=== PATIENT | female | born 1930 | race Caucasian/White ===

== ENCOUNTER 2017-06-19 13:44 | Emergency (ER) | payer OTHER ==
[2017-06-19 13:59] VITALS: BP 107/59; PULSE 69; TEMP 98.1; BMI 27.4
--- NOTE | 2017-06-19 14:16 | PDOC ---
History of Present Illness - General Chief Complaint: Wound Infection Stated Complaint: SENT BY PCP/wound infection Time Seen by Provider: 06/19/17 14:15 - History of Present Illness Initial Comments: 86 year old female wth PMH of Parkinsons, arhtritis, and some sort of badder surgery (for incontinence) presenting from PCP (Dr. Sneed) for "shingles treatment". She was given valacyclovir from another family friend physician yesterday but had nausea and vomiting and wasn't able to keep the medicine. The rash started Thursday afternoon ([facility] confirmed this). They attempted to get in touch with Nedra then went to a family friend physician when that was unsuccessful. Pain better with Aloevera worse with touch of wound. She is at her baseline mental status, denies fevers, chills, abdominal pain, constipation. Granddaughter also at bedside and corroborating story. She admits that the patient has some sort of baseline swallow dysfunction. 06/19/17 15:08 Past History - Past Medical History Allergies/Adverse Reactions: Allergies Allergy/AdvReac Type Severity Reaction Status Date / Time valsartan [From Diovan] Allergy Verified 06/19/17 13:59 Home Medications: Ambulatory Orders Aspirin [ASA -] 81 mg PO DAILY 02/19/15 Carbidopa/Levodopa [Carbidopa-Levo 50-200 Tab SA] 1 each PO TID 02/19/15 Nebivolol HCl [Bystolic] 2.5 mg PO DAILY 02/19/15 Omeprazole [Prilosec] 20 mg PO DAILY 02/19/15 Prednisone [Deltasone -] 2.5 mg PO DAILY 02/19/15 Rivastigmine [Exelon Patch 4.6MG/24 Hours -] 1 each TD DAILY 02/19/15 Levofloxacin [Levaquin -] 250 mg PO DAILY #7 tablet 07/16/16 Maltodextrin/Xanthan Gum [Thicken Up] 1 each PO AC #120 powd.pack 06/19/17 Anemia: No Asthma: No Cancer: No Cardiac Disorders: Yes (CAD) CVA: No COPD: No CHF: No Dementia: Yes Diabetes: No GI Disorders: No Disorders: No HTN: No Hypercholesterolemia: No Liver Disease: No Psychiatric Problems: No Seizures: No Thyroid Disease: No - Surgical History Abdominal Surgery: Yes Appendectomy: Yes Cardiac Surgery: No Cholecystectomy: Yes Lung Surgery: No Neurologic Surgery: No Orthopedic Surgery: No - Immunization History Td Vaccination: No Immunization Up to Date: Yes - Psycho/Social/Smoking Cessation Hx Anxiety: No Suicidal Ideation: No Smoking Status: No Smoking History: Never smoked Have you smoked in the past 12 months: No Number of Cigarettes Smoked Daily: 0 If you are a former smoker, when did you quit?: 40 4ears ago Information on smoking cessation initiated: No Hx Alcohol Use: No Drug/Substance Use Hx: No Substance Use Type: None Hx Substance Use Treatment: No Review of Systems - Review of Systems Able to Perform ROS?: No (demented) *Physical Exam - Vital Signs Last Vital Signs Temp Pulse Resp BP Pulse Ox 98.1 F 69 19 107/59 98 06/19/17 13:57 06/19/17 13:57 06/19/17 13:57 06/19/17 13:57 06/19/17 13:57 - Physical Exam Comments: 06/19/17 15:53 Not cooperative with physical exam. General Appearance: Yes: Other (Sitting contracted and ). No: Appropriately Dressed, Apparent Distress HEENT: positive: EOMI, EVERETT, Other (Dysphagia and couging with water. Was able to tolerate pudding without diffculty.) Respiratory/Chest: positive: Chest Tender (T4-T5 dermatomal distrubtion rash with some pustles with serous fluid drainage without crossing of the midline. No sign of superficial infection.), Lungs Clear, Normal Breath Sounds. negative : Respiratory Distress, Accessory Muscle Use Cardiovascular: positive: Regular Rhythm, Regular Rate, S1, S2. negative: Edema , JVD, Murmur Gastrointestinal/Abdominal: positive: Normal Bowel Sounds, Flat, Soft. negative : Tender Musculoskeletal: positive: Normal Inspection, Other (Appears contracted with ocassional resting tremor) Extremity: positive: Normal Capillary Refill Neurologic: positive: Alert, Other (Clearly dimented.) Medical Decision Making - Medical Decision Making 86 year old with PMH of dementia presenting with physical findings concerning for herpes Zoster. She wasn't tolerating her Valacyclovir given by a family physician but she has some history of dysphagia. She did not appear dry and was ablel to tolerate pudding. Will send home with her own valacylovir prescription and will attempt to prescribe some thickening agent. 06/19/17 16:03 *DC/Admit/Observation/Transfer Diagnosis at time of Disposition: Herpes zoster - Discharge Dispostion Disposition: HOME Condition at time of disposition: Improved Admit: No - Prescriptions Prescriptions: Maltodextrin/Xanthan Gum [Thicken Up] 1 each PO AC #120 powd.pack - Referrals Referrals: Umair Sneed MD [Primary Care Provider] - - Patient Instructions Printed Discharge Instructions: Shingles Additional Instructions: You were seen for shingles. Please take your medications crushed up into apple sauce or pudding. lease see Dr. Sneed in a week. Please return if you have any fevers, chills, nausea, vomiting, or other symptoms. Print Language: SLOVENIAN - Attestations Physician Attestion: 06/19/17 16:11 I, Dr. Grzegorz Erazo, attest that this document has been prepared under my direction and personally reviewed by me in its entirety. I further attest, that it accurately reflects all work, treatment, procedures and medical decision -making performed by me. 06/19/17 16:15
--- NOTE | 2017-06-19 14:49 | PDOC ---
Attending Attestation - Resident Resident Name: Valarie Erazomitchellhari - ED Attending Attestation I have performed the following: I have examined & evaluated the patient, The case was reviewed & discussed with the resident, I agree w/resident's findings & plan, Exceptions are as noted - HPI HPI: 06/19/17 15:53 86y Fsent tot ED by PMD for evaluation of zoster. pt was dx with ion, was given valtrex, but pt had an episode of vomiting after taking the pill. Apparently the pt has problems swalling due to her parkinsons, and sometimes she forgets to swallow while eating. No associated cp, f/c, abd pain. on exam pt in no distress well hydrated +zoster rash approximately T5 pt tolerating oral intake here will have the pt cut her pill in half prior to ingesting return precautions were discussed - Physicial Exam PE: 06/20/17 17:50 see above - Medical Decision Making 06/20/17 17:50 see above
== END 2017-06-19 16:34 | disposition home or self-care (01) ==
LOC: JER 13:44
DX: B02.9 Zoster without complications (principal); F03.90 Unspecified dementia, unspecified severity, without behavioral disturbance, psychotic disturbance, mood disturbance, and anxiety; I25.10 Atherosclerotic heart disease of native coronary artery without angina pectoris; Z87.891 Personal history of nicotine dependence
CPT/HCPCS: 99282-25

== ENCOUNTER 2017-10-16 17:09 | Inpatient (IN) | payer OTHER ==
[2017-10-16 17:15] VITALS: BMI 25.6
[2017-10-16] MEDS ORDERED: SODIUM CHLORIDE 0.9% 1000 ML INFUS.BAG IV STA (17:49)
[2017-10-16] MEDS ORDERED: ACETAMINOPHEN 500 MG TABLET (FP) PO ONE (18:04)
--- NOTE | 2017-10-16 18:11 | PDOC ---
History of Present Illness - General Chief Complaint: Shortness of Breath Stated Complaint: COUGHING/ PCP SENT Time Seen by Provider: 10/16/17 17:41 History Source: Care Provider, Family Exam Limitations: Dementia - History of Present Illness Initial Comments: This is an 86 YOF with h/o Parkinson's, dementia, and frequent trouble swallowing who presents with family and caregiver c/o productive cough for the past 1.5 weeks despite cough syrup use. The family took her to see her PMD Dr. Sneed in his clinic today, and Dr. Sneed reportedly heard breath sounds possibly concerning for PNA, but he did not have an x-ray tech in his office over the weekend and instructed them to bring her here to the ED. The family explains that the patient felt warm to the touch today, but otherwise is acting per her normal baseline (which is nonverbal, minimally interactive). She has not had obvious pain, blood or strange smells on urination. She reportedly had had her pneumococcal vaccination. On [facility] records, her last admission was in 2016 and her last ED visit was in 06/2017. She has not been on any recent antibiotics. Past History - Past Medical History Allergies/Adverse Reactions: Allergies Allergy/AdvReac Type Severity Reaction Status Date / Time valsartan [From Diovan] Allergy Verified 10/16/17 17:15 Home Medications: Ambulatory Orders Aspirin [ASA -] 81 mg PO DAILY 02/19/15 Carbidopa/Levodopa [Carbidopa-Levo 50-200 Tab SA] 1 each PO TID 02/19/15 Nebivolol HCl [Bystolic] 2.5 mg PO DAILY 02/19/15 Omeprazole [Prilosec] 20 mg PO DAILY 02/19/15 Prednisone [Deltasone -] 2.5 mg PO DAILY 02/19/15 Rivastigmine [Exelon Patch 4.6MG/24 Hours -] 1 each TD DAILY 02/19/15 Anemia: No Asthma: No Cancer: No Cardiac Disorders: Yes (CAD) CVA: No COPD: No CHF: No Dementia: Yes Diabetes: No GI Disorders: No Disorders: No HTN: No Hypercholesterolemia: No Liver Disease: No Psychiatric Problems: No Seizures: No Thyroid Disease: No Other medical history: alzheimers, parkinson's - Surgical History Abdominal Surgery: Yes Appendectomy: Yes Cardiac Surgery: No Cholecystectomy: Yes Lung Surgery: No Neurologic Surgery: No Orthopedic Surgery: No - Immunization History Td Vaccination: No Immunization Up to Date: Yes - Suicide/Smoking/Psychosocial Hx Smoking Status: No Smoking History: Never smoked Have you smoked in the past 12 months: No Number of Cigarettes Smoked Daily: 0 If you are a former smoker, when did you quit?: 40 4ears ago Information on smoking cessation initiated: No Hx Alcohol Use: No Drug/Substance Use Hx: No Substance Use Type: None Hx Substance Use Treatment: No Respiratory Specific PMHX - Complaint Specific PMHX Pneumonia: No Review of Systems - Review of Systems Able to Perform ROS?: No (dementia) *Physical Exam - Vital Signs Last Vital Signs Temp Pulse Resp BP Pulse Ox 102.9 F H 96 H 19 142/64 93 L 10/16/17 17:13 10/16/17 17:13 10/16/17 17:13 10/16/17 17:13 10/16/17 17:13 - Physical Exam General Appearance: Yes: Appropriately Dressed, Other (minimally interactive, rarely makes eye contact and nonverbal) HEENT: positive: EOMI, EVERETT, Other (edentulous) Neck: negative: Tender Respiratory/Chest: positive: Crackles (diffuse but worse in right bases). negative: Chest Tender, Respiratory Distress, Wheezing Cardiovascular: positive: Regular Rhythm, Regular Rate. negative: Edema Gastrointestinal/Abdominal: positive: Normal Bowel Sounds, Flat, Soft Musculoskeletal: positive: Normal Inspection (chronic scarring/skin changes to back, no ulcers). negative: CVA Tenderness Extremity: positive: Normal Capillary Refill, Other (arthritic changes bilateral hands/fingers) Integumentary: positive: Dry, Warm Neurologic: positive: Other (moving upper extremities but not lower extremities , constant chewing motion of jaw) ED Treatment Course - LABORATORY CBC & Chemistry Diagram: 10/16/17 18:00 10/16/17 18:00 Medical Decision Making - Medical Decision Making 86 YOF with severe dementia, Parkinson's, wheelchair bound, swallowing difficulties p/w productive cough x1.[address] Sneed from the clinic when he hear RLL crackles concerning for PNA , no CXR in their clinic over weekend. Here in the ED she is febrile, mild tachycardia, mild hypoxia, crackles at bases and very productive cough. DDX IBNLT PNA, bronchitis, sepsis, possible UTI or other source as well. Ordered are CBCD, CMP, lactate, blood cultures, UA cx, CXR. 10/16/17 19:17 Mild WBC elevation but lactate 2.9. *DC/Admit/Observation/Transfer Diagnosis at time of Disposition: Pneumonia Qualifiers: Pneumonia type: due to unspecified organism Laterality: bilateral Lung location : lower lobe of lung Qualified Code(s): J18.9 - Pneumonia, unspecified organism - Discharge Dispostion Condition at time of disposition: Guarded Admit: Yes - Referrals - Patient Instructions - Post Discharge Activity
[2017-10-16 18:21] LABS: BASOPHIL 0.2 % (0-2.0); MCHC 32.2 g/dl (32.0-36.0); MEAN CELL VOLUME 93.2 fl (80-96); MEAN PLT VOLUME 8.2 fl (7.5-11.1); NEUTROPHILS 85.9 % (42.8-82.8); PLATELET COUNT 227 K/MM3 (134-434); RDW 14.5 % (11.6-15.6); WHITE BLOOD COUNT 11.2 K/mm3 (4.0-10.0)
[2017-10-16 18:26] LABS: VENOUS PH 7.38 (7.32-7.42)
[2017-10-16 18:27] LABS: VENOUS BLOOD GAS HCO3 36.4 meq/L (19-25)
[2017-10-16] MEDS ORDERED: ACETAMINOPHEN INJECTION 100 ML IVPB ONE (18:30)
[2017-10-16] MEDS ORDERED: ACETAMINOPHEN 1000 MG/100 ML VIAL (NON FORMULARY) IVPB ONE (18:41)
[2017-10-16 18:44] LABS: INR 1.04 (0.82-1.09); PROTHROMBIN TIME (PATIENT) 11.8 SEC (9.98-11.88)
[2017-10-16 18:46] LABS: ACTIVATED PTT 24.5 SECONDS (26.9-34.4)
[2017-10-16 18:50] LABS: ALBUMIN 3.2 g/dl (3.4-5.0); ANION GAP 7 (8-16); BILIRUBIN,TOTAL 0.3 mg/dL (0.2-1.0); CALCIUM 8.6 mg/dL (8.5-10.1); CO2 35 mmol/L (21-32); CREATININE 1.3 mg/dL (0.55-1.02); GLUCOSE,RANDOM 243 mg/dL (74-106); SGOT/AST 14 U/L (15-37); SGPT/ALT 11 U/L (12-78); TOT PROT 6.9 g/dl (6.4-8.2)
[2017-10-16 18:52] LABS: ALK PHOS 85 U/L (45-117); CPK 22 IU/L (26-192); TROPONIN I 0.02 ng/ml (0.00-0.05)
[2017-10-16] MEDS ORDERED: PIPERACILLIN/TAZOB 4.5 GM/100 ML PRE-DOCKED IVPB ONE (19:19)
[2017-10-16] MEDS ORDERED: AMPICILLIN NA/SULBACTAM NA 3 GM in SODIUM CHLORIDE 100 ML IVPB ONE (20:07)
[2017-10-16 20:15] LABS: URINE APPEARANCE CLOUDY; URINE BILIRUBIN NEGATIVE (NEGATIVE); URINE BLOOD 1+ (NEGATIVE); URINE COLOR YELLOW; URINE GLUCOSE (UA) NEGATIVE (NEGATIVE); URINE KETONE TRACE (NEGATIVE); URINE NITRITE NEGATIVE (NEGATIVE); URINE PROTEIN NEGATIVE (NEGATIVE); URINE UROBILINOGEN NEGATIVE mg/dL (0.2-1.0)
[2017-10-16] MEDS ORDERED: PIPERACILLIN/TAZOB 4.5 GM 4.5 GM/100 ML BAG IVPB ONE (20:24)
--- NOTE | 2017-10-16 20:41 | PDOC ---
Attending Attestation - HPI HPI: 10/16/17 20:58 The patient is a 86 year old female, accompanied by family, with a significant past medical history of Parkinsons, dementia, dysphagia, who presents to the emergency department with productive cough for approx. 1.5 weeks. The patients family reports they visited the PCP Dr. Sneed this morning who advised the patient visit the ER for evaluation of lung sounds. The patient's family reports the patient has been taking cough syrup for the cough without relief and has been noticeably warm to touch. PCP: Dr. Sneed Documentation prepared by Francisco Kraus, acting as lpn or medical assistant for Seth Cm MD. - Physicial Exam PE: 10/16/17 20:59 Vitals: Triage Vital signs reviewed General Appearance: no acute distress, baseline non verbal dementia Chest Wall: Nontender Cardiac: Regular rate and rhythym, no murmurs, no rubs, no gallops Lungs: +Diffuse crackles. Abdomen: Soft, non distended, normal bowel sounds, non tender to palpation <Francisco Kraus - Last Filed: 10/16/17 22:27> - Resident Resident Name: Jaqui Ward - ED Attending Attestation I have performed the following: I have examined & evaluated the patient, The case was reviewed & discussed with the resident, I agree w/resident's findings & plan, Exceptions are as noted - Medical Decision Making 86 years old history and physical examination concerning for pneumonia possible sepsis. Labs chest x-ray consistent with pneumonia. Given her elevated lactic broad- spectrum Antibiotics ordered. 30 mL/kg IV fluids ordered Hemodynamically patient stable 10/16/17 21:02 <Seth Cm - Last Filed: 10/17/17 02:08>
[2017-10-16 21:04] LABS: URINE BACTERIA RARE /hpf (NONE SEEN); URINE MUCUS RARE; URINE RBC 20; URINE WBC 68
[2017-10-16] MEDS ORDERED: ACETAMINOPHEN 650 MG SUPP.RECT PR PRN (21:17)
[2017-10-16] MEDS ORDERED: SODIUM CHLORIDE 1,000 ML IV STA ×2 (21:23)
[2017-10-16] MEDS ORDERED: ONDANSETRON 4 MG/2 ML VIAL IVPUSH ONE (21:26)
[2017-10-17] MEDS: methylPREDNISolone NA SUCC 40 MG/1 ML VIAL IVPUSH SCH ×3 (01:21→10:11)
[2017-10-17] MEDS: AMPICILLIN NA/SULBACTAM NA 3 GM in SODIUM CHLORIDE 100 ML IVPB SCH ×4 (03:53→21:09)
[2017-10-17 06:33] LABS: BASOPHIL 0.1 % (0-2.0); MCH 30.1 pg (25.7-33.7); MCHC 32.5 g/dl (32.0-36.0); MEAN CELL VOLUME 92.4 fl (80-96); MEAN PLT VOLUME 7.9 fl (7.5-11.1); PLATELET COUNT 178 K/MM3 (134-434); RDW 14.2 % (11.6-15.6)
[2017-10-17 07:10] LABS: ANION GAP 9 (8-16); CALCIUM 7.9 mg/dL (8.5-10.1); CO2 29 mmol/L (21-32); CREATININE 1.3 mg/dL (0.55-1.02); GLUCOSE,RANDOM 152 mg/dL (74-106)
[2017-10-17] MEDS ORDERED: PT OWN MED DRAWER 7, Y5N ONE (08:53)
[2017-10-17] MEDS: DOXYCYCLINE INJECTION 100 MG in DEXTROSE 5%-WATER - 100 ML IVPB SCH ×4 (10:09→21:54)
[2017-10-17] MEDS: HEPARIN NA (PORCINE) 5,000 UNITS/ML 1ML VIAL SQ SCH ×3 (10:11→21:13)
[2017-10-17] MEDS: ASPIRIN 81 MG CHEWABLE TABLETS PO SCH (10:12)
[2017-10-17] MEDS: PANTOPRAZOLE SODIUM 40 MG VIAL IVPUSH SCH (10:12)
[2017-10-17] MEDS: NEBIVOLOL 2.5 MG TABLET (FP) PO SCH (10:12)
[2017-10-17] MEDS: RIVASTIGMINE 4.6 MG/24 HOURS TRANSDERMAL PATCH TD SCH (11:55)
--- NOTE | 2017-10-17 12:32 | HP ---
Admitting History and Physical - Primary Care Physician PCP: Umair Sneed - Admission Chief Complaint: Cough and chest congestion History of Present Illness: 86 yrs olds F lives at home with family bed bound, oriented to self, non communicative H/O Parkinsonism, Dementia, HTN 1 wk ago recived Flu and Pneumonia shot has been feeling mucoid sputum, yesterday PMD noticed chest siugns referred to Ed for evaluation, on arrival to Ed CXR shows B/L Basa l infiltrates with chest signs admitted for further evaluation, as per daughter, patient is on Puree diet, no chocking but holds food in the mouth. no doarrhea, SOB, low grdae fever documented at home. 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: Yes: Alzheimer's, Parkinson's Cardiovascular: Yes: Aortic Insufficiency (moderate to severe), CHF, HTN Pulmonary: Yes: COPD (interstitial lung disease) ...: No Heme/Onc: Yes: Anemia, B12 Deficiency, Other (DVT) Endocrine: Yes: Diabetes Mellitus - Past Surgical History Past Surgical History: Yes: Appendectomy, Cholecystectomy - Smoking History Smoking history: Never smoked Have you smoked in the past 12 months: No Aproximately how many cigarettes per day: 0 If you are a former smoker, when did you quit?: 40 4ears ago - Alcohol/Substance Use Hx Alcohol Use: No Home Medications - Allergies Allergies/Adverse Reactions: Allergies Allergy/AdvReac Type Severity Reaction Status Date / Time valsartan [From Diovan] Allergy Verified 10/16/17 17:15 - Home Medications Home Medications: Ambulatory Orders Aspirin [ASA -] 81 mg PO DAILY 02/19/15 Carbidopa/Levodopa [Carbidopa-Levo 50-200 Tab SA] 1 each PO TID 02/19/15 Nebivolol HCl [Bystolic] 2.5 mg PO DAILY 02/19/15 Omeprazole [Prilosec] 20 mg PO DAILY 02/19/15 Prednisone [Deltasone -] 2.5 mg PO DAILY 02/19/15 Rivastigmine [Exelon Patch 4.6MG/24 Hours -] 1 each TD DAILY 02/19/15 Family Disease History - Family Disease History Family History: Unremarkable Physical Examination Vital Signs: Vital Signs Temperature 98.6 F 10/17/17 10:00 Pulse Rate 62 10/17/17 10:00 Respiratory Rate 18 10/17/17 10:00 Blood Pressure 123/80 10/17/17 10:00 O2 Sat by Pulse Oximetry (%) 100 10/17/17 10:00 Elderly F Oriented to Self not in distress HEENT: Mm moist, no anemia, PERRLA, EOMI NECK; No JVD No Bruit, Thyroid Central CHEST: B/L Basal crepts Left > Rt CVS: S1S2 R no m/g/r ABD: No distention, non tender BS + EXT: Trace sussy afeet, no calf tenderness, Pulses + [employer] MANAGER: oriented to Self , moving all extremities Labs: CBC, BMP 10/17/17 05:00 10/17/17 05:00 Laboratory Results - last 24 hr 10/16/17 10/16/17 10/16/17 18:00 18:00 18:00 WBC 11.2 H RBC 4.48 D Hgb 13.5 D Hct 41.8 D MCV 93.2 MCH 30.0 MCHC 32.2 RDW 14.5 Plt Count 227 MPV 8.2 Neutrophils % 85.9 H D Lymphocytes % 6.7 L D Monocytes % 7.2 Eosinophils % 0.0 D Basophils % 0.2 PT with INR 11.80 INR 1.04 PTT (Actin FS) 24.5 L VBG pH 7.38 POC VBG pCO2 62.7 H* POC VBG pO2 25.5 L Mixed VBG HCO3 36.4 H Sodium Potassium Chloride Carbon Dioxide Anion Gap BUN Creatinine Creat Clearance w eGFR Random Glucose Hemoglobin A1c % Lactic Acid Calcium Total Bilirubin AST ALT Alkaline Phosphatase Creatine Kinase Troponin I Total Protein Albumin Urine Color Urine Appearance Urine pH Ur Specific [place] Urine Protein Urine Glucose (UA) Urine Ketones Urine Blood Urine Nitrite Urine Bilirubin Urine Urobilinogen Urine WBC (Auto) Urine RBC (Auto) Ur Epithelial Cells Urine Bacteria Urine Mucus Blood Type Antibody Screen 10/16/17 10/16/17 10/16/17 18:00 18:00 18:00 WBC RBC Hgb Hct MCV MCH MCHC RDW Plt Count MPV Neutrophils % Lymphocytes % Monocytes % Eosinophils % Basophils % PT with INR INR PTT (Actin FS) VBG pH POC VBG pCO2 POC VBG pO2 Mixed VBG HCO3 Sodium 139 Potassium 4.1 Chloride 97 L D Carbon Dioxide 35 H D Anion Gap 7 L BUN 28 H D Creatinine 1.3 H D Creat Clearance w eGFR 38.75 Random Glucose 243 H D Hemoglobin A1c % Lactic Acid 2.9 H* Calcium 8.6 Total Bilirubin 0.3 D AST 14 L ALT 11 L Alkaline Phosphatase 85 D Creatine Kinase 22 L Troponin I 0.02 Total Protein 6.9 D Albumin 3.2 L D Urine Color Urine Appearance Urine pH Ur Specific [place] Urine Protein Urine Glucose (UA) Urine Ketones Urine Blood Urine Nitrite Urine Bilirubin Urine Urobilinogen Urine WBC (Auto) Urine RBC (Auto) Ur Epithelial Cells Urine Bacteria Urine Mucus Blood Type B POSITIVE Antibody Screen Negative 10/16/17 10/16/17 10/17/17 19:52 21:38 05:00 WBC 12.0 H RBC 3.73 Hgb 11.2 D Hct 34.4 D MCV 92.4 MCH 30.1 MCHC 32.5 RDW 14.2 Plt Count 178 D MPV 7.9 Neutrophils % 91.0 H Lymphocytes % 5.4 L Monocytes % 3.5 L Eosinophils % 0.0 Basophils % 0.1 PT with INR INR PTT (Actin FS) VBG pH POC VBG pCO2 POC VBG pO2 Mixed VBG HCO3 Sodium Potassium Chloride Carbon Dioxide Anion Gap BUN Creatinine Creat Clearance w eGFR Random Glucose Hemoglobin A1c % Lactic Acid 1.3 Calcium Total Bilirubin AST ALT Alkaline Phosphatase Creatine Kinase Troponin I Total Protein Albumin Urine Color Yellow Urine Appearance Cloudy Urine pH 6.0 Ur Specific [place] 1.011 Urine Protein Negative Urine Glucose (UA) Negative Urine Ketones Trace H Urine Blood 1+ H Urine Nitrite Negative Urine Bilirubin Negative Urine Urobilinogen Negative Urine WBC (Auto) 68 Urine RBC (Auto) 20 Ur Epithelial Cells Rare Urine Bacteria Rare Urine Mucus Rare Blood Type Antibody Screen Imaging - Results X-ray: Report Reviewed (Poor inspiratory efforts) EKG: Report Reviewed (No acute St T chnages) Problem List - Problems (1) Pneumonia Assessment/Plan: Present with cough, expectoration, Pulmonary sign low grade fever elevated TWBC and Lactic acid possibality of aspiration / atypical pneumonai on IV Unasyn and Doixycycline improving O2 saturation is well not in distress will F/ U U Legionella and sputum aand blood culture Code(s): J18.9 - PNEUMONIA, UNSPECIFIED ORGANISM Qualifiers: Pneumonia type: due to unspecified organism Laterality: bilateral Lung location: lower lobe of lung Qualified Code(s): J18.9 - Pneumonia, unspecified organism (2) UTI (urinary tract infection) Assessment/Plan: U WBC + low grade fever F/U urine culture on IV anbx Code(s): N39.0 - URINARY TRACT INFECTION, SITE NOT SPECIFIED (3) Parkinson's disease dementia Assessment/Plan: Cont home medication Code(s): G20 - PARKINSON'S DISEASE; F02.80 - DEMENTIA IN OTH DISEASES CLASSD ELSWHR W/O BEHAVRL DISTURB (4) Swallowing difficulty Assessment/Plan: Puree diet speech and swallow evaluation. Code(s): R13.10 - DYSPHAGIA, UNSPECIFIED (5) Hypertension Assessment/Plan: Cont all Home meds Code(s): I10 - ESSENTIAL (PRIMARY) HYPERTENSION (6) Sepsis Assessment/Plan: Elevated TWBC, + UA with , + U Culture Altered mental status and elevated TWBC with fever on IV Abx F/U final culture report Code(s): A41.9 - SEPSIS, UNSPECIFIED ORGANISM
[2017-10-17] MEDS ORDERED: ALBUTEROL SO4 2.5/IPRATROPIUM 0.5 INH SOL 3 ML VIAL.NEB. NEB PRN (12:39)
[2017-10-17 16:14] LABS: URINE LEUK ESTERASE 3+ (NEGATIVE)
[2017-10-18] MEDS: AMPICILLIN NA/SULBACTAM NA 3 GM in SODIUM CHLORIDE 100 ML IVPB SCH ×4 (02:22→21:08)
[2017-10-18] MEDS: ASPIRIN 81 MG CHEWABLE TABLETS PO SCH (09:05)
[2017-10-18] MEDS: HEPARIN NA (PORCINE) 5,000 UNITS/ML 1ML VIAL SQ SCH ×2 (09:05→21:39)
[2017-10-18] MEDS: PANTOPRAZOLE SODIUM 40 MG VIAL IVPUSH SCH (09:06)
[2017-10-18] MEDS: NEBIVOLOL 2.5 MG TABLET (FP) PO SCH (09:06)
[2017-10-18] MEDS: DOXYCYCLINE INJECTION 100 MG in DEXTROSE 5%-WATER - 100 ML IVPB SCH ×2 (09:06→21:40)
[2017-10-18] MEDS: RIVASTIGMINE 4.6 MG/24 HOURS TRANSDERMAL PATCH TD SCH (09:07)
--- NOTE | 2017-10-18 13:34 | PN ---
Progress Note, Physician Chief Complaint: Alert oriented communicative History of Present Illness: 86 yrs old with Dementia, HTN, Parkinsonism admitted with UTI with sepsis with AMS ? aspiration Pneumonia - Current Medication List Current Medications: Active Medications Acetaminophen (Tylenol Suppository -) 650 mg AR Q6H PRN PRN Reason: FEVER OR PAIN Albuterol/Ipratropium (Duoneb -) 1 amp NEB Q6H PRN PRN Reason: SHORTNESS OF BREATH Aspirin (Asa -) 81 mg PO DAILY [facility] Last Admin: 10/18/17 09:05 Dose: 81 mg Carbidopa/Levodopa (Sinemet *Cr* 50/200 -) 1 combo PO TID [facility] Last Admin: 10/18/17 05:38 Dose: 1 combo Heparin Sodium (Porcine) (Heparin -) 5,000 unit SQ BID [facility] Last Admin: 10/18/17 09:05 Dose: 5,000 unit Ampicillin Sodium/Sulbactam (Sodium 3 gm/ Sodium Chloride) 100 mls @ 200 mls/ hr IVPB Q6H-IV [facility] Last Admin: 10/18/17 08:48 Dose: 200 mls/hr Doxycycline Hyclate 100 mg/ (Dextrose) 100 mls @ 100 mls/hr IVPB BID [facility] Last Admin: 10/18/17 09:06 Dose: 100 mls/hr Nebivolol (Bystolic -) 2.5 mg PO DAILY [facility] Last Admin: 10/18/17 09:06 Dose: 2.5 mg Pantoprazole Sodium (Protonix Iv) 40 mg IVPUSH DAILY [facility] Last Admin: 10/18/17 09:06 Dose: 40 mg Rivastigmine (Exelon Patch 4.6mg/24 Hours -) 1 each TD Q24H [facility] Last Admin: 10/18/17 09:07 Dose: 1 each - Objective Vital Signs: Vital Signs Temperature 98.3 F 10/18/17 07:56 Pulse Rate 58 L 10/18/17 07:56 Respiratory Rate 18 10/18/17 08:02 Blood Pressure 118/50 10/18/17 07:56 O2 Sat by Pulse Oximetry (%) 98 10/18/17 08:02 Labs: CBC, BMP 10/17/17 05:00 10/17/17 05:00 INR, PTT INR 1.04 (0.82-1.09) 10/16/17 18:00 Problem List - Problems (1) Pneumonia Assessment/Plan: Present with cough, expectoration, Pulmonary sign low grade fever elevated TWBC and Lactic acid possibality of aspiration / atypical pneumonai on IV Unasyn and Doixycycline improving O2 saturation is well not in distress will F/ U U Legionella and sputum aand blood culture Code(s): J18.9 - PNEUMONIA, UNSPECIFIED ORGANISM Qualifiers: Pneumonia type: due to unspecified organism Laterality: bilateral Lung location: lower lobe of lung Qualified Code(s): J18.9 - Pneumonia, unspecified organism (2) UTI (urinary tract infection) Assessment/Plan: U WBC + low grade fever F/U urine culture on IV abx, Urine Grew 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 Code(s): N39.0 - URINARY TRACT INFECTION, SITE NOT SPECIFIED (3) Parkinson's disease dementia Assessment/Plan: Cont home medication Code(s): G20 - PARKINSON'S DISEASE; F02.80 - DEMENTIA IN OTH DISEASES CLASSD ELSWHR W/O BEHAVRL DISTURB (4) Swallowing difficulty Assessment/Plan: Puree diet speech and swallow evaluation. Code(s): R13.10 - DYSPHAGIA, UNSPECIFIED (5) Hypertension Assessment/Plan: Cont all Home meds Code(s): I10 - ESSENTIAL (PRIMARY) HYPERTENSION (6) Sepsis Assessment/Plan: Elevated TWBC, + UA with , + U Culture Altered mental status and elevated TWBC with fever on IV Abx F/U final culture report Code(s): A41.9 - SEPSIS, UNSPECIFIED ORGANISM (7) Leukocytosis Assessment/Plan: Most likely due to high dose steroids Code(s): D72.829 - ELEVATED WHITE BLOOD CELL COUNT, UNSPECIFIED
[2017-10-18 14:40] LABS: BASOPHIL 0.3 % (0-2.0); MCH 29.6 pg (25.7-33.7); MCHC 31.9 g/dl (32.0-36.0); MEAN CELL VOLUME 92.8 fl (80-96); MEAN PLT VOLUME 8.4 fl (7.5-11.1); NEUTROPHILS 84.2 % (42.8-82.8); PLATELET COUNT 195 K/MM3 (134-434); RDW 14.1 % (11.6-15.6); WHITE BLOOD COUNT 19.8 K/mm3 (4.0-10.0)
[2017-10-18] MEDS ORDERED: SODIUM CHLORIDE 1,000 ML IV STA (19:04)
[2017-10-19] MEDS: AMPICILLIN NA/SULBACTAM NA 3 GM in SODIUM CHLORIDE 100 ML IVPB SCH ×4 (03:26→20:51)
[2017-10-19 07:36] LABS: ANION GAP 10 (8-16); CALCIUM 8.3 mg/dL (8.5-10.1); CO2 28 mmol/L (21-32); GLUCOSE,RANDOM 93 mg/dL (74-106)
[2017-10-19] MEDS ORDERED: PT OWN MED DRAWER 7, Y5N ONE ×2 (07:42→09:04)
[2017-10-19 07:51] LABS: BASOPHIL 0.5 % (0-2.0); EOSINOPHIL 0.1 % (0-4.5); MCH 28.9 pg (25.7-33.7); MCHC 31.4 g/dl (32.0-36.0); MEAN CELL VOLUME 92.1 fl (80-96); MEAN PLT VOLUME 8.7 fl (7.5-11.1); NEUTROPHILS 72.4 % (42.8-82.8); PLATELET COUNT 193 K/MM3 (134-434); WHITE BLOOD COUNT 12.8 K/mm3 (4.0-10.0)
[2017-10-19] MEDS: HEPARIN NA (PORCINE) 5,000 UNITS/ML 1ML VIAL SQ SCH ×2 (09:02→21:50)
[2017-10-19] MEDS: DOXYCYCLINE INJECTION 100 MG in DEXTROSE 5%-WATER - 100 ML IVPB SCH ×2 (09:03→21:50)
[2017-10-19] MEDS: ASPIRIN 81 MG CHEWABLE TABLETS PO SCH (09:05)
[2017-10-19] MEDS: PANTOPRAZOLE SODIUM 40 MG VIAL IVPUSH SCH (09:07)
[2017-10-19] MEDS: NEBIVOLOL 2.5 MG TABLET (FP) PO SCH (09:07)
[2017-10-19] MEDS: RIVASTIGMINE 4.6 MG/24 HOURS TRANSDERMAL PATCH TD SCH (09:07)
[2017-10-19] MEDS ORDERED: predniSONE 2.5 MG TABLET PO SCH (10:00)
[2017-10-19] MEDS: predniSONE 10 MG TABLET (UD) PO SCH (10:51)
--- NOTE | 2017-10-19 10:57 | CONSULT ---
Admitting History and Physical - Primary Care Physician PCP: Gerber Byrne - Admission History of Present Illness: 86 yrs old with Dementia, HTN, Parkinsonism admitted with UTI with sepsis with AMS ? aspiration Pneumonia Selected Entries 10/18/17 10/18/17 10/18/17 02:00 05:27 07:56 Breakfast Lunch Supper Temperature 97.8 F 98.5 F 98.3 F 10/18/17 10/18/17 10/18/17 12:41 14:30 19:24 Breakfast 50% Lunch 50% Supper Temperature 98 F 98.1 F 10/18/17 10/18/17 10/19/17 19:31 22:00 02:00 Breakfast Lunch Supper 50% Temperature 98.8 F 98.9 F 10/19/17 10/19/17 06:00 07:53 Breakfast Lunch Supper Temperature 99.0 F 98.3 F Laboratory Tests 10/17/17 10/19/17 05:00 05:10 WBC 12.0 H 12.8 H D Last seen by me 01/10/14 Diet upgraded to dysphagia ground with extra gravy and 1-2 soft finger foods eg soft sandwich,chicken fingers, muffins etc with good tolerance at that time. 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: Alzheimer's, Parkinson's Cardiovascular: Yes: Aortic Insufficiency (moderate to severe), CHF, HTN Pulmonary: Yes: COPD (interstitial lung disease) ...: No Heme/Onc: Yes: Anemia, B12 Deficiency, Other (DVT) Endocrine: Yes: Diabetes Mellitus - Past Surgical History Past Surgical History: Yes: Appendectomy, Cholecystectomy - Smoking History Smoking history: Never smoked Have you smoked in the past 12 months: No Aproximately how many cigarettes per day: 0 If you are a former smoker, when did you quit?: 40 4ears ago - Alcohol/Substance Use Hx Alcohol Use: No History - Admission Reason For Visit: PNEUMONIA - Diagnostics X-ray: Report Reviewed - General Mental Status: Awake and Alert, Able to Follow Commands Attention: Intact Ability to Follow Directions: Excellent Head/Neck Control: WFL - Hearing Hearing: Functional Hearing: Normal Hearing Aide: No With Patient: No Speech Evaluation - Communication Primary Language: PRYDEINIG Communication: Yes: Within Normal Limits - Swallow Evaluation/Bedside Assessment Current Nutritional Intake: Dysphagia Pureed, Thin Liquids Oral Secretions: Yes: Tongue Coated (white. mouth care? vs thrush) Dentition: Yes: Edentulous Facial Symmetry at Rest: Symmetrical Facial Symmetry on Retraction: Symmetrical Sensation: Normal Against Resistance Opening: Normal Against Resistance Closing: Normal Pucker Lips: Normal Smile: Normal Lingual Movement: Normal, Symmetric Lingual Speed of Movement: Normal Lingual Movement Strgth Against Opposition: Normal Lingual Movement Characteristics: Normal Velopharyngeal Movement: Normal Laryngeal Movement: Able to Palpate Rate of Intake: WFL Bolus Size: WFL Labial Seal: WFL Chewing: Impaired (edentulous) Oral Prep Time: WFL A-P Transit: WFL Pocketing: None Timing of Swallow: WFL Coughing/Throat Clear: Yes (thin liquid) Change in Voice: Yes (vocal wetness) Recommendations - Speech Evaluation, Impression/Plan Impression: Verbal,Estonian Speaking. Swallow is brisk, but with delayed, responsive cough and vocal wetness with thin liquid.r/o aspiration. Tongue white. Needs mouth care? vs thrush - Dysphagia Impressions/Plan Dysphagia Impressions: Risk of Aspiration, Ongoing Evaluation *Silent aspiration: cannot be R/O at bedside Recommendations: Modified Barium Swallow - Recommendations Diet Consistency: Dysphagia Pureed Liquids: Thin Liquids (single sips, no straws)
--- NOTE | 2017-10-19 11:53 | PN ---
Progress Note, Physician Chief Complaint: Patient says she is coughing and a little short of breath but feeling improved. No cp or n/v. Daughter at bedside who translated. - Current Medication List Current Medications: Active Medications Acetaminophen (Tylenol Suppository -) 650 mg UT Q6H PRN PRN Reason: FEVER OR PAIN Albuterol/Ipratropium (Duoneb -) 1 amp NEB Q6H PRN PRN Reason: SHORTNESS OF BREATH Aspirin (Asa -) 81 mg PO DAILY [facility] Last Admin: 10/19/17 09:05 Dose: 81 mg Carbidopa/Levodopa (Sinemet *Cr* 50/200 -) 1 combo PO TID [facility] Last Admin: 10/19/17 06:19 Dose: 1 combo Heparin Sodium (Porcine) (Heparin -) 5,000 unit SQ BID [facility] Last Admin: 10/19/17 09:02 Dose: 5,000 unit Ampicillin Sodium/Sulbactam (Sodium 3 gm/ Sodium Chloride) 100 mls @ 200 mls/ hr IVPB Q6H-IV [facility] Last Admin: 10/19/17 09:03 Dose: 200 mls/hr Doxycycline Hyclate 100 mg/ (Dextrose) 100 mls @ 100 mls/hr IVPB BID [facility] Last Admin: 10/19/17 09:03 Dose: 100 mls/hr Nebivolol (Bystolic -) 2.5 mg PO DAILY [facility] Last Admin: 10/19/17 09:07 Dose: 2.5 mg Pantoprazole Sodium (Protonix Iv) 40 mg IVPUSH DAILY [facility] Last Admin: 10/19/17 09:07 Dose: 40 mg Prednisone (Deltasone -) 30 mg PO DAILY [facility] Last Admin: 10/19/17 10:51 Dose: 30 mg Rivastigmine (Exelon Patch 4.6mg/24 Hours -) 1 each TD Q24H [facility] Last Admin: 10/19/17 09:07 Dose: 1 each - Objective Vital Signs: Vital Signs Temperature 36.8 C 10/19/17 07:53 Pulse Rate 77 10/19/17 07:53 Respiratory Rate 18 10/19/17 08:06 Blood Pressure 160/76 10/19/17 07:53 O2 Sat by Pulse Oximetry (%) 96 10/19/17 08:06 Constitutional: Yes: Well Nourished, No Distress, Calm Cardiovascular: Yes: Regular Rate and Rhythm. No: Gallop, Murmur, Rub Respiratory: Yes: Regular, CTA Bilaterally, On Nasal O2. No: Rales, Rhonchi, Wheezes Gastrointestinal: Yes: Normal Bowel Sounds, Soft. No: Distention, Tenderness Extremities: Yes: WNL Edema: No Labs: CBC, BMP 10/19/17 05:10 10/19/17 05:10 INR, PTT INR 1.04 (0.82-1.09) 10/16/17 18:00 Problem List - Problems (1) Pneumonia Assessment/Plan: -patient looking improved -continue unasyn and doxycyline -still with leukocytosis, but improving as well -monitor as on prednisone Code(s): J18.9 - PNEUMONIA, UNSPECIFIED ORGANISM Qualifiers: Pneumonia type: due to unspecified organism Laterality: bilateral Lung location: lower lobe of lung Qualified Code(s): J18.9 - Pneumonia, unspecified organism (2) UTI (urinary tract infection) Assessment/Plan: -growing klebsiella -continue unasyn Code(s): N39.0 - URINARY TRACT INFECTION, SITE NOT SPECIFIED Qualifiers: Urinary tract infection type: acute cystitis Hematuria presence: without hematuria Qualified Code(s): N30.00 - Acute cystitis without hematuria (3) Sepsis Assessment/Plan: -secondary to pneumonia and UTI -improving Code(s): A41.9 - SEPSIS, UNSPECIFIED ORGANISM (4) Acute renal failure (ARF) Assessment/Plan: -s/p hydration -improving -IVF stopped, recheck in am Code(s): N17.9 - ACUTE KIDNEY FAILURE, UNSPECIFIED (5) COPD (chronic obstructive pulmonary disease) Assessment/Plan: -continue prednisone and prn duonebs -treat pneumonia -improving Code(s): J44.9 - CHRONIC OBSTRUCTIVE PULMONARY DISEASE, UNSPECIFIED (6) Hypertension Assessment/Plan: -continue bystolic -elevated but do not need tight blood pressure control in 86 year old female Code(s): I10 - ESSENTIAL (PRIMARY) HYPERTENSION (7) Parkinson's disease dementia Assessment/Plan: -continue exelon Code(s): G20 - PARKINSON'S DISEASE; F02.80 - DEMENTIA IN OTH DISEASES CLASSD ELSWHR W/O BEHAVRL DISTURB
--- NOTE | 2017-10-19 14:04 | EKG ---
Test Reason : Blood Pressure : / mmHG Vent. Rate : 084 BPM Atrial Rate : 084 BPM P-R Int : 146 ms QRS Dur : 080 ms QT Int : 340 ms P-R-T Axes : 036 -23 092 degrees QTc Int : 401 ms NORMAL SINUS RHYTHM MINIMAL VOLTAGE CRITERIA FOR LVH, MAY BE NORMAL VARIANT T WAVE ABNORMALITY, CONSIDER LATERAL ISCHEMIA ABNORMAL ECG WHEN COMPARED WITH ECG OF 12-JUL-2016 21:48, Confirmed by MARY CAAL, MELISSA ([id number]) on 10/19/2017 2:03:50 PM Referred By: Confirmed By:MELISSA HERNANDEZ MD
[2017-10-20] MEDS: AMPICILLIN NA/SULBACTAM NA 3 GM in SODIUM CHLORIDE 100 ML IVPB SCH ×2 (03:20→08:59)
[2017-10-20 07:37] LABS: EOSINOPHIL 0.1 % (0-4.5); MCH 29.4 pg (25.7-33.7); MCHC 32.3 g/dl (32.0-36.0); MEAN PLT VOLUME 8.4 fl (7.5-11.1); NEUTROPHILS 74.5 % (42.8-82.8); PLATELET COUNT 162 K/MM3 (134-434); RDW 13.8 % (11.6-15.6); WHITE BLOOD COUNT 8.3 K/mm3 (4.0-10.0)
[2017-10-20 08:03] LABS: ANION GAP 9 (8-16); CALCIUM 7.9 mg/dL (8.5-10.1); CO2 29 mmol/L (21-32); CREATININE 0.8 mg/dL (0.55-1.02); GLUCOSE,RANDOM 89 mg/dL (74-106); MAGNESIUM 2.3 mg/dL (1.8-2.4); PHOSPHOROUS 2.6 mg/dL (2.5-4.9)
[2017-10-20] MEDS ORDERED: PT OWN MED DRAWER 7, Y5N ONE (08:11)
[2017-10-20] MEDS: DOXYCYCLINE INJECTION 100 MG in DEXTROSE 5%-WATER - 100 ML IVPB SCH (09:00)
[2017-10-20] MEDS: PANTOPRAZOLE SODIUM 40 MG VIAL IVPUSH SCH (09:00)
[2017-10-20] MEDS: HEPARIN NA (PORCINE) 5,000 UNITS/ML 1ML VIAL SQ SCH ×2 (09:02→22:06)
[2017-10-20] MEDS: RIVASTIGMINE 4.6 MG/24 HOURS TRANSDERMAL PATCH TD SCH (09:03)
[2017-10-20] MEDS: predniSONE 10 MG TABLET (UD) PO SCH (09:03)
[2017-10-20] MEDS: ASPIRIN 81 MG CHEWABLE TABLETS PO SCH (09:03)
[2017-10-20] MEDS: NEBIVOLOL 2.5 MG TABLET (FP) PO SCH (09:03)
[2017-10-20] MEDS ORDERED: DOXYCYCLINE HYCLATE 100 MG CAPSULE PO SCH (10:30)
[2017-10-20] MEDS ORDERED: LACTOBACILLUS ACIDOPHILUS 1 EACH TAB (FP) PO SCH (10:30)
[2017-10-20] MEDS ORDERED: AMOX TR/POT CLAV 875MG/125MG TABLETS (FP) PO SCH (10:30)
--- NOTE | 2017-10-20 10:35 | PN ---
Progress Note, Physician Chief Complaint: Ms Gregorio is without complaint today per daughter at bedside. Saying she is talking and seems her normal self. No cp, sob, n/v. - Current Medication List Current Medications: Active Medications Acetaminophen (Tylenol Suppository -) 650 mg HI Q6H PRN PRN Reason: FEVER OR PAIN Albuterol/Ipratropium (Duoneb -) 1 amp NEB Q6H PRN PRN Reason: SHORTNESS OF BREATH Amoxicillin/Clavulanate Potassium (Augmentin - 875mg Tablet) 1 tab PO BID@0800, 1730 [facility] Aspirin (Asa -) 81 mg PO DAILY [facility] Last Admin: 10/20/17 09:03 Dose: 81 mg Carbidopa/Levodopa (Sinemet *Cr* 50/200 -) 1 combo PO TID [facility] Last Admin: 10/20/17 06:03 Dose: 1 combo Doxycycline Hyclate (Vibramycin -) 100 mg PO BID@1000,1800 [facility] Heparin Sodium (Porcine) (Heparin -) 5,000 unit SQ BID [facility] Last Admin: 10/20/17 09:02 Dose: 5,000 unit Lactobacillus Acidophilus (Bacid -) 1 tab PO DAILY [facility] Nebivolol (Bystolic -) 2.5 mg PO DAILY [facility] Last Admin: 10/20/17 09:03 Dose: 2.5 mg Pantoprazole Sodium (Protonix -) 40 mg PO DAILY [facility] Prednisone (Deltasone -) 30 mg PO DAILY [facility] Last Admin: 10/20/17 09:03 Dose: 30 mg Rivastigmine (Exelon Patch 4.6mg/24 Hours -) 1 each TD Q24H [facility] Last Admin: 10/20/17 09:03 Dose: 1 each - Objective Vital Signs: Vital Signs Temperature 36.9 C 10/20/17 07:37 Pulse Rate 69 10/20/17 07:37 Respiratory Rate 18 10/20/17 07:40 Blood Pressure 148/59 10/20/17 07:37 O2 Sat by Pulse Oximetry (%) 98 10/20/17 07:40 Constitutional: Yes: Well Nourished, No Distress, Calm Cardiovascular: Yes: Regular Rate and Rhythm. No: Gallop, Murmur, Rub Respiratory: Yes: Regular, Wheezes. No: CTA Bilaterally, Rales, Rhonchi Gastrointestinal: Yes: Normal Bowel Sounds, Soft. No: Distention, Tenderness Extremities: Yes: WNL Edema: No Labs: CBC, BMP 10/20/17 05:25 10/20/17 05:25 INR, PTT INR 1.04 (0.82-1.09) 10/16/17 18:00 Problem List - Problems (1) Pneumonia Code(s): J18.9 - PNEUMONIA, UNSPECIFIED ORGANISM Qualifiers: Pneumonia type: due to unspecified organism Laterality: bilateral Lung location: lower lobe of lung Qualified Code(s): J18.9 - Pneumonia, unspecified organism (2) UTI (urinary tract infection) Code(s): N39.0 - URINARY TRACT INFECTION, SITE NOT SPECIFIED Qualifiers: Urinary tract infection type: acute cystitis Hematuria presence: without hematuria Qualified Code(s): N30.00 - Acute cystitis without hematuria (3) Sepsis Code(s): A41.9 - SEPSIS, UNSPECIFIED ORGANISM (4) Acute renal failure (ARF) Code(s): N17.9 - ACUTE KIDNEY FAILURE, UNSPECIFIED (5) COPD (chronic obstructive pulmonary disease) Code(s): J44.9 - CHRONIC OBSTRUCTIVE PULMONARY DISEASE, UNSPECIFIED (6) Hypertension Code(s): I10 - ESSENTIAL (PRIMARY) HYPERTENSION (7) Parkinson's disease dementia Code(s): G20 - PARKINSON'S DISEASE; F02.80 - DEMENTIA IN OTH DISEASES CLASSD ELSWHR W/O BEHAVRL DISTURB Assessment/Plan (1) Pneumonia Assessment/Plan: -patient looks much improved today -will change to oral augmentin and doxycycline -monitor, if continues to improve can discharge tomorrow Code(s): J18.9 - PNEUMONIA, UNSPECIFIED ORGANISM Qualifiers: Pneumonia type: due to unspecified organism Laterality: bilateral Lung location: lower lobe of lung Qualified Code(s): J18.9 - Pneumonia, unspecified organism (2) UTI (urinary tract infection) Assessment/Plan: -growing klebsiella -can change to augmentin Code(s): N39.0 - URINARY TRACT INFECTION, SITE NOT SPECIFIED Qualifiers: Urinary tract infection type: acute cystitis Hematuria presence: without hematuria Qualified Code(s): N30.00 - Acute cystitis without hematuria (3) Sepsis Assessment/Plan: -secondary to pneumonia and UTI -resolved Code(s): A41.9 - SEPSIS, UNSPECIFIED ORGANISM (4) Acute renal failure (ARF) Assessment/Plan: -s/p hydration -resolved Code(s): N17.9 - ACUTE KIDNEY FAILURE, UNSPECIFIED (5) COPD (chronic obstructive pulmonary disease) Assessment/Plan: -continue prednisone and prn duonebs -treat pneumonia -improving Code(s): J44.9 - CHRONIC OBSTRUCTIVE PULMONARY DISEASE, UNSPECIFIED (6) Hypertension Assessment/Plan: -continue bystolic -elevated but do not need tight blood pressure control in 86 year old female Code(s): I10 - ESSENTIAL (PRIMARY) HYPERTENSION (7) Parkinson's disease dementia Assessment/Plan: -continue exelon Code(s): G20 - PARKINSON'S DISEASE; F02.80 - DEMENTIA IN OTH DISEASES CLASSD ELSWHR W/O BEHAVRL DISTURB
--- NOTE | 2017-10-20 14:20 | PN ---
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 Pt tolerating pureed diet and thin liquids. Supplements, as indicated.
[2017-10-20] MEDS ORDERED: ACETAMINOPHEN 650 MG SUPP.RECT PR PRN (15:43)
[2017-10-20] MEDS ORDERED: ALBUTEROL SO4 2.5/IPRATROPIUM 0.5 INH SOL 3 ML VIAL.NEB. NEB PRN (15:43)
[2017-10-20] MEDS: AMOX TR/POT CLAV 875MG/125MG TABLETS (FP) PO SCH (17:46)
[2017-10-20] MEDS: DOXYCYCLINE HYCLATE 100 MG CAPSULE PO SCH (18:51)
[2017-10-21 09:10] LABS: BASOPHIL 0.2 % (0-2.0); EOSINOPHIL 2.3 % (0-4.5); MCH 29.5 pg (25.7-33.7); MCHC 32.2 g/dl (32.0-36.0); MEAN CELL VOLUME 91.5 fl (80-96); NEUTROPHILS 61.3 % (42.8-82.8); PLATELET COUNT 183 K/MM3 (134-434); RDW 13.9 % (11.6-15.6); WHITE BLOOD COUNT 8.6 K/mm3 (4.0-10.0)
[2017-10-21] MEDS ORDERED: PT OWN MED DRAWER 7, Y5N ONE ×2 (09:29→13:51)
[2017-10-21 09:34] LABS: ANION GAP 5 (8-16); CALCIUM 8.4 mg/dL (8.5-10.1); CO2 31 mmol/L (21-32); CREATININE 0.9 mg/dL (0.55-1.02); GLUCOSE,RANDOM 89 mg/dL (74-106); MAGNESIUM 2.4 mg/dL (1.8-2.4); PHOSPHOROUS 2.6 mg/dL (2.5-4.9)
[2017-10-21] MEDS ORDERED: ASPIRIN 81 MG CHEWABLE TABLETS PO SCH (10:00)
[2017-10-21] MEDS ORDERED: RIVASTIGMINE 4.6 MG/24 HOURS TRANSDERMAL PATCH TD SCH (10:00)
[2017-10-21] MEDS ORDERED: PANTOPRAZOLE 40 MG TABLET (FP) PO SCH (10:00)
[2017-10-21] MEDS ORDERED: NEBIVOLOL 2.5 MG TABLET (FP) PO SCH (10:00)
[2017-10-21] MEDS ORDERED: predniSONE 10 MG TABLET (UD) PO SCH (10:00)
[2017-10-21] MEDS ORDERED: LACTOBACILLUS ACIDOPHILUS 1 EACH TAB (FP) PO SCH (10:00)
[2017-10-21] MEDS: AMOX TR/POT CLAV 875MG/125MG TABLETS (FP) PO SCH (10:13)
[2017-10-21] MEDS: HEPARIN NA (PORCINE) 5,000 UNITS/ML 1ML VIAL SQ SCH (10:14)
[2017-10-21] MEDS: DOXYCYCLINE HYCLATE 100 MG CAPSULE PO SCH (10:16)
[2017-10-21 10:24] VITALS: BP 145/75; PULSE 70; TEMP 98.6
--- NOTE | 2017-10-21 11:56 | PN ---
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 No further f/u indicated.
--- NOTE | 2017-10-21 13:51 | DS ---
Physical Examination Vital Signs: Vital Signs Temperature 37.0 C 10/21/17 10:00 Pulse Rate 70 10/21/17 10:00 Respiratory Rate 18 10/21/17 10:00 Blood Pressure 145/75 10/21/17 10:00 O2 Sat by Pulse Oximetry (%) 97 10/21/17 09:00 Constitutional: Yes: Well Nourished, No Distress, Calm Cardiovascular: Yes: Regular Rate and Rhythm. No: Gallop, Murmur, Rub Respiratory: Yes: Regular, CTA Bilaterally. No: Rales, Rhonchi, Wheezes Gastrointestinal: Yes: Normal Bowel Sounds, Soft. No: Distention, Tenderness Extremities: Yes: WNL Edema: No Labs: CBC, BMP 10/21/17 08:50 10/21/17 08:50 Discharge Summary Reason For Visit: PNEUMONIA Current Active Problems Pneumonia (Acute) Sepsis (Acute) Swallowing difficulty (Acute) UTI (urinary tract infection) (Acute) Hospital Course: (1) Pneumonia Code(s): J18.9 - PNEUMONIA, UNSPECIFIED ORGANISM Qualifiers: Pneumonia type: due to unspecified organism Laterality: bilateral Lung location: lower lobe of lung Qualified Code(s): J18.9 - Pneumonia, unspecified organism (2) UTI (urinary tract infection) Code(s): N39.0 - URINARY TRACT INFECTION, SITE NOT SPECIFIED Qualifiers: Urinary tract infection type: acute cystitis Hematuria presence: without hematuria Qualified Code(s): N30.00 - Acute cystitis without hematuria (3) Sepsis Code(s): A41.9 - SEPSIS, UNSPECIFIED ORGANISM (4) Acute renal failure (ARF) Code(s): N17.9 - ACUTE KIDNEY FAILURE, UNSPECIFIED (5) COPD (chronic obstructive pulmonary disease) Code(s): J44.9 - CHRONIC OBSTRUCTIVE PULMONARY DISEASE, UNSPECIFIED (6) Hypertension Code(s): I10 - ESSENTIAL (PRIMARY) HYPERTENSION (7) Parkinson's disease dementia Code(s): G20 - PARKINSON'S DISEASE; F02.80 - DEMENTIA IN OTH DISEASES CLASSD ELSWHR W/O BEHAVRL DISTURB Ms Darline Peralta is a pleasant 86 year old female who came in with a UTI and pneumonia. She was admitted to the hospital and started on unasyn and doxycycline. She also had ARF and was hydrated with IVF. She had COPD exacerbation secondary to pneumonia. She tolerated the antibiotics well and improved significantly. She was transitioned over to oral antibiotics and monitored. She did well and is safe for discharge home with [facility]. 32 minutes spent in preparation of this discharge Condition: Stable - Instructions Diet, Activity, Other Instructions: resume previous diet and activity. Steroid taper: take 20mg x3d, then 10mg x3d, then 5mg x2d, then continue chronic 2.5mg daily Referrals: Umair Sneed MD [Primary Care Provider] - Disposition: [facility]/HOME HEALTH CARE - Home Medications Comprehensive Discharge Medication List: Ambulatory Orders Aspirin [ASA -] 81 mg PO DAILY 02/19/15 Carbidopa/Levodopa [Carbidopa-Levo 50-200 Tab SA] 1 each PO TID 02/19/15 Nebivolol HCl [Bystolic] 2.5 mg PO DAILY 02/19/15 Omeprazole [Prilosec] 20 mg PO DAILY 02/19/15 Prednisone [Deltasone -] 2.5 mg PO DAILY 02/19/15 Rivastigmine [Exelon Patch 4.6MG/24 Hours -] 1 each TD DAILY 02/19/15 Amox-Tr/K Cl [Augmentin 875-125mg Tablet -] 1 tab PO BID@0800,1730 #10 tablet Doxycycline Hyclate [Vibramycin -] 100 mg PO BID@1000,1800 #10 capsule 10/21/17 Ipratropium/Albuterol Sulfate [Combivent Respimat Inhal [place]] 4 gm IH TID PRN # 1 aer.w.adap 10/21/17 Lactobacillus Acidophilus [Bacid -] 1 tab PO DAILY #10 tab 10/21/17 Prednisone [Deltasone -] 10 mg PO ASDIR #10 tab 10/21/17
== END 2017-10-21 15:00 | disposition home health service (06) | DRG 871 ==
LOC: JER 17:09 → JERBED 20:03 → J4W 23:14 → J5S 10-20 15:35
PROVIDERS: ADMIT Internal Medicine; ATTEND Internal Medicine
DX: A41.9 Sepsis, unspecified organism (principal); J18.9 Pneumonia, unspecified organism; N39.0 Urinary tract infection, site not specified; N17.9 Acute kidney failure, unspecified; G20 Parkinson's disease; F02.80 Dementia in other diseases classified elsewhere, unspecified severity, without behavioral disturbance, psychotic disturbance, mood disturbance, and anxiety; Z99.3 Dependence on wheelchair; R13.10 Dysphagia, unspecified; Z74.01 Bed confinement status; J44.9 Chronic obstructive pulmonary disease, unspecified; B96.1 Klebsiella pneumoniae [K. pneumoniae] as the cause of diseases classified elsewhere
CPT/HCPCS: 36415; 71010-TC; 74230-TC; 80048; 80053; 81003; 81015; 82550; 82803; 83036; 83605; 83735; 84100; 84484; 85025; 85610; 85730; 86850; 86900; 86901; 87040; 87070; 87086; 87186; 87205; 92611-GN; 93005; 93010; 99285-25; J1644

== ENCOUNTER 2019-08-09 16:03 | Inpatient (IN) | payer OTHER ==
[2019-08-09] MEDS ORDERED: ACETAMINOPHEN 1000 MG/100 ML VIAL (NON FORMULARY) IVPB ONE (16:58)
[2019-08-09] MEDS ORDERED: VANCOMYCIN 1,000 MG in DEXTROSE 5%-WATER - 250 ML IVPB ONE (17:22)
[2019-08-09] MEDS ORDERED: PIPERACILLIN/TAZOB 4.5 GM 4.5 GM in DEXTROSE 5%-WATER 100 ML IVPB ONE (17:22)
--- NOTE | 2019-08-09 17:22 | PDOC ---
Attending Attestation - Resident Resident Name: MishelYoanaDanyelle - ED Attending Attestation I have performed the following: I have examined & evaluated the patient, The case was reviewed & discussed with the resident, I agree w/resident's findings & plan, Exceptions are as noted - HPI HPI: 08/09/19 17:22 88 yo female coming BIBA from home for 2 days of fever,productive cough - Physicial Exam PE: 08/09/19 17:27 88-year-old female presents with fever, tachycardia and cough. Lungs bilateral rhonchi in all lung [facility] tachycardia Abdomen soft. skin warm and dry Neuro patient is alert, nonverbal at baseline - Medical Decision Making 08/09/19 17:28 this 88 yo female is febrile crackles and rhonchi on lung exam plan :sepsis workup, antibiotics,admission 08/09/19 20:50 pt does have UTI and possible lung infiltrate
[2019-08-09] MEDS ORDERED: SODIUM CHLORIDE 1,000 ML IV STA ×2 (17:30→18:58)
[2019-08-09] MEDS ORDERED: PIPERACILLIN/TAZOB 4.5 GM 4.5 GM/100 ML BAG IVPB ONE (18:21)
[2019-08-09] MEDS ORDERED: VANCOMYCIN 1 GRAM (PRE-DOCKED) 1,000 MG/250 ML BAG IVPB ONE (18:21)
[2019-08-09 18:31] LABS: BASO % 0.1 % (0-2.0); HEMATOCRIT 43.8 % (32.4-45.2); HEMOGLOBIN 13.7 GM/dL (10.7-15.3); LYMPH % 4.4 % (8-40); MCHC 31.3 g/dl (32.0-36.0); MEAN CELL VOLUME 92.7 fl (80-96); MEAN PLT VOLUME 9.2 fl (7.5-11.1); MONO % 6.4 % (3.8-10.2); NEUT % 89.1 % (42.8-82.8); PLATELET COUNT 228 K/MM3 (134-434); RBC 4.73 M/mm3 (3.60-5.2)
[2019-08-09 18:37] LABS: EPI CELLS 10.8 /HPF (0-5/HPF); HYALINE CASTS 104 /lpf (0-8); URINE APPEARANCE TURBID; URINE BACTERIA 4169.2 /hpf (NEGATIVE); URINE BILIRUBIN NEGATIVE (NEGATIVE); URINE COLOR YELLOW; URINE GLUCOSE (UA) NEGATIVE (NEGATIVE); URINE KETONE NEGATIVE (NEGATIVE); URINE LEUK ESTERASE 3+ (NEGATIVE); URINE NITRITE NEGATIVE (NEGATIVE); URINE PROTEIN TRACE (NEGATIVE); URINE WBC 98 /hpf (0-5)
--- NOTE | 2019-08-09 18:48 | PDOC ---
History of Present Illness - General Chief Complaint: SIRS, Suspected/Possible Stated Complaint: FEVER Time Seen by Provider: 08/09/19 16:53 Past History - Past Medical History Allergies/Adverse Reactions: Allergies Allergy/AdvReac Type Severity Reaction Status Date / Time valsartan [From Rennyvan] Allergy Verified 10/16/17 17:15 Home Medications: Ambulatory Orders Nebivolol HCl [Bystolic] 2.5 mg PO DAILY 02/19/15 predniSONE [Deltasone -] 2.5 mg PO DAILY 02/19/15 Ipratropium/Albuterol Sulfate [Combivent Respimat Inhal [place]] 4 gm IH TID PRN # 1 aer.w.adap 10/21/17 Carbidopa-Levo ER 50-200 Tab 200 mg PO QID 08/09/19 Furosemide [Lasix -] 20 mg PO DAILY 08/09/19 Anemia: No Asthma: No Cancer: No Cardiac Disorders: Yes (CAD) CVA: No COPD: No CHF: No Dementia: Yes Diabetes: No GI Disorders: No Disorders: No HTN: No Hypercholesterolemia: No Liver Disease: No Psychiatric Problems: No Seizures: No Thyroid Disease: No - Surgical History Abdominal Surgery: Yes Appendectomy: Yes Cardiac Surgery: No Cholecystectomy: Yes Lung Surgery: No Neurologic Surgery: No Orthopedic Surgery: No - Immunization History Td Vaccination: No Immunization Up to Date: Yes - Suicide/Smoking/Psychosocial Hx Smoking Status: No Smoking History: Unknown if ever smoked Have you smoked in the past 12 months: No Number of Cigarettes Smoked Daily: 0 If you are a former smoker, when did you quit?: 40 4ears ago Information on smoking cessation initiated: No Hx Alcohol Use: No Drug/Substance Use Hx: No Substance Use Type: None Hx Substance Use Treatment: No *Physical Exam - Vital Signs Last Vital Signs Temp Pulse Resp BP Pulse Ox 101.8 F H 102 H 16 109/49 L 92 L 08/09/19 16:21 08/09/19 16:32 08/09/19 16:21 08/09/19 16:21 08/09/19 16:32 ED Treatment Course - LABORATORY CBC & Chemistry Diagram: 08/09/19 18:06 08/09/19 18:06 - ADDITIONAL ORDERS Additional order review: Laboratory Results 08/09/19 08/09/19 18:15 18:06 PTT (Actin FS) 25.4 Urine Color Yellow Urine Appearance Turbid Urine pH 7.0 Ur Specific [place] 1.012 Urine Protein Trace Urine Glucose (UA) Negative Urine Ketones Negative Urine Blood 1+ H Urine Nitrite Negative Urine Bilirubin Negative Urine Urobilinogen 1.0 Ur Leukocyte Esterase 3+ H Urine WBC (Auto) 98 Urine Casts (Auto) 104 U Epithel Cells (Auto) 10.8 Urine Bacteria (Auto) 4169.2 08/09/19 18:06 RBC 4.73 MCV 92.7 MCHC 31.3 L RDW 15.0 MPV 9.2 D Neutrophils % 89.1 H Lymphocytes % 4.4 L D Monocytes % 6.4 Eosinophils % 0.0 D Basophils % 0.1 - RADIOLOGY Radiology Studies Ordered: Category Date Time Status CHEST X-RAY PORTABLE* [RAD] Stat Radiology 08/09/19 16:54 Ordered - Medications Given in the ED: ED Medications Discontinued Medications Generic Name Dose Route Start Last Admin Trade Name Freq PRN Reason Stop Dose Admin Acetaminophen 1,000 mg 08/09/19 16:58 08/09/19 18:32 Ofirmev Injection - IVPB 08/09/19 16:59 1,000 mg ONCE ONE Administration Piperacillin Sod/Tazobactam 100 mls @ 200 mls/hr 08/09/19 17:22 08/09/19 18: 32 Sod 4.5 gm/ Dextrose IVPB 08/09/19 17:51 200 mls/hr ONCE ONE Administration Protocol Sodium Chloride 1,000 mls @ 1,000 mls/hr 08/09/19 17:30 08/09/19 18:32 Normal Saline - IV 08/09/19 18:29 1,000 mls/hr ASDIR STA Administration Medical Decision Making - Medical Decision Making HPI: 88yo F with PMH of Parkinson's disease, arthritis, bladder surgery for stress incontinence coming from home for evaluation of cough. Patient's granddaughter is at the bedside providing collateral history. She notes patient has had a cough productive of yellow sputum today and had a subjective fever today. History is limited as patient is nonverbal at baseline due to dementia. PCP: Dr. Sneed ROS: Unable to assess (patient nonverbal) PE: General: Awake, alert, and fully oriented, in no acute distress Head: No signs of trauma Eyes: EOMI, sclera anicteric ENT: Dry mucus membranes Neck: Normal ROM, supple Lungs: Diffuse rales present bilaterally Cardio: Regular rhythm, S1 and S2 present Abdomen: Soft, nontender to palpation Extremities: Distal pulses present SKIN: Warm, Dry, normal turgor Neurologic: Cranial nerves II through XII grossly intact. Nonverbal. ED Course/MDM: DDX including but not limited to sepsis due to PNA, UTI, bacteremia, influenza Lung exam with concern for pneumonia Patient febrile, tachycardic, hypoxic Sepsis workup initiated Fluids Ofirmev Vanc/Zosyn Patient with difficult access. Ultrasound-guided IV placed by id Labs sent 08/09/19 18:47 Lactate 3.5 Another 1L NS ordered EKG: rate 65, QTc 480, sinus with PAC, twi in anterior distribution present in previous EKG in Sep 2017 08/09/19 18:59 CBC WBC 15.0 K/mm3 (4.0-10.0) H 08/09/19 18:06 RBC 4.73 M/mm3 (3.60-5.2) 08/09/19 18:06 Hgb 13.7 GM/dL (10.7-15.3) 08/09/19 18:06 Hct 43.8 % (32.4-45.2) 08/09/19 18:06 MCV 92.7 fl (80-96) 08/09/19 18:06 MCH 29.0 pg (25.7-33.7) 08/09/19 18:06 MCHC 31.3 g/dl (32.0-36.0) L 08/09/19 18:06 RDW 15.0 % (11.6-15.6) 08/09/19 18:06 Plt Count 228 K/MM3 (134-434) 08/09/19 18:06 MPV 9.2 fl (7.5-11.1) D 08/09/19 18:06 Absolute Neuts (auto) 13.4 K/mm3 (1.5-8.0) H 08/09/19 18:06 Neutrophils % 89.1 % (42.8-82.8) H 08/09/19 18:06 Lymphocytes % 4.4 % (8-40) L D 08/09/19 18:06 Monocytes % 6.4 % (3.8-10.2) 08/09/19 18:06 Eosinophils % 0.0 % (0-4.5) D 08/09/19 18:06 Basophils % 0.1 % (0-2.0) 08/09/19 18:06 Nucleated RBC % 0 % (0-0) 08/09/19 18:06 Leukocytosis CMP Sodium 149 mmol/L (136-145) H 08/09/19 18:06 Potassium 4.8 mmol/L (3.5-5.1) 08/09/19 18:06 Chloride 100 mmol/L (98-107) 08/09/19 18:06 Carbon Dioxide 36 mmol/L (21-32) H 08/09/19 18:06 Anion Gap 14 MMOL/L (8-16) 08/09/19 18:06 BUN 56.4 mg/dL (7-18) H 08/09/19 18:06 Creatinine 1.8 mg/dL (0.55-1.3) H 08/09/19 18:06 Est GFR (CKD-EPI)AfAm 28.42 08/09/19 18:06 Est GFR (CKD-EPI)NonAf 24.52 08/09/19 18:06 Random Glucose 299 mg/dL (74-106) H 08/09/19 18:06 Lactic Acid 3.5 mmol/L (0.4-2.0) H* 08/09/19 18:06 Calcium 9.4 mg/dL (8.5-10.1) 08/09/19 18:06 Total Bilirubin 0.5 mg/dL (0.2-1) 08/09/19 18:06 AST 32 U/L (15-37) 08/09/19 18:06 ALT 9 U/L (13-61) L 08/09/19 18:06 Alkaline Phosphatase 156 U/L (45-117) H 08/09/19 18:06 Troponin I 0.02 ng/ml (0.00-0.05) 08/09/19 18:06 Total Protein 7.4 g/dl (6.4-8.2) 08/09/19 18:06 Albumin 3.0 g/dl (3.4-5.0) L 08/09/19 18:06 Electrolytes unremarkable Cr elevated, 1.8, above patient's baseline of 1.0 Tpn undetectable UA indicative of UTI with 1+ blood, 3+ LE, 98 WBC, 4169 bacteria, 10.8 epithelials Vital Signs Temperature 98.4 F 08/09/19 19:08 Pulse Rate 60 08/09/19 19:15 Respiratory Rate 19 08/09/19 19:15 Blood Pressure 97/83 08/09/19 19:15 O2 Sat by Pulse Oximetry (%) 95 08/09/19 19:15 Repeat vitals improved- no longer febrile or tachycardic Plan for admission Microblog sent 08/09/19 19:[address] Wolf who accepted patient for admission under Dr. Crooks 08/09/19 19:36 CXR as ready by radiology: "Single view of the chest has been submitted. There is a prominent mediastinum with unfolded aorta and some coarse lung changes. It is there maybe an early infiltrate developing at the left base. The angles are sharp. Soft tissues are intact. There are degenerative changes. Correlation recommended. " *DC/Admit/Observation/Transfer Diagnosis at time of Disposition: RISA (acute kidney injury) Sepsis Qualifiers: Sepsis type: sepsis due to unspecified organism Sepsis acute organ dysfunction status: without acute organ dysfunction Qualified Code(s): A41.9 - Sepsis, unspecified organism UTI (urinary tract infection) Qualifiers: Urinary tract infection type: site unspecified Hematuria presence: with hematuria Qualified Code(s): N39.0 - Urinary tract infection, site not specified PNA (pneumonia) Qualifiers: Pneumonia type: due to unspecified organism Laterality: unspecified laterality Lung location: unspecified part of lung Qualified Code(s): J18.9 - Pneumonia, unspecified organism - Discharge Dispostion Condition at time of disposition: Guarded Decision to Admit order: Yes - Referrals Referrals: Umair Sneed MD [Primary Care Provider] - - Patient Instructions - Post Discharge Activity
[2019-08-09 18:55] LABS: INR 1.04 (0.83-1.09); PROTHROMBIN TIME (PATIENT) 12.3 SEC (9.7-13.0)
[2019-08-09 19:06] LABS: BILIRUBIN,TOTAL 0.5 mg/dL (0.2-1); BLOOD UREA NITROGEN 56.4 mg/dL (7-18); CALCIUM 9.4 mg/dL (8.5-10.1); CREATININE 1.8 mg/dL (0.55-1.3); POTASSIUM 4.8 mmol/L (3.5-5.1); TOT PROT 7.4 g/dl (6.4-8.2)
[2019-08-09] MEDS: SODIUM CHLORIDE 0.45% 1,000 ML IV SCH (22:45)
--- NOTE | 2019-08-10 00:45 | HP ---
CHIEF COMPLAINT: Productive cough 3 days Subjective fever 1 day PCP: Dr. Sneed HISTORY OF PRESENT ILLNESS: This is an 88 year old female with PMH significant for Parkison's disease and arthritis. She is not oriented to time, place, or person for the past 2 years, as a result of her Parkinson's. Her daughter is present at bedside and was available to answer questions. She states that the patient developed a cough 3 days ago, associated with whitish sputum production but no blood. She also states that the patient has been feeling warm since yesterday. Temperature taken at home yesterday was around 98-99. She also states that the patient is urinating more frequently (she uses a diaper), although there has been no blood , pus, or in odor. The daughter has not noticed her mother to be short of breath or displaying any difficulty breathing, no vomiting, and no diarrhea She also has an associated loss of appetite for the past few days. She averages one bowel movement every 2-3 days, hard in consistency. Her last BM was 4 days ago, described as large and hard, with no noticeable blood. The patient lives at home with her daughter and grand daughter. She states that her grand daughter recently displayed flu like symptoms, and the patient has not traveled outside of the city recently.She is immobile, and uses a wheelchair for transport. She does not use oxygen at home. She was last admitted to [facility] in September 2017 for UTI and pneumonia, found to have MSSA on blood culture and Klebsiella on urine culture and was treated with Unasyn and Doxycycline. Daughter claims that the patient was started on prednisone taper after D/C, but once it was stopped her condition deteriorated, so she resumed prednisone and has been taking 2.5 mg TID for several months now. ER course was notable for: (1) WBC 15.0, Lactic Acid 3.5 (2) CXR: Early infiltrate at L Base (3) Zosyn and Vanco Recent Travel: None PAST MEDICAL HISTORY: Parkison's disease and arthritis PAST SURGICAL HISTORY: C Section Cholecystectomy at some point between [id number] Social History: Smokin/2 pack per day, quit many years ago, unsure how long she smoked for Alcohol: denies Drugs: denies Family History: Allergies valsartan [From Diovan] Allergy (Verified 10/16/17 17:15) UNKNOWN HOME MEDICATIONS: Home Medications Medication Instructions Recorded Nebivolol HCl [Bystolic] 2.5 mg PO DAILY 02/19/15 predniSONE [Deltasone -] 2.5 mg PO DAILY 02/19/15 Ipratropium/Albuterol Sulfate 4 gm IH TID PRN #1 aer.w.adap 10/21/17 [Combivent Respimat Inhal [place]] Carbidopa-Levo ER 50-200 Tab 200 mg PO QID 08/09/19 Furosemide [Lasix -] 20 mg PO DAILY 08/09/19 REVIEW OF SYSTEMS CONSTITUTIONAL: Fevers, loss of appetite Absent: fever, chills, diaphoresis, generalized weakness, malaise, loss of appetite, weight change HEENT: Absent: rhinorrhea, nasal congestion, throat pain, throat swelling, difficulty swallowing, mouth swelling, ear pain, eye pain, visual changes CARDIOVASCULAR: Absent: chest pain, syncope, palpitations, irregular heart rate, lightheadedness , peripheral edema RESPIRATORY: Cough Absent: cough, shortness of breath, dyspnea with exertion, orthopnea, wheezing, stridor, hemoptysis GASTROINTESTINAL: Absent: abdominal pain, abdominal distension, nausea, vomiting, diarrhea, constipation, melena, hematochezia GENITOURINARY: Absent: dysuria, frequency, urgency, hesitancy, hematuria, flank pain, genital pain MUSCULOSKELETAL: Absent: myalgia, arthralgia, joint swelling, back pain, neck pain SKIN: Absent: rash, itching, pallor HEMATOLOGIC/IMMUNOLOGIC: Absent: easy bleeding, easy bruising, lymphadenopathy, frequent infections ENDOCRINE: Absent: unexplained weight gain, unexplained weight loss, heat intolerance, cold intolerance NEUROLOGIC: Absent: headache, focal weakness or paresthesias, dizziness, unsteady gait, seizure, mental status changes, bladder or bowel incontinence PSYCHIATRIC: Absent: anxiety, depression, suicidal or homicidal ideation, hallucinations. PHYSICAL EXAMINATION Vital Signs - 24 hr 08/09/19 08/09/19 08/09/19 16:21 16:32 19:03 Temperature 101.8 F H 98.4 F Pulse Rate 75 102 H 63 Pulse Rate [ Left Apical] Respiratory 16 16 Rate Blood Pressure 109/49 L 103/57 L Blood Pressure [Right Arm] O2 Sat by Pulse 89 L 92 L 98 Oximetry (%) 08/09/19 08/09/19 08/09/19 19:08 19:15 23:40 Temperature 98.4 F 97.9 F Pulse Rate Pulse Rate [ 60 60 60 Left Apical] Respiratory 16 19 16 Rate Blood Pressure Blood Pressure 103/57 L 97/83 101/45 L [Right Arm] O2 Sat by Pulse 98 95 100 Oximetry (%) GENERAL: AOx0 HEAD: Normal with no signs of trauma. EYES: Pupils equal, round and reactive to light, extraocular movements intact, sclera anicteric, conjunctiva clear. No lid lag. EARS, NOSE, THROAT: Ears normal, nares patent, oropharynx clear without exudates. Moist mucous membranes. NECK: Normal range of motion, supple without lymphadenopathy, JVD, or masses. LUNGS: B/L coarse crackles and expiratory wheeze HEART: Regular rate and rhythm, normal S1 and S2 without murmur, rub or gallop. ABDOMEN: Soft, nontender, not distended, normoactive bowel sounds, no guarding, no rebound, no masses. No hepatomegaly or splenomegaly. MUSCULOSKELETAL: Normal range of motion at all joints. No bony deformities or tenderness. No CVA tenderness. NEUROLOGICAL: Unable to perform neurologic exam, patient unable to follow commands SKIN: Warm, dry, normal turgor, no rashes or lesions noted, normal capillary refill, no pressure ulcers noted Laboratory Results - last 24 hr 08/09/19 08/09/19 08/09/19 18:06 18:06 18:06 WBC 15.0 H RBC 4.73 Hgb 13.7 Hct 43.8 MCV 92.7 MCH 29.0 MCHC 31.3 L RDW 15.0 Plt Count 228 MPV 9.2 D Absolute Neuts (auto) 13.4 H Total Counted 100 Neutrophils % 89.1 H Neutrophils % (Manual) 87.0 H Band Neutrophils % 5.0 Lymphocytes % 4.4 L D Lymphocytes % (Manual) 5.0 L Monocytes % 6.4 Monocytes % (Manual) 3 L Eosinophils % 0.0 D Basophils % 0.1 Nucleated RBC % 0 PT with INR INR PTT (Actin FS) 25.4 Sodium Potassium Chloride Carbon Dioxide Anion Gap BUN Creatinine Est GFR (CKD-EPI)AfAm Est GFR (CKD-EPI)NonAf Random Glucose Lactic Acid Calcium Total Bilirubin AST ALT Alkaline Phosphatase Troponin I 0.02 Total Protein Albumin Urine Color Urine Appearance Urine pH Ur Specific [place] Urine Protein Urine Glucose (UA) Urine Ketones Urine Blood Urine Nitrite Urine Bilirubin Urine Urobilinogen Ur Leukocyte Esterase Urine WBC (Auto) Urine Casts (Auto) U Epithel Cells (Auto) Urine Bacteria (Auto) 08/09/19 08/09/19 08/09/19 18:06 18:06 18:06 WBC RBC Hgb Hct MCV MCH MCHC RDW Plt Count MPV Absolute Neuts (auto) Total Counted Neutrophils % Neutrophils % (Manual) Band Neutrophils % Lymphocytes % Lymphocytes % (Manual) Monocytes % Monocytes % (Manual) Eosinophils % Basophils % Nucleated RBC % PT with INR 12.30 INR 1.04 PTT (Actin FS) Sodium 149 H Potassium 4.8 Chloride 100 Carbon Dioxide 36 H Anion Gap 14 BUN 56.4 H Creatinine 1.8 H Est GFR (CKD-EPI)AfAm 28.42 Est GFR (CKD-EPI)NonAf 24.52 Random Glucose 299 H Lactic Acid 3.5 H* Calcium 9.4 Total Bilirubin 0.5 AST 32 ALT 9 L Alkaline Phosphatase 156 H Troponin I Total Protein 7.4 Albumin 3.0 L Urine Color Urine Appearance Urine pH Ur Specific [place] Urine Protein Urine Glucose (UA) Urine Ketones Urine Blood Urine Nitrite Urine Bilirubin Urine Urobilinogen Ur Leukocyte Esterase Urine WBC (Auto) Urine Casts (Auto) U Epithel Cells (Auto) Urine Bacteria (Auto) 08/09/19 18:15 WBC RBC Hgb Hct MCV MCH MCHC RDW Plt Count MPV Absolute Neuts (auto) Total Counted Neutrophils % Neutrophils % (Manual) Band Neutrophils % Lymphocytes % Lymphocytes % (Manual) Monocytes % Monocytes % (Manual) Eosinophils % Basophils % Nucleated RBC % PT with INR INR PTT (Actin FS) Sodium Potassium Chloride Carbon Dioxide Anion Gap BUN Creatinine Est GFR (CKD-EPI)AfAm Est GFR (CKD-EPI)NonAf Random Glucose Lactic Acid Calcium Total Bilirubin AST ALT Alkaline Phosphatase Troponin I Total Protein Albumin Urine Color Yellow Urine Appearance Turbid Urine pH 7.0 Ur Specific [place] 1.012 Urine Protein Trace Urine Glucose (UA) Negative Urine Ketones Negative Urine Blood 1+ H Urine Nitrite Negative Urine Bilirubin Negative Urine Urobilinogen 1.0 Ur Leukocyte Esterase 3+ H Urine WBC (Auto) 98 Urine Casts (Auto) 104 U Epithel Cells (Auto) 10.8 Urine Bacteria (Auto) 4169.2 ASSESSMENT/PLAN: 88 year old female with PMH significant for Parkison's disease and arthritis. Presented with productive cough 3 days and subjective fever 1 day, admitted for sepsis workup. #Sepsis 2/2 pneumonia vs UTI - WBC 15, Neutrophils 89.1% - Lactid Acid 3.5 -> 2.2, continue to trend - UA: LE 3+ with 98 WBC and 4169.2 bacteria - Sputum, blood, and urine cx sent - Urine Legionella antigen ordered - Continue Zosyn (provides good anaerobic coverage), and Vancomycin - ID consult placed (Dr. Lawrence) - On NC, 2L O2 #RISA - BUN:Cr 56.4/1.8 (16/0.9 on last visit in Sep 2017) - N/S @ 75 (2x 1000cc N/S given in ER) - Renal US - Marinelli catheter palced - I/O and daily weights #Hyperglycemia - HbA1c - BGM, Novolog SS - Lantus 10 QHS - Will attempt to taper prednisone as it may be contributing to hyperglycemia #FEN - N/S @ 75 (2x 1000cc N/S given in ER) - Chopped diet #DVT PE - Heparin 5000 SQ #Code Status - DNR/DNI - Spoke with daughter, explained what this would mean, she agreed and signed DNR /DNI form in my presence. Visit type - Emergency Visit Emergency Visit: Yes ED Registration Date: 08/09/19 Care time: The patient presented to the Emergency Department on the above date and was hospitalized for further evaluation of their emergent condition. - New Patient This patient is new to me today: Yes Date on this admission: 08/10/19 - Critical Care Critical Care patient: No ATTENDING PHYSICIAN STATEMENT I saw and evaluated the patient. I reviewed the resident's note and discussed the case with the resident. I agree with the resident's findings and plan as documented. SUBJECTIVE: OBJECTIVE: ASSESSMENT AND PLAN:
--- NOTE | 2019-08-10 01:08 | PN ---
Teaching Attending Note Name of Resident: Juanpablo Walter ATTENDING PHYSICIAN STATEMENT I saw and evaluated the patient. I reviewed the resident's note and discussed the case with the resident. I agree with the resident's findings and plan as documented. SUBJECTIVE: 86 yo woman who lives at home with family bed bound, demented, nonverbal at baseline, Parkinsonism, Dementia, HTN, brought in by daughter- Mally, due to productive cough, and decrease in mental status from baseline. Denied patient traveled recently. States that patient's granddaughter had a cold - like illness and was around patient recently. She claims she is health care proxy and wants DNR/DNI. s/p at least one liter NS and pip/tazo, vanco in ER OBJECTIVE: Last Vital Signs Temp Pulse Resp BP Pulse Ox 97.9 F 60 16 101/45 L 100 08/09/19 23:40 08/09/19 23:40 08/09/19 23:40 08/09/19 23:40 08/09/19 23:40 general - unresponsive , productive sounding cough heent - nc, at chest -rhonchi b/l appreciated abd - soft, nt, bs+ skin - no rash Abnormal Lab Results 08/09/19 08/09/19 08/09/19 18:06 18:06 18:06 WBC 15.0 H MCHC 31.3 L Absolute Neuts (auto) 13.4 H Neutrophils % 89.1 H Neutrophils % (Manual) 87.0 H Lymphocytes % 4.4 L D Lymphocytes % (Manual) 5.0 L Monocytes % (Manual) 3 L Sodium 149 H Carbon Dioxide 36 H BUN 56.4 H Creatinine 1.8 H Random Glucose 299 H Lactic Acid 3.5 H* ALT 9 L Alkaline Phosphatase 156 H Albumin 3.0 L Urine Blood Ur Leukocyte Esterase 08/09/19 08/09/19 18:15 23:35 WBC MCHC Absolute Neuts (auto) Neutrophils % Neutrophils % (Manual) Lymphocytes % Lymphocytes % (Manual) Monocytes % (Manual) Sodium Carbon Dioxide BUN Creatinine Random Glucose Lactic Acid 2.2 H* ALT Alkaline Phosphatase Albumin Urine Blood 1+ H Ur Leukocyte Esterase 3+ H cxr- possible early infiltrate at left base. ASSESSMENT AND PLAN: #Severe sepsis secondary to community acquired pneumonia vs aspiration pna, vs UTI- pyuria+ on UA. Possibly initially with URI and superimposed bacterial PNA. +lactic acidosis-improving, leukocytosis, risa. Noted to have growmn MSSA in sputum cx and klebsiella pna in urine in 2017. S/p vanco/zosyn in ER. -admit to med/surg -flu swab -trend lactate -iv fluid hydration -sputum cx -blood cx x2 -urine cx -renal u/s to evaluate for evidence of pyelo -urine legionella ag -c/w vancomycin - past staph aureus in cx -c/w zosyn- possible aspiration -id consult -npo -speech swallow eval #RISA -likely secondary to sepsis vs prerenal -cox -i/o -daily weights -avoid nephrotoxins -renal u/s #Severe hyperglycemia - uncontrolled dm -a1c -aggressive novolog sliding scale -lantus 10 units qhs -advanced directives -DNR/DNI
[2019-08-10] MEDS ORDERED: HEPARIN NA (PORCINE) 5,000 UNITS/ML 1ML VIAL ONE (02:08)
[2019-08-10] MEDS: HEPARIN NA (PORCINE) 5,000 UNITS/ML 1ML VIAL SQ SCH ×3 (02:20→17:18)
[2019-08-10 05:24] VITALS: BMI 22.1
[2019-08-10 08:49] LABS: BASO % 0.3 % (0-2.0); EOS % 1.7 % (0-4.5); HEMATOCRIT 32.9 % (32.4-45.2); HEMOGLOBIN 10.4 GM/dL (10.7-15.3); LYMPH % 10.2 % (8-40); MCH 29.5 pg (25.7-33.7); MCHC 31.5 g/dl (32.0-36.0); MEAN CELL VOLUME 93.6 fl (80-96); MEAN PLT VOLUME 9.3 fl (7.5-11.1); MONO % 4.2 % (3.8-10.2); NEUT % 83.6 % (42.8-82.8); PLATELET COUNT 173 K/MM3 (134-434); RBC 3.51 M/mm3 (3.60-5.2); RDW 15.6 % (11.6-15.6); WHITE BLOOD COUNT 13.5 K/mm3 (4.0-10.0)
[2019-08-10 09:08] LABS: ALBUMIN 2.2 g/dl (3.4-5.0); BILIRUBIN,TOTAL 0.6 mg/dL (0.2-1); BLOOD UREA NITROGEN 43.8 mg/dL (7-18); CALCIUM 7.9 mg/dL (8.5-10.1); CREATININE 1.5 mg/dL (0.55-1.3); MAGNESIUM 2.6 mg/dL (1.8-2.4); PHOSPHOROUS 2.6 mg/dL (2.5-4.9); POTASSIUM 4.3 mmol/L (3.5-5.1); TOT PROT 5.3 g/dl (6.4-8.2)
--- NOTE | 2019-08-10 09:35 | PN ---
Teaching Attending Note Name of Resident: Dayna Bailey ATTENDING PHYSICIAN STATEMENT I saw and evaluated the patient. I reviewed the resident's note and discussed the case with the resident. I agree with the resident's findings and plan as documented. SUBJECTIVE: Patient is comfortable with no acute distress, nonverbal OBJECTIVE: Vital Signs Temperature 97.6 F 08/10/19 05:11 Pulse Rate 73 08/10/19 05:11 Respiratory Rate 18 08/10/19 05:11 Blood Pressure 93/64 08/10/19 05:11 O2 Sat by Pulse Oximetry (%) 95 08/10/19 05:11 GENERAL: The patient is awake, non verbal , HEAD: Normal with no signs of trauma. EYES: PERRL, extraocular movements intact, sclera anicteric, conjunctiva clear. ENT: Ears normal, oropharynx clear without exudates, moist mucous membranes. NECK: Trachea midline, full range of motion, supple. LUNGS: left decreased Breath sounds otherwise clear to auscultation, no wheezes , no crackles, no accessory muscle use. HEART: Regular rate and rhythm, S1, S2 without murmur, rub or gallop. ABDOMEN: Soft, NT, ND, normoactive bowel sounds, no guarding, no rebound, no hepatosplenomegaly, no masses. EXTREMITIES: 2+ pulses, warm, well-perfused, no edema. contracted NEUROLOGICAL: Cranial nerves II through XII grossly intact. non verbal, contracted, gait not observed. PSYCH: Normal mood, normal affect. SKIN: Warm, dry, normal turgor, no rashes or lesions noted CBCD WBC 13.5 K/mm3 (4.0-10.0) H 08/10/19 08:05 RBC 3.51 M/mm3 (3.60-5.2) L 08/10/19 08:05 Hgb 10.4 GM/dL (10.7-15.3) L 08/10/19 08:05 Hct 32.9 % (32.4-45.2) D 08/10/19 08:05 MCV 93.6 fl (80-96) 08/10/19 08:05 MCHC 31.5 g/dl (32.0-36.0) L 08/10/19 08:05 RDW 15.6 % (11.6-15.6) 08/10/19 08:05 Plt Count 173 K/MM3 (134-434) D 08/10/19 08:05 MPV 9.3 fl (7.5-11.1) 08/10/19 08:05 CMP Sodium 146 mmol/L (136-145) H 08/10/19 08:05 Potassium 4.3 mmol/L (3.5-5.1) 08/10/19 08:05 Chloride 109 mmol/L (98-107) H 08/10/19 08:05 Carbon Dioxide 31 mmol/L (21-32) 08/10/19 08:05 Anion Gap 7 MMOL/L (8-16) L 08/10/19 08:05 BUN 43.8 mg/dL (7-18) H 08/10/19 08:05 Creatinine 1.5 mg/dL (0.55-1.3) H 08/10/19 08:05 Random Glucose 109 mg/dL (74-106) H 08/10/19 08:05 Calcium 7.9 mg/dL (8.5-10.1) L 08/10/19 08:05 Total Bilirubin 0.6 mg/dL (0.2-1) 08/10/19 08:05 AST 17 U/L (15-37) 08/10/19 08:05 ALT 6 U/L (13-61) L 08/10/19 08:05 Alkaline Phosphatase 102 U/L (45-117) 08/10/19 08:05 Total Protein 5.3 g/dl (6.4-8.2) L 08/10/19 08:05 Albumin 2.2 g/dl (3.4-5.0) L 08/10/19 08:05 CARDIAC ENZYMES Troponin I 0.02 ng/ml (0.00-0.05) 08/09/19 18:06 Current Medications Generic Name Dose Route Start Last Admin Trade Name Freq PRN Reason Stop Dose Admin Heparin Sodium (Porcine) 5,000 unit 08/10/19 02:00 08/10/19 02:20 Heparin - SQ 5,000 unit Q8H-IV DASH Administration Sodium Chloride 1,000 mls @ 75 mls/hr 08/09/19 21:15 08/09/19 22:45 1/2 Normal Saline IV 75 mls/hr ASDIR DASH Administration Piperacillin Sod/Tazobactam 50 mls @ 100 mls/hr 08/10/19 06:15 Sod 3.375 gm/ Dextrose IVPB Q8H-IV DASH Protocol Piperacillin Sod/Tazobactam 50 mls @ 100 mls/hr 08/10/19 10:00 Sod 3.375 gm/ Dextrose IVPB 08/11/19 02:29 Q8H-IV DASH Insulin Detemir 10 units 08/10/19 22:00 Levemir Vial SQ HS [facility] Vancomycin HCl 1,000 mg 08/10/19 10:00 Vancomycin (Pre-Docked) IVPB DAILY [facility] Protocol Home Medications Medication Instructions Recorded Nebivolol HCl [Bystolic] 2.5 mg PO DAILY 02/19/15 predniSONE [Deltasone -] 2.5 mg PO DAILY 02/19/15 Ipratropium/Albuterol Sulfate 4 gm IH TID PRN #1 aer.w.adap 10/21/17 [Combivent Respimat Inhal [place]] Carbidopa-Levo ER 50-200 Tab 200 mg PO QID 08/09/19 Furosemide [Lasix -] 20 mg PO DAILY 08/09/19 cxr- possible early infiltrate at left base. ASSESSMENT AND PLAN: This is an 88 year old female with PMHx significant for Parkison's disease and arthritis. Patient presented with cough x 3 days and subjective fever and was found to have Pneumonia and UTI. #Severe sepsis secondary to community acquired pneumonia vs aspiration pna/UTI with lactic acidosis ,npo , speech swallow eval. by Debbie robbins # Acute Pneumonia: ID on the case continue IV antibiotics # Acute UTI- continue IV antibx #RISA : baseline cr.0.9 now 1.5 likely secondary to sepsis / prerenal renal u/s, william cox #Severe hyperglycemia - uncontrolled dm , a1c ,ssc, on lantus 10 units qhs advanced directives -DNR/DNI
[2019-08-10] MEDS ORDERED: PIPERACILLIN/TAZOB 3.375 GM 3.375 GM in DEXTROSE 5%-WATER - 50 ML IVPB SCH (10:00)
[2019-08-10] MEDS ORDERED: VANCOMYCIN 1 GM in D5W (PRE-DOCKED) 1,000 MG/250 ML IVPB SCH (10:00)
[2019-08-10] MEDS ORDERED: PIPERACILLIN/TAZOBACTAM 3.375 GM VIAL IVPB ONE (10:06)
[2019-08-10] MEDS ORDERED: DEXTROSE 5%-WATER - 50 ML IVPB ONE ×4 (10:06→21:20)
--- NOTE | 2019-08-10 10:11 | CONSULT ---
Admitting History and Physical - Primary Care Physician PCP: Chip Hirsch - Admission History of Present Illness: 86 yo woman who lives at home with family bed bound, demented, nonverbal at baseline, Parkinsonism, Dementia, HTN, brought in by daughter- Mally, due to productive cough, and decrease in mental status from baseline Selected Entries 08/10/19 08/10/19 05:11 09:39 Breakfast NPO Chief Complaint cough, fever Skin Risk Level Very High Risk Laboratory Tests 08/09/19 08/10/19 18:06 08:05 WBC 15.0 H 13.5 H Known to me from 2014 and 2017 assessments.2014- pt tolerated dysphagia ground with extra gravy and 1-2 soft finger foods eg soft sandwich,chicken fingers, muffins etc In 2017, mbs revealed oral holding without aspiration.Pt was on puree and thin liquid with good tolerance. At that time, she was also verbal but confused History Source: Medical Record Limitations to Obtaining History: Clinical Condition, Dementia - Past Medical History [employer]: Yes: Alzheimer's, Parkinson's Cardiovascular: Yes: Aortic Insufficiency (moderate to severe), CHF, HTN Pulmonary: Yes: COPD (interstitial lung disease) Heme/Onc: Yes: Anemia, B12 Deficiency, Other (DVT) Endocrine: Yes: Diabetes Mellitus - Past Surgical History Past Surgical History: Yes: Appendectomy, Cholecystectomy - Advance Directives Advance Directives: Yes: DNR - Smoking History Smoking history: Former smoker Have you smoked in the past 12 months: No Aproximately how many cigarettes per day: 0 If you are a former smoker, when did you quit?: 40 4ears ago - Alcohol/Substance Use Hx Alcohol Use: No History - Admission Reason For Visit: URINARY TRACT INFECTION, PNEUMONIA - Diagnostics X-ray: Report Reviewed Modified Barium Swallow: Report Reviewed (2017 oral holding with risk of aspiration but none demonstrated. Was on puree and thin liquid with good tolerance) - General Mental Status: Confused, Flat Affect, Lethargic (arousable) Ability to Follow Directions: Poor Head/Neck Control: Needs Assist - Hearing Hearing: Normal Speech Evaluation - Communication Primary Language: MARSHALLESE Communication: Yes: Non-Communicable - Speech Characteristics Voice Phonatory-based Quality: Yes: Normal (vocalizes/moans) - Language/Auditory Comprehension Observation: Able to respond to yes/no queries: No, Comprehends Conversational Speech: No (doubtful) - Swallow Evaluation/Bedside Assessment Current Nutritional Intake: NPO Oral Secretions: Yes: WFL Laryngeal Movement: Unable to Palpate Rate of Intake: Slow/Holding (Severe with puree and water, unable to swallow or expectorate.Needed to break labial seal with gloved finger to clear water/ applesauce from oral cavity) Bolus Size: Small Oral Prep Time: Increased Pocketing: Present Bilaterally Timing of Swallow: Absent Coughing/Throat Clear: No Change in Voice: No Recommendations - Speech Evaluation, Impression/Plan Impression: Severe oral holding without swallow generation.. Severe Dementia/ Cognitive deficits/Apraxia, exacerbated by infection. - Dysphagia Impressions/Plan Swallowing Skills: Impaired Dysphagia Impressions: Severe Impairment *Silent aspiration: cannot be R/O at bedside Recommendations: Palliative Care (Wishes regarding end of life/TF), Other (To follow/reassess as infectrion improves for functional swallow.) - Recommendations Diet Consistency: NPO, Other Liquids: NPO
--- NOTE | 2019-08-10 10:54 | EKG ---
Test Reason : Blood Pressure : / mmHG Vent. Rate : 065 BPM Atrial Rate : 065 BPM P-R Int : 142 ms QRS Dur : 080 ms QT Int : 462 ms P-R-T Axes : 048 -21 255 degrees QTc Int : 480 ms SINUS RHYTHM WITH PREMATURE ATRIAL COMPLEXES MINIMAL VOLTAGE CRITERIA FOR LVH, MAY BE NORMAL VARIANT PROLONGED QT ABNORMAL ECG Confirmed by KANU PRIDE MD ([id number]) on 08/10/2019 10:53:55 AM Referred By: Confirmed By:KANU PRIDE MD
--- NOTE | 2019-08-10 11:02 | EKG ---
Test Reason : Blood Pressure : / mmHG Vent. Rate : 085 BPM Atrial Rate : 072 BPM P-R Int : 152 ms QRS Dur : 078 ms QT Int : 426 ms P-R-T Axes : 045 -23 -86 degrees QTc Int : 506 ms POOR DATA QUALITY, INTERPRETATION MAY BE ADVERSELY AFFECTED tremor vs electrical artifacts UNDETERMINED RHYTHM ABNORMAL ECG WHEN COMPARED WITH ECG OF 16-OCT-2017 18:56, CURRENT UNDETERMINED RHYTHM PRECLUDES RHYTHM COMPARISON, NEEDS REVIEW T WAVE INVERSION NOW EVIDENT IN INFERIOR LEADS T WAVE INVERSION MORE EVIDENT IN ANTEROLATERAL LEADS QT HAS LENGTHENED Confirmed by SHANNEN CAAL, KANU ([id number]) on 08/10/2019 11:01:55 AM Referred By: Confirmed By:KANU PRIDE MD
--- NOTE | 2019-08-10 11:58 | CON.ID ---
Consult Consult Specialty:: infectious diseases Referred by:: hospitalist Reason for Consultation:: leukocytosis,weakness - History of Present Illness Chief Complaint: weakness History of Present Illness: 88 year old female with PMH significant for Parkison's disease and arthritis. She is not oriented to time, place, or person for the past 2 years, as a result of her Parkinson's. Her daughter is present at bedside and was available to answer questions. She states that the patient developed a cough 3 days ago, associated with whitish sputum production but no blood. She also states that the patient has been feeling warm since yesterday. Temperature taken at home yesterday was around 98-99. She also states that the patient is urinating more frequently (she uses a diaper), although there has been no blood, pus, or in odor. The daughter has not noticed her mother to be short of breath or displaying any difficulty breathing, no vomiting, and no diarrhea She also has an associated loss of appetite for the past few days. She averages one bowel movement every 2-3 days, hard in consistency. Her last BM was 4 days ago, described as large and hard, with no noticeable blood. The patient lives at home with her daughter and grand daughter. She states that her grand daughter recently displayed flu like symptoms, and the patient has not traveled outside of the city recently.She is immobile, and uses a wheelchair for transport. She does not use oxygen at home. history taken from the charts as patient not able to give any history - Past Medical History [employer]: Yes: Alzheimer's, Parkinson's Cardio/Vascular: Yes: Aortic Insufficiency (moderate to severe), CHF, HTN Pulmonary: Yes: COPD (interstitial lung disease) Endocrine: Yes: Diabetes Mellitus - Past Surgical History Past Surgical History: Yes: Appendectomy, Cholecystectomy - Alcohol/Substance Use Hx Alcohol Use: No - Smoking History Smoking history: Former smoker Have you smoked in the past 12 months: No Aproximately how many cigarettes per day: 0 If you are a former smoker, when did you quit?: 40 4ears ago - Social History Usual Living Arrangement: With Significant Other Home Medications - Allergies Allergies/Adverse Reactions: Allergies Allergy/AdvReac Type Severity Reaction Status Date / Time valsartan [From Diovan] Allergy Verified 10/16/17 17:15 - Home Medications Home Medications: Ambulatory Orders RX: Nebivolol HCl [Bystolic] 2.5 mg PO DAILY 02/19/15 RX: predniSONE [Deltasone -] 2.5 mg PO BID 02/19/15 Carbidopa-Levo ER 50-200 Tab 200 mg PO QID 08/09/19 Furosemide [Lasix -] 20 mg PO BID 08/09/19 RX: Omeprazole 20 mg PO BID 08/10/19 Physical Exam Vital Signs: Vital Signs Temperature 97.6 F 08/10/19 05:11 Pulse Rate 73 08/10/19 05:11 Respiratory Rate 18 08/10/19 05:11 Blood Pressure 93/64 08/10/19 05:11 O2 Sat by Pulse Oximetry (%) 95 08/10/19 05:11 Labs: CBC, BMP 08/10/19 08:05 08/10/19 08:05
[2019-08-10] MEDS: THIAMINE HCL 200 MG/2 ML VIAL IM SCH (12:57)
[2019-08-10] MEDS ORDERED: PIPERACILLIN/TAZOBACTAM 2.25 GM VIAL IVPB ONE ×3 (14:34→21:20)
--- NOTE | 2019-08-10 14:38 | PN ---
Physical Exam: SUBJECTIVE: Patient seen and examined. Pt is baseline non verbal. no apparent distress. OBJECTIVE: Vital Signs Period Temp Pulse Resp BP Sys/Torres Pulse Ox Last 24 Hr 97.6 F-101.8 F 60-102 16-20 93-115/44-83 89-100 GENERAL: The patient is non verbal, awake in no apparent distress. HEAD: Normal with no signs of trauma. LUNGS: Breath sounds decreased on left lower field, no wheezes, no accessory muscle use. HEART: Regular rate and rhythm, S1, S2 without murmur, rub or gallop. ABDOMEN: Soft, nontender, nondistended, normoactive bowel sounds, no guarding, no rebound, no hepatosplenomegaly, no masses. EXTREMITIES: 2+ pulses, warm, well-perfused, no edema. Laboratory Results - last 24 hr 08/09/19 08/09/19 08/09/19 18:06 18:06 18:06 WBC 15.0 H RBC 4.73 Hgb 13.7 Hct 43.8 MCV 92.7 MCH 29.0 MCHC 31.3 L RDW 15.0 Plt Count 228 MPV 9.2 D Absolute Neuts (auto) 13.4 H Total Counted 100 Neutrophils % 89.1 H Neutrophils % (Manual) 87.0 H Band Neutrophils % 5.0 Lymphocytes % 4.4 L D Lymphocytes % (Manual) 5.0 L Monocytes % 6.4 Monocytes % (Manual) 3 L Eosinophils % 0.0 D Basophils % 0.1 Nucleated RBC % 0 PT with INR INR PTT (Actin FS) 25.4 Sodium Potassium Chloride Carbon Dioxide Anion Gap BUN Creatinine Est GFR (CKD-EPI)AfAm Est GFR (CKD-EPI)NonAf Random Glucose Hemoglobin A1c % Lactic Acid Calcium Phosphorus Magnesium Total Bilirubin AST ALT Alkaline Phosphatase Troponin I 0.02 Total Protein Albumin TSH Urine Color Urine Appearance Urine pH Ur Specific [place] Urine Protein Urine Glucose (UA) Urine Ketones Urine Blood Urine Nitrite Urine Bilirubin Urine Urobilinogen Ur Leukocyte Esterase Urine WBC (Auto) Urine Casts (Auto) U Epithel Cells (Auto) Urine Bacteria (Auto) Influenza A (Rapid) Influenza B (Rapid) 08/09/19 08/09/19 08/09/19 18:06 18:06 18:06 WBC RBC Hgb Hct MCV MCH MCHC RDW Plt Count MPV Absolute Neuts (auto) Total Counted Neutrophils % Neutrophils % (Manual) Band Neutrophils % Lymphocytes % Lymphocytes % (Manual) Monocytes % Monocytes % (Manual) Eosinophils % Basophils % Nucleated RBC % PT with INR 12.30 INR 1.04 PTT (Actin FS) Sodium 149 H Potassium 4.8 Chloride 100 Carbon Dioxide 36 H Anion Gap 14 BUN 56.4 H Creatinine 1.8 H Est GFR (CKD-EPI)AfAm 28.42 Est GFR (CKD-EPI)NonAf 24.52 Random Glucose 299 H Hemoglobin A1c % Lactic Acid 3.5 H* Calcium 9.4 Phosphorus Magnesium Total Bilirubin 0.5 AST 32 ALT 9 L Alkaline Phosphatase 156 H Troponin I Total Protein 7.4 Albumin 3.0 L TSH Urine Color Urine Appearance Urine pH Ur Specific [place] Urine Protein Urine Glucose (UA) Urine Ketones Urine Blood Urine Nitrite Urine Bilirubin Urine Urobilinogen Ur Leukocyte Esterase Urine WBC (Auto) Urine Casts (Auto) U Epithel Cells (Auto) Urine Bacteria (Auto) Influenza A (Rapid) Influenza B (Rapid) 08/09/19 08/09/19 08/10/19 18:15 23:35 06:30 WBC RBC Hgb Hct MCV MCH MCHC RDW Plt Count MPV Absolute Neuts (auto) Total Counted Neutrophils % Neutrophils % (Manual) Band Neutrophils % Lymphocytes % Lymphocytes % (Manual) Monocytes % Monocytes % (Manual) Eosinophils % Basophils % Nucleated RBC % PT with INR INR PTT (Actin FS) Sodium Potassium Chloride Carbon Dioxide Anion Gap BUN Creatinine Est GFR (CKD-EPI)AfAm Est GFR (CKD-EPI)NonAf Random Glucose Hemoglobin A1c % Lactic Acid 2.2 H* Calcium Phosphorus Magnesium Total Bilirubin AST ALT Alkaline Phosphatase Troponin I Total Protein Albumin TSH Urine Color Yellow Urine Appearance Turbid Urine pH 7.0 Ur Specific [place] 1.012 Urine Protein Trace Urine Glucose (UA) Negative Urine Ketones Negative Urine Blood 1+ H Urine Nitrite Negative Urine Bilirubin Negative Urine Urobilinogen 1.0 Ur Leukocyte Esterase 3+ H Urine WBC (Auto) 98 Urine Casts (Auto) 104 U Epithel Cells (Auto) 10.8 Urine Bacteria (Auto) 4169.2 Influenza A (Rapid) Negative Influenza B (Rapid) Negative 08/10/19 08/10/19 08/10/19 08:05 08:05 08:05 WBC 13.5 H RBC 3.51 L Hgb 10.4 L Hct 32.9 D MCV 93.6 MCH 29.5 MCHC 31.5 L RDW 15.6 Plt Count 173 D MPV 9.3 Absolute Neuts (auto) 11.3 H Total Counted Neutrophils % 83.6 H Neutrophils % (Manual) Band Neutrophils % Lymphocytes % 10.2 D Lymphocytes % (Manual) Monocytes % 4.2 Monocytes % (Manual) Eosinophils % 1.7 D Basophils % 0.3 Nucleated RBC % 0 PT with INR INR PTT (Actin FS) Sodium 146 H Potassium 4.3 Chloride 109 H Carbon Dioxide 31 Anion Gap 7 L BUN 43.8 H Creatinine 1.5 H Est GFR (CKD-EPI)AfAm 35.43 Est GFR (CKD-EPI)NonAf 30.57 Random Glucose 109 H Hemoglobin A1c % 7.6 H Lactic Acid Calcium 7.9 L Phosphorus 2.6 Magnesium 2.6 H Total Bilirubin 0.6 AST 17 ALT 6 L Alkaline Phosphatase 102 Troponin I Total Protein 5.3 L Albumin 2.2 L TSH 1.03 Urine Color Urine Appearance Urine pH Ur Specific [place] Urine Protein Urine Glucose (UA) Urine Ketones Urine Blood Urine Nitrite Urine Bilirubin Urine Urobilinogen Ur Leukocyte Esterase Urine WBC (Auto) Urine Casts (Auto) U Epithel Cells (Auto) Urine Bacteria (Auto) Influenza A (Rapid) Influenza B (Rapid) 08/10/19 08:51 WBC RBC Hgb Hct MCV MCH MCHC RDW Plt Count MPV Absolute Neuts (auto) Total Counted Neutrophils % Neutrophils % (Manual) Band Neutrophils % Lymphocytes % Lymphocytes % (Manual) Monocytes % Monocytes % (Manual) Eosinophils % Basophils % Nucleated RBC % PT with INR INR PTT (Actin FS) Sodium Potassium Chloride Carbon Dioxide Anion Gap BUN Creatinine Est GFR (CKD-EPI)AfAm Est GFR (CKD-EPI)NonAf Random Glucose Hemoglobin A1c % Lactic Acid 2.2 H* Calcium Phosphorus Magnesium Total Bilirubin AST ALT Alkaline Phosphatase Troponin I Total Protein Albumin TSH Urine Color Urine Appearance Urine pH Ur Specific [place] Urine Protein Urine Glucose (UA) Urine Ketones Urine Blood Urine Nitrite Urine Bilirubin Urine Urobilinogen Ur Leukocyte Esterase Urine WBC (Auto) Urine Casts (Auto) U Epithel Cells (Auto) Urine Bacteria (Auto) Influenza A (Rapid) Influenza B (Rapid) Active Medications Generic Name Dose Route Start Last Admin Trade Name Freq PRN Reason Stop Dose Admin Heparin Sodium (Porcine) 5,000 unit 08/10/19 02:00 08/10/19 10:12 Heparin - SQ 5,000 unit Q8H-IV DASH Administration Sodium Chloride 1,000 mls @ 75 mls/hr 08/09/19 21:15 08/09/19 22:45 1/2 Normal Saline IV 75 mls/hr ASDIR DASH Administration Piperacillin Sod/Tazobactam 50 mls @ 100 mls/hr 08/10/19 15:00 Sod 2.25 gm/ Dextrose IVPB Q6H-IV DASH Protocol Insulin Detemir 10 units 08/10/19 22:00 Levemir Vial SQ HS DASH Thiamine HCl 200 mg 08/10/19 11:30 08/10/19 12:57 Vitamin B1 Injection - IM 200 mg DAILY DASH Administration ASSESSMENT/PLAN: 88 year old female with PMHx significant for Parkison's disease, arthritis. Patient presented with cough x 3 days and subjective fever and was found to have Pneumonia and UTI. Sepsis 2/2 PNA and UTI WBC trending down 15-> 13.5 Lactid acid 3.3 -> 2.2 ID consulted and recommended continuing IV Zosyn and D/C Vanco Sputum Cx, Blood Cx, Urine Legionella antigen pending RISA creatinine down 1.8 -> 1.5 cont 1/2 NS at 75cc/hr Renal US Hyperglycemia HbA1C 7.6 on recent labs ISS Levemir 10 units might be due to steroids h/o pernicious anemia B12 IM 200 daily FEN Severe oral holding without swallow generation Severe Dementia/Cognitive deficits/Apraxia, exacerbated by infection Recommendation from speech and swallow eval: Keep Pt NPO DVT PPX Hep subQ Visit type - Emergency Visit Emergency Visit: Yes ED Registration Date: 08/09/19 Care time: The patient presented to the Emergency Department on the above date and was hospitalized for further evaluation of their emergent condition. - New Patient This patient is new to me today: No - Critical Care Critical Care patient: No - Discharge Referral Referred to [facility] Med P.C.: No ATTENDING PHYSICIAN STATEMENT I saw and evaluated the patient. I reviewed the resident's note and discussed the case with the resident. I agree with the resident's findings and plan as documented. SUBJECTIVE: OBJECTIVE: ASSESSMENT AND PLAN:
[2019-08-10] MEDS: PIPERACILLIN/TAZOB 2.25 GM 2.25 GM in DEXTROSE 5%-WATER - 50 ML IVPB SCH ×2 (15:05→21:24)
[2019-08-10 15:18] LABS: ANISOCYTOSIS 0; MACROCYTOSIS 0; PLATELET ESTIMATE NORMAL
[2019-08-10] MEDS ORDERED: SODIUM CHLORIDE 500 ML IV STA (16:53)
[2019-08-10] MEDS: SODIUM CHLORIDE 0.45% 1,000 ML IV SCH (21:25)
[2019-08-10] MEDS: INSULIN (LEVEMIR) 100 UNITS/ML UNITS SQ SCH (21:40)
[2019-08-11] MEDS: HEPARIN NA (PORCINE) 5,000 UNITS/ML 1ML VIAL SQ SCH ×3 (01:17→18:26)
[2019-08-11] MEDS ORDERED: PIPERACILLIN/TAZOBACTAM 2.25 GM VIAL IVPB ONE ×4 (03:37→20:52)
[2019-08-11] MEDS ORDERED: DEXTROSE 5%-WATER - 50 ML IVPB ONE ×4 (03:37→20:52)
[2019-08-11] MEDS: PIPERACILLIN/TAZOB 2.25 GM 2.25 GM in DEXTROSE 5%-WATER - 50 ML IVPB SCH ×4 (03:38→21:17)
[2019-08-11] MEDS: PIPERACILLIN/TAZOB 3.375 GM 3.375 GM in DEXTROSE 5%-WATER - 50 ML IVPB SCH (07:35)
[2019-08-11 09:11] LABS: BASO % 0.3 % (0-2.0); EOS % 0.8 % (0-4.5); HEMATOCRIT 30.1 % (32.4-45.2); HEMOGLOBIN 9.6 GM/dL (10.7-15.3); LYMPH % 10.7 % (8-40); MCH 29.4 pg (25.7-33.7); MCHC 31.9 g/dl (32.0-36.0); MEAN CELL VOLUME 92.1 fl (80-96); MEAN PLT VOLUME 8.9 fl (7.5-11.1); MONO % 5.9 % (3.8-10.2); NEUT % 82.3 % (42.8-82.8); PLATELET COUNT 166 K/MM3 (134-434); RBC 3.27 M/mm3 (3.60-5.2); RDW 14.8 % (11.6-15.6); WHITE BLOOD COUNT 12.2 K/mm3 (4.0-10.0)
[2019-08-11] MEDS ORDERED: PT OWN MED DRAWER 7, Y5N ONE (09:29)
[2019-08-11] MEDS: THIAMINE HCL 200 MG/2 ML VIAL IM SCH (09:37)
[2019-08-11 09:53] LABS: ALBUMIN 1.9 g/dl (3.4-5.0); BILIRUBIN,TOTAL 0.7 mg/dL (0.2-1); BLOOD UREA NITROGEN 24.5 mg/dL (7-18); CALCIUM 7.7 mg/dL (8.5-10.1); CREATININE 1.1 mg/dL (0.55-1.3); POTASSIUM 3.3 mmol/L (3.5-5.1); TOT PROT 4.8 g/dl (6.4-8.2)
[2019-08-11] MEDS: KCL 10 MEQ IVPB 10 MEQ/100 ML INFUS.BAG IVPB SCH ×2 (11:30→12:50)
[2019-08-11] MEDS: SODIUM CHLORIDE 0.45% 1,000 ML IV SCH (13:30)
--- NOTE | 2019-08-11 15:42 | PN ---
Physical Exam: SUBJECTIVE: Patient seen and examined. Pt lying in bed comfortably. OBJECTIVE: Vital Signs Period Temp Pulse Resp BP Sys/Torres Pulse Ox Last 24 Hr 98.7 F-99.6 F 62-75 17-18 111-139/44-71 97-97 GENERAL: The patient is non verbal, awake in no apparent distress. HEAD: Normal with no signs of trauma. LUNGS: Breath sounds decreased on left lower field, with diffuse crackles, no wheezes, no accessory muscle use. HEART: Regular rate and rhythm, S1, S2 without murmur, rub or gallop. ABDOMEN: Soft, nontender, nondistended, normoactive bowel sounds, no guarding, no rebound, no hepatosplenomegaly, no masses. EXTREMITIES: 2+ pulses, warm, well-perfused, no edema. Laboratory Results - last 24 hr 08/10/19 08/11/19 08/11/19 17:30 08:30 08:30 WBC 12.2 H RBC 3.27 L Hgb 9.6 L Hct 30.1 L MCV 92.1 MCH 29.4 MCHC 31.9 L RDW 14.8 Plt Count 166 MPV 8.9 Absolute Neuts (auto) 10.1 H Neutrophils % 82.3 Lymphocytes % 10.7 Monocytes % 5.9 Eosinophils % 0.8 Basophils % 0.3 Nucleated RBC % 0 Sodium 145 Potassium 3.3 L Chloride 110 H Carbon Dioxide 28 Anion Gap 7 L BUN 24.5 H Creatinine 1.1 Est GFR (CKD-EPI)AfAm 51.55 Est GFR (CKD-EPI)NonAf 44.48 Random Glucose 60 L Lactic Acid 1.8 Calcium 7.7 L Total Bilirubin 0.7 AST 21 ALT 7 L Alkaline Phosphatase 115 Total Protein 4.8 L Albumin 1.9 L Active Medications Generic Name Dose Route Start Last Admin Trade Name Freq PRN Reason Stop Dose Admin Heparin Sodium (Porcine) 5,000 unit 08/10/19 02:00 08/11/19 09:38 Heparin - SQ 5,000 unit Q8H-IV DASH Administration Piperacillin Sod/Tazobactam 50 mls @ 100 mls/hr 08/10/19 15:00 08/11/19 09:34 Sod 2.25 gm/ Dextrose IVPB 100 mls/hr Q6H-IV DASH Administration Protocol Sodium Chloride 1,000 mls @ 60 mls/hr 08/11/19 13:27 1/2 Normal Saline IV ASDIR DASH Insulin Detemir 10 units 08/10/19 22:00 08/10/19 21:40 Levemir Vial SQ 10 units HS DASH Administration Thiamine HCl 200 mg 08/10/19 11:30 08/11/19 09:37 Vitamin B1 Injection - IM 200 mg DAILY DASH Administration ASSESSMENT/PLAN: 88 year old female with PMHx significant for Parkison's disease, arthritis. Patient presented with cough x 3 days and subjective fever and was found to have Pneumonia and UTI. Sepsis 2/2 PNA and UTI WBC trending down 15-> 13.5 ->12.2 Lactid acid 3.3 -> 2.2 ->1.8 continuing IV Zosyn Blood Cx negx1d RISA creatinine down 1.8 -> 1.5 ->1.1 cont 1/2 NS at 60 cc/hr 2/2 crackles in lung [place] on Physical Exam Renal US showed no acute pathology Hyperglycemia HbA1C 7.6 on recent labs ISS Levemir 10 units h/o pernicious anemia B12 IM 200 daily FEN Severe oral holding without swallow generation Severe Dementia/Cognitive deficits/Apraxia, exacerbated by infection Recommendation from speech and swallow eval: Keep Pt NPO DVT PPX Hep subQ Visit type - Emergency Visit Emergency Visit: Yes ED Registration Date: 08/09/19 Care time: The patient presented to the Emergency Department on the above date and was hospitalized for further evaluation of their emergent condition. - New Patient This patient is new to me today: No - Critical Care Critical Care patient: No - Discharge Referral Referred to [facility] Med P.C.: No ATTENDING PHYSICIAN STATEMENT I saw and evaluated the patient. I reviewed the resident's note and discussed the case with the resident. I agree with the resident's findings and plan as documented. SUBJECTIVE: OBJECTIVE: ASSESSMENT AND PLAN:
[2019-08-11] MEDS: INSULIN (LEVEMIR) 100 UNITS/ML UNITS SQ SCH (21:17)
[2019-08-11] MEDS: SILVER SULFADIAZINE 1% TOP CREAM 50 GM JAR TP SCH (21:19)
--- NOTE | 2019-08-11 21:30 | PN ---
Teaching Attending Note Name of Resident: Dayna Bailey ATTENDING PHYSICIAN STATEMENT I saw and evaluated the patient. I reviewed the resident's note and discussed the case with the resident. I agree with the resident's findings and plan as documented. SUBJECTIVE: Patient is comfortable, lying in bed, non verbal. OBJECTIVE: Vital Signs Temperature 98.8 F 08/11/19 12:46 Pulse Rate 62 08/11/19 09:00 Respiratory Rate 17 08/11/19 09:00 Blood Pressure 130/44 L 08/11/19 09:00 O2 Sat by Pulse Oximetry (%) 97 08/11/19 09:00 GENERAL: The patient is more awake today, non verbal , in no acute distress. HEAD: Normal with no signs of trauma. EYES: PERRL, extraocular movements intact, sclera anicteric, conjunctiva clear. ENT: Ears normal, oropharynx clear without exudates, moist mucous membranes. NECK: Trachea midline, full range of motion, supple. LUNGS: left decreased Breath sounds otherwise clear to auscultation, no wheezes , no crackles, no accessory muscle use. HEART: Regular rate and rhythm, S1, S2 without murmur, rub or gallop. ABDOMEN: Soft, NT, ND, normoactive bowel sounds, no guarding, no rebound, no hepatosplenomegaly, no masses. EXTREMITIES: 2+ pulses, warm, well-perfused, no edema. contracted NEUROLOGICAL: Cranial nerves II through XII grossly intact. non verbal, contracted, gait not observed. PSYCH: Normal mood, normal affect. SKIN: Warm, dry, normal turgor, right big toe bulloes. CBCD WBC 12.2 K/mm3 (4.0-10.0) H 08/11/19 08:30 RBC 3.27 M/mm3 (3.60-5.2) L 08/11/19 08:30 Hgb 9.6 GM/dL (10.7-15.3) L 08/11/19 08:30 Hct 30.1 % (32.4-45.2) L 08/11/19 08:30 MCV 92.1 fl (80-96) 08/11/19 08:30 MCHC 31.9 g/dl (32.0-36.0) L 08/11/19 08:30 RDW 14.8 % (11.6-15.6) 08/11/19 08:30 Plt Count 166 K/MM3 (134-434) 08/11/19 08:30 MPV 8.9 fl (7.5-11.1) 08/11/19 08:30 CMP Sodium 145 mmol/L (136-145) 08/11/19 08:30 Potassium 3.3 mmol/L (3.5-5.1) L 08/11/19 08:30 Chloride 110 mmol/L (98-107) H 08/11/19 08:30 Carbon Dioxide 28 mmol/L (21-32) 08/11/19 08:30 Anion Gap 7 MMOL/L (8-16) L 08/11/19 08:30 BUN 24.5 mg/dL (7-18) H 08/11/19 08:30 Creatinine 1.1 mg/dL (0.55-1.3) 08/11/19 08:30 Random Glucose 60 mg/dL (74-106) L 08/11/19 08:30 Calcium 7.7 mg/dL (8.5-10.1) L 08/11/19 08:30 Total Bilirubin 0.7 mg/dL (0.2-1) 08/11/19 08:30 AST 21 U/L (15-37) 08/11/19 08:30 ALT 7 U/L (13-61) L 08/11/19 08:30 Alkaline Phosphatase 115 U/L (45-117) 08/11/19 08:30 Total Protein 4.8 g/dl (6.4-8.2) L 08/11/19 08:30 Albumin 1.9 g/dl (3.4-5.0) L 08/11/19 08:30 CARDIAC ENZYMES Troponin I 0.02 ng/ml (0.00-0.05) 08/09/19 18:06 Current Medications Generic Name Dose Route Start Last Admin Trade Name Fredrickq PRN Reason Stop Dose Admin Heparin Sodium (Porcine) 5,000 unit 08/10/19 02:00 08/11/19 18:26 Heparin - SQ 5,000 unit Q8H-IV DASH Administration Piperacillin Sod/Tazobactam 50 mls @ 100 mls/hr 08/10/19 15:00 08/11/19 21:17 Sod 2.25 gm/ Dextrose IVPB 100 mls/hr Q6H-IV DAHS Administration Protocol Sodium Chloride 1,000 mls @ 60 mls/hr 08/11/19 13:27 08/11/19 13:30 1/2 Normal Saline IV 60 mls/hr ASDIR DASH Administration Insulin Detemir 10 units 08/10/19 22:00 08/11/19 21:17 Levemir Vial SQ Not Given HS DASH Silver Sulfadiazine 1 applic 08/11/19 22:00 08/11/19 21:19 Silvadene - TP 1 applic BID DASH Administration Thiamine HCl 200 mg 08/10/19 11:30 08/11/19 09:37 Vitamin B1 Injection - IM 200 mg DAILY DASH Administration Home Medications Medication Instructions Recorded Nebivolol HCl [Bystolic] 2.5 mg PO DAILY 02/19/15 predniSONE [Deltasone -] 2.5 mg PO BID 02/19/15 Carbidopa-Levo ER 50-200 Tab 200 mg PO QID 08/09/19 Furosemide [Lasix -] 20 mg PO BID 08/09/19 Omeprazole 20 mg PO BID 08/10/19 cxr- patchy early infiltrate at left base. renal US: negative ASSESSMENT AND PLAN: This is an 88 year old female with PMHx significant for Parkison's disease and arthritis. Patient presented with cough x 3 days and subjective fever and was found to have Pneumonia and UTI. #Severe sepsis secondary to community acquired pneumonia vs aspiration pna/UTI with lactic acidosis, npo ,speech swallow eval. by Debbie robbins # Acute Pneumonia: ID on the case continue IV antibiotics zosyn renally adjusted # Acute UTI- continue IV antibx #RISA : baseline cr.0.9 --> 1.5--> 1.1 william goldstein #Severe hyperglycemia - uncontrolled dm ,a1c ,ssc, on lantus 10 units qhs # Hypokalemia: replete advanced directives -DNR/DNI
[2019-08-12] MEDS ORDERED: PIPERACILLIN/TAZOBACTAM 2.25 GM VIAL IVPB ONE ×4 (01:49→20:57)
[2019-08-12] MEDS ORDERED: DEXTROSE 5%-WATER - 50 ML IVPB ONE ×4 (01:50→20:57)
[2019-08-12] MEDS: PIPERACILLIN/TAZOB 2.25 GM 2.25 GM in DEXTROSE 5%-WATER - 50 ML IVPB SCH ×4 (02:11→21:22)
[2019-08-12] MEDS: HEPARIN NA (PORCINE) 5,000 UNITS/ML 1ML VIAL SQ SCH ×2 (02:12→09:27)
[2019-08-12] MEDS: THIAMINE HCL 200 MG/2 ML VIAL IM SCH (09:27)
[2019-08-12 09:29] LABS: BASO % 0.3 % (0-2.0); EOS % 1.5 % (0-4.5); HEMATOCRIT 30.6 % (32.4-45.2); HEMOGLOBIN 9.9 GM/dL (10.7-15.3); LYMPH % 9.2 % (8-40); MCH 29.6 pg (25.7-33.7); MCHC 32.2 g/dl (32.0-36.0); MEAN PLT VOLUME 9.4 fl (7.5-11.1); MONO % 5.6 % (3.8-10.2); NEUT % 83.4 % (42.8-82.8); PLATELET COUNT 194 K/MM3 (134-434); RBC 3.33 M/mm3 (3.60-5.2); RDW 15.1 % (11.6-15.6)
[2019-08-12] MEDS: SILVER SULFADIAZINE 1% TOP CREAM 50 GM JAR TP SCH ×2 (09:30→21:28)
[2019-08-12 09:31] LABS: ALBUMIN 1.8 g/dl (3.4-5.0); BILIRUBIN,TOTAL 0.7 mg/dL (0.2-1); BLOOD UREA NITROGEN 19.1 mg/dL (7-18); CALCIUM 8.4 mg/dL (8.5-10.1); POTASSIUM 3.8 mmol/L (3.5-5.1); TOT PROT 4.8 g/dl (6.4-8.2)
[2019-08-12] MEDS ORDERED: DEXTROSE 50%-WATER - 25 GM/50 ML VIAL IVPUSH ONE (09:42)
[2019-08-12] MEDS: SODIUM CHLORIDE 0.45% 1,000 ML IV SCH (09:54)
[2019-08-12] MEDS ORDERED: DEXTROSE 50%-WATER 25 GM/50 ML DISP.SYRIN IVPUSH ONE (10:00)
--- NOTE | 2019-08-12 10:00 | PN ---
Teaching Attending Note Name of Resident: Dayna Bailey ATTENDING PHYSICIAN STATEMENT I saw and evaluated the patient. I reviewed the resident's note and discussed the case with the resident. I agree with the resident's findings and plan as documented. SUBJECTIVE: Patient is more arousable. OBJECTIVE: Vital Signs Temperature 98.8 F 08/12/19 05:35 Pulse Rate 67 08/12/19 05:35 Respiratory Rate 18 08/12/19 05:35 Blood Pressure 135/58 L 08/12/19 05:35 O2 Sat by Pulse Oximetry (%) 95 08/12/19 09:37 GENERAL: The patient is more awake today, non verbal , in no acute distress. HEAD: Normal with no signs of trauma. EYES: PERRL, extraocular movements intact, sclera anicteric, conjunctiva clear. ENT: Ears normal, oropharynx clear without exudates, moist mucous membranes. NECK: Trachea midline, full range of motion, supple. LUNGS: left decreased Breath sounds otherwise clear to auscultation, no wheezes , no crackles, no accessory muscle use. HEART: Regular rate and rhythm, S1, S2 without murmur, rub or gallop. ABDOMEN: Soft, NT, ND, normoactive bowel sounds, no guarding, no rebound, no hepatosplenomegaly, no masses. EXTREMITIES: 2+ pulses, warm, well-perfused, no edema. contracted NEUROLOGICAL: Cranial nerves II through XII grossly intact. non verbal, contracted, gait not observed. PSYCH: Normal mood, normal affect. SKIN: Warm, dry, normal turgor, right big toe bulloes. CBCD WBC 12.0 K/mm3 (4.0-10.0) H 08/12/19 08:00 RBC 3.33 M/mm3 (3.60-5.2) L 08/12/19 08:00 Hgb 9.9 GM/dL (10.7-15.3) L 08/12/19 08:00 Hct 30.6 % (32.4-45.2) L 08/12/19 08:00 MCV 92.0 fl (80-96) 08/12/19 08:00 MCHC 32.2 g/dl (32.0-36.0) 08/12/19 08:00 RDW 15.1 % (11.6-15.6) 08/12/19 08:00 Plt Count 194 K/MM3 (134-434) 08/12/19 08:00 MPV 9.4 fl (7.5-11.1) 08/12/19 08:00 CMP Sodium 145 mmol/L (136-145) 08/12/19 08:00 Potassium 3.8 mmol/L (3.5-5.1) 08/12/19 08:00 Chloride 109 mmol/L (98-107) H 08/12/19 08:00 Carbon Dioxide 27 mmol/L (21-32) 08/12/19 08:00 Anion Gap 9 MMOL/L (8-16) 08/12/19 08:00 BUN 19.1 mg/dL (7-18) H 08/12/19 08:00 Creatinine 1.0 mg/dL (0.55-1.3) 08/12/19 08:00 Random Glucose 72 mg/dL (74-106) L 08/12/19 08:00 Calcium 8.4 mg/dL (8.5-10.1) L 08/12/19 08:00 Total Bilirubin 0.7 mg/dL (0.2-1) 08/12/19 08:00 AST 16 U/L (15-37) 08/12/19 08:00 ALT 9 U/L (13-61) L 08/12/19 08:00 Alkaline Phosphatase 141 U/L (45-117) H 08/12/19 08:00 Total Protein 4.8 g/dl (6.4-8.2) L 08/12/19 08:00 Albumin 1.8 g/dl (3.4-5.0) L 08/12/19 08:00 CARDIAC ENZYMES Troponin I 0.02 ng/ml (0.00-0.05) 08/09/19 18:06 Current Medications Generic Name Dose Route Start Last Admin Trade Name Freq PRN Reason Stop Dose Admin Dextrose 25 gm 08/12/19 10:00 D50w (Syringe) - IVPUSH 08/12/19 10:01 NOW ONE Heparin Sodium (Porcine) 5,000 unit 08/10/19 02:00 08/12/19 09:27 Heparin - SQ 5,000 unit Q8H-IV DASH Administration Piperacillin Sod/Tazobactam 50 mls @ 100 mls/hr 08/10/19 15:00 08/12/19 09:27 Sod 2.25 gm/ Dextrose IVPB 100 mls/hr Q6H-IV DASH Administration Protocol Sodium Chloride 1,000 mls @ 60 mls/hr 08/11/19 13:27 08/12/19 09:54 1/2 Normal Saline IV 60 mls/hr ASDIR DASH Administration Insulin Detemir 10 units 08/10/19 22:00 08/11/19 21:17 Levemir Vial SQ Not Given HS DASH will dc for now Silver Sulfadiazine 1 applic 08/11/19 22:00 08/12/19 09:30 Silvadene - TP 1 applic BID DASH Administration Thiamine HCl 200 mg 08/10/19 11:30 08/12/19 09:27 Vitamin B1 Injection - IM 200 mg DAILY DASH Administration Home Medications Medication Instructions Recorded Nebivolol HCl [Bystolic] 2.5 mg PO DAILY 02/19/15 predniSONE [Deltasone -] 2.5 mg PO BID 02/19/15 Carbidopa-Levo ER 50-200 Tab 200 mg PO QID 08/09/19 Furosemide [Lasix -] 20 mg PO BID 08/09/19 Omeprazole 20 mg PO BID 08/10/19 Laboratory Tests 08/10/19 08:05 Hemoglobin A1c % 7.6 H cxr- patchy early infiltrate at left base. renal US: negative ASSESSMENT AND PLAN: This is an 88 year old female with PMHx significant for Parkison's disease and arthritis. Patient presented with cough x 3 days and subjective fever and was found to have Pneumonia and UTI. # s/p sepsis secondary to community acquired pneumonia/UTI : improving.continue IV antibiotics, speech swallow eval. by Debbie robbins since patient was less arousable was unable to access # Acute Pneumonia: ID on the case continue IV antibiotics zosyn renally adjusted # Acute UTI- continue IV antibx #RISA : baseline cr.0.9 --> 1.5--> 1.1-->1.0 improving , dc brooke #T2DM Uncontrolled : a1c is 7.6 , ssc, on lantus 10 units qhs, will dc # Hypokalemia: replete advanced directives -DNR/DNI
[2019-08-12] MEDS ORDERED: DEXTROSE 50%-WATER 25 GM/50 ML DISP.SYRIN ONE (10:17)
--- NOTE | 2019-08-12 10:42 | PN ---
Physical Exam: SUBJECTIVE: Patient seen and examined. No acute distress. OBJECTIVE: Vital Signs Period Temp Pulse Resp BP Sys/Torres Pulse Ox Last 24 Hr 98.4 F-98.8 F 67-87 18-20 103-135/52-58 95-98 GENERAL: The patient is non verbal, awake in no apparent distress. HEAD: Normal with no signs of trauma. LUNGS: Breath sounds decreased on left lower field, with diffuse crackles which improved, no wheezes, no accessory muscle use. HEART: Regular rate and rhythm, S1, S2 without murmur, rub or gallop. ABDOMEN: Soft, nontender, nondistended, normoactive bowel sounds, no guarding, no rebound, no hepatosplenomegaly, no masses. EXTREMITIES: 2+ pulses, warm, well-perfused, no edema. Laboratory Results - last 24 hr 08/11/19 08/12/19 08/12/19 20:49 05:39 08:00 WBC 12.0 H RBC 3.33 L Hgb 9.9 L Hct 30.6 L MCV 92.0 MCH 29.6 MCHC 32.2 RDW 15.1 Plt Count 194 MPV 9.4 Absolute Neuts (auto) 10.0 H Neutrophils % 83.4 H Lymphocytes % 9.2 Monocytes % 5.6 Eosinophils % 1.5 D Basophils % 0.3 Nucleated RBC % 0 Sodium Potassium Chloride Carbon Dioxide Anion Gap BUN Creatinine Est GFR (CKD-EPI)AfAm Est GFR (CKD-EPI)NonAf POC Glucometer 52 68 Random Glucose Calcium Total Bilirubin AST ALT Alkaline Phosphatase Total Protein Albumin 08/12/19 08:00 WBC RBC Hgb Hct MCV MCH MCHC RDW Plt Count MPV Absolute Neuts (auto) Neutrophils % Lymphocytes % Monocytes % Eosinophils % Basophils % Nucleated RBC % Sodium 145 Potassium 3.8 Chloride 109 H Carbon Dioxide 27 Anion Gap 9 BUN 19.1 H Creatinine 1.0 Est GFR (CKD-EPI)AfAm 57.84 Est GFR (CKD-EPI)NonAf 49.91 POC Glucometer Random Glucose 72 L Calcium 8.4 L Total Bilirubin 0.7 AST 16 ALT 9 L Alkaline Phosphatase 141 H Total Protein 4.8 L Albumin 1.8 L Active Medications Generic Name Dose Route Start Last Admin Trade Name Freq PRN Reason Stop Dose Admin Heparin Sodium (Porcine) 5,000 unit 08/10/19 02:00 08/12/19 09:27 Heparin - SQ 5,000 unit Q8H-IV DASH Administration Piperacillin Sod/Tazobactam 50 mls @ 100 mls/hr 08/10/19 15:00 08/12/19 09:27 Sod 2.25 gm/ Dextrose IVPB 100 mls/hr Q6H-IV DASH Administration Protocol Sodium Chloride 1,000 mls @ 60 mls/hr 08/11/19 13:27 08/12/19 09:54 1/2 Normal Saline IV 60 mls/hr ASDIR DASH Administration Insulin Detemir 10 units 08/10/19 22:00 08/11/19 21:17 Levemir Vial SQ Not Given HS DASH Silver Sulfadiazine 1 applic 08/11/19 22:00 08/12/19 09:30 Silvadene - TP 1 applic BID DASH Administration Thiamine HCl 200 mg 08/10/19 11:30 08/12/19 09:27 Vitamin B1 Injection - IM 200 mg DAILY DASH Administration ASSESSMENT/PLAN: 88 year old female with PMHx significant for Parkison's disease, arthritis. Patient presented with cough x 3 days and subjective fever and was found to have Pneumonia and UTI. Sepsis 2/2 PNA and UTI WBC trending down 15-> 13.5 ->12.2 -> 12 Lactid acid 3.3 -> 2.2 ->1.8 continuing IV Zosyn Blood Cx neg for 2 days Urine culture sent for repeat Repeat chest Xray due to fever spike RISA creatinine down 1.8 -> 1.5 ->1.1->1.0 Pt on D5 1/2 NS at 75 cc/hr Hyperglycemia HbA1C 7.6 on recent labs ISS Levemir 10 units h/o pernicious anemia B12 IM 200 daily FEN Severe oral holding without swallow generation Severe Dementia/Cognitive deficits/Apraxia, exacerbated by infection Recommendation from speech and swallow eval: Keep Pt NPO DVT PPX switched to Lovenox 40 SQ daily Visit type - Emergency Visit Emergency Visit: Yes ED Registration Date: 08/09/19 Care time: The patient presented to the Emergency Department on the above date and was hospitalized for further evaluation of their emergent condition. - New Patient This patient is new to me today: No - Critical Care Critical Care patient: No - Discharge Referral Referred to [facility] Med [facility] No ATTENDING PHYSICIAN STATEMENT I saw and evaluated the patient. I reviewed the resident's note and discussed the case with the resident. I agree with the resident's findings and plan as documented. SUBJECTIVE: OBJECTIVE: ASSESSMENT AND PLAN:
[2019-08-12] MEDS: DEXTROSE 5%-0.45% SALINE 1,000 ML IV SCH (12:12)
--- NOTE | 2019-08-12 13:15 | PN ---
Progress Note, Physician History of Present Illness: stable no new issues daughter showing some redness on the left foot - Current Medication List Current Medications: Active Medications Heparin Sodium (Porcine) (Heparin -) 5,000 unit SQ Q8H-IV DASH Last Admin: 08/12/19 09:27 Dose: 5,000 unit Piperacillin Sod/Tazobactam (Sod 2.25 gm/ Dextrose) 50 mls @ 100 mls/hr IVPB Q6H-IV DASH; Protocol Last Admin: 08/12/19 09:27 Dose: 100 mls/hr Dextrose/Sodium Chloride (D5-1/2ns -) 1,000 mls @ 75 mls/hr IV ASDIR DASH Last Admin: 08/12/19 12:12 Dose: 75 mls/hr Insulin Detemir (Levemir Vial) 10 units SQ HS [facility] Last Admin: 08/11/19 21:17 Dose: Not Given Silver Sulfadiazine (Silvadene -) 1 applic TP BID [facility] Last Admin: 08/12/19 09:30 Dose: 1 applic Thiamine HCl (Vitamin B1 Injection -) 200 mg IM DAILY [facility] Last Admin: 08/12/19 09:27 Dose: 200 mg - Objective Vital Signs: Vital Signs Temperature 98.8 F 08/12/19 05:35 Pulse Rate 67 08/12/19 05:35 Respiratory Rate 18 08/12/19 05:35 Blood Pressure 135/58 L 08/12/19 05:35 O2 Sat by Pulse Oximetry (%) 95 08/12/19 09:37 Constitutional: Yes: No Distress, Calm Cardiovascular: Yes: S1, S2 Respiratory: Yes: Regular, CTA Bilaterally Gastrointestinal: Yes: Normal Bowel Sounds Musculoskeletal: Yes: Other Extremities: Yes: Other Neurological: Yes: Other (lethargic) Labs: CBC, BMP 08/12/19 08:00 08/12/19 08:00 INR, PTT INR 1.04 (0.83-1.09) 08/09/19 18:06 Assessment/Plan 88 year old female with PMHx significant for Parkison's disease, arthritis. Patient presented with cough x 3 days and subjective fever and was found to have Pneumonia and UTI. sepsis uti pna leukocytosis lactic acidosis plan continue zosyn await for all cx reports resp support nutrition
--- NOTE | 2019-08-12 13:18 | PN ---
Progress Note, Physician History of Present Illness: stable still lethargic wbc trending down family in room - Current Medication List Current Medications: Active Medications Heparin Sodium (Porcine) (Heparin -) 5,000 unit SQ Q8H-IV ADSH Last Admin: 08/12/19 09:27 Dose: 5,000 unit Piperacillin Sod/Tazobactam (Sod 2.25 gm/ Dextrose) 50 mls @ 100 mls/hr IVPB Q6H-IV DASH; Protocol Last Admin: 08/12/19 09:27 Dose: 100 mls/hr Dextrose/Sodium Chloride (D5-1/2ns -) 1,000 mls @ 75 mls/hr IV ASDIR [facility] Last Admin: 08/12/19 12:12 Dose: 75 mls/hr Insulin Detemir (Levemir Vial) 10 units SQ HS [facility] Last Admin: 08/11/19 21:17 Dose: Not Given Silver Sulfadiazine (Silvadene -) 1 applic TP BID [facility] Last Admin: 08/12/19 09:30 Dose: 1 applic Thiamine HCl (Vitamin B1 Injection -) 200 mg IM DAILY [facility] Last Admin: 08/12/19 09:27 Dose: 200 mg - Objective Vital Signs: Vital Signs Temperature 98.8 F 08/12/19 05:35 Pulse Rate 67 08/12/19 05:35 Respiratory Rate 18 08/12/19 05:35 Blood Pressure 135/58 L 08/12/19 05:35 O2 Sat by Pulse Oximetry (%) 95 08/12/19 09:37 Constitutional: Yes: No Distress, Calm Cardiovascular: Yes: S1, S2 Respiratory: Yes: Regular, Poor Air Entry Gastrointestinal: Yes: Normal Bowel Sounds, Soft Musculoskeletal: Yes: WNL Extremities: Yes: Other Neurological: Yes: Other Labs: CBC, BMP 08/12/19 08:00 08/12/19 08:00 INR, PTT INR 1.04 (0.83-1.09) 08/09/19 18:06 Assessment/Plan 88 year old female with PMHx significant for Parkison's disease, arthritis. Patient presented with cough x 3 days and subjective fever and was found to have Pneumonia and UTI. sepsis uti pna leukocytosis lactic acidosis plan continue zosyn urine report contaminated nutrition rest as per the team
--- NOTE | 2019-08-12 14:44 | PN ---
Progress Note, CUSTOMER QUALITY SPECIALIST - Note Progress Note: Selected Entries 08/11/19 08/11/19 08/11/19 06:00 09:00 12:46 Supper Temperature 99.6 F 99.0 F 98.8 F 08/11/19 08/11/19 08/12/19 18:00 22:14 05:35 Supper NPO Temperature 98.4 F 98.8 F Still lethargic. Unable to tolerate PO trials. Pt DNR/DNI
[2019-08-12] MEDS: ACETAMINOPHEN 1000 MG/100 ML VIAL (NON FORMULARY) IVPB PRN (15:12)
[2019-08-12] MEDS ORDERED: FUROSEMIDE 40 MG/4 ML INJECTABLE VIAL IVPUSH ONE (16:16)
[2019-08-12] MEDS: INSULIN (LEVEMIR) 100 UNITS/ML UNITS SQ SCH (21:27)
[2019-08-12] MEDS ORDERED: HEPARIN NA (PORCINE) 5,000 UNITS/ML 1ML VIAL SQ SCH (22:00)
[2019-08-13] MEDS ORDERED: DEXTROSE 5%-WATER - 50 ML IVPB ONE ×4 (01:56→20:23)
[2019-08-13] MEDS ORDERED: PIPERACILLIN/TAZOBACTAM 2.25 GM VIAL IVPB ONE ×4 (01:56→20:23)
[2019-08-13] MEDS: PIPERACILLIN/TAZOB 2.25 GM 2.25 GM in DEXTROSE 5%-WATER - 50 ML IVPB SCH ×4 (02:02→20:27)
[2019-08-13] MEDS: DEXTROSE 5%-0.45% SALINE 1,000 ML IV SCH ×2 (02:07→23:55)
[2019-08-13] MEDS: ACETAMINOPHEN 1000 MG/100 ML VIAL (NON FORMULARY) IVPB PRN (04:30)
[2019-08-13] MEDS: ENOXAPARIN NA (PORCINE) 40 MG/0.4 ML DISP.SYRIN SQ SCH (09:37)
[2019-08-13] MEDS: THIAMINE HCL 200 MG/2 ML VIAL IM SCH (09:37)
[2019-08-13] MEDS ORDERED: PT OWN MED DRAWER 7, Y5N ONE (09:42)
[2019-08-13] MEDS: SILVER SULFADIAZINE 1% TOP CREAM 50 GM JAR TP SCH ×2 (09:43→21:40)
[2019-08-13 10:18] LABS: BASO % 0.6 % (0-2.0); EOS % 3.2 % (0-4.5); HEMATOCRIT 32.2 % (32.4-45.2); HEMOGLOBIN 10.4 GM/dL (10.7-15.3); MCH 29.3 pg (25.7-33.7); MCHC 32.4 g/dl (32.0-36.0); MEAN CELL VOLUME 90.5 fl (80-96); MEAN PLT VOLUME 8.9 fl (7.5-11.1); MONO % 6.5 % (3.8-10.2); NEUT % 79.7 % (42.8-82.8); PLATELET COUNT 211 K/MM3 (134-434); RBC 3.56 M/mm3 (3.60-5.2); RDW 14.4 % (11.6-15.6); WHITE BLOOD COUNT 11.6 K/mm3 (4.0-10.0)
[2019-08-13 11:02] LABS: ALBUMIN 1.8 g/dl (3.4-5.0); BILIRUBIN,TOTAL 0.6 mg/dL (0.2-1); BLOOD UREA NITROGEN 14.5 mg/dL (7-18); CALCIUM 8.3 mg/dL (8.5-10.1); CREATININE 1.1 mg/dL (0.55-1.3); TOT PROT 4.8 g/dl (6.4-8.2)
[2019-08-13 11:07] LABS: POTASSIUM 2.9 mmol/L (3.5-5.1)
[2019-08-13 11:11] LABS: ANISOCYTOSIS 0; MACROCYTOSIS 0; PLATELET ESTIMATE NORMAL
--- NOTE | 2019-08-13 14:39 | PN ---
Progress Note, Physician History of Present Illness: Pt seen and examined, events noted, chart reviewed. She is arousable and responsive and without distress. WBC count trended down but Tmax 101.6F earlier. - Current Medication List Current Medications: Active Medications Acetaminophen (Ofirmev Injection -) 1,000 mg IVPB Q6H PRN PRN Reason: FEVER Last Admin: 08/13/19 04:30 Dose: 1,000 mg Enoxaparin Sodium (Lovenox -) 40 mg SQ DAILY [facility] Last Admin: 08/13/19 09:37 Dose: 40 mg Piperacillin Sod/Tazobactam (Sod 2.25 gm/ Dextrose) 50 mls @ 100 mls/hr IVPB Q6H-IV DASH; Protocol Last Admin: 08/13/19 09:36 Dose: 100 mls/hr Dextrose/Sodium Chloride (D5-1/2ns -) 1,000 mls @ 75 mls/hr IV ASDIR [facility] Last Admin: 08/13/19 02:07 Dose: 75 mls/hr Insulin Detemir (Levemir Vial) 10 units SQ HS [facility] Last Admin: 08/12/19 21:27 Dose: 10 units Silver Sulfadiazine (Silvadene -) 1 applic TP BID [facility] Last Admin: 08/13/19 09:43 Dose: 1 applic Thiamine HCl (Vitamin B1 Injection -) 200 mg IM DAILY [facility] Last Admin: 08/13/19 09:37 Dose: 200 mg - Objective Vital Signs: Vital Signs Temperature 99 F 08/13/19 10:00 Pulse Rate 58 L 08/13/19 10:00 Respiratory Rate 20 08/13/19 10:00 Blood Pressure 127/43 L 08/13/19 10:00 O2 Sat by Pulse Oximetry (%) 94 L 08/13/19 09:00 Constitutional: Yes: No Distress, Calm Eyes: Yes: Conjunctiva Clear Neck: Yes: Supple Cardiovascular: Yes: Regular Rate and Rhythm Respiratory: Yes: Rales (Lt side) Gastrointestinal: Yes: Normal Bowel Sounds, Soft Genitourinary: Yes: WNL Musculoskeletal: Yes: WNL Extremities: Yes: Other (Rt foot blister under 1st MT) Peripheral Pulses WNL: Yes Integumentary: Yes: WNL Neurological: Yes: Alert Labs: CBC, BMP 08/13/19 09:16 09/14/19 09:16 INR, PTT INR 1.04 (0.83-1.09) 08/09/19 18:06 Microbiology 08/09/19 18:06 Blood - Peripheral Venous Blood Culture - Preliminary NO GROWTH OBTAINED AFTER 72 HOURS, INCUBATION TO CONTINUE FOR 2 DAYS. 08/09/19 18:06 Blood - Peripheral Venous Blood Culture - Preliminary NO GROWTH OBTAINED AFTER 72 HOURS, INCUBATION TO CONTINUE FOR 2 DAYS. 08/09/19 18:15 Urine - Urine Clean Catch Urine Culture - Final Contaminated: Please Repeat - ....Imaging Chest X-ray: Report Reviewed Problem List - Problems (1) Pneumonia Code(s): J18.9 - PNEUMONIA, UNSPECIFIED ORGANISM Qualifiers: Pneumonia type: due to unspecified organism Laterality: unspecified laterality Lung location: unspecified part of lung Qualified Code(s): J18.9 - Pneumonia, unspecified organism (2) Sepsis Code(s): A41.9 - SEPSIS, UNSPECIFIED ORGANISM Qualifiers: Sepsis type: sepsis due to unspecified organism Sepsis acute organ dysfunction status: without acute organ dysfunction Qualified Code(s): A41.9 - Sepsis, unspecified organism (3) UTI (urinary tract infection) Code(s): N39.0 - URINARY TRACT INFECTION, SITE NOT SPECIFIED Qualifiers: Urinary tract infection type: site unspecified Hematuria presence: with hematuria Qualified Code(s): N39.0 - Urinary tract infection, site not specified; R31.9 - Hematuria, unspecified (4) Anemia Code(s): D64.9 - ANEMIA, UNSPECIFIED (5) Hypertension Code(s): I10 - ESSENTIAL (PRIMARY) HYPERTENSION (6) Parkinson's disease dementia Code(s): G20 - PARKINSON'S DISEASE; F02.80 - DEMENTIA IN OTH DISEASES CLASSD ELSWHR W/O BEHAVRL DISTURB (7) UTI (urinary tract infection) Code(s): N39.0 - URINARY TRACT INFECTION, SITE NOT SPECIFIED Qualifiers: Urinary tract infection type: acute cystitis Hematuria presence: with hematuria Qualified Code(s): N30.01 - Acute cystitis with hematuria Assessment/Plan PNA Fever Leukocytosis Pleural Effusion UTI RISA Lactic Acidosis Parkinson's disease Dementia CAD -- Pt febrile today, wbc trending down, lactate normal -- CXR reveals Lt base infiltrate/effusion -- continue Zosyn, will add Vancomycin , monitor renal function -- continue monitor temperatures, repeat blood cultures if fevers persist -- Urine culture contaminated, please repeat -- send Urinary Ag -- Pt currently without any distress, alert and responsive -- monitor closely
[2019-08-13] MEDS: VANCOMYCIN 750 MG in DEXTROSE 5%-WATER - 250 ML IVPB SCH (16:25)
[2019-08-13] MEDS: KCL 10 MEQ IVPB 10 MEQ/100 ML INFUS.BAG IVPB SCH ×3 (18:01→23:53)
--- NOTE | 2019-08-13 21:38 | PN ---
Progress Note (short form) - Note Progress Note: Patient is more awake and arousable today. Vital Signs Temperature 99 F 08/13/19 18:00 Pulse Rate 65 08/13/19 18:00 Respiratory Rate 20 08/13/19 18:00 Blood Pressure 136/72 08/13/19 18:00 O2 Sat by Pulse Oximetry (%) 94 L 08/13/19 09:00 GENERAL: The patient is more awake and arousable today, non verbal , in no acute distress. HEAD: Normal with no signs of trauma. EYES: PERRL, extraocular movements intact, sclera anicteric, conjunctiva clear. ENT: Ears normal, oropharynx clear without exudates, moist mucous membranes. NECK: Trachea midline, full range of motion, supple. LUNGS: left decreased Breath sounds otherwise clear to auscultation, no wheezes , no crackles, no accessory muscle use. HEART: Regular rate and rhythm, S1, S2 without murmur, rub or gallop. ABDOMEN: Soft, NT, ND, normoactive bowel sounds, no guarding, no rebound, no hepatosplenomegaly, no masses. EXTREMITIES: 2+ pulses, warm, well-perfused, no edema. contracted NEUROLOGICAL: Cranial nerves II through XII grossly intact. non verbal, contracted, gait not observed. PSYCH: Normal mood, normal affect. SKIN: Warm, dry, normal turgor, right big toe bulloes. CBCD WBC 11.6 K/mm3 (4.0-10.0) H 08/13/19 09:16 RBC 3.56 M/mm3 (3.60-5.2) L 08/13/19 09:16 Hgb 10.4 GM/dL (10.7-15.3) L 08/13/19 09:16 Hct 32.2 % (32.4-45.2) L 08/13/19 09:16 MCV 90.5 fl (80-96) 08/13/19 09:16 MCHC 32.4 g/dl (32.0-36.0) 08/13/19 09:16 RDW 14.4 % (11.6-15.6) 08/13/19 09:16 Plt Count 211 K/MM3 (134-434) 08/13/19 09:16 MPV 8.9 fl (7.5-11.1) 08/13/19 09:16 CMP Sodium 142 mmol/L (136-145) 08/13/19 09:16 Potassium 2.9 mmol/L (3.5-5.1) L* 08/13/19 09:16 Chloride 106 mmol/L (98-107) 08/13/19 09:16 Carbon Dioxide 29 mmol/L (21-32) 08/13/19 09:16 Anion Gap 7 MMOL/L (8-16) L 08/13/19 09:16 BUN 14.5 mg/dL (7-18) 08/13/19 09:16 Creatinine 1.1 mg/dL (0.55-1.3) 08/13/19 09:16 Random Glucose 71 mg/dL (74-106) L 08/13/19 09:16 Calcium 8.3 mg/dL (8.5-10.1) L 08/13/19 09:16 Total Bilirubin 0.6 mg/dL (0.2-1) 08/13/19 09:16 AST 15 U/L (15-37) 08/13/19 09:16 ALT 10 U/L (13-61) L 08/13/19 09:16 Alkaline Phosphatase 151 U/L (45-117) H 08/13/19 09:16 Total Protein 4.8 g/dl (6.4-8.2) L 08/13/19 09:16 Albumin 1.8 g/dl (3.4-5.0) L 08/13/19 09:16 CARDIAC ENZYMES Troponin I 0.02 ng/ml (0.00-0.05) 08/09/19 18:06 Current Medications Generic Name Dose Route Start Last Admin Trade Name Freq PRN Reason Stop Dose Admin Acetaminophen 1,000 mg 08/12/19 14:14 08/13/19 04:30 Ofirmev Injection - IVPB 1,000 mg Q6H PRN Administration FEVER Enoxaparin Sodium 40 mg 08/13/19 10:00 08/13/19 09:37 Lovenox - SQ 40 mg DAILY DASH Administration Piperacillin Sod/Tazobactam 50 mls @ 100 mls/hr 08/10/19 15:00 08/13/19 20:27 Sod 2.25 gm/ Dextrose IVPB 100 mls/hr Q6H-IV DASH Administration Protocol Dextrose/Sodium Chloride 1,000 mls @ 75 mls/hr 08/12/19 11:00 08/13/19 02:07 D5-1/2ns - IV 75 mls/hr ASDIR DASH Administration Vancomycin HCl 750 mg/ 250 mls @ 166.667 mls/hr 08/13/19 14:45 08/13/19 16:25 Dextrose IVPB 166.667 mls/hr DAILY DASH Administration Protocol Silver Sulfadiazine 1 applic 08/11/19 22:00 08/13/19 09:43 Silvadene - TP 1 applic BID DASH Administration Thiamine HCl 200 mg 08/10/19 11:30 08/13/19 09:37 Vitamin B1 Injection - IM 200 mg DAILY DASH Administration Home Medications Medication Instructions Recorded RX: Nebivolol HCl [Bystolic] 2.5 mg PO DAILY 02/19/15 RX: predniSONE [Deltasone -] 2.5 mg PO BID 02/19/15 Carbidopa-Levo ER 50-200 Tab 200 mg PO QID 08/09/19 Furosemide [Lasix -] 20 mg PO BID 08/09/19 RX: Omeprazole 20 mg PO BID 08/10/19 Selected Entries 08/12/19 08/13/19 08/13/19 22:00 04:30 06:00 Temperature 98.1 F 101.6 F H 99.1 F 08/13/19 08/13/19 10:00 18:00 Temperature 99 F 99 F Laboratory Tests 08/10/19 08:05 Hemoglobin A1c % 7.6 H cxr- patchy early infiltrate at left base. renal US: negative ASSESSMENT AND PLAN: This is an 88 year old female with PMHx significant for Parkison's disease and arthritis. Patient presented with cough x 3 days and subjective fever and was found to have Pneumonia and UTI. Tmax of 101.6 will monitor # Right toe blister: sulfadiazine continue # sepsis secondary to community acquired pneumonia/UTI : improving.continue IV antibiotics, speech swallow eval. by Debbie robbins since patient was less arousable was unable to access # Acute Pneumonia: ID on the case continue IV antibiotics zosyn renally adjusted # Acute UTI- continue IV antibx #RISA : baseline cr.0.9 --> 1.5--> 1.1-->1.0-->1.1 improving , william cox #T2DM Uncontrolled : a1c is 7.6 , ssc, on lantus 10 units qhs, will dc # Hypokalemia:2.9 today replete advanced directives -DNR/DNI Visit type - Emergency Visit Emergency Visit: Yes ED Registration Date: 08/09/19 Care time: The patient presented to the Emergency Department on the above date and was hospitalized for further evaluation of their emergent condition. - New Patient This patient is new to me today: No - Critical Care Critical Care patient: No - Discharge Referral Referred to [facility] Med P.C.: No
[2019-08-14] MEDS ORDERED: PIPERACILLIN/TAZOBACTAM 2.25 GM VIAL IVPB ONE ×4 (02:36→20:03)
[2019-08-14] MEDS ORDERED: DEXTROSE 5%-WATER - 50 ML IVPB ONE ×4 (02:36→20:04)
[2019-08-14] MEDS: PIPERACILLIN/TAZOB 2.25 GM 2.25 GM in DEXTROSE 5%-WATER - 50 ML IVPB SCH ×4 (02:48→20:11)
[2019-08-14] MEDS: KCL 10 MEQ IVPB 10 MEQ/100 ML INFUS.BAG IVPB SCH ×3 (10:00→16:16)
[2019-08-14] MEDS: ENOXAPARIN NA (PORCINE) 40 MG/0.4 ML DISP.SYRIN SQ SCH (10:27)
[2019-08-14] MEDS: THIAMINE HCL 200 MG/2 ML VIAL IM SCH (10:27)
[2019-08-14] MEDS: SILVER SULFADIAZINE 1% TOP CREAM 50 GM JAR TP SCH ×2 (10:27→21:34)
[2019-08-14] MEDS: VANCOMYCIN 750 MG in DEXTROSE 5%-WATER - 250 ML IVPB SCH (12:32)
--- NOTE | 2019-08-14 13:02 | PN ---
Physical Exam: SUBJECTIVE: Patient seen and examined at the bedside, there were no acute events overnight. OBJECTIVE: Vital Signs Period Temp Pulse Resp BP Sys/Torres Pulse Ox Last 24 Hr 98 F-99 F 65-98 16-20 136-153/55-72 94 GENERAL: The patient is non verbal, asleep in no apparent distress. HEAD: Normal with no signs of trauma. LUNGS: Breath sounds decreased on left lower field, with diffuse crackles which improved, no wheezes, no accessory muscle use. HEART: Regular rate and rhythm, S1, S2 without murmur, rub or gallop. ABDOMEN: Soft, nontender, nondistended, normoactive bowel sounds, no guarding, no rebound, no hepatosplenomegaly, no masses. EXTREMITIES: 2+ pulses, warm, well-perfused, no edema. Laboratory Results - last 24 hr 08/13/19 21:39 POC Glucometer 107 Active Medications Generic Name Dose Route Start Last Admin Trade Name Freq PRN Reason Stop Dose Admin Acetaminophen 1,000 mg 08/12/19 14:14 08/13/19 04:30 Ofirmev Injection - IVPB 1,000 mg Q6H PRN Administration FEVER Enoxaparin Sodium 40 mg 08/13/19 10:00 08/14/19 10:27 Lovenox - SQ 40 mg DAILY DASH Administration Piperacillin Sod/Tazobactam 50 mls @ 100 mls/hr 08/10/19 15:00 08/14/19 10:26 Sod 2.25 gm/ Dextrose IVPB 100 mls/hr Q6H-IV DASH Administration Protocol Dextrose/Sodium Chloride 1,000 mls @ 75 mls/hr 08/12/19 11:00 08/13/19 23:55 D5-1/2ns - IV 75 mls/hr ASDIR DASH Administration Vancomycin HCl 750 mg/ 250 mls @ 166.667 mls/hr 08/13/19 14:45 08/14/19 12:32 Dextrose IVPB 166.667 mls/hr DAILY DASH Administration Protocol Silver Sulfadiazine 1 applic 08/11/19 22:00 08/14/19 10:27 Silvadene - TP 1 applic BID DASH Administration Thiamine HCl 200 mg 08/10/19 11:30 08/14/19 10:27 Vitamin B1 Injection - IM 200 mg DAILY DASH Administration ASSESSMENT/PLAN: 88 year old female with PMHx significant for Parkison's disease, arthritis. Patient presented with cough x 3 days and subjective fever and was found to have Pneumonia and UTI. Sepsis 2/2 PNA and UTI WBC trending down 15-> 13.5 ->12.2 -> 12 --> 11.6 Lactid acid 3.3 -> 2.2 ->1.8 continuing IV Zosyn Blood Cx neg for 2 days Urine culture contaminated> will send repeat Repeat chest Xray showing patchy infiltrate with pleural fluids, ID following, appreciate recommendations RISA creatinine down 1.8 -> 1.5 ->1.1->1.0 Pt on D5 1/2 NS at 75 cc/hr Hyperglycemia HbA1C 7.6 on recent labs ISS Levemir 10 units Hypokalemia - 2.9 today replete h/o pernicious anemia B12 IM 200 daily Right toe blister - sulfadiazine continue FEN Severe oral holding without swallow generation Severe Dementia/Cognitive deficits/Apraxia, exacerbated by infection Recommendation from speech and swallow eval: Keep Pt NPO DVT PPX Lovenox 40 SQ daily advanced directives -DNR/DNI Visit type - Emergency Visit Emergency Visit: Yes ED Registration Date: 08/09/19 Care time: The patient presented to the Emergency Department on the above date and was hospitalized for further evaluation of their emergent condition. - New Patient This patient is new to me today: Yes Date on this admission: 08/14/19 - Critical Care Critical Care patient: No - Discharge Referral Referred to [facility] Med P.C.: No ATTENDING PHYSICIAN STATEMENT I saw and evaluated the patient. I reviewed the resident's note and discussed the case with the resident. I agree with the resident's findings and plan as documented. SUBJECTIVE: OBJECTIVE: ASSESSMENT AND PLAN:
[2019-08-14] MEDS: DEXTROSE 5%-0.45% SALINE 1,000 ML IV SCH (15:20)
[2019-08-14] MEDS: ACETAMINOPHEN 1000 MG/100 ML VIAL (NON FORMULARY) IVPB PRN (17:16)
[2019-08-14] MEDS ORDERED: DEXTROSE 5%-0.45% SALINE 1,000 ML IV SCH (18:21)
--- NOTE | 2019-08-14 19:42 | PN ---
Progress Note, Physician History of Present Illness: Pt is arousable and responsive. No respiratory distress. Afebrile now 24hrs. - Current Medication List Current Medications: Active Medications Acetaminophen (Ofirmev Injection -) 1,000 mg IVPB Q6H PRN PRN Reason: FEVER Last Admin: 08/14/19 17:16 Dose: 1,000 mg Enoxaparin Sodium (Lovenox -) 40 mg SQ DAILY DASH Last Admin: 08/14/19 10:27 Dose: 40 mg Piperacillin Sod/Tazobactam (Sod 2.25 gm/ Dextrose) 50 mls @ 100 mls/hr IVPB Q6H-IV DASH; Protocol Last Admin: 08/14/19 16:26 Dose: 100 mls/hr Vancomycin HCl 750 mg/ (Dextrose) 250 mls @ 166.667 mls/hr IVPB DAILY DSAH; Protocol Last Admin: 08/14/19 12:32 Dose: 166.667 mls/hr Amino Acids (Clinimix -) 1,000 mls @ 42 mls/hr IV Q24H DASH Dextrose/Sodium Chloride (D5-1/2ns -) 1,000 mls @ 42 mls/hr IV ASDIR DASH Last Admin: 08/14/19 19:19 Dose: 42 mls/hr Silver Sulfadiazine (Silvadene -) 1 applic TP BID DASH Last Admin: 08/14/19 10:27 Dose: 1 applic Thiamine HCl (Vitamin B1 Injection -) 200 mg IM DAILY DASH Last Admin: 08/14/19 10:27 Dose: 200 mg - Objective Vital Signs: Vital Signs Temperature 98 F 08/14/19 09:07 Pulse Rate 72 08/14/19 09:07 Respiratory Rate 16 08/14/19 09:07 Blood Pressure 142/55 L 08/14/19 09:07 O2 Sat by Pulse Oximetry (%) 94 L 08/14/19 09:00 Constitutional: Yes: No Distress, Calm Cardiovascular: Yes: Regular Rate and Rhythm Respiratory: Yes: On Nasal O2, Other (diffuse crackles) Gastrointestinal: Yes: Normal Bowel Sounds, Soft Genitourinary: Yes: WNL Wound/Incision: Yes: Dressing Dry and Intact Labs: CBC, BMP 08/13/19 09:16 08/13/19 09:16 INR, PTT INR 1.04 (0.83-1.09) 08/09/19 18:06 Microbiology 08/09/19 18:06 Blood - Peripheral Venous Blood Culture - Final NO GROWTH AFTER 5 DAYS INCUBATION 08/09/19 18:06 Blood - Peripheral Venous Blood Culture - Final NO GROWTH AFTER 5 DAYS INCUBATION 08/09/19 18:15 Urine - Urine Clean Catch Urine Culture - Final Contaminated: Please Repeat Problem List - Problems (1) Pneumonia Code(s): J18.9 - PNEUMONIA, UNSPECIFIED ORGANISM Qualifiers: Pneumonia type: due to unspecified organism Laterality: unspecified laterality Lung location: unspecified part of lung Qualified Code(s): J18.9 - Pneumonia, unspecified organism (2) Sepsis Code(s): A41.9 - SEPSIS, UNSPECIFIED ORGANISM Qualifiers: Sepsis type: sepsis due to unspecified organism Sepsis acute organ dysfunction status: without acute organ dysfunction Qualified Code(s): A41.9 - Sepsis, unspecified organism (3) UTI (urinary tract infection) Code(s): N39.0 - URINARY TRACT INFECTION, SITE NOT SPECIFIED Qualifiers: Urinary tract infection type: site unspecified Hematuria presence: with hematuria Qualified Code(s): N39.0 - Urinary tract infection, site not specified; R31.9 - Hematuria, unspecified (4) Anemia Code(s): D64.9 - ANEMIA, UNSPECIFIED (5) Hypertension Code(s): I10 - ESSENTIAL (PRIMARY) HYPERTENSION (6) Parkinson's disease dementia Code(s): G20 - PARKINSON'S DISEASE; F02.80 - DEMENTIA IN OTH DISEASES CLASSD ELSWHR W/O BEHAVRL DISTURB (7) UTI (urinary tract infection) Code(s): N39.0 - URINARY TRACT INFECTION, SITE NOT SPECIFIED Qualifiers: Urinary tract infection type: acute cystitis Hematuria presence: with hematuria Qualified Code(s): N30.01 - Acute cystitis with hematuria Assessment/Plan PNA Fever Leukocytosis Pleural Effusion UTI RISA Lactic Acidosis Parkinson's disease Dementia CAD -- Pt afebrile today, Vancomycin was added yesterday, check trough prior to 4th dose, continue Zosyn -- monitor renal function, -- continue monitor temperatures -- follow up repeat Urine culture results, Urinary ag for legionella -- Pt currently without any distress, alert and responsive
[2019-08-14] MEDS: AMINO ACIDS 4.25%/D5W 1,000 ML IV SCH (20:11)
--- NOTE | 2019-08-14 20:13 | PN ---
Teaching Attending Note Name of Resident: Leonela Soriano ATTENDING PHYSICIAN STATEMENT I saw and evaluated the patient. I reviewed the resident's note and discussed the case with the resident. I agree with the resident's findings and plan as documented. SUBJECTIVE: Patient looks comfortable. No fever overnight OBJECTIVE: Vital Signs Temperature 99.1 F 08/14/19 18:00 Pulse Rate 105 H 08/14/19 18:00 Respiratory Rate 18 08/14/19 18:00 Blood Pressure 105/55 L 08/14/19 18:00 O2 Sat by Pulse Oximetry (%) 94 L 08/14/19 09:00 GENERAL: The patient is more awake and arousable today, non verbal , in no acute distress. HEAD: Normal with no signs of trauma. EYES: PERRL, extraocular movements intact, sclera anicteric, conjunctiva clear. ENT: Ears normal, oropharynx clear without exudates, moist mucous membranes. NECK: Trachea midline, full range of motion, supple. LUNGS: left decreased Breath sounds otherwise clear to auscultation, no wheezes , no crackles, no accessory muscle use. HEART: Regular rate and rhythm, S1, S2 without murmur, rub or gallop. ABDOMEN: Soft, NT, ND, normoactive bowel sounds, no guarding, no rebound, no hepatosplenomegaly, no masses. EXTREMITIES: 2+ pulses, warm, well-perfused, no edema. contracted NEUROLOGICAL: Cranial nerves II through XII grossly intact. non verbal, contracted, gait not observed. PSYCH: Normal mood, normal affect. SKIN: Warm, dry, normal turgor, right big toe bulloes CBCD WBC 11.6 K/mm3 (4.0-10.0) H 08/13/19 09:16 RBC 3.56 M/mm3 (3.60-5.2) L 08/13/19 09:16 Hgb 10.4 GM/dL (10.7-15.3) L 08/13/19 09:16 Hct 32.2 % (32.4-45.2) L 08/13/19 09:16 MCV 90.5 fl (80-96) 08/13/19 09:16 MCHC 32.4 g/dl (32.0-36.0) 08/13/19 09:16 RDW 14.4 % (11.6-15.6) 08/13/19 09:16 Plt Count 211 K/MM3 (134-434) 08/13/19 09:16 MPV 8.9 fl (7.5-11.1) 08/13/19 09:16 CMP Sodium 142 mmol/L (136-145) 08/13/19 09:16 Potassium 2.9 mmol/L (3.5-5.1) L* 08/13/19 09:16 Chloride 106 mmol/L (98-107) 08/13/19 09:16 Carbon Dioxide 29 mmol/L (21-32) 08/13/19 09:16 Anion Gap 7 MMOL/L (8-16) L 08/13/19 09:16 BUN 14.5 mg/dL (7-18) 08/13/19 09:16 Creatinine 1.1 mg/dL (0.55-1.3) 08/13/19 09:16 Random Glucose 71 mg/dL (74-106) L 08/13/19 09:16 Calcium 8.3 mg/dL (8.5-10.1) L 08/13/19 09:16 Total Bilirubin 0.6 mg/dL (0.2-1) 08/13/19 09:16 AST 15 U/L (15-37) 08/13/19 09:16 ALT 10 U/L (13-61) L 08/13/19 09:16 Alkaline Phosphatase 151 U/L (45-117) H 08/13/19 09:16 Total Protein 4.8 g/dl (6.4-8.2) L 08/13/19 09:16 Albumin 1.8 g/dl (3.4-5.0) L 08/13/19 09:16 CARDIAC ENZYMES Troponin I 0.02 ng/ml (0.00-0.05) 08/09/19 18:06 Current Medications Generic Name Dose Route Start Last Admin Trade Name Freq PRN Reason Stop Dose Admin Acetaminophen 1,000 mg 08/12/19 14:14 08/14/19 17:16 Ofirmev Injection - IVPB 1,000 mg Q6H PRN Administration FEVER Enoxaparin Sodium 40 mg 08/13/19 10:00 08/14/19 10:27 Lovenox - SQ 40 mg DAILY DASH Administration Piperacillin Sod/Tazobactam 50 mls @ 100 mls/hr 08/10/19 15:00 08/14/19 16:26 Sod 2.25 gm/ Dextrose IVPB 100 mls/hr Q6H-IV DASH Administration Protocol Vancomycin HCl 750 mg/ 250 mls @ 166.667 mls/hr 08/13/19 14:45 08/14/19 12:32 Dextrose IVPB 166.667 mls/hr DAILY DASH Administration day #2 Protocol Amino Acids 1,000 mls @ 42 mls/hr 08/14/19 17:30 Clinimix - IV Q24H DASH Dextrose/Sodium Chloride 1,000 mls @ 42 mls/hr 08/14/19 18:21 08/14/19 19:19 D5-1/2ns - IV 42 mls/hr ASDIR DASH Administration stopped the fluid today Silver Sulfadiazine 1 applic 08/11/19 22:00 08/14/19 10:27 Silvadene - TP 1 applic BID DASH Administration Thiamine HCl 200 mg 08/10/19 11:30 08/14/19 10:27 Vitamin B1 Injection - IM 200 mg DAILY DASH Administration Microbiology 08/09/19 18:06 Blood - Peripheral Venous Blood Culture - Final NO GROWTH AFTER 5 DAYS INCUBATION 08/09/19 18:06 Blood - Peripheral Venous Blood Culture - Final NO GROWTH AFTER 5 DAYS INCUBATION 08/09/19 18:15 Urine - Urine Clean Catch Urine Culture - Final Contaminated: Please Repeat cxr- patchy early infiltrate at left base. renal US: negative ASSESSMENT AND PLAN: This is an 88 year old female with PMHx significant for Parkison's disease and arthritis. Patient presented with cough x 3 days and subjective fever and was found to have Pneumonia and UTI. # sepsis secondary to community acquired pneumonia/UTI : improving.continue IV antibiotics,added vanco. day #2 , vanco trough at 4th dose speech swallow eval. by Debbie robbins since patient was less arousable was unable to access # Acute Pneumonia: ID on the case continue IV antibiotics zosyn renally adjusted # Acute UTI- continue IV antibx addd Vanco as per ID #RISA : baseline cr.0.9 --> 1.5--> 1.1-->1.0-->1.1 william goldstein #T2DM Uncontrolled : a1c is 7.6 , ssc, on lantus 10 units qhs, will dc # Hypokalemia:2.9 repleted, will repeat the level # Right toe blister: sulfadiazine continue advanced directives -DNR/DNI DVT Px: lovenox vanco trough at 4th dose will start the patient on Clinimax dc'd IVF
[2019-08-15] MEDS ORDERED: PIPERACILLIN/TAZOBACTAM 2.25 GM VIAL IVPB ONE ×4 (01:25→19:59)
[2019-08-15] MEDS ORDERED: DEXTROSE 5%-WATER - 50 ML IVPB ONE ×4 (01:26→19:59)
[2019-08-15] MEDS: PIPERACILLIN/TAZOB 2.25 GM 2.25 GM in DEXTROSE 5%-WATER - 50 ML IVPB SCH ×4 (02:14→20:39)
[2019-08-15 07:37] LABS: ALBUMIN 1.8 g/dl (3.4-5.0); BILIRUBIN,TOTAL 0.5 mg/dL (0.2-1); CALCIUM 8.1 mg/dL (8.5-10.1); CREATININE 1.2 mg/dL (0.55-1.3); POTASSIUM 3.5 mmol/L (3.5-5.1); TOT PROT 4.6 g/dl (6.4-8.2)
[2019-08-15] MEDS: THIAMINE HCL 200 MG/2 ML VIAL IM SCH (10:06)
[2019-08-15] MEDS: ENOXAPARIN NA (PORCINE) 40 MG/0.4 ML DISP.SYRIN SQ SCH (10:10)
[2019-08-15] MEDS: SILVER SULFADIAZINE 1% TOP CREAM 50 GM JAR TP SCH ×2 (10:10→22:01)
[2019-08-15] MEDS: VANCOMYCIN 750 MG in DEXTROSE 5%-WATER - 250 ML IVPB SCH (10:12)
--- NOTE | 2019-08-15 12:07 | PN ---
Progress Note, Physician History of Present Illness: stable afebrile - Current Medication List Current Medications: Active Medications Acetaminophen (Ofirmev Injection -) 1,000 mg IVPB Q6H PRN PRN Reason: FEVER Last Admin: 08/14/19 17:16 Dose: 1,000 mg Enoxaparin Sodium (Lovenox -) 40 mg SQ DAILY DASH Last Admin: 08/15/19 10:10 Dose: 40 mg Piperacillin Sod/Tazobactam (Sod 2.25 gm/ Dextrose) 50 mls @ 100 mls/hr IVPB Q6H-IV DASH; Protocol Last Admin: 08/15/19 10:05 Dose: 100 mls/hr Vancomycin HCl 750 mg/ (Dextrose) 250 mls @ 166.667 mls/hr IVPB DAILY DASH; Protocol Last Admin: 08/15/19 10:12 Dose: 166.667 mls/hr Amino Acids (Clinimix -) 1,000 mls @ 42 mls/hr IV Q24H DASH Last Admin: 08/14/19 20:11 Dose: 42 mls/hr Silver Sulfadiazine (Silvadene -) 1 applic TP BID DASH Last Admin: 08/15/19 10:10 Dose: 1 applic Thiamine HCl (Vitamin B1 Injection -) 200 mg IM DAILY DASH Last Admin: 08/15/19 10:06 Dose: 200 mg - Objective Vital Signs: Vital Signs Temperature 98.9 F 08/15/19 10:00 Pulse Rate 69 08/15/19 10:00 Respiratory Rate 18 08/15/19 10:00 Blood Pressure 149/53 L 08/15/19 10:00 O2 Sat by Pulse Oximetry (%) 95 08/15/19 07:56 Constitutional: Yes: No Distress, Calm Cardiovascular: Yes: S1, S2 Respiratory: Yes: Regular, Poor Air Entry Gastrointestinal: Yes: Normal Bowel Sounds, Soft Musculoskeletal: Yes: WNL Extremities: Yes: WNL Neurological: Yes: Alert, Other Psychiatric: Yes: Other Labs: CBC, BMP 08/13/19 09:16 08/15/19 05:30 INR, PTT INR 1.04 (0.83-1.09) 08/09/19 18:06 Assessment/Plan 88 year old female with PMHx significant for Parkison's disease, arthritis. Patient presented with cough x 3 days and subjective fever and was found to have Pneumonia and UTI. Problem List - Problems (1) Pneumonia Code(s): J18.9 - PNEUMONIA, UNSPECIFIED ORGANISM Qualifiers: Pneumonia type: due to unspecified organism Laterality: unspecified laterality Lung location: unspecified part of lung Qualified Code(s): J18.9 - Pneumonia, unspecified organism (2) Sepsis Code(s): A41.9 - SEPSIS, UNSPECIFIED ORGANISM Qualifiers: Sepsis type: sepsis due to unspecified organism Sepsis acute organ dysfunction status: without acute organ dysfunction Qualified Code(s): A41.9 - Sepsis, unspecified organism (3) UTI (urinary tract infection) Code(s): N39.0 - URINARY TRACT INFECTION, SITE NOT SPECIFIED Qualifiers: Urinary tract infection type: site unspecified Hematuria presence: with hematuria Qualified Code(s): N39.0 - Urinary tract infection, site not specified; R31.9 - Hematuria, unspecified (4) Anemia Code(s): D64.9 - ANEMIA, UNSPECIFIED (5) Hypertension Code(s): I10 - ESSENTIAL (PRIMARY) HYPERTENSION (6) Parkinson's disease dementia Code(s): G20 - PARKINSON'S DISEASE; F02.80 - DEMENTIA IN OTH DISEASES CLASSD ELSWHR W/O BEHAVRL DISTURB (7) UTI (urinary tract infection) Code(s): N39.0 - URINARY TRACT INFECTION, SITE NOT SPECIFIED Qualifiers: Urinary tract infection type: acute cystitis Hematuria presence: with hematuria Qualified Code(s): N30.01 - Acute cystitis with hematuria Assessment/Plan PNA Fever Leukocytosis Pleural Effusion UTI RISA Lactic Acidosis Parkinson's disease Dementia CAD plan continue current abx will see how patient does monitor for fevers nutrition rest as per the team
--- NOTE | 2019-08-15 16:16 | PN ---
Physical Exam: SUBJECTIVE: Patient seen and examined. Pt awake and in no apparent distress. OBJECTIVE: Vital Signs Period Temp Pulse Resp BP Sys/Torres Pulse Ox Last 24 Hr 97.5 F-99.1 F 64-105 18-20 105-149/53-65 95 GENERAL: The patient is non verbal, awake in no apparent distress. HEAD: Normal with no signs of trauma. LUNGS: Breath sounds decreased on left lower field, with diffuse crackles which improved, no wheezes, no accessory muscle use. HEART: Regular rate and rhythm, S1, S2 without murmur, rub or gallop. ABDOMEN: Soft, nontender, nondistended, normoactive bowel sounds, no guarding, no rebound, no hepatosplenomegaly, no masses. EXTREMITIES: 2+ pulses, warm, well-perfused, no edema. Laboratory Results - last 24 hr 08/15/19 05:30 Sodium 136 Potassium 3.5 Chloride 102 Carbon Dioxide 27 Anion Gap 7 L BUN 13.0 Creatinine 1.2 Est GFR (CKD-EPI)AfAm 46.40 Est GFR (CKD-EPI)NonAf 40.04 Random Glucose 112 H Calcium 8.1 L Total Bilirubin 0.5 AST 18 ALT 10 L Alkaline Phosphatase 141 H Total Protein 4.6 L Albumin 1.8 L Active Medications Generic Name Dose Route Start Last Admin Trade Name Freq PRN Reason Stop Dose Admin Acetaminophen 1,000 mg 08/12/19 14:14 08/14/19 17:16 Ofirmev Injection - IVPB 1,000 mg Q6H PRN Administration FEVER Enoxaparin Sodium 40 mg 08/13/19 10:00 08/15/19 10:10 Lovenox - SQ 40 mg DAILY DASH Administration Piperacillin Sod/Tazobactam 50 mls @ 100 mls/hr 08/10/19 15:00 08/15/19 14:44 Sod 2.25 gm/ Dextrose IVPB 100 mls/hr Q6H-IV DASH Administration Protocol Vancomycin HCl 750 mg/ 250 mls @ 166.667 mls/hr 08/13/19 14:45 08/15/19 10:12 Dextrose IVPB 166.667 mls/hr DAILY DASH Administration Protocol Amino Acids 1,000 mls @ 42 mls/hr 08/14/19 17:30 08/14/19 20:11 Clinimix - IV 42 mls/hr Q24H DASH Administration Silver Sulfadiazine 1 applic 08/11/19 22:00 08/15/19 10:10 Silvadene - TP 1 applic BID DASH Administration Thiamine HCl 200 mg 08/10/19 11:30 08/15/19 10:06 Vitamin B1 Injection - IM 200 mg DAILY DASH Administration ASSESSMENT/PLAN: 88 year old female with PMHx significant for Parkison's disease, arthritis. Patient presented with cough x 3 days and subjective fever and was found to have Pneumonia and UTI. Sepsis 2/2 PNA and UTI WBC trending down 15-> 13.5 ->12.2 -> 12->11.6 on 08/13/19 repeat labs tomorrow continuing IV Zosyn 08/10/19 with Vanco added on 08/13/19 Blood Cx neg Urine culture repeat pending Urine strep and legionella antigen sent RISA creatinine today 1.2 monitor f/u labs tomorrow h/o pernicious anemia B12 IM 200 daily FEN Potassium repleted 3.5 today Severe oral holding without swallow generation Severe Dementia/Cognitive deficits/Apraxia, exacerbated by infection Recommendation from speech and swallow eval: Keep Pt NPO. pt on clinimix R toe blister silvadene dressing DVT PPX switched to Lovenox 40 SQ daily Visit type - Emergency Visit Emergency Visit: Yes ED Registration Date: 08/09/19 Care time: The patient presented to the Emergency Department on the above date and was hospitalized for further evaluation of their emergent condition. - New Patient This patient is new to me today: No - Critical Care Critical Care patient: No - Discharge Referral Referred to [facility] Med P.C.: No ATTENDING PHYSICIAN STATEMENT I saw and evaluated the patient. I reviewed the resident's note and discussed the case with the resident. I agree with the resident's findings and plan as documented. SUBJECTIVE: OBJECTIVE: ASSESSMENT AND PLAN:
[2019-08-15] MEDS: AMINO ACIDS 4.25%/D5W 1,000 ML IV SCH ×2 (16:52→22:33)
--- NOTE | 2019-08-15 21:10 | PN ---
Teaching Attending Note Name of Resident: Dayna Bailey ATTENDING PHYSICIAN STATEMENT I saw and evaluated the patient. I reviewed the resident's note and discussed the case with the resident. I agree with the resident's findings and plan as documented. SUBJECTIVE: Patient is awake. looks better. OBJECTIVE: Vital Signs Temperature 98.5 F 08/15/19 18:00 Pulse Rate 72 08/15/19 18:00 Respiratory Rate 19 08/15/19 18:00 Blood Pressure 124/60 08/15/19 18:00 O2 Sat by Pulse Oximetry (%) 95 08/15/19 07:56 GENERAL: The patient is more awake and arousable today, non verbal , in no acute distress. HEAD: Normal with no signs of trauma. EYES: PERRL, extraocular movements intact, sclera anicteric, conjunctiva clear. ENT: Ears normal, oropharynx clear without exudates, moist mucous membranes. NECK: Trachea midline, full range of motion, supple. LUNGS: left decreased Breath sounds otherwise clear to auscultation, no wheezes , no crackles, no accessory muscle use. HEART: Regular rate and rhythm, S1, S2 without murmur, rub or gallop. ABDOMEN: Soft, NT, ND, normoactive bowel sounds, no guarding, no rebound, no hepatosplenomegaly, no masses. EXTREMITIES: 2+ pulses, warm, well-perfused, no edema. contracted NEUROLOGICAL: Cranial nerves II through XII grossly intact. non verbal, contracted, gait not observed. PSYCH: Normal mood, normal affect. SKIN: Warm, dry, normal turgor, right big toe bulloes CBCD WBC 11.6 K/mm3 (4.0-10.0) H 08/13/19 09:16 RBC 3.56 M/mm3 (3.60-5.2) L 08/13/19 09:16 Hgb 10.4 GM/dL (10.7-15.3) L 08/13/19 09:16 Hct 32.2 % (32.4-45.2) L 08/13/19 09:16 MCV 90.5 fl (80-96) 08/13/19 09:16 MCHC 32.4 g/dl (32.0-36.0) 08/13/19 09:16 RDW 14.4 % (11.6-15.6) 08/13/19 09:16 Plt Count 211 K/MM3 (134-434) 08/13/19 09:16 MPV 8.9 fl (7.5-11.1) 08/13/19 09:16 CMP Sodium 136 mmol/L (136-145) 08/15/19 05:30 Potassium 3.5 mmol/L (3.5-5.1) 08/15/19 05:30 Chloride 102 mmol/L (98-107) 08/15/19 05:30 Carbon Dioxide 27 mmol/L (21-32) 08/15/19 05:30 Anion Gap 7 MMOL/L (8-16) L 08/15/19 05:30 BUN 13.0 mg/dL (7-18) 08/15/19 05:30 Creatinine 1.2 mg/dL (0.55-1.3) 08/15/19 05:30 Random Glucose 112 mg/dL (74-106) H 08/15/19 05:30 Calcium 8.1 mg/dL (8.5-10.1) L 08/15/19 05:30 Total Bilirubin 0.5 mg/dL (0.2-1) 08/15/19 05:30 AST 18 U/L (15-37) 08/15/19 05:30 ALT 10 U/L (13-61) L 08/15/19 05:30 Alkaline Phosphatase 141 U/L (45-117) H 08/15/19 05:30 Total Protein 4.6 g/dl (6.4-8.2) L 08/15/19 05:30 Albumin 1.8 g/dl (3.4-5.0) L 08/15/19 05:30 CARDIAC ENZYMES Troponin I 0.02 ng/ml (0.00-0.05) 08/09/19 18:06 Current Medications Generic Name Dose Route Start Last Admin Trade Name Freq PRN Reason Stop Dose Admin Acetaminophen 1,000 mg 08/12/19 14:14 08/14/19 17:16 Ofirmev Injection - IVPB 1,000 mg Q6H PRN Administration FEVER Enoxaparin Sodium 40 mg 08/13/19 10:00 08/15/19 10:10 Lovenox - SQ 40 mg DAILY DASH Administration Piperacillin Sod/Tazobactam 50 mls @ 100 mls/hr 08/10/19 15:00 08/15/19 20:39 Sod 2.25 gm/ Dextrose IVPB 100 mls/hr Q6H-IV DASH Administration Protocol Vancomycin HCl 750 mg/ 250 mls @ 166.667 mls/hr 08/13/19 14:45 08/15/19 10:12 Dextrose IVPB 166.667 mls/hr DAILY DASH Administration Protocol Amino Acids 1,000 mls @ 42 mls/hr 08/14/19 17:30 08/15/19 16:52 Clinimix - IV Not Given Q24H DASH Silver Sulfadiazine 1 applic 08/11/19 22:00 08/15/19 10:10 Silvadene - TP 1 applic BID DASH Administration Thiamine HCl 200 mg 08/10/19 11:30 08/15/19 10:06 Vitamin B1 Injection - IM 200 mg DAILY DASH Administration Home Medications Medication Instructions Recorded Nebivolol HCl [Bystolic] 2.5 mg PO DAILY 02/19/15 predniSONE [Deltasone -] 2.5 mg PO BID 02/19/15 Carbidopa-Levo ER 50-200 Tab 200 mg PO QID 08/09/19 Furosemide [Lasix -] 20 mg PO BID 08/09/19 Omeprazole 20 mg PO BID 08/10/19 cxr- patchy early infiltrate at left base. renal US: negative ASSESSMENT AND PLAN: This is an 88 year old female with PMHx significant for Parkison's disease and arthritis. Patient presented with cough x 3 days and subjective fever and was found to have Pneumonia and UTI. # sepsis secondary to community acquired pneumonia/UTI : improving.continue IV antibiotics,added vanco. day #3 , vanco trough at 4th dose speech swallow eval. by Debbie robbins since patient was less arousable was unable to access # Acute Pneumonia: ID on the case continue IV antibiotics zosyn renally adjusted # Acute UTI- continue IV antibx addd Vanco as per ID #RISA : baseline cr.0.9 --> 1.5--> 1.1-->1.0-->1.1-->1.2 , william cox #T2DM Uncontrolled : a1c is 7.6 , ssc, on lantus 10 units qhs, will dc # Hypokalemia:2.9 repleted, repeat is 3.5 # Right toe blister: sulfadiazine continue advanced directives -DNR/DNI DVT Px: lovenox vanco trough at 4th dose will start the patient on Clinimax dc'd IVF
[2019-08-16] MEDS ORDERED: PIPERACILLIN/TAZOBACTAM 2.25 GM VIAL IVPB ONE ×4 (02:35→22:19)
[2019-08-16] MEDS ORDERED: DEXTROSE 5%-WATER - 50 ML IVPB ONE ×4 (02:35→22:21)
[2019-08-16] MEDS: PIPERACILLIN/TAZOB 2.25 GM 2.25 GM in DEXTROSE 5%-WATER - 50 ML IVPB SCH ×4 (02:43→22:25)
[2019-08-16 07:02] LABS: BASO % 0.6 % (0-2.0); EOS % 3.6 % (0-4.5); HEMATOCRIT 28.3 % (32.4-45.2); HEMOGLOBIN 9.3 GM/dL (10.7-15.3); MCH 29.8 pg (25.7-33.7); MCHC 32.8 g/dl (32.0-36.0); MEAN CELL VOLUME 90.8 fl (80-96); MEAN PLT VOLUME 8.3 fl (7.5-11.1); MONO % 4.6 % (3.8-10.2); NEUT % 79.2 % (42.8-82.8); PLATELET COUNT 264 K/MM3 (134-434); RBC 3.12 M/mm3 (3.60-5.2); RDW 14.6 % (11.6-15.6); WHITE BLOOD COUNT 10.9 K/mm3 (4.0-10.0)
[2019-08-16 07:23] LABS: BLOOD UREA NITROGEN 12.4 mg/dL (7-18); CALCIUM 8.1 mg/dL (8.5-10.1); CREATININE 0.9 mg/dL (0.55-1.3); POTASSIUM 3.1 mmol/L (3.5-5.1)
--- NOTE | 2019-08-16 09:02 | PN ---
Teaching Attending Note Name of Resident: Dayna Bailey ATTENDING PHYSICIAN STATEMENT I saw and evaluated the patient. I reviewed the resident's note and discussed the case with the resident. I agree with the resident's findings and plan as documented. SUBJECTIVE: Patient is more awake today with no acute distress. OBJECTIVE: Vital Signs Temperature 98.4 F 08/16/19 07:07 Pulse Rate 73 08/16/19 07:07 Respiratory Rate 20 08/16/19 07:07 Blood Pressure 124/53 L 08/16/19 07:07 O2 Sat by Pulse Oximetry (%) 96 08/15/19 21:00 GENERAL: The patient is more awake and arousable today, non verbal , in no acute distress. HEAD: Normal with no signs of trauma. EYES: PERRL, extraocular movements intact, sclera anicteric, conjunctiva clear. ENT: Ears normal, oropharynx clear without exudates, moist mucous membranes. NECK: Trachea midline, full range of motion, supple. LUNGS: left decreased Breath sounds otherwise clear to auscultation, no wheezes , no crackles, no accessory muscle use. HEART: Regular rate and rhythm, S1, S2 without murmur, rub or gallop. ABDOMEN: Soft, NT, ND, normoactive bowel sounds, no guarding, no rebound, no hepatosplenomegaly, no masses. EXTREMITIES: 2+ pulses, warm, well-perfused, no edema. contracted NEUROLOGICAL: Cranial nerves II through XII grossly intact. non verbal, contracted, gait not observed. PSYCH: Normal mood, normal affect. SKIN: Warm, dry, normal turgor, right big toe bulloes improving CBCD WBC 10.9 K/mm3 (4.0-10.0) H 08/16/19 06:35 RBC 3.12 M/mm3 (3.60-5.2) L 08/16/19 06:35 Hgb 9.3 GM/dL (10.7-15.3) L 08/16/19 06:35 Hct 28.3 % (32.4-45.2) L 08/16/19 06:35 MCV 90.8 fl (80-96) 08/16/19 06:35 MCHC 32.8 g/dl (32.0-36.0) 08/16/19 06:35 RDW 14.6 % (11.6-15.6) 08/16/19 06:35 Plt Count 264 K/MM3 (134-434) D 08/16/19 06:35 MPV 8.3 fl (7.5-11.1) 08/16/19 06:35 CMP Sodium 137 mmol/L (136-145) 08/16/19 06:35 Potassium 3.1 mmol/L (3.5-5.1) L 08/16/19 06:35 Chloride 104 mmol/L (98-107) 08/16/19 06:35 Carbon Dioxide 26 mmol/L (21-32) 08/16/19 06:35 Anion Gap 6 MMOL/L (8-16) L 08/16/19 06:35 BUN 12.4 mg/dL (7-18) 08/16/19 06:35 Creatinine 0.9 mg/dL (0.55-1.3) 08/16/19 06:35 Random Glucose 136 mg/dL (74-106) H 08/16/19 06:35 Calcium 8.1 mg/dL (8.5-10.1) L 08/16/19 06:35 Total Bilirubin 0.5 mg/dL (0.2-1) 08/15/19 05:30 AST 18 U/L (15-37) 08/15/19 05:30 ALT 10 U/L (13-61) L 08/15/19 05:30 Alkaline Phosphatase 141 U/L (45-117) H 08/15/19 05:30 Total Protein 4.6 g/dl (6.4-8.2) L 08/15/19 05:30 Albumin 1.8 g/dl (3.4-5.0) L 08/15/19 05:30 CARDIAC ENZYMES Troponin I 0.02 ng/ml (0.00-0.05) 08/09/19 18:06 Current Medications Generic Name Dose Route Start Last Admin Trade Name Freq PRN Reason Stop Dose Admin Acetaminophen 1,000 mg 08/12/19 14:14 08/14/19 17:16 Ofirmev Injection - IVPB 1,000 mg Q6H PRN Administration FEVER Enoxaparin Sodium 40 mg 08/13/19 10:00 08/15/19 10:10 Lovenox - SQ 40 mg DAILY DASH Administration Piperacillin Sod/Tazobactam 50 mls @ 100 mls/hr 08/10/19 15:00 08/16/19 02:43 Sod 2.25 gm/ Dextrose IVPB 100 mls/hr Q6H-IV DASH Administration Protocol Vancomycin HCl 750 mg/ 250 mls @ 166.667 mls/hr 08/13/19 14:45 08/15/19 10:12 Dextrose IVPB 166.667 mls/hr DAILY DASH Administration Protocol Amino Acids 1,000 mls @ 42 mls/hr 08/14/19 17:30 08/15/19 22:33 Clinimix - IV 42 mls/hr Q24H DASH Administration Potassium Chloride 10 meq in 100 mls @ 100 mls/hr 08/16/19 08:30 Potassium Chloride 10 Meq Premix Ivpb - IVPB 08/16/19 11:29 Q60M DASH Silver Sulfadiazine 1 applic 08/11/19 22:00 08/15/19 22:01 Silvadene - TP 1 applic BID DASH Administration Thiamine HCl 200 mg 08/10/19 11:30 08/15/19 10:06 Vitamin B1 Injection - IM 200 mg DAILY DASH Administration Home Medications Medication Instructions Recorded Nebivolol HCl [Bystolic] 2.5 mg PO DAILY 02/19/15 predniSONE [Deltasone -] 2.5 mg PO BID 02/19/15 Carbidopa-Levo ER 50-200 Tab 200 mg PO QID 08/09/19 Furosemide [Lasix -] 20 mg PO BID 08/09/19 Omeprazole 20 mg PO BID 08/10/19 Microbiology 08/14/19 18:12 Urine - Urine - Catheterized Urine Culture - Final NO GROWTH OBTAINED 08/14/19 18:12 Urine For Antigen Detection Legionella Antigen - Final ( Negative) 08/14/19 18:12 Urine For Antigen Detection Streptococcus pneumoniae Antigen (M - Final (negative) 08/09/19 18:06 Blood - Peripheral Venous Blood Culture - Final NO GROWTH AFTER 5 DAYS INCUBATION 08/09/19 18:06 Blood - Peripheral Venous Blood Culture - Final NO GROWTH AFTER 5 DAYS INCUBATION 08/09/19 18:15 Urine - Urine Clean Catch Urine Culture - Final Contaminated: Please Repeat cxr- patchy early infiltrate at left base. renal US: negative ASSESSMENT AND PLAN: This is an 88 year old female with PMHx significant for Parkison's disease and arthritis. Patient presented with cough x 3 days and subjective fever and was found to have Pneumonia and UTI. # sepsis secondary to community acquired pneumonia/UTI : improving.continue IV antibiotics,( dc'd vanco. day #[address] peoples , vanco trough at 4th dose is 17) , speech swallow eval. by Debbie robbins to be repeated since the patient is more awake now. # Acute Pneumonia: ID on the case continue IV antibiotics zosyn renally adjusted continue # Acute UTI- continue IV antibx addd Vanco as per ID #RISA : baseline cr.0.9 --> 1.5--> 1.1-->1.0-->1.1-->1.2 , dc brooke #T2DM Uncontrolled : a1c is 7.6 , ssc, on lantus 10 units qhs, will dc # Hypokalemia:2.9 repleted, repeat is 3.5-->3.1 today replete # Right toe blister: sulfadiazine continue advanced directives -DNR/DNI DVT Px: lovenox vanco trough at 4th dose is 17 On Clinimax, if swallowing fails, will need to reach out to the family for tube feeds. dc'd IVF
[2019-08-16] MEDS: THIAMINE HCL 200 MG/2 ML VIAL IM SCH (09:55)
[2019-08-16] MEDS: ENOXAPARIN NA (PORCINE) 40 MG/0.4 ML DISP.SYRIN SQ SCH (09:55)
[2019-08-16] MEDS: KCL 10 MEQ IVPB 10 MEQ/100 ML INFUS.BAG IVPB SCH ×5 (09:56→21:30)
[2019-08-16] MEDS: SILVER SULFADIAZINE 1% TOP CREAM 50 GM JAR TP SCH ×2 (09:57→21:43)
[2019-08-16] MEDS: VANCOMYCIN 750 MG in DEXTROSE 5%-WATER - 250 ML IVPB SCH (11:10)
--- NOTE | 2019-08-16 12:35 | PN ---
Progress Note, [employer]ATER - Note Progress Note: Selected Entries 08/15/19 08/15/19 08/15/19 02:00 06:11 10:00 Breakfast Lunch Temperature 97.5 F L 98.6 F 98.9 F 08/15/19 08/15/19 08/15/19 10:44 14:00 18:00 Breakfast Lunch NPO Temperature 98.4 F 98.5 F 08/15/19 08/16/19 08/16/19 22:00 07:07 10:00 Breakfast Lunch Temperature 99 F 98.4 F 98.9 F 08/16/19 10:05 Breakfast NPO Lunch Temperature Laboratory Tests 08/13/19 08/16/19 09:16 06:35 WBC 11.6 H 10.9 H Pt seen yesterday, lethargic, opened eyes, but not ready for PO trials. Today, eyes fully open, visually tracking, opened mouth for 1/3 tsp applesauce. Severe oral holding, with no oral transfer and no swallow initiated. Food removed from oral cavity. Case reviewed with PMD. Continue NPO. Consider PEG insertion. What are pt's wishes? Pt is DNR/DNI
--- NOTE | 2019-08-16 12:52 | PN ---
Progress Note, Physician History of Present Illness: better non verbal - Current Medication List Current Medications: Active Medications Acetaminophen (Ofirmev Injection -) 1,000 mg IVPB Q6H PRN PRN Reason: FEVER Last Admin: 08/14/19 17:16 Dose: 1,000 mg Enoxaparin Sodium (Lovenox -) 40 mg SQ DAILY DASH Last Admin: 08/16/19 09:55 Dose: 40 mg Piperacillin Sod/Tazobactam (Sod 2.25 gm/ Dextrose) 50 mls @ 100 mls/hr IVPB Q6H-IV DASH; Protocol Last Admin: 08/16/19 09:55 Dose: 100 mls/hr Vancomycin HCl 750 mg/ (Dextrose) 250 mls @ 166.667 mls/hr IVPB DAILY DASH; Protocol Last Admin: 08/16/19 11:10 Dose: 166.667 mls/hr Amino Acids (Clinimix -) 1,000 mls @ 42 mls/hr IV Q24H DASH Last Admin: 08/15/19 22:33 Dose: 42 mls/hr Silver Sulfadiazine (Silvadene -) 1 applic TP BID DASH Last Admin: 08/16/19 09:57 Dose: 1 applic Thiamine HCl (Vitamin B1 Injection -) 200 mg IM DAILY DASH Last Admin: 08/16/19 09:55 Dose: 200 mg - Objective Vital Signs: Vital Signs Temperature 98.9 F 08/16/19 10:00 Pulse Rate 76 08/16/19 10:00 Respiratory Rate 18 08/16/19 10:00 Blood Pressure 116/59 L 08/16/19 10:00 O2 Sat by Pulse Oximetry (%) 95 08/16/19 10:00 Constitutional: Yes: No Distress, Calm Cardiovascular: Yes: S1, S2 Respiratory: Yes: Regular, Poor Air Entry (bases) Gastrointestinal: Yes: Normal Bowel Sounds, Soft Musculoskeletal: Yes: WNL Extremities: Yes: WNL Neurological: Yes: Other (opens eyes) Labs: CBC, BMP 08/16/19 06:35 08/16/19 06:35 INR, PTT INR 1.04 (0.83-1.09) 08/09/19 18:06 Assessment/Plan 88 year old female with PMHx significant for Parkison's disease, arthritis. Patient presented with cough x 3 days and subjective fever and was found to have Pneumonia and UTI. Problem List - Problems (1) Pneumonia Code(s): J18.9 - PNEUMONIA, UNSPECIFIED ORGANISM Qualifiers: Pneumonia type: due to unspecified organism Laterality: unspecified laterality Lung location: unspecified part of lung Qualified Code(s): J18.9 - Pneumonia, unspecified organism (2) Sepsis Code(s): A41.9 - SEPSIS, UNSPECIFIED ORGANISM Qualifiers: Sepsis type: sepsis due to unspecified organism Sepsis acute organ dysfunction status: without acute organ dysfunction Qualified Code(s): A41.9 - Sepsis, unspecified organism (3) UTI (urinary tract infection) Code(s): N39.0 - URINARY TRACT INFECTION, SITE NOT SPECIFIED Qualifiers: Urinary tract infection type: site unspecified Hematuria presence: with hematuria Qualified Code(s): N39.0 - Urinary tract infection, site not specified; R31.9 - Hematuria, unspecified (4) Anemia Code(s): D64.9 - ANEMIA, UNSPECIFIED (5) Hypertension Code(s): I10 - ESSENTIAL (PRIMARY) HYPERTENSION (6) Parkinson's disease dementia Code(s): G20 - PARKINSON'S DISEASE; F02.80 - DEMENTIA IN OTH DISEASES CLASSD ELSWHR W/O BEHAVRL DISTURB (7) UTI (urinary tract infection) Code(s): N39.0 - URINARY TRACT INFECTION, SITE NOT SPECIFIED Qualifiers: Urinary tract infection type: acute cystitis Hematuria presence: with hematuria Qualified Code(s): N30.01 - Acute cystitis with hematuria Assessment/Plan PNA Fever Leukocytosis Pleural Effusion UTI RISA Lactic Acidosis Parkinson's disease Dementia CAD plan will stop vanco continue zosyn
--- NOTE | 2019-08-16 15:17 | PN ---
Physical Exam: SUBJECTIVE: Patient seen and examined.Pt was awake in no apparent distress. OBJECTIVE: Vital Signs Period Temp Pulse Resp BP Sys/Torres Pulse Ox Last 24 Hr 98.4 F-99 F 72-76 18-20 116-142/53-71 95-96 GENERAL: The patient is non verbal, awake in no apparent distress. HEAD: Normal with no signs of trauma. LUNGS: Breath sounds decreased on left lower field, with diffuse crackles which improved, no wheezes, no accessory muscle use. HEART: Regular rate and rhythm, S1, S2 without murmur, rub or gallop. ABDOMEN: Soft, nontender, nondistended, normoactive bowel sounds, no guarding, no rebound, no hepatosplenomegaly, no masses. EXTREMITIES: 2+ pulses, warm, well-perfused, no edema. Skin: R toe intact blister with no erythema Laboratory Results - last 24 hr 08/16/19 08/16/19 08/16/19 06:35 06:35 09:28 WBC 10.9 H RBC 3.12 L Hgb 9.3 L Hct 28.3 L MCV 90.8 MCH 29.8 MCHC 32.8 RDW 14.6 Plt Count 264 D MPV 8.3 Absolute Neuts (auto) 8.7 H Neutrophils % 79.2 Lymphocytes % 12.0 Monocytes % 4.6 Eosinophils % 3.6 Basophils % 0.6 Nucleated RBC % 0 Sodium 137 Potassium 3.1 L Chloride 104 Carbon Dioxide 26 Anion Gap 6 L BUN 12.4 Creatinine 0.9 Est GFR (CKD-EPI)AfAm 65.70 Est GFR (CKD-EPI)NonAf 56.69 Random Glucose 136 H Calcium 8.1 L Vancomycin Pre-Dose 16.2 L Active Medications Generic Name Dose Route Start Last Admin Trade Name Freq PRN Reason Stop Dose Admin Acetaminophen 1,000 mg 08/12/19 14:14 08/14/19 17:16 Ofirmev Injection - IVPB 1,000 mg Q6H PRN Administration FEVER Enoxaparin Sodium 40 mg 08/13/19 10:00 08/16/19 09:55 Lovenox - SQ 40 mg DAILY DASH Administration Piperacillin Sod/Tazobactam 50 mls @ 100 mls/hr 08/10/19 15:00 08/16/19 09:55 Sod 2.25 gm/ Dextrose IVPB 100 mls/hr Q6H-IV DASH Administration Protocol Amino Acids 1,000 mls @ 42 mls/hr 08/14/19 17:30 08/15/19 22:33 Clinimix - IV 42 mls/hr Q24H DASH Administration Silver Sulfadiazine 1 applic 08/11/19 22:00 08/16/19 09:57 Silvadene - TP 1 applic BID DASH Administration Thiamine HCl 200 mg 08/10/19 11:30 08/16/19 09:55 Vitamin B1 Injection - IM 200 mg DAILY DASH Administration ASSESSMENT/PLAN: 88 year old female with PMHx significant for Parkison's disease, arthritis. Patient presented with cough x 3 days and subjective fever and was found to have Pneumonia and UTI. Sepsis 2/2 PNA and UTI WBC trending down 15-> 13.5 ->12.2 -> 12->11.6-> 10.9 today continuing IV Zosyn 08/10/19 with Vanco D/C'ed Blood Cx neg Urine culture no growth Urine strep and legionella antigen pending RISA creatinine today 0.9 monitor h/o pernicious anemia B12 IM 200 daily FEN Potassium 3.1 today repleted pending labs in the am Severe oral holding without swallow generation Severe Dementia/Cognitive deficits/Apraxia, exacerbated by infection Recommendation from speech and swallow eval: Keep Pt NPO. pt on clinimix Per Debbie , Discuss with family for PEG since patient is DNR/DNI R toe blister silvadene dressing DVT PPX switched to Lovenox 40 SQ daily Visit type - Emergency Visit Emergency Visit: Yes ED Registration Date: 08/09/19 Care time: The patient presented to the Emergency Department on the above date and was hospitalized for further evaluation of their emergent condition. - New Patient This patient is new to me today: No - Critical Care Critical Care patient: No - Discharge Referral Referred to [facility] No ATTENDING PHYSICIAN STATEMENT I saw and evaluated the patient. I reviewed the resident's note and discussed the case with the resident. I agree with the resident's findings and plan as documented. SUBJECTIVE: OBJECTIVE: ASSESSMENT AND PLAN:
[2019-08-16] MEDS: AMINO ACIDS 4.25%/D5W 1,000 ML IV SCH (18:28)
[2019-08-16] MEDS ORDERED: PT OWN MED DRAWER 7, Y5N ONE (22:22)
[2019-08-17] MEDS ORDERED: DEXTROSE 5%-WATER - 50 ML IVPB ONE ×4 (02:56→21:12)
[2019-08-17] MEDS ORDERED: PIPERACILLIN/TAZOBACTAM 2.25 GM VIAL IVPB ONE ×4 (02:56→21:12)
[2019-08-17] MEDS: PIPERACILLIN/TAZOB 2.25 GM 2.25 GM in DEXTROSE 5%-WATER - 50 ML IVPB SCH ×4 (03:01→21:21)
[2019-08-17 08:27] LABS: BASO % 0.5 % (0-2.0); EOS % 3.6 % (0-4.5); HEMATOCRIT 30.6 % (32.4-45.2); HEMOGLOBIN 9.9 GM/dL (10.7-15.3); LYMPH % 12.2 % (8-40); MCH 29.8 pg (25.7-33.7); MCHC 32.5 g/dl (32.0-36.0); MEAN CELL VOLUME 91.7 fl (80-96); MEAN PLT VOLUME 8.2 fl (7.5-11.1); MONO % 5.3 % (3.8-10.2); NEUT % 78.4 % (42.8-82.8); PLATELET COUNT 333 K/MM3 (134-434); RBC 3.33 M/mm3 (3.60-5.2); RDW 14.8 % (11.6-15.6); WHITE BLOOD COUNT 11.5 K/mm3 (4.0-10.0)
[2019-08-17 09:02] LABS: ALBUMIN 1.7 g/dl (3.4-5.0); ALK PHOS 150 U/L (45-117); ANION GAP 5 MMOL/L (8-16); BILIRUBIN,TOTAL 0.4 mg/dL (0.2-1); BLOOD UREA NITROGEN 11.9 mg/dL (7-18); CALCIUM 8.7 mg/dL (8.5-10.1); CHLORIDE 106 mmol/L (98-107); CO2 28 mmol/L (21-32); CREATININE 0.8 mg/dL (0.55-1.3); GLUCOSE,RANDOM 132 mg/dL (74-106); POTASSIUM 3.8 mmol/L (3.5-5.1); SGOT/AST 16 U/L (15-37); SGPT/ALT < 6 U/L (13-61); SODIUM 138 mmol/L (136-145); TOT PROT 5.2 g/dl (6.4-8.2)
--- NOTE | 2019-08-17 11:22 | PN ---
Progress Note, Physician History of Present Illness: stable no new issues - Current Medication List Current Medications: Active Medications Acetaminophen (Ofirmev Injection -) 1,000 mg IVPB Q6H PRN PRN Reason: FEVER Last Admin: 08/14/19 17:16 Dose: 1,000 mg Enoxaparin Sodium (Lovenox -) 40 mg SQ DAILY [facility] Last Admin: 08/16/19 09:55 Dose: 40 mg Piperacillin Sod/Tazobactam (Sod 2.25 gm/ Dextrose) 50 mls @ 100 mls/hr IVPB Q6H-IV DASH; Protocol Last Admin: 08/17/19 03:01 Dose: 100 mls/hr Amino Acids (Clinimix -) 1,000 mls @ 42 mls/hr IV Q24H [facility] Last Admin: 08/16/19 18:28 Dose: Not Given Silver Sulfadiazine (Silvadene -) 1 applic TP BID [facility] Last Admin: 08/16/19 21:43 Dose: 1 applic Thiamine HCl (Vitamin B1 Injection -) 200 mg IM DAILY [facility] Last Admin: 08/16/19 09:55 Dose: 200 mg - Objective Vital Signs: Vital Signs Temperature 99.0 F 08/17/19 06:20 Pulse Rate 80 08/17/19 06:20 Respiratory Rate 20 08/17/19 06:20 Blood Pressure 126/59 L 08/17/19 06:20 O2 Sat by Pulse Oximetry (%) 100 08/16/19 21:00 Constitutional: Yes: No Distress, Calm Cardiovascular: Yes: S1, S2 Respiratory: Yes: Regular, CTA Bilaterally Gastrointestinal: Yes: Normal Bowel Sounds, Soft Musculoskeletal: Yes: Other Extremities: Yes: Other Neurological: Yes: Alert, Other Psychiatric: Yes: Other Labs: CBC, BMP 08/17/19 06:40 08/17/19 06:40 INR, PTT INR 1.04 (0.83-1.09) 08/09/19 18:06 Assessment/Plan 88 year old female with PMHx significant for Parkison's disease, arthritis. Patient presented with cough x 3 days and subjective fever and was found to have Pneumonia and UTI. Problem List - Problems (1) Pneumonia Code(s): J18.9 - PNEUMONIA, UNSPECIFIED ORGANISM Qualifiers: Pneumonia type: due to unspecified organism Laterality: unspecified laterality Lung location: unspecified part of lung Qualified Code(s): J18.9 - Pneumonia, unspecified organism (2) Sepsis Code(s): A41.9 - SEPSIS, UNSPECIFIED ORGANISM Qualifiers: Sepsis type: sepsis due to unspecified organism Sepsis acute organ dysfunction status: without acute organ dysfunction Qualified Code(s): A41.9 - Sepsis, unspecified organism (3) UTI (urinary tract infection) Code(s): N39.0 - URINARY TRACT INFECTION, SITE NOT SPECIFIED Qualifiers: Urinary tract infection type: site unspecified Hematuria presence: with hematuria Qualified Code(s): N39.0 - Urinary tract infection, site not specified; R31.9 - Hematuria, unspecified (4) Anemia Code(s): D64.9 - ANEMIA, UNSPECIFIED (5) Hypertension Code(s): I10 - ESSENTIAL (PRIMARY) HYPERTENSION (6) Parkinson's disease dementia Code(s): G20 - PARKINSON'S DISEASE; F02.80 - DEMENTIA IN OTH DISEASES CLASSD ELSWHR W/O BEHAVRL DISTURB (7) UTI (urinary tract infection) Code(s): N39.0 - URINARY TRACT INFECTION, SITE NOT SPECIFIED Qualifiers: Urinary tract infection type: acute cystitis Hematuria presence: with hematuria Qualified Code(s): N30.01 - Acute cystitis with hematuria Assessment/Plan PNA Fever Leukocytosis Pleural Effusion UTI RISA Lactic Acidosis Parkinson's disease Dementia CAD plan continue abx final plan awaited
[2019-08-17] MEDS: ENOXAPARIN NA (PORCINE) 40 MG/0.4 ML DISP.SYRIN SQ SCH (11:33)
[2019-08-17] MEDS: THIAMINE HCL 200 MG/2 ML VIAL IM SCH (11:34)
--- NOTE | 2019-08-17 12:13 | PN ---
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 WBC noted. CXR 08/12 noted. Unfortunately, functionally unchanged. Eyes fully open, visually tracking, Severe oral holding persist with no oral transfer and no swallow initiated. Food removed from oral cavity. Review family's wishes/ goals of care- PEG insertion, comfort care, Hospice. Pt is DNR/DNI Reviewed with medical team.
[2019-08-17] MEDS: SILVER SULFADIAZINE 1% TOP CREAM 50 GM JAR TP SCH ×2 (12:15→21:30)
--- NOTE | 2019-08-17 15:26 | PN ---
Physical Exam: SUBJECTIVE: Patient seen and examined. Pt is awake but in no apparent distress. OBJECTIVE: Vital Signs Period Temp Pulse Resp BP Sys/Torres Pulse Ox Last 24 Hr 98 F-99.8 F 71-82 18-20 100-130/47-60 100-100 GENERAL: The patient is non verbal, awake in no apparent distress. HEAD: Normal with no signs of trauma. LUNGS: Breath sounds decreased on left lower field, with diffuse crackles which improved, no wheezes, no accessory muscle use. HEART: Regular rate and rhythm, S1, S2 without murmur, rub or gallop. ABDOMEN: Soft, nontender, nondistended, normoactive bowel sounds, no guarding, no rebound, no hepatosplenomegaly, no masses. EXTREMITIES: 2+ pulses, warm, well-perfused, no edema. Skin: R toe intact blister with no erythema Laboratory Results - last 24 hr 08/17/19 08/17/19 06:40 06:40 WBC 11.5 H RBC 3.33 L Hgb 9.9 L Hct 30.6 L MCV 91.7 MCH 29.8 MCHC 32.5 RDW 14.8 Plt Count 333 D MPV 8.2 Absolute Neuts (auto) 9.0 H Neutrophils % 78.4 Lymphocytes % 12.2 Monocytes % 5.3 Eosinophils % 3.6 Basophils % 0.5 Nucleated RBC % 0 Sodium 138 Potassium 3.8 Chloride 106 Carbon Dioxide 28 Anion Gap 5 L BUN 11.9 Creatinine 0.8 Est GFR (CKD-EPI)AfAm 75.76 Est GFR (CKD-EPI)NonAf 65.36 Random Glucose 132 H Calcium 8.7 Total Bilirubin 0.4 AST 16 ALT < 6 L Alkaline Phosphatase 150 H Total Protein 5.2 L Albumin 1.7 L Active Medications Generic Name Dose Route Start Last Admin Trade Name Freq PRN Reason Stop Dose Admin Acetaminophen 1,000 mg 08/12/19 14:14 08/14/19 17:16 Ofirmev Injection - IVPB 1,000 mg Q6H PRN Administration FEVER Enoxaparin Sodium 40 mg 08/13/19 10:00 08/17/19 11:33 Lovenox - SQ 40 mg DAILY DASH Administration Piperacillin Sod/Tazobactam 50 mls @ 100 mls/hr 08/10/19 15:00 08/17/19 11:33 Sod 2.25 gm/ Dextrose IVPB 100 mls/hr Q6H-IV DASH Administration Protocol Amino Acids 1,000 mls @ 42 mls/hr 08/14/19 17:30 08/16/19 18:28 Clinimix - IV Not Given Q24H DASH Silver Sulfadiazine 1 applic 08/11/19 22:00 08/17/19 12:15 Silvadene - TP 1 applic BID DASH Administration Thiamine HCl 200 mg 08/10/19 11:30 08/17/19 11:34 Vitamin B1 Injection - IM 200 mg DAILY DASH Administration ASSESSMENT/PLAN: 88 year old female with PMHx significant for Parkison's disease, arthritis. Patient presented with cough x 3 days and subjective fever and was found to have Pneumonia and UTI. Sepsis 2/2 PNA and UTI WBC trending down 15-> 13.5 ->12.2 -> 12->11.6-> 10.9 -> 11.5 today continuing IV Zosyn 08/10/19 Blood Cx neg Urine culture no growth Urine strep and legionella antigen negative RISA creatinine today 0.8 monitor h/o pernicious anemia B12 IM 200 daily FEN Potassium 3.1 today repleted pending labs in the am Severe oral holding without swallow generation Severe Dementia/Cognitive deficits/Apraxia, exacerbated by infection Recommendation from speech and swallow eval: Keep Pt NPO. pt on clinimix Spoke with daughter but requested mosotho speaking so will call back to discuss with family for PEG since patient is DNR/DNI R toe blister silvadene dressing DVT PPX switched to Lovenox 40 SQ daily Visit type - Emergency Visit Emergency Visit: Yes ED Registration Date: 08/09/19 Care time: The patient presented to the Emergency Department on the above date and was hospitalized for further evaluation of their emergent condition. - New Patient This patient is new to me today: No - Critical Care Critical Care patient: No - Discharge Referral Referred to [facility] Med P.C.: No ATTENDING PHYSICIAN STATEMENT I saw and evaluated the patient. I reviewed the resident's note and discussed the case with the resident. I agree with the resident's findings and plan as documented. SUBJECTIVE: OBJECTIVE: ASSESSMENT AND PLAN:
--- NOTE | 2019-08-17 20:06 | PN ---
Teaching Attending Note Name of Resident: Amita Cuellar ATTENDING PHYSICIAN STATEMENT I saw and evaluated the patient. I reviewed the resident's note and discussed the case with the resident. I agree with the resident's findings and plan as documented. SUBJECTIVE: no events. unable to obtain hx OBJECTIVE: NAD Cv: RRR Abd:soft, NT, ND , PEG in Ext : no edema. 2 blisters on plantar aspec tof R big toe and 1st MTP joint ASSESSMENT AND PLAN: 88 y/o lady with h/o dementia and parkinsons, and OA who is being treated fro PNA and UTI 1- Sepsis , due to LL PNA ( possibly aspiration ) and possible UTI - cont zosyn - reepeat cxray reviewed. - will d/w family PEG vs hospice - cont NPO - cont clinamix 2- RISA : resolved 3- Parkinson's : resume carbi -Levo. NF. family to bring DVT px: Lovenox
[2019-08-18] MEDS ORDERED: PIPERACILLIN/TAZOBACTAM 2.25 GM VIAL IVPB ONE ×4 (02:39→21:50)
[2019-08-18] MEDS ORDERED: DEXTROSE 5%-WATER - 50 ML IVPB ONE ×4 (02:40→21:51)
[2019-08-18] MEDS: PIPERACILLIN/TAZOB 2.25 GM 2.25 GM in DEXTROSE 5%-WATER - 50 ML IVPB SCH ×4 (02:41→21:53)
[2019-08-18 08:10] LABS: BASO % 0.3 % (0-2.0); EOS % 3.8 % (0-4.5); HEMATOCRIT 30.3 % (32.4-45.2); HEMOGLOBIN 9.7 GM/dL (10.7-15.3); LYMPH % 12.8 % (8-40); MCH 29.7 pg (25.7-33.7); MCHC 32.1 g/dl (32.0-36.0); MEAN CELL VOLUME 92.3 fl (80-96); MEAN PLT VOLUME 7.9 fl (7.5-11.1); MONO % 5.8 % (3.8-10.2); NEUT % 77.3 % (42.8-82.8); PLATELET COUNT 360 K/MM3 (134-434); RBC 3.28 M/mm3 (3.60-5.2); RDW 15.2 % (11.6-15.6); WHITE BLOOD COUNT 10.1 K/mm3 (4.0-10.0)
[2019-08-18 08:43] LABS: ALBUMIN 1.8 g/dl (3.4-5.0); BILIRUBIN,TOTAL 0.4 mg/dL (0.2-1); BLOOD UREA NITROGEN 11.1 mg/dL (7-18); CREATININE 0.8 mg/dL (0.55-1.3); POTASSIUM 3.5 mmol/L (3.5-5.1); TOT PROT 5.2 g/dl (6.4-8.2)
[2019-08-18] MEDS ORDERED: PT OWN MED DRAWER 7, Y5N ONE (09:21)
[2019-08-18] MEDS: AMINO ACIDS 4.25%/D5W 1,000 ML IV SCH (09:51)
[2019-08-18] MEDS: THIAMINE HCL 200 MG/2 ML VIAL IM SCH (09:52)
[2019-08-18] MEDS: ENOXAPARIN NA (PORCINE) 40 MG/0.4 ML DISP.SYRIN SQ SCH (09:52)
[2019-08-18] MEDS: SILVER SULFADIAZINE 1% TOP CREAM 50 GM JAR TP SCH ×2 (09:57→21:55)
--- NOTE | 2019-08-18 12:12 | PN ---
Progress Note, Physician History of Present Illness: stable no new issues - Current Medication List Current Medications: Active Medications Acetaminophen (Ofirmev Injection -) 1,000 mg IVPB Q6H PRN PRN Reason: FEVER Last Admin: 08/14/19 17:16 Dose: 1,000 mg Carbidopa/Levodopa (Sinemet *Cr* 50/200 -) 1 combo PO QID [facility] Last Admin: 08/18/19 09:52 Dose: Not Given Enoxaparin Sodium (Lovenox -) 40 mg SQ DAILY [facility] Last Admin: 08/18/19 09:52 Dose: 40 mg Piperacillin Sod/Tazobactam (Sod 2.25 gm/ Dextrose) 50 mls @ 100 mls/hr IVPB Q6H-IV DASH; Protocol Last Admin: 08/18/19 09:46 Dose: 100 mls/hr Amino Acids (Clinimix -) 1,000 mls @ 42 mls/hr IV Q24H [facility] Last Admin: 08/18/19 09:51 Dose: 42 mls/hr Silver Sulfadiazine (Silvadene -) 1 applic TP BID [facility] Last Admin: 08/18/19 09:57 Dose: 1 applic Thiamine HCl (Vitamin B1 Injection -) 200 mg IM DAILY [facility] Last Admin: 08/18/19 09:52 Dose: 200 mg - Objective Vital Signs: Vital Signs Temperature 98.6 F 08/18/19 06:54 Pulse Rate 69 08/18/19 06:54 Respiratory Rate 20 08/18/19 06:54 Blood Pressure 138/62 08/18/19 06:54 O2 Sat by Pulse Oximetry (%) 100 08/17/19 21:00 Constitutional: Yes: No Distress, Calm Cardiovascular: Yes: S1, S2 Musculoskeletal: Yes: WNL Extremities: Yes: WNL Neurological: Yes: Other Labs: CBC, BMP 08/18/19 07:50 08/18/19 07:50 INR, PTT INR 1.04 (0.83-1.09) 08/09/19 18:06 Assessment/Plan 88 year old female with PMHx significant for Parkison's disease, arthritis. Patient presented with cough x 3 days and subjective fever and was found to have Pneumonia and UTI. Problem List - Problems (1) Pneumonia Code(s): J18.9 - PNEUMONIA, UNSPECIFIED ORGANISM Qualifiers: Pneumonia type: due to unspecified organism Laterality: unspecified laterality Lung location: unspecified part of lung Qualified Code(s): J18.9 - Pneumonia, unspecified organism (2) Sepsis Code(s): A41.9 - SEPSIS, UNSPECIFIED ORGANISM Qualifiers: Sepsis type: sepsis due to unspecified organism Sepsis acute organ dysfunction status: without acute organ dysfunction Qualified Code(s): A41.9 - Sepsis, unspecified organism (3) UTI (urinary tract infection) Code(s): N39.0 - URINARY TRACT INFECTION, SITE NOT SPECIFIED Qualifiers: Urinary tract infection type: site unspecified Hematuria presence: with hematuria Qualified Code(s): N39.0 - Urinary tract infection, site not specified; R31.9 - Hematuria, unspecified (4) Anemia Code(s): D64.9 - ANEMIA, UNSPECIFIED (5) Hypertension Code(s): I10 - ESSENTIAL (PRIMARY) HYPERTENSION (6) Parkinson's disease dementia Code(s): G20 - PARKINSON'S DISEASE; F02.80 - DEMENTIA IN OTH DISEASES CLASSD ELSWHR W/O BEHAVRL DISTURB (7) UTI (urinary tract infection) Code(s): N39.0 - URINARY TRACT INFECTION, SITE NOT SPECIFIED Qualifiers: Urinary tract infection type: acute cystitis Hematuria presence: with hematuria Qualified Code(s): N30.01 - Acute cystitis with hematuria Assessment/Plan PNA Fever Leukocytosis Pleural Effusion UTI RISA Lactic Acidosis Parkinson's disease Dementia CAD plan continue abx final plan awaited
--- NOTE | 2019-08-18 12:32 | PN ---
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 WBC noted. CXR 08/12 noted. Unfortunately, functionally unchanged. Eyes fully open, visually tracking, Severe oral holding persist with no oral transfer and no swallow initiated. Food removed from oral cavity. Review family's wishes/ goals of care- Pending PEG insertion, comfort care, Hospice. Pt is DNR/DNI Pt remain NPO, Clinimix, Pt suctioned several times for moderated amount of secretions Reviewed with medical team.
--- NOTE | 2019-08-18 17:23 | PN ---
Teaching Attending Note Name of Resident: Amita Cuellar ATTENDING PHYSICIAN STATEMENT I saw and evaluated the patient. I reviewed the resident's note and discussed the case with the resident. I agree with the resident's findings and plan as documented. SUBJECTIVE: No events over night . Unable to obtain hx OBJECTIVE: NAD Cv: RRR Abd: soft, NT, ND , PEG in Ext : no edema. blisters on foot were not examined today ASSESSMENT AND PLAN: 88 y/o lady with h/o dementia and parkinsons,ILD and OA who is being treated fro PNA and UTI 1- Sepsis, due to LL PNA ( possibly aspiration ) and possible UTI - cont zosyn - d/w daughter by team. PEG is chosen over hospice . - will c/s IR, for PEG tomorrow. - check INR - cont NPO - cont clinamix 2- RISA : resolved 3- Parkinson's : carbi -Levo. NF. 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 will resume when PEG in place. too small to convert to IV forms . also no signs of adrenal insufficiency DVT px: Lovenox
--- NOTE | 2019-08-18 17:57 | PN ---
Physical Exam: SUBJECTIVE: Patient seen and examined.Pt is sleeping with a lot of secretions in her mouth requiring frequent suction. OBJECTIVE: Vital Signs Period Temp Pulse Resp BP Sys/Torres Pulse Ox Last 24 Hr 97.9 F-99.2 F 69-77 18-20 122-154/54-69 100-100 GENERAL: The patient is non verbal, awake in no apparent distress. HEAD: Normal with no signs of trauma. LUNGS: Breath sounds decreased on left lower field, with diffuse crackles which improved, no wheezes, no accessory muscle use. HEART: Regular rate and rhythm, S1, S2 without murmur, rub or gallop. ABDOMEN: Soft, nontender, nondistended, normoactive bowel sounds, no guarding, no rebound, no hepatosplenomegaly, no masses. EXTREMITIES: 2+ pulses, warm, well-perfused, no edema. Skin: R toe intact blister with no erythema Laboratory Results - last 24 hr 08/18/19 08/18/19 07:50 07:50 WBC 10.1 H RBC 3.28 L Hgb 9.7 L Hct 30.3 L MCV 92.3 MCH 29.7 MCHC 32.1 RDW 15.2 Plt Count 360 MPV 7.9 Absolute Neuts (auto) 7.8 Neutrophils % 77.3 Lymphocytes % 12.8 Monocytes % 5.8 Eosinophils % 3.8 Basophils % 0.3 Nucleated RBC % 0 Sodium 139 Potassium 3.5 Chloride 106 Carbon Dioxide 28 Anion Gap 5 L BUN 11.1 Creatinine 0.8 Est GFR (CKD-EPI)AfAm 75.76 Est GFR (CKD-EPI)NonAf 65.36 Random Glucose 111 H Calcium 9.0 Total Bilirubin 0.4 AST 18 ALT 7 L Alkaline Phosphatase 139 H Total Protein 5.2 L Albumin 1.8 L Active Medications Generic Name Dose Route Start Last Admin Trade Name Freq PRN Reason Stop Dose Admin Acetaminophen 1,000 mg 08/12/19 14:14 08/14/19 17:16 Ofirmev Injection - IVPB 1,000 mg Q6H PRN Administration FEVER Carbidopa/Levodopa 1 combo 08/17/19 22:00 08/18/19 14:11 Sinemet *Cr* 50/200 - PO Not Given QID DASH Piperacillin Sod/Tazobactam 50 mls @ 100 mls/hr 08/10/19 15:00 08/18/19 14:53 Sod 2.25 gm/ Dextrose IVPB 100 mls/hr Q6H-IV DASH Administration Protocol Amino Acids 1,000 mls @ 42 mls/hr 08/14/19 17:30 08/18/19 09:51 Clinimix - IV 42 mls/hr Q24H DASH Administration Silver Sulfadiazine 1 applic 08/11/19 22:00 08/18/19 09:57 Silvadene - TP 1 applic BID DASH Administration Thiamine HCl 200 mg 08/10/19 11:30 08/18/19 09:52 Vitamin B1 Injection - IM 200 mg DAILY DASH Administration ASSESSMENT/PLAN: 88 year old female with PMHx significant for Parkison's disease, arthritis. Patient presented with cough x 3 days and subjective fever and was found to have Pneumonia and UTI. Sepsis 2/2 PNA and UTI WBC trending down 15-> 13.5 ->12.2 -> 12->11.6-> 10.9 -> 11.5-> 10.1 today continuing IV Zosyn day 9 Blood Cx neg Urine culture no growth Urine strep and legionella antigen negative RISA creatinine today 0.8 monitor h/o pernicious anemia B12 IM 200 daily FEN Potassium 3.1 today repleted pending labs in the am Severe oral holding without swallow generation Severe Dementia/Cognitive deficits/Apraxia, exacerbated by infection Recommendation from speech and swallow eval: Keep Pt NPO. pt on clinimix Spoke with daughter and granddaughter who agreed for PEG Pt NPO, PT/INR and Lovenox held for intervention. IR consulted R toe blister silvadene dressing DVT PPX HELD Lovenox 40 SQ daily Visit type - Emergency Visit Emergency Visit: Yes ED Registration Date: 08/09/19 Care time: The patient presented to the Emergency Department on the above date and was hospitalized for further evaluation of their emergent condition. - New Patient This patient is new to me today: No - Critical Care Critical Care patient: No - Discharge Referral Referred to [facility] Med P.C.: No ATTENDING PHYSICIAN STATEMENT I saw and evaluated the patient. I reviewed the resident's note and discussed the case with the resident. I agree with the resident's findings and plan as documented. SUBJECTIVE: OBJECTIVE: ASSESSMENT AND PLAN:
[2019-08-19] MEDS ORDERED: PIPERACILLIN/TAZOBACTAM 2.25 GM VIAL IVPB ONE ×2 (01:14→09:19)
[2019-08-19] MEDS ORDERED: DEXTROSE 5%-WATER - 50 ML IVPB ONE ×2 (01:15→09:19)
[2019-08-19] MEDS: PIPERACILLIN/TAZOB 2.25 GM 2.25 GM in DEXTROSE 5%-WATER - 50 ML IVPB SCH ×2 (02:02→09:29)
[2019-08-19 08:53] LABS: BASO % 0.7 % (0-2.0); EOS % 3.6 % (0-4.5); HEMOGLOBIN 8.9 GM/dL (10.7-15.3); MCH 29.8 pg (25.7-33.7); MCHC 32.8 g/dl (32.0-36.0); MEAN CELL VOLUME 90.9 fl (80-96); MEAN PLT VOLUME 7.6 fl (7.5-11.1); MONO % 7.2 % (3.8-10.2); NEUT % 76.5 % (42.8-82.8); PLATELET COUNT 388 K/MM3 (134-434); RBC 2.97 M/mm3 (3.60-5.2); RDW 14.9 % (11.6-15.6); WHITE BLOOD COUNT 8.5 K/mm3 (4.0-10.0)
[2019-08-19 09:28] LABS: INR 1.37 (0.83-1.09); PROTHROMBIN TIME (PATIENT) 16.2 SEC (9.7-13.0)
[2019-08-19] MEDS: THIAMINE HCL 200 MG/2 ML VIAL IM SCH (09:29)
[2019-08-19] MEDS: SILVER SULFADIAZINE 1% TOP CREAM 50 GM JAR TP SCH ×2 (11:05→22:03)
--- NOTE | 2019-08-19 11:46 | PN ---
Progress Note, Physician History of Present Illness: stable no new issues - Current Medication List Current Medications: Active Medications Acetaminophen (Ofirmev Injection -) 1,000 mg IVPB Q6H PRN PRN Reason: FEVER Last Admin: 08/14/19 17:16 Dose: 1,000 mg Carbidopa/Levodopa (Sinemet *Cr* 50/200 -) 1 combo PO QID [facility] Last Admin: 08/19/19 09:22 Dose: Not Given Piperacillin Sod/Tazobactam (Sod 2.25 gm/ Dextrose) 50 mls @ 100 mls/hr IVPB Q6H-IV DASH; Protocol Last Admin: 08/19/19 09:29 Dose: 100 mls/hr Amino Acids (Clinimix -) 1,000 mls @ 42 mls/hr IV Q24H DASH Last Admin: 08/18/19 09:51 Dose: 42 mls/hr Silver Sulfadiazine (Silvadene -) 1 applic TP BID [facility] Last Admin: 08/18/19 21:55 Dose: 1 applic Thiamine HCl (Vitamin B1 Injection -) 200 mg IM DAILY [facility] Last Admin: 08/19/19 09:29 Dose: 200 mg - Objective Vital Signs: Vital Signs Temperature 98.6 F 08/19/19 06:24 Pulse Rate 80 08/19/19 06:24 Respiratory Rate 18 08/19/19 06:24 Blood Pressure 143/61 08/19/19 06:24 O2 Sat by Pulse Oximetry (%) 99 08/18/19 21:00 Constitutional: Yes: No Distress, Calm Respiratory: Yes: Regular, Poor Air Entry Gastrointestinal: Yes: Normal Bowel Sounds, Soft Musculoskeletal: Yes: WNL Extremities: Yes: WNL Neurological: Yes: Other Psychiatric: Yes: Other Labs: CBC, BMP 08/19/19 08:06 08/18/19 07:50 INR, PTT INR 1.37 (0.83-1.09) H 08/19/19 08:06 Assessment/Plan 88 year old female with PMHx significant for Parkison's disease, arthritis. Patient presented with cough x 3 days and subjective fever and was found to have Pneumonia and UTI. Problem List - Problems (1) Pneumonia Code(s): J18.9 - PNEUMONIA, UNSPECIFIED ORGANISM Qualifiers: Pneumonia type: due to unspecified organism Laterality: unspecified laterality Lung location: unspecified part of lung Qualified Code(s): J18.9 - Pneumonia, unspecified organism (2) Sepsis Code(s): A41.9 - SEPSIS, UNSPECIFIED ORGANISM Qualifiers: Sepsis type: sepsis due to unspecified organism Sepsis acute organ dysfunction status: without acute organ dysfunction Qualified Code(s): A41.9 - Sepsis, unspecified organism (3) UTI (urinary tract infection) Code(s): N39.0 - URINARY TRACT INFECTION, SITE NOT SPECIFIED Qualifiers: Urinary tract infection type: site unspecified Hematuria presence: with hematuria Qualified Code(s): N39.0 - Urinary tract infection, site not specified; R31.9 - Hematuria, unspecified (4) Anemia Code(s): D64.9 - ANEMIA, UNSPECIFIED (5) Hypertension Code(s): I10 - ESSENTIAL (PRIMARY) HYPERTENSION (6) Parkinson's disease dementia Code(s): G20 - PARKINSON'S DISEASE; F02.80 - DEMENTIA IN OTH DISEASES CLASSD ELSWHR W/O BEHAVRL DISTURB (7) UTI (urinary tract infection) Code(s): N39.0 - URINARY TRACT INFECTION, SITE NOT SPECIFIED Qualifiers: Urinary tract infection type: acute cystitis Hematuria presence: with hematuria Qualified Code(s): N30.01 - Acute cystitis with hematuria Assessment/Plan PNA Fever Leukocytosis Pleural Effusion UTI RISA Lactic Acidosis Parkinson's disease Dementia CAD plan will stop abx and monitor rest as per the team
[2019-08-19] MEDS: AMINO ACIDS 4.25%/D5W 1,000 ML IV SCH (12:41)
--- NOTE | 2019-08-19 14:48 | PN ---
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 Pt is at high risk for malnutrition, dehydration, aspiration with PO intake. Per EMR, family has agreed to PEG insertion. Continue NPO, Clinimix, Suction PRN. Mouth care.
--- NOTE | 2019-08-19 15:17 | PN ---
Teaching Attending Note Name of Resident: Amita Cuellar ATTENDING PHYSICIAN STATEMENT I saw and evaluated the patient. I reviewed the resident's note and discussed the case with the resident. I agree with the resident's findings and plan as documented. SUBJECTIVE: No events over night . can't obtain hx OBJECTIVE: NAD, contracted upper and lower extremities Cv: RRR Abd: soft, NT, ND , PEG in Ext : no edema. blisters on foot were not examined today ASSESSMENT AND PLAN: 88 y/o lady with h/o dementia and parkinsons,ILD and OA who is being treated fro PNA and UTI 1- Sepsis, due to LL PNA ( possibly aspiration ) and possible UTI. - d/w ID . stop Abx - PEG placement today - cont NPO - cont clinamix until TF could be started. - place dietitian consult 2- RISA : resolved 3- Parkinson's: carbi -Levo. 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 will resume when PEG in place. DVT px: Lovenox. possible dc tomorrow if tolerating TF
--- NOTE | 2019-08-19 15:59 | PN ---
Physical Exam: SUBJECTIVE: Patient seen and examined. Pt lying in bed in no apparent distress. she vocalizes occasionally. OBJECTIVE: Vital Signs Period Temp Pulse Resp BP Sys/Torres Pulse Ox Last 24 Hr 98.0 F-98.6 F 74-80 16-20 143-159/61-70 99 GENERAL: The patient is non verbal, awake in no apparent distress. HEAD: Normal with no signs of trauma. LUNGS: Breath sounds vesicular, with diffuse crackles which improved, no wheezes , no accessory muscle use. HEART: Regular rate and rhythm, S1, S2 without murmur, rub or gallop. ABDOMEN: Soft, nontender, nondistended, normoactive bowel sounds, no guarding, no rebound, no hepatosplenomegaly, no masses. EXTREMITIES: 2+ pulses, warm, well-perfused, no edema. Skin: R toe intact blister with no erythema Laboratory Results - last 24 hr 08/19/19 08/19/19 08/19/19 08:06 08:06 10:45 WBC 8.5 RBC 2.97 L Hgb 8.9 L Hct 27.0 L MCV 90.9 MCH 29.8 MCHC 32.8 RDW 14.9 Plt Count 388 MPV 7.6 Absolute Neuts (auto) 6.5 Neutrophils % 76.5 Lymphocytes % 12.0 Monocytes % 7.2 Eosinophils % 3.6 Basophils % 0.7 Nucleated RBC % 0 PT with INR 16.20 H INR 1.37 H Blood Type B POSITIVE Antibody Screen Negative Active Medications Generic Name Dose Route Start Last Admin Trade Name Freq PRN Reason Stop Dose Admin Acetaminophen 1,000 mg 08/12/19 14:14 08/14/19 17:16 Ofirmev Injection - IVPB 1,000 mg Q6H PRN Administration FEVER Carbidopa/Levodopa 1 combo 08/17/19 22:00 08/19/19 14:28 Sinemet *Cr* 50/200 - PO Not Given QID DASH Amino Acids 1,000 mls @ 42 mls/hr 08/14/19 17:30 08/19/19 12:41 Clinimix - IV 42 mls/hr Q24H DASH Administration Silver Sulfadiazine 1 applic 08/11/19 22:00 08/18/19 21:55 Silvadene - TP 1 applic BID DASH Administration Thiamine HCl 200 mg 08/10/19 11:30 08/19/19 09:29 Vitamin B1 Injection - IM 200 mg DAILY DASH Administration ASSESSMENT/PLAN: 88 year old female with PMHx significant for Parkison's disease, arthritis. Patient presented with cough x 3 days and subjective fever and was found to have Pneumonia and UTI. Sepsis 2/2 PNA and UTI WBC trending down 15-> 13.5 ->12.2 -> 12->11.6-> 10.9 -> 11.5-> 10.1-> 8.5 today D/C IV Zosyn Blood Cx neg Urine culture no growth Urine strep and legionella antigen negative RISA creatinine stable monitor h/o pernicious anemia B12 IM 200 daily FEN Pt going for peg placement on thursday. R toe blister silvadene dressing DVT PPX resumed Lovenox 40 SQ daily Visit type - Emergency Visit Emergency Visit: Yes ED Registration Date: 08/09/19 Care time: The patient presented to the Emergency Department on the above date and was hospitalized for further evaluation of their emergent condition. - New Patient This patient is new to me today: No - Critical Care Critical Care patient: No - Discharge Referral Referred to [facility] Med P.C.: No ATTENDING PHYSICIAN STATEMENT I saw and evaluated the patient. I reviewed the resident's note and discussed the case with the resident. I agree with the resident's findings and plan as documented. SUBJECTIVE: OBJECTIVE: ASSESSMENT AND PLAN:
[2019-08-19] MEDS: ENOXAPARIN NA (PORCINE) 40 MG/0.4 ML DISP.SYRIN SQ SCH (17:43)
[2019-08-19] MEDS: ACETAMINOPHEN 1000 MG/100 ML VIAL (NON FORMULARY) IVPB PRN (22:09)
--- NOTE | 2019-08-20 09:49 | PN ---
Physical Exam: SUBJECTIVE: Patient seen and examined. Pt lying in bed in no apparent distress OBJECTIVE: Vital Signs Period Temp Pulse Resp BP Sys/Torres Pulse Ox Last 24 Hr 98.5 F-100.4 F 73-81 18-21 120-152/50-68 99 GENERAL: The patient is non verbal, asleep in no apparent distress. HEAD: Normal with no signs of trauma. LUNGS: Breath sounds vesicular, with diffuse crackles dry, no wheezes, no accessory muscle use. HEART: Regular rate and rhythm, S1, S2 without murmur, rub or gallop. ABDOMEN: Soft, nontender, nondistended, normoactive bowel sounds, no guarding, no rebound, no hepatosplenomegaly, no masses. EXTREMITIES: 2+ pulses, warm, well-perfused, no edema. Skin: R toe intact blister drying out Laboratory Results - last 24 hr 08/19/19 10:45 Blood Type B POSITIVE Antibody Screen Negative Active Medications Generic Name Dose Route Start Last Admin Trade Name Freq PRN Reason Stop Dose Admin Carbidopa/Levodopa 1 combo 08/17/19 22:00 08/19/19 22:04 Sinemet *Cr* 50/200 - PO Not Given QID DASH Enoxaparin Sodium 40 mg 08/19/19 16:30 08/19/19 17:43 Lovenox - SQ 40 mg DAILY DASH Administration Amino Acids 1,000 mls @ 42 mls/hr 08/14/19 17:30 08/19/19 12:41 Clinimix - IV 42 mls/hr Q24H DASH Administration Silver Sulfadiazine 1 applic 08/11/19 22:00 08/19/19 22:03 Silvadene - TP 1 applic BID DASH Administration Thiamine HCl 200 mg 08/10/19 11:30 08/19/19 09:29 Vitamin B1 Injection - IM 200 mg DAILY DASH Administration ASSESSMENT/PLAN: 88 year old female with PMHx significant for Parkison's disease, arthritis. Patient presented with cough x 3 days and subjective fever and was found to have Pneumonia and UTI. Sepsis 2/2 PNA and UTI WBC trending down D/C IV Zosyn Blood Cx neg Urine culture no growth Urine strep and legionella antigen negative RISA creatinine stable monitor h/o pernicious anemia B12 IM 200 daily FEN Pt going for peg placement on thursday. PEG placement prep tomorrow 08/21/19 clinimix @ 42 R toe blister drying out silvadene dressing DVT PPX Lovenox 40 SQ daily Visit type - Emergency Visit Emergency Visit: Yes ED Registration Date: 08/09/19 Care time: The patient presented to the Emergency Department on the above date and was hospitalized for further evaluation of their emergent condition. - New Patient This patient is new to me today: No - Critical Care Critical Care patient: No - Discharge Referral Referred to [facility] Med P.C.: No ATTENDING PHYSICIAN STATEMENT I saw and evaluated the patient. I reviewed the resident's note and discussed the case with the resident. I agree with the resident's findings and plan as documented. SUBJECTIVE: OBJECTIVE: ASSESSMENT AND PLAN:
[2019-08-20] MEDS: THIAMINE HCL 200 MG/2 ML VIAL IM SCH (10:10)
[2019-08-20] MEDS: ENOXAPARIN NA (PORCINE) 40 MG/0.4 ML DISP.SYRIN SQ SCH (10:10)
[2019-08-20] MEDS: SILVER SULFADIAZINE 1% TOP CREAM 50 GM JAR TP SCH ×2 (10:10→21:39)
--- NOTE | 2019-08-20 10:42 | PN ---
Progress Note, Physician History of Present Illness: stable no new issues - Current Medication List Current Medications: Active Medications Carbidopa/Levodopa (Sinemet *Cr* 50/200 -) 1 combo PO QID [facility] Last Admin: 08/20/19 10:07 Dose: Not Given Enoxaparin Sodium (Lovenox -) 40 mg SQ DAILY [facility] Last Admin: 08/20/19 10:10 Dose: 40 mg Amino Acids (Clinimix -) 1,000 mls @ 42 mls/hr IV Q24H [facility] Last Admin: 08/19/19 12:41 Dose: 42 mls/hr Silver Sulfadiazine (Silvadene -) 1 applic TP BID [facility] Last Admin: 08/20/19 10:10 Dose: 1 applic Thiamine HCl (Vitamin B1 Injection -) 200 mg IM DAILY [facility] Last Admin: 08/20/19 10:10 Dose: 200 mg - Objective Vital Signs: Vital Signs Temperature 98.7 F 08/20/19 10:06 Pulse Rate 79 08/20/19 10:06 Respiratory Rate 08/20/19 10:06 Blood Pressure 148/62 08/20/19 10:06 O2 Sat by Pulse Oximetry (%) 99 08/19/19 21:00 Constitutional: Yes: No Distress, Calm Cardiovascular: Yes: S1, S2 Respiratory: Yes: Regular, CTA Bilaterally Musculoskeletal: Yes: WNL Extremities: Yes: WNL Neurological: Yes: Other Labs: CBC, BMP 08/19/19 08:06 08/18/19 07:50 INR, PTT INR 1.37 (0.83-1.09) H 08/19/19 08:06 Assessment/Plan 88 year old female with PMHx significant for Parkison's disease, arthritis. Patient presented with cough x 3 days and subjective fever and was found to have Pneumonia and UTI. Problem List - Problems (1) Pneumonia Code(s): J18.9 - PNEUMONIA, UNSPECIFIED ORGANISM Qualifiers: Pneumonia type: due to unspecified organism Laterality: unspecified laterality Lung location: unspecified part of lung Qualified Code(s): J18.9 - Pneumonia, unspecified organism (2) Sepsis Code(s): A41.9 - SEPSIS, UNSPECIFIED ORGANISM Qualifiers: Sepsis type: sepsis due to unspecified organism Sepsis acute organ dysfunction status: without acute organ dysfunction Qualified Code(s): A41.9 - Sepsis, unspecified organism (3) UTI (urinary tract infection) Code(s): N39.0 - URINARY TRACT INFECTION, SITE NOT SPECIFIED Qualifiers: Urinary tract infection type: site unspecified Hematuria presence: with hematuria Qualified Code(s): N39.0 - Urinary tract infection, site not specified; R31.9 - Hematuria, unspecified (4) Anemia Code(s): D64.9 - ANEMIA, UNSPECIFIED (5) Hypertension Code(s): I10 - ESSENTIAL (PRIMARY) HYPERTENSION (6) Parkinson's disease dementia Code(s): G20 - PARKINSON'S DISEASE; F02.80 - DEMENTIA IN OTH DISEASES CLASSD ELSWHR W/O BEHAVRL DISTURB (7) UTI (urinary tract infection) Code(s): N39.0 - URINARY TRACT INFECTION, SITE NOT SPECIFIED Qualifiers: Urinary tract infection type: acute cystitis Hematuria presence: with hematuria Qualified Code(s): N30.01 - Acute cystitis with hematuria Assessment/Plan PNA Fever Leukocytosis Pleural Effusion UTI RISA Lactic Acidosis Parkinson's disease Dementia CAD plan continue current mgmt rest as per the team
--- NOTE | 2019-08-20 12:09 | PN ---
Teaching Attending Note Name of Resident: Dayna Bailey ATTENDING PHYSICIAN STATEMENT I saw and evaluated the patient. I reviewed the resident's note and discussed the case with the resident. I agree with the resident's findings and plan as documented. SUBJECTIVE: Not able to take hx due to dementia OBJECTIVE: NAD, contracted upper and lower extremities Cv: RRR Abd: soft, NT, ND , PEG in Ext: no edema on LE. upper extremities with edema and bruising. ASSESSMENT AND PLAN: 88 y/o lady with h/o dementia and parkinsons, ILD and OA who is being treated for PNA and UTI. 1- Sepsis, due to LL PNA and possible UTI. - off Abx - PEG placement On Thursday after prep - cont clinamix until TF could be started. - TF Recs per dietitian - follow cxray 2- RISA : resolved 3- Parkinson's: carbi -Levo. will give through PEG when placed 4- H/o ILD: was on low dose prednisone at home. will resume when PEG in place. DVT px: Lovenox. dispo : HLOC pending PEG placement
[2019-08-20] MEDS: AMINO ACIDS 4.25%/D5W 1,000 ML IV SCH ×2 (13:02→21:40)
[2019-08-21] MEDS: ENOXAPARIN NA (PORCINE) 40 MG/0.4 ML DISP.SYRIN SQ SCH (10:10)
[2019-08-21] MEDS: SILVER SULFADIAZINE 1% TOP CREAM 50 GM JAR TP SCH ×2 (10:11→22:45)
[2019-08-21] MEDS: THIAMINE HCL 200 MG/2 ML VIAL IM SCH (10:11)
--- NOTE | 2019-08-21 11:31 | PN ---
Progress Note, Physician History of Present Illness: stable no new issues - Current Medication List Current Medications: Active Medications Carbidopa/Levodopa (Sinemet *Cr* 50/200 -) 1 combo PO QID [facility] Last Admin: 08/21/19 10:10 Dose: Not Given Enoxaparin Sodium (Lovenox -) 40 mg SQ DAILY [facility] Last Admin: 08/21/19 10:10 Dose: 40 mg Amino Acids (Clinimix -) 1,000 mls @ 42 mls/hr IV Q24H [facility] Last Admin: 08/20/19 21:40 Dose: Not Given Silver Sulfadiazine (Silvadene -) 1 applic TP BID [facility] Last Admin: 08/21/19 10:11 Dose: 1 applic Thiamine HCl (Vitamin B1 Injection -) 200 mg IM DAILY [facility] Last Admin: 08/21/19 10:11 Dose: 200 mg - Objective Vital Signs: Vital Signs Temperature 99.4 F 08/21/19 02:00 Pulse Rate 91 H 08/21/19 02:00 Respiratory Rate 08/21/19 02:00 Blood Pressure 154/64 08/21/19 02:00 O2 Sat by Pulse Oximetry (%) 99 08/20/19 21:00 Constitutional: Yes: No Distress, Calm Cardiovascular: Yes: S1, S2 Respiratory: Yes: Regular, CTA Bilaterally Gastrointestinal: Yes: Soft Musculoskeletal: Yes: WNL Extremities: Yes: Other Neurological: Yes: Alert, Other (dementia) Psychiatric: Yes: Other Labs: CBC, BMP 08/19/19 08:06 08/18/19 07:50 INR, PTT INR 1.37 (0.83-1.09) H 08/19/19 08:06 Assessment/Plan 88 year old female with PMHx significant for Parkison's disease, arthritis. Patient presented with cough x 3 days and subjective fever and was found to have Pneumonia and UTI. Problem List - Problems (1) Pneumonia Code(s): J18.9 - PNEUMONIA, UNSPECIFIED ORGANISM Qualifiers: Pneumonia type: due to unspecified organism Laterality: unspecified laterality Lung location: unspecified part of lung Qualified Code(s): J18.9 - Pneumonia, unspecified organism (2) Sepsis Code(s): A41.9 - SEPSIS, UNSPECIFIED ORGANISM Qualifiers: Sepsis type: sepsis due to unspecified organism Sepsis acute organ dysfunction status: without acute organ dysfunction Qualified Code(s): A41.9 - Sepsis, unspecified organism (3) UTI (urinary tract infection) Code(s): N39.0 - URINARY TRACT INFECTION, SITE NOT SPECIFIED Qualifiers: Urinary tract infection type: site unspecified Hematuria presence: with hematuria Qualified Code(s): N39.0 - Urinary tract infection, site not specified; R31.9 - Hematuria, unspecified (4) Anemia Code(s): D64.9 - ANEMIA, UNSPECIFIED (5) Hypertension Code(s): I10 - ESSENTIAL (PRIMARY) HYPERTENSION (6) Parkinson's disease dementia Code(s): G20 - PARKINSON'S DISEASE; F02.80 - DEMENTIA IN OTH DISEASES CLASSD ELSWHR W/O BEHAVRL DISTURB (7) UTI (urinary tract infection) Code(s): N39.0 - URINARY TRACT INFECTION, SITE NOT SPECIFIED Qualifiers: Urinary tract infection type: acute cystitis Hematuria presence: with hematuria Qualified Code(s): N30.01 - Acute cystitis with hematuria Assessment/Plan PNA Fever Leukocytosis Pleural Effusion UTI RISA Lactic Acidosis Parkinson's disease Dementia CAD plan continue current mgmt rest as per the team plan for g tube nutrition
--- NOTE | 2019-08-21 14:56 | PN ---
Progress Note (short form) - Note Progress Note: Subjective: no events over night . unable to obtain hx. Objective: Vital Signs: Last Vital Signs Temp Pulse Resp BP Pulse Ox 98.7 F 75 20 128/51 L 99 08/21/19 13:39 08/21/19 13:39 08/21/19 13:39 08/21/19 13:39 08/20/19 21:00 Physical Exam: NAD, contracted upper and lower extremities Cv: RRR Abd: soft, NT, ND Ext: no edema on LE. upper extremities with edema and bruising ( improved ) foot blisters on big toe and plantar surface at level of 1st MTP is smaller ASSESSMENT AND PLAN: 88 y/o lady with h/o dementia and parkinsons, ILD and OA who is being treated for PNA and UTI. 1- Sepsis, due to LL PNA and possible UTI. - off Abx - PEG placement On Thursday after prep. NGT today - cont clinamix until TF could be started. - TF Recs per dietitian 2- IRSA : resolved 3- Parkinson's: carbi -Levo. will give through PEG when placed 4- H/o ILD: was on low dose prednisone at home. will resume when PEG in place. DVT px: Lovenox. Dispo: HLOC pending PEG placement d/w son at bed side Visit type - Emergency Visit Emergency Visit: Yes ED Registration Date: 08/09/19 Care time: The patient presented to the Emergency Department on the above date and was hospitalized for further evaluation of their emergent condition. - New Patient This patient is new to me today: No - Critical Care Critical Care patient: No
[2019-08-21] MEDS: AMINO ACIDS 4.25%/D5W 1,000 ML IV SCH (15:12)
[2019-08-21] MEDS: NYSTATIN 100,000 UNIT/GM TOPICAL CREAM 15 GM TUBE TP SCH (23:05)
[2019-08-22] MEDS ORDERED: PT OWN MED DRAWER 7, Y5N ONE (06:34)
--- NOTE | 2019-08-22 08:23 | PN ---
Progress Note, Physician History of Present Illness: no new issues - Current Medication List Current Medications: Active Medications Carbidopa/Levodopa (Sinemet *Cr* 50/200 -) 1 combo PO QID [facility] Last Admin: 08/21/19 22:34 Dose: Not Given Enoxaparin Sodium (Lovenox -) 40 mg SQ DAILY [facility] Last Admin: 08/21/19 10:10 Dose: 40 mg Nystatin (Mycostatin Cream -) 1 applic TP BID [facility] Last Admin: 08/21/19 23:05 Dose: 1 applic Silver Sulfadiazine (Silvadene -) 1 applic TP BID [facility] Last Admin: 08/21/19 22:45 Dose: 1 applic Thiamine HCl (Vitamin B1 Injection -) 200 mg IM DAILY [facility] Last Admin: 08/21/19 10:11 Dose: 200 mg - Objective Vital Signs: Vital Signs Temperature 98.7 F 08/22/19 05:40 Pulse Rate 87 08/22/19 05:40 Respiratory Rate 18 08/22/19 05:40 Blood Pressure 126/56 L 08/22/19 05:40 O2 Sat by Pulse Oximetry (%) 97 08/21/19 21:00 Constitutional: Yes: No Distress, Calm Cardiovascular: Yes: S1, S2 Respiratory: Yes: Regular, CTA Bilaterally Gastrointestinal: Yes: Normal Bowel Sounds, Soft Musculoskeletal: Yes: WNL Extremities: Yes: WNL Neurological: Yes: Alert, Other Psychiatric: Yes: Other Labs: INR, PTT INR 1.37 (0.83-1.09) H 08/19/19 08:06 Assessment/Plan 88 year old female with PMHx significant for Parkison's disease, arthritis. Patient presented with cough x 3 days and subjective fever and was found to have Pneumonia and UTI. Problem List - Problems (1) Pneumonia Code(s): J18.9 - PNEUMONIA, UNSPECIFIED ORGANISM Qualifiers: Pneumonia type: due to unspecified organism Laterality: unspecified laterality Lung location: unspecified part of lung Qualified Code(s): J18.9 - Pneumonia, unspecified organism (2) Sepsis Code(s): A41.9 - SEPSIS, UNSPECIFIED ORGANISM Qualifiers: Sepsis type: sepsis due to unspecified organism Sepsis acute organ dysfunction status: without acute organ dysfunction Qualified Code(s): A41.9 - Sepsis, unspecified organism (3) UTI (urinary tract infection) Code(s): N39.0 - URINARY TRACT INFECTION, SITE NOT SPECIFIED Qualifiers: Urinary tract infection type: site unspecified Hematuria presence: with hematuria Qualified Code(s): N39.0 - Urinary tract infection, site not specified; R31.9 - Hematuria, unspecified (4) Anemia Code(s): D64.9 - ANEMIA, UNSPECIFIED (5) Hypertension Code(s): I10 - ESSENTIAL (PRIMARY) HYPERTENSION (6) Parkinson's disease dementia Code(s): G20 - PARKINSON'S DISEASE; F02.80 - DEMENTIA IN OTH DISEASES CLASSD ELSWHR W/O BEHAVRL DISTURB (7) UTI (urinary tract infection) Code(s): N39.0 - URINARY TRACT INFECTION, SITE NOT SPECIFIED Qualifiers: Urinary tract infection type: acute cystitis Hematuria presence: with hematuria Qualified Code(s): N30.01 - Acute cystitis with hematuria Assessment/Plan PNA Fever Leukocytosis Pleural Effusion UTI RISA Lactic Acidosis Parkinson's disease Dementia CAD plan continue current mgmt rest as per the team plan for g tube nutrition
[2019-08-22 08:42] LABS: BASO % 0.8 % (0-2.0); EOS % 1.7 % (0-4.5); HEMATOCRIT 25.5 % (32.4-45.2); HEMOGLOBIN 8.4 GM/dL (10.7-15.3); LYMPH % 14.1 % (8-40); MCH 29.5 pg (25.7-33.7); MEAN CELL VOLUME 89.5 fl (80-96); MEAN PLT VOLUME 8.3 fl (7.5-11.1); MONO % 9.2 % (3.8-10.2); NEUT % 74.2 % (42.8-82.8); PLATELET COUNT 473 K/MM3 (134-434); RBC 2.85 M/mm3 (3.60-5.2); RDW 15.1 % (11.6-15.6); WHITE BLOOD COUNT 9.6 K/mm3 (4.0-10.0)
[2019-08-22 08:49] LABS: ALBUMIN 1.8 g/dl (3.4-5.0); BILIRUBIN,TOTAL 0.2 mg/dL (0.2-1); BLOOD UREA NITROGEN 24.2 mg/dL (7-18); CALCIUM 9.3 mg/dL (8.5-10.1); CREATININE 1.1 mg/dL (0.55-1.3); POTASSIUM 3.3 mmol/L (3.5-5.1); TOT PROT 5.5 g/dl (6.4-8.2)
--- NOTE | 2019-08-22 09:03 | PN ---
Teaching Attending Note Name of Resident: Kwasi Anaya ATTENDING PHYSICIAN STATEMENT I saw and evaluated the patient. I reviewed the resident's note and discussed the case with the resident. I agree with the resident's findings and plan as documented. SUBJECTIVE: Events over night noted for removing initial NGT and placing another one. po dye was given OBJECTIVE: NAD, contracted upper and lower extremities Cv: RRR Abd: soft, NT, ND Ext: no edema on LE. upper extremities with edema and bruising , RUE is much worse today ASSESSMENT AND PLAN: 88 y/o lady with h/o dementia and parkinsons, ILD and OA who is being treated for PNA and UTI. 1- Sepsis, due to LL PNA and possible UTI. - off Abx - PEG placement today - cont clinamix until TF could be started. hopefully tonight , will check with IR - TF Recs per dietitian 2- worsening RUE: obtain US 3- Parkinson's: carbi -Levo. will give through PEG when placed 4- H/o ILD: was on low dose prednisone at home. will resume when PEG in place. DVT px: Lovenox. Dispo: HLOC pending PEG placement and starting TF . hopefully dc tomorrow
[2019-08-22] MEDS: THIAMINE HCL 200 MG/2 ML VIAL IM SCH (10:08)
[2019-08-22] MEDS: NYSTATIN 100,000 UNIT/GM TOPICAL CREAM 15 GM TUBE TP SCH ×2 (10:09→22:31)
[2019-08-22 13:43] LABS: INR 1.28 (0.83-1.09); PROTHROMBIN TIME (PATIENT) 15.2 SEC (9.7-13.0)
--- NOTE | 2019-08-22 17:29 | PN ---
Physical Exam: SUBJECTIVE: Patient seen and examined. Pt more awake today however remains non verbal. OBJECTIVE: Vital Signs Period Temp Pulse Resp BP Sys/Torres Pulse Ox Last 24 Hr 98.5 F-98.7 F 75-114 18-21 124-148/53-71 97 GENERAL: The patient is non verbal, awake in no apparent distress. HEAD: Normal with no signs of trauma. LUNGS: Breath sounds vesicular, with diffuse crackles dry, no wheezes, no accessory muscle use. HEART: Regular rate and rhythm, S1, S2 without murmur, rub or gallop. ABDOMEN: Soft, nontender, nondistended, normoactive bowel sounds, no guarding, no rebound, no hepatosplenomegaly, no masses. EXTREMITIES: 2+ pulses, warm, well-perfused, 3+ edema in upper extremities more significant on the right. Skin: R toe intact blister drying out. Laboratory Results - last 24 hr 08/22/19 08/22/19 08/22/19 07:45 07:45 12:56 WBC 9.6 RBC 2.85 L Hgb 8.4 L Hct 25.5 L MCV 89.5 MCH 29.5 MCHC 33.0 RDW 15.1 Plt Count 473 H D MPV 8.3 Absolute Neuts (auto) 7.1 Neutrophils % 74.2 Lymphocytes % 14.1 Monocytes % 9.2 Eosinophils % 1.7 Basophils % 0.8 Nucleated RBC % 0 PT with INR 15.20 H INR 1.28 H Sodium 135 L Potassium 3.3 L Chloride 102 Carbon Dioxide 24 Anion Gap 9 BUN 24.2 H Creatinine 1.1 Est GFR (CKD-EPI)AfAm 51.55 Est GFR (CKD-EPI)NonAf 44.48 Random Glucose 113 H Calcium 9.3 Total Bilirubin 0.2 AST 26 ALT 8 L Alkaline Phosphatase 97 Total Protein 5.5 L Albumin 1.8 L Active Medications Generic Name Dose Route Start Last Admin Trade Name Freq PRN Reason Stop Dose Admin Carbidopa/Levodopa 1 combo 08/17/19 22:00 08/22/19 10:08 Sinemet *Cr* 50/200 - PO Not Given QID [facility] Enoxaparin Sodium 40 mg 08/19/19 16:30 08/21/19 10:10 Lovenox - SQ 40 mg DAILY [facility] Administration Nystatin 1 applic 08/21/19 22:00 08/22/19 10:09 Mycostatin Cream - TP 1 applic BID [facility] Administration Silver Sulfadiazine 1 applic 08/11/19 22:00 08/21/19 22:45 Silvadene - TP 1 applic BID [facility] Administration Thiamine HCl 200 mg 08/10/19 11:30 08/22/19 10:08 Vitamin B1 Injection - IM 200 mg DAILY [facility] Administration ASSESSMENT/PLAN: 88 year old female with PMHx significant for Parkison's disease, arthritis. Patient presented with cough x 3 days and subjective fever and was found to have Pneumonia and UTI. Sepsis 2/2 PNA and UTI WBC trending down. currently at 9.6 off IV Zosyn PEG was to be placed today but contrast did not sit for long enough and pt had removed NG tube. Nurse will attempt replacement and barium contrast administration again. PEG placement possibly tomorrow. Cont clinimix until PEG is placed and approved for use by IR [employer] consult for tube feed regimen RISA creatinine stable at 1.1 today monitor h/o pernicious anemia B12 IM 200 daily RUE edema RUE u/S ordered to rule out thrombosis Parkinson home meds but held until feeds. ILD steroids when tube feed is initiated R toe blister drying out silvadene dressing DVT PPX HOLDING Lovenox 40 SQ daily Visit type - Emergency Visit Emergency Visit: Yes ED Registration Date: 08/09/19 Care time: The patient presented to the Emergency Department on the above date and was hospitalized for further evaluation of their emergent condition. - New Patient This patient is new to me today: No - Critical Care Critical Care patient: No - Discharge Referral Referred to [facility] Med P.C.: No ATTENDING PHYSICIAN STATEMENT I saw and evaluated the patient. I reviewed the resident's note and discussed the case with the resident. I agree with the resident's findings and plan as documented. SUBJECTIVE: OBJECTIVE: ASSESSMENT AND PLAN:
[2019-08-22] MEDS: SILVER SULFADIAZINE 1% TOP CREAM 50 GM JAR TP SCH ×2 (18:07→22:31)
--- NOTE | 2019-08-23 12:22 | PN ---
Progress Note, Physician History of Present Illness: no new issues - Current Medication List Current Medications: Active Medications Carbidopa/Levodopa (Sinemet *Cr* 50/200 -) 1 combo PO QID [facility] Last Admin: 08/23/19 09:20 Dose: Not Given Nystatin (Mycostatin Cream -) 1 applic TP BID [facility] Last Admin: 08/22/19 22:31 Dose: 1 applic Silver Sulfadiazine (Silvadene -) 1 applic TP BID [facility] Last Admin: 08/22/19 22:31 Dose: 1 applic Thiamine HCl (Vitamin B1 Injection -) 200 mg IM DAILY [facility] Last Admin: 08/22/19 10:08 Dose: 200 mg - Objective Vital Signs: Vital Signs Temperature 98.0 F 08/23/19 09:03 Pulse Rate 93 H 08/23/19 10:42 Respiratory Rate 14 08/23/19 10:42 Blood Pressure 154/59 L 08/23/19 10:42 O2 Sat by Pulse Oximetry (%) 98 08/23/19 10:42 Constitutional: Yes: No Distress, Calm Cardiovascular: Yes: S1, S2 Respiratory: Yes: Regular, CTA Bilaterally Gastrointestinal: Yes: Normal Bowel Sounds, Soft Musculoskeletal: Yes: WNL Extremities: Yes: Other Neurological: Yes: Alert, Other Psychiatric: Yes: Other Labs: CBC, BMP 08/22/19 07:45 08/22/19 07:45 INR, PTT INR 1.28 (0.83-1.09) H 08/22/19 12:56 Assessment/Plan Problem List - Problems (1) Pneumonia Code(s): J18.9 - PNEUMONIA, UNSPECIFIED ORGANISM Qualifiers: Pneumonia type: due to unspecified organism Laterality: unspecified laterality Lung location: unspecified part of lung Qualified Code(s): J18.9 - Pneumonia, unspecified organism (2) Sepsis Code(s): A41.9 - SEPSIS, UNSPECIFIED ORGANISM Qualifiers: Sepsis type: sepsis due to unspecified organism Sepsis acute organ dysfunction status: without acute organ dysfunction Qualified Code(s): A41.9 - Sepsis, unspecified organism (3) UTI (urinary tract infection) Code(s): N39.0 - URINARY TRACT INFECTION, SITE NOT SPECIFIED Qualifiers: Urinary tract infection type: site unspecified Hematuria presence: with hematuria Qualified Code(s): N39.0 - Urinary tract infection, site not specified; R31.9 - Hematuria, unspecified (4) Anemia Code(s): D64.9 - ANEMIA, UNSPECIFIED (5) Hypertension Code(s): I10 - ESSENTIAL (PRIMARY) HYPERTENSION (6) Parkinson's disease dementia Code(s): G20 - PARKINSON'S DISEASE; F02.80 - DEMENTIA IN OTH DISEASES CLASSD ELSWHR W/O BEHAVRL DISTURB (7) UTI (urinary tract infection) Code(s): N39.0 - URINARY TRACT INFECTION, SITE NOT SPECIFIED Qualifiers: Urinary tract infection type: acute cystitis Hematuria presence: with hematuria Qualified Code(s): N30.01 - Acute cystitis with hematuria Assessment/Plan PNA Fever Leukocytosis Pleural Effusion UTI RISA Lactic Acidosis Parkinson's disease Dementia CAD plan nutrition continue current mgmrest as per the team
[2019-08-23] MEDS: SILVER SULFADIAZINE 1% TOP CREAM 50 GM JAR TP SCH ×2 (12:42→21:35)
[2019-08-23] MEDS: NYSTATIN 100,000 UNIT/GM TOPICAL CREAM 15 GM TUBE TP SCH ×2 (12:42→21:35)
[2019-08-23] MEDS: THIAMINE HCL 200 MG/2 ML VIAL IM SCH (12:45)
[2019-08-23] MEDS ORDERED: ACETAMINOPHEN 1000 MG/100 ML VIAL (NON FORMULARY) IVPB ONE (13:44)
--- NOTE | 2019-08-23 14:52 | PN ---
Physical Exam: SUBJECTIVE: Patient seen and examined. pt was sleeping in some apparent discomfort as she was moaning OBJECTIVE: Vital Signs Period Temp Pulse Resp BP Sys/Torres Pulse Ox Last 24 Hr 98.0 F-100.1 F 80-93 14-19 90-155/49-78 96-100 GENERAL: The patient is non verbal, awake in no apparent distress. HEAD: Normal with no signs of trauma. LUNGS: Breath sounds vesicular, with diffuse crackles dry, no wheezes, no accessory muscle use. HEART: Regular rate and rhythm, S1, S2 without murmur, rub or gallop. ABDOMEN: PEG TUBE IN PLACE, Soft, nontender, nondistended, normoactive bowel sounds, no guarding, no rebound, no hepatosplenomegaly, no masses. EXTREMITIES: 2+ pulses, warm, well-perfused, 3+ edema in upper extremities more significant on the right. Skin: R toe intact blister drying out. Active Medications Generic Name Dose Route Start Last Admin Trade Name Freq PRN Reason Stop Dose Admin Carbidopa/Levodopa 1 combo 08/17/19 22:00 08/23/19 14:19 Sinemet *Cr* 50/200 - PO Not Given QID [facility] Nystatin 1 applic 08/21/19 22:00 08/23/19 12:42 Mycostatin Cream - TP 1 applic BID [facility] Administration Silver Sulfadiazine 1 applic 08/11/19 22:00 08/23/19 12:42 Silvadene - TP 1 applic BID [facility] Administration Thiamine HCl 200 mg 08/10/19 11:30 08/23/19 12:45 Vitamin B1 Injection - IM 200 mg DAILY [facility] Administration ASSESSMENT/PLAN: 88 year old female with PMHx significant for Parkison's disease, arthritis. Patient presented with cough x 3 days and subjective fever and was found to have Pneumonia and UTI. Sepsis 2/2 PNA and UTI WBC trending down. most recent at 9.6 off Zosyn PEG was placed today. NG tube for the next 24hrs. Abdominal binder to prevent removal by pt tylenol 1gm as pt was moaning. Poss pain. Cont clinimix until PEG is placed and approved for use by IR [employer] consult for tube feed regimen KUB tomorrow to confirm placement of peg Intermittent wall suction off for 45 min after med administration. NO feed yet. RISA creatinine stable at 1.1 monitor h/o pernicious anemia B12 IM 200 daily RUE edema RUE u/S done . pending read to rule out thrombosis Parkinson home meds but held until feeds. ILD steroids when tube feed is initiated R toe blister drying out silvadene dressing DVT PPX resumed Lovenox 40 SQ daily Pt currently has a hospital bed and has continued need for it. Pt will continue to need a semi electrical hospital bed with a gel overlay mattress. Pt has limited mobility and limited cognitive functioning due to advanced parkinson disease. Pt will require frequent body position changes which she cannot complete independently and are not feasable with a regular bed to alleviate pain and prevent further skin breakdown. pt has a new feeding tube placed and hospital bed helps prevent aspiration. Visit type - Emergency Visit Emergency Visit: Yes ED Registration Date: 08/09/19 Care time: The patient presented to the Emergency Department on the above date and was hospitalized for further evaluation of their emergent condition. - New Patient This patient is new to me today: No - Critical Care Critical Care patient: No - Discharge Referral Referred to [facility] Med P.C.: No ATTENDING PHYSICIAN STATEMENT I saw and evaluated the patient. I reviewed the resident's note and discussed the case with the resident. I agree with the resident's findings and plan as documented. SUBJECTIVE: OBJECTIVE: ASSESSMENT AND PLAN:
[2019-08-23] MEDS: ENOXAPARIN NA (PORCINE) 40 MG/0.4 ML DISP.SYRIN SQ SCH (15:46)
--- NOTE | 2019-08-23 17:33 | PN ---
Teaching Attending Note Name of Resident: Dayna Bailey ATTENDING PHYSICIAN STATEMENT I saw and evaluated the patient. I reviewed the resident's note and discussed the case with the resident. I agree with the resident's findings and plan as documented. SUBJECTIVE: No events over night OBJECTIVE: NAD, contracted upper and lower extremities. NGT in Cv: RRR Abd: soft, NT, ND , has a PEG tube with a clear dressing . Ext: no edema on LE. upper extremities with edema and bruising , RUE is > L ASSESSMENT AND PLAN: 88 y/o lady with h/o dementia and parkinsons, ILD and OA who is being treated for PNA and UTI. 1- Sepsis, due to LL PNA and possible UTI.resolved - off Abx - PEG in. keep NGT in for imaging tomorrow before feeding could be started - cont clinamix until TF could be started. - TF Recs per dietitian 2- Worsening RUE: obtain US 3- Parkinson's: carbi -Levo. will give through PEG can be used 4- H/o ILD: was on low dose prednisone at home. will resume when PEG in place. DVT px: Lovenox. Dispo: HLOC pending confirmation of FT and getting TF to goal
[2019-08-23] MEDS ORDERED: AMINO ACIDS 4.25%/D5W 1,000 ML IV SCH (19:30)
[2019-08-23] MEDS: KCL 10 MEQ IVPB 10 MEQ/100 ML INFUS.BAG IVPB SCH ×2 (20:09→21:32)
--- NOTE | 2019-08-23 21:07 | PN ---
Progress Note (short form) - Note Progress Note: Received a call with Nurse stating that patient was agitated and trying to pull out her NG tube. As per the nurse patient became agitated after her family left for the night. Nurse placed restraints on patient to prevent patient from pulling out NG tube. Patient was seen at bedside and resting, no agitation noted at this time. Will keep patient on restraints as NG tube is needed for imaging in the morning.
[2019-08-23] MEDS: AMINO ACIDS 4.25%/D5W 1,000 ML IV SCH (21:35)
--- NOTE | 2019-08-24 08:41 | PN ---
Teaching Attending Note Name of Resident: Dayna Bailey ATTENDING PHYSICIAN STATEMENT I saw and evaluated the patient. I reviewed the resident's note and discussed the case with the resident. I agree with the resident's findings and plan as documented. SUBJECTIVE: Patient is comfortable with no acute distress. OBJECTIVE: Vital Signs Temperature 99.6 F 08/24/19 05:00 Pulse Rate 101 H 08/24/19 05:00 Respiratory Rate 20 08/24/19 05:00 Blood Pressure 152/75 08/24/19 05:00 O2 Sat by Pulse Oximetry (%) 98 08/23/19 21:00 GENERAL: The patient is awake, alert, and fully oriented, in no acute distress. HEAD: Normal with no signs of trauma. EYES: PERRL, extraocular movements intact, sclera anicteric, conjunctiva clear. ENT: Ears normal, oropharynx clear without exudates, moist mucous membranes. NECK: Trachea midline, full range of motion, supple. LUNGS: Breath sounds equal, clear to auscultation bilaterally, no wheezes, no crackles, no accessory muscle use. HEART: Regular rate and rhythm, S1, S2 without murmur, rub or gallop. ABDOMEN: Soft, NT, ND, normoactive bowel sounds, no guarding, no rebound, no hepatosplenomegaly, no masses. EXTREMITIES: 2+ pulses, warm, well-perfused, no edema. NEUROLOGICAL: Cranial nerves II through XII grossly intact. Normal speech, gait not observed. PSYCH: Normal mood, normal affect. SKIN: Warm, dry, normal turgor, no rashes or lesions noted CBCD WBC 9.6 K/mm3 (4.0-10.0) 08/22/19 07:45 RBC 2.85 M/mm3 (3.60-5.2) L 08/22/19 07:45 Hgb 8.4 GM/dL (10.7-15.3) L 08/22/19 07:45 Hct 25.5 % (32.4-45.2) L 08/22/19 07:45 MCV 89.5 fl (80-96) 08/22/19 07:45 MCHC 33.0 g/dl (32.0-36.0) 08/22/19 07:45 RDW 15.1 % (11.6-15.6) 08/22/19 07:45 Plt Count 473 K/MM3 (134-434) H D 08/22/19 07:45 MPV 8.3 fl (7.5-11.1) 08/22/19 07:45 CMP Sodium 135 mmol/L (136-145) L 08/22/19 07:45 Potassium 3.3 mmol/L (3.5-5.1) L 08/22/19 07:45 Chloride 102 mmol/L (98-107) 08/22/19 07:45 Carbon Dioxide 24 mmol/L (21-32) 08/22/19 07:45 Anion Gap 9 MMOL/L (8-16) 08/22/19 07:45 BUN 24.2 mg/dL (7-18) H 08/22/19 07:45 Creatinine 1.1 mg/dL (0.55-1.3) 08/22/19 07:45 Random Glucose 113 mg/dL (74-106) H 08/22/19 07:45 Calcium 9.3 mg/dL (8.5-10.1) 08/22/19 07:45 Total Bilirubin 0.2 mg/dL (0.2-1) 08/22/19 07:45 AST 26 U/L (15-37) 08/22/19 07:45 ALT 8 U/L (13-61) L 08/22/19 07:45 Alkaline Phosphatase 97 U/L (45-117) 08/22/19 07:45 Total Protein 5.5 g/dl (6.4-8.2) L 08/22/19 07:45 Albumin 1.8 g/dl (3.4-5.0) L 08/22/19 07:45 CARDIAC ENZYMES Troponin I 0.02 ng/ml (0.00-0.05) 08/09/19 18:06 Current Medications Generic Name Dose Route Start Last Admin Trade Name Freq PRN Reason Stop Dose Admin Carbidopa/Levodopa 1 combo 08/17/19 22:00 08/23/19 21:33 Sinemet *Cr* 50/200 - PO Not Given QID DASH Enoxaparin Sodium 40 mg 08/23/19 15:15 08/23/19 15:46 Lovenox - SQ 40 mg DAILY [facility] Administration Amino Acids 1,000 mls @ 42 mls/hr 08/23/19 19:30 08/23/19 22:46 Clinimix - IV 42 mls/hr Q24H DASH Administration Nystatin 1 applic 08/21/19 22:00 08/23/19 21:35 Mycostatin Cream - TP 1 applic BID DASH Administration Silver Sulfadiazine 1 applic 08/11/19 22:00 08/23/19 21:35 Silvadene - TP 1 applic BID DASH Administration Thiamine HCl 200 mg 08/10/19 11:30 08/23/19 12:45 Vitamin B1 Injection - IM 200 mg DAILY DASH Administration Home Medications Medication Instructions Recorded Nebivolol HCl [Bystolic] 2.5 mg PO DAILY 02/19/15 predniSONE [Deltasone -] 2.5 mg PO BID 02/19/15 Carbidopa-Levo ER 50-200 Tab 200 mg PO QID 08/09/19 Furosemide [Lasix -] 20 mg PO BID 08/09/19 Omeprazole 20 mg PO BID 08/10/19 Microbiology 08/14/19 18:12 Urine - Urine - Catheterized Urine Culture - Final NO GROWTH OBTAINED 08/14/19 18:12 Urine For Antigen Detection Legionella Antigen - Final 08/14/19 18:12 Urine For Antigen Detection Streptococcus pneumoniae Antigen (M - Final 08/09/19 18:06 Blood - Peripheral Venous Blood Culture - Final NO GROWTH AFTER 5 DAYS INCUBATION 08/09/19 18:06 Blood - Peripheral Venous Blood Culture - Final NO GROWTH AFTER 5 DAYS INCUBATION 08/09/19 18:15 Urine - Urine Clean Catch Urine Culture - Final Contaminated: Please Repeat ASSESSMENT AND PLAN: Patient is 88yo female with Pmhx of dementia and parkinsons, ILD and OA who is being treated for PNA and UTI. # Acute sepsis, due to LL PNA and UTI resolved , s/p IV Abx going for PEG, cont clinamix until TF gets started. TF Recs per dietitian # Worsening RUE: US is negative # Parkinson's: continue home meds carbi -Levo. will give through PEG can be used # H/o ILD: was on low dose prednisone at home. will resume when PEG in place. DVT px: Lovenox. discharge planning
[2019-08-24 08:58] LABS: BASO % 1.1 % (0-2.0); EOS % 3.7 % (0-4.5); HEMATOCRIT 28.5 % (32.4-45.2); HEMOGLOBIN 9.4 GM/dL (10.7-15.3); LYMPH % 10.9 % (8-40); MCH 29.8 pg (25.7-33.7); MCHC 32.9 g/dl (32.0-36.0); MEAN CELL VOLUME 90.4 fl (80-96); MEAN PLT VOLUME 8.1 fl (7.5-11.1); NEUT % 75.3 % (42.8-82.8); PLATELET COUNT 444 K/MM3 (134-434); RBC 3.15 M/mm3 (3.60-5.2); RDW 14.9 % (11.6-15.6); WHITE BLOOD COUNT 11.1 K/mm3 (4.0-10.0)
[2019-08-24 09:19] LABS: ALBUMIN 1.7 g/dl (3.4-5.0); BILIRUBIN,TOTAL 0.3 mg/dL (0.2-1); BLOOD UREA NITROGEN 21.6 mg/dL (7-18); CALCIUM 9.4 mg/dL (8.5-10.1); CREATININE 0.7 mg/dL (0.55-1.3); MAGNESIUM 1.8 mg/dL (1.8-2.4); PHOSPHOROUS 1.5 mg/dL (2.5-4.9); POTASSIUM 3.8 mmol/L (3.5-5.1); TOT PROT 5.3 g/dl (6.4-8.2)
--- NOTE | 2019-08-24 12:19 | PN ---
Progress Note, Physician History of Present Illness: no new issues - Current Medication List Current Medications: Active Medications Carbidopa/Levodopa (Sinemet *Cr* 50/200 -) 1 combo PO QID [facility] Last Admin: 08/23/19 21:33 Dose: Not Given Enoxaparin Sodium (Lovenox -) 40 mg SQ DAILY [facility] Last Admin: 08/23/19 15:46 Dose: 40 mg Amino Acids (Clinimix -) 1,000 mls @ 42 mls/hr IV Q24H [facility] Last Admin: 08/23/19 22:46 Dose: 42 mls/hr Nystatin (Mycostatin Cream -) 1 applic TP BID [facility] Last Admin: 08/23/19 21:35 Dose: 1 applic Silver Sulfadiazine (Silvadene -) 1 applic TP BID [facility] Last Admin: 08/23/19 21:35 Dose: 1 applic Thiamine HCl (Vitamin B1 Injection -) 200 mg IM DAILY [facility] Last Admin: 08/23/19 12:45 Dose: 200 mg - Objective Vital Signs: Vital Signs Temperature 99.6 F 08/24/19 05:00 Pulse Rate 101 H 08/24/19 05:00 Respiratory Rate 20 08/24/19 05:00 Blood Pressure 152/75 08/24/19 05:00 O2 Sat by Pulse Oximetry (%) 98 08/23/19 21:00 Constitutional: Yes: No Distress, Calm Cardiovascular: Yes: S1, S2 Respiratory: Yes: Regular, CTA Bilaterally Gastrointestinal: Yes: Normal Bowel Sounds, Soft Musculoskeletal: Yes: WNL Extremities: Yes: Other Neurological: Yes: Other Psychiatric: Yes: Other Labs: CBC, BMP 08/24/19 08:30 08/24/19 08:30 INR, PTT INR 1.28 (0.83-1.09) H 08/22/19 12:56 Assessment/Plan 88 year old female with PMHx significant for Parkison's disease, arthritis. Patient presented with cough x 3 days and subjective fever and was found to have Pneumonia and UTI. Problem List - Problems (1) Pneumonia Code(s): J18.9 - PNEUMONIA, UNSPECIFIED ORGANISM Qualifiers: Pneumonia type: due to unspecified organism Laterality: unspecified laterality Lung location: unspecified part of lung Qualified Code(s): J18.9 - Pneumonia, unspecified organism (2) Sepsis Code(s): A41.9 - SEPSIS, UNSPECIFIED ORGANISM Qualifiers: Sepsis type: sepsis due to unspecified organism Sepsis acute organ dysfunction status: without acute organ dysfunction Qualified Code(s): A41.9 - Sepsis, unspecified organism (3) UTI (urinary tract infection) Code(s): N39.0 - URINARY TRACT INFECTION, SITE NOT SPECIFIED Qualifiers: Urinary tract infection type: site unspecified Hematuria presence: with hematuria Qualified Code(s): N39.0 - Urinary tract infection, site not specified; R31.9 - Hematuria, unspecified (4) Anemia Code(s): D64.9 - ANEMIA, UNSPECIFIED (5) Hypertension Code(s): I10 - ESSENTIAL (PRIMARY) HYPERTENSION (6) Parkinson's disease dementia Code(s): G20 - PARKINSON'S DISEASE; F02.80 - DEMENTIA IN OTH DISEASES CLASSD ELSWHR W/O BEHAVRL DISTURB (7) UTI (urinary tract infection) Code(s): N39.0 - URINARY TRACT INFECTION, SITE NOT SPECIFIED Qualifiers: Urinary tract infection type: acute cystitis Hematuria presence: with hematuria Qualified Code(s): N30.01 - Acute cystitis with hematuria Assessment/Plan PNA Fever Leukocytosis Pleural Effusion UTI RISA Lactic Acidosis Parkinson's disease Dementia CAD plan continue current mgmt rest as per the team
[2019-08-24] MEDS: ENOXAPARIN NA (PORCINE) 40 MG/0.4 ML DISP.SYRIN SQ SCH (12:32)
[2019-08-24] MEDS: THIAMINE HCL 200 MG/2 ML VIAL IM SCH (12:33)
[2019-08-24] MEDS: NYSTATIN 100,000 UNIT/GM TOPICAL CREAM 15 GM TUBE TP SCH ×2 (12:34→21:36)
[2019-08-24] MEDS: SILVER SULFADIAZINE 1% TOP CREAM 50 GM JAR TP SCH ×2 (12:34→21:36)
[2019-08-24] MEDS ORDERED: predniSONE 5 MG TABLET (UD) PO SCH (14:00)
[2019-08-24] MEDS ORDERED: PT OWN MED DRAWER 7, Y5N ONE (14:29)
[2019-08-24] MEDS ORDERED: NAPH,MB-DB/K PH,MBDB POWDER PACKET PO ONE (14:42)
--- NOTE | 2019-08-24 14:44 | PN ---
Physical Exam: SUBJECTIVE: Patient seen and examined. Pt was asleep. pt attempted pulling NG tube resulting in restraints being put in place OBJECTIVE: Vital Signs Period Temp Pulse Resp BP Sys/Torres Pulse Ox Last 24 Hr 98.0 F-99.6 F 79-101 20-20 138-159/65-75 98 GENERAL: The patient is non verbal, asleep in no apparent distress. HEAD: Normal with no signs of trauma. LUNGS: Breath sounds vesicular, with diffuse crackles dry, no wheezes, no accessory muscle use. HEART: Regular rate and rhythm, S1, S2 without murmur, rub or gallop. ABDOMEN: PEG TUBE IN PLACE, Soft, nontender, nondistended, normoactive bowel sounds, no guarding, no rebound, no hepatosplenomegaly, no masses. EXTREMITIES: 2+ pulses, warm, well-perfused, 3+ edema in upper extremities more significant on the left possibly infiltrated. Nurse assessing Skin: R toe intact blister drying out. Laboratory Results - last 24 hr 08/24/19 08/24/19 08:30 08:30 WBC 11.1 H RBC 3.15 L Hgb 9.4 L Hct 28.5 L MCV 90.4 MCH 29.8 MCHC 32.9 RDW 14.9 Plt Count 444 H MPV 8.1 Absolute Neuts (auto) 8.4 H Neutrophils % 75.3 Lymphocytes % 10.9 D Monocytes % 9.0 Eosinophils % 3.7 D Basophils % 1.1 Nucleated RBC % 0 Sodium 139 Potassium 3.8 Chloride 110 H Carbon Dioxide 21 Anion Gap 8 BUN 21.6 H Creatinine 0.7 Est GFR (CKD-EPI)AfAm 89.03 Est GFR (CKD-EPI)NonAf 76.82 Random Glucose 119 H Calcium 9.4 Phosphorus 1.5 L Magnesium 1.8 Total Bilirubin 0.3 AST 26 ALT 7 L Alkaline Phosphatase 82 Total Protein 5.3 L Albumin 1.7 L Active Medications Generic Name Dose Route Start Last Admin Trade Name Freq PRN Reason Stop Dose Admin Carbidopa/Levodopa 1 combo 08/17/19 22:00 08/23/19 21:33 Sinemet *Cr* 50/200 - PO Not Given QID DASH Enoxaparin Sodium 40 mg 08/23/19 15:15 08/23/19 15:46 Lovenox - SQ 40 mg DAILY DASH Administration Nystatin 1 applic 08/21/19 22:00 08/23/19 21:35 Mycostatin Cream - TP 1 applic BID DASH Administration Potassium Phos/Sodium Phos 1 packet 08/24/19 14:42 Phos-Nak Packet - PO 08/24/19 14:43 ONCE ONE Prednisone 2.5 mg 08/24/19 14:00 Deltasone - PO DAILY DASH Silver Sulfadiazine 1 applic 08/11/19 22:00 08/23/19 21:35 Silvadene - TP 1 applic BID DASH Administration Thiamine HCl 200 mg 08/10/19 11:30 08/23/19 12:45 Vitamin B1 Injection - IM 200 mg DAILY DASH Administration ASSESSMENT/PLAN: 88 year old female with PMHx significant for Parkison's disease, arthritis. Patient presented with cough x 3 days and subjective fever and was found to have Pneumonia and UTI. Sepsis 2/2 PNA and UTI off Zosyn . wbc TODAY 11.1 NO SIGNS OF INFECTION POSSIBLY STRESS RELATED s/p PEG placement day 1. NG tube removed after proper PEG placement confirmation by IR today. Abdominal binder to prevent PEG removal by pt off clinimix. Tube feed initiated : Jevity 1.5 @25mls/hr and titrate up by 10 q4-6 hrs with goal rate of 40mls/hr H20 at 10. RISA creatinine stable at 0.7 monitor h/o pernicious anemia B12 IM 200 daily RUE edema RUE U/S negative for thrombosis monitor. IV infiltrate since now left arm swollen? Parkinson home meds ILD steroids restarted R toe blister drying out silvadene dressing FEN phosphate repleted today. Potassium repleted DVT PPX resumed Lovenox 40 SQ daily Pt currently has a hospital bed and has continued need for it. Pt will continue to need a semi electrical hospital bed with a gel overlay mattress. Pt has limited mobility and limited cognitive functioning due to advanced parkinson disease. Pt will require frequent body position changes which she cannot complete independently and are not feasable with a regular bed to alleviate pain and prevent further skin breakdown. pt has a new feeding tube placed and hospital bed helps prevent aspiration. Visit type - Emergency Visit Emergency Visit: Yes ED Registration Date: 08/09/19 Care time: The patient presented to the Emergency Department on the above date and was hospitalized for further evaluation of their emergent condition. - New Patient This patient is new to me today: No - Critical Care Critical Care patient: No - Discharge Referral Referred to [facility] Med P.C.: No ATTENDING PHYSICIAN STATEMENT I saw and evaluated the patient. I reviewed the resident's note and discussed the case with the resident. I agree with the resident's findings and plan as documented. SUBJECTIVE: OBJECTIVE: ASSESSMENT AND PLAN:
[2019-08-24] MEDS: predniSONE 5 MG TABLET (UD) PEG SCH (21:35)
[2019-08-24] MEDS: CARBIDOPA/LEVODOPA 25/100 TABLET (FP) GT SCH (22:30)
[2019-08-25 07:18] LABS: EOS % 3.3 % (0-4.5); HEMATOCRIT 24.6 % (32.4-45.2); HEMOGLOBIN 8.2 GM/dL (10.7-15.3); LYMPH % 14.4 % (8-40); MCH 29.6 pg (25.7-33.7); MCHC 33.5 g/dl (32.0-36.0); MEAN CELL VOLUME 88.3 fl (80-96); MONO % 10.2 % (3.8-10.2); NEUT % 71.1 % (42.8-82.8); PLATELET COUNT 436 K/MM3 (134-434); RBC 2.79 M/mm3 (3.60-5.2); RDW 14.9 % (11.6-15.6); WHITE BLOOD COUNT 9.2 K/mm3 (4.0-10.0)
[2019-08-25 07:47] LABS: ALBUMIN 1.8 g/dl (3.4-5.0); ALK PHOS 95 U/L (45-117); ANION GAP 8 MMOL/L (8-16); BILIRUBIN,TOTAL 0.3 mg/dL (0.2-1); BLOOD UREA NITROGEN 24.5 mg/dL (7-18); CALCIUM 9.6 mg/dL (8.5-10.1); CHLORIDE 108 mmol/L (98-107); CO2 26 mmol/L (21-32); CREATININE 0.9 mg/dL (0.55-1.3); GLUCOSE,RANDOM 136 mg/dL (74-106); POTASSIUM 3.2 mmol/L (3.5-5.1); SGOT/AST 19 U/L (15-37); SGPT/ALT < 6 U/L (13-61); SODIUM 141 mmol/L (136-145); TOT PROT 5.6 g/dl (6.4-8.2)
[2019-08-25] MEDS ORDERED: KCL 10 MEQ IVPB 10 MEQ/100 ML INFUS.BAG IVPB SCH (08:00)
[2019-08-25] MEDS ORDERED: POTASSIUM CHLORIDE TABS 20 MEQ TABLET.ER (FP) PO ONE (08:14)
[2019-08-25] MEDS: CARBIDOPA/LEVODOPA 25/100 TABLET (FP) GT SCH ×4 (11:00→21:22)
[2019-08-25] MEDS: predniSONE 5 MG TABLET (UD) PEG SCH ×2 (11:00→21:22)
[2019-08-25] MEDS: ENOXAPARIN NA (PORCINE) 40 MG/0.4 ML DISP.SYRIN SQ SCH (11:00)
[2019-08-25] MEDS: THIAMINE HCL 200 MG/2 ML VIAL IM SCH (11:00)
[2019-08-25] MEDS: NYSTATIN 100,000 UNIT/GM TOPICAL CREAM 15 GM TUBE TP SCH ×2 (11:01→21:23)
[2019-08-25] MEDS: SILVER SULFADIAZINE 1% TOP CREAM 50 GM JAR TP SCH ×2 (11:01→21:23)
[2019-08-25] MEDS ORDERED: POTASSIUM CHLORIDE ORAL LIQUID 20 MEQ/15 ML PO ONE (11:07)
--- NOTE | 2019-08-25 16:21 | PN ---
Physical Exam: SUBJECTIVE: Patient seen and examined. Pt was awake in some distress. OBJECTIVE: Vital Signs Period Temp Pulse Resp BP Sys/Torres Pulse Ox Last 24 Hr 97.9 F-99.2 F 80-91 18-20 131-155/50-87 96-96 GENERAL: The patient is non verbal, asleep in mild apparent distress. HEAD: Normal with no signs of trauma. LUNGS: Breath sounds vesicular, with diffuse crackles dry, no wheezes, no accessory muscle use. HEART: Regular rate and rhythm, S1, S2 without murmur, rub or gallop. ABDOMEN: PEG TUBE IN PLACE, Soft, nontender, nondistended, normoactive bowel sounds, no guarding, no rebound, no hepatosplenomegaly, no masses. EXTREMITIES: 2+ pulses, warm, well-perfused, 3+ edema in upper extremities Skin: R toe intact blister drying out. Laboratory Results - last 24 hr 08/25/19 08/25/19 06:35 06:35 WBC 9.2 RBC 2.79 L Hgb 8.2 L Hct 24.6 L MCV 88.3 MCH 29.6 MCHC 33.5 RDW 14.9 Plt Count 436 H MPV 8.0 Absolute Neuts (auto) 6.5 Neutrophils % 71.1 Lymphocytes % 14.4 D Monocytes % 10.2 Eosinophils % 3.3 Basophils % 1.0 Nucleated RBC % 0 Sodium 141 Potassium 3.2 L Chloride 108 H Carbon Dioxide 26 Anion Gap 8 BUN 24.5 H Creatinine 0.9 Est GFR (CKD-EPI)AfAm 65.70 Est GFR (CKD-EPI)NonAf 56.69 Random Glucose 136 H Calcium 9.6 Total Bilirubin 0.3 AST 19 ALT < 6 L Alkaline Phosphatase 95 Total Protein 5.6 L Albumin 1.8 L Active Medications Generic Name Dose Route Start Last Admin Trade Name Freq PRN Reason Stop Dose Admin Carbidopa/Levodopa 1 each 08/24/19 22:00 08/25/19 11:00 Sinemet 25/100 - GT 1 each QID DASH Administration Enoxaparin Sodium 40 mg 08/23/19 15:15 08/25/19 11:00 Lovenox - SQ 40 mg DAILY DASH Administration Nystatin 1 applic 08/21/19 22:00 08/25/19 11:01 Mycostatin Cream - TP 1 applic BID DASH Administration Prednisone 2.5 mg 08/24/19 22:00 08/25/19 11:00 Deltasone - PEG 2.5 mg BID DASH Administration Silver Sulfadiazine 1 applic 08/11/19 22:00 08/25/19 11:01 Silvadene - TP 1 applic BID DASH Administration Thiamine HCl 200 mg 08/10/19 11:30 08/25/19 11:00 Vitamin B1 Injection - IM 200 mg DAILY DASH Administration ASSESSMENT/PLAN: 88 year old female with PMHx significant for Parkison's disease, arthritis. Patient presented with cough x 3 days and subjective fever and was found to have Pneumonia and UTI. Sepsis 2/2 PNA and UTI off Zosyn . wbc TODAY 9.6 NO SIGNS OF INFECTION POSSIBLY STRESS RELATED s/p PEG placement day 2. Abdominal binder to prevent PEG removal by pt Tube feed initiated : Jevity 1.5 @35mls/hr and titrate up by 10 q4-6 hrs with goal rate of 40mls/hr H20 at 10. RISA creatinine stable at 0.9 monitor h/o pernicious anemia B12 IM 200 daily RUE edema RUE U/S negative for thrombosis monitor. Parkinson home meds ILD steroids restarted R toe blister drying out silvadene dressing FEN Potassium repleted today was at 3.2 prior to repletion DVT PPX resumed Lovenox 40 SQ daily Pt currently has a hospital bed and has continued need for it. Pt will continue to need a semi electrical hospital bed with a gel overlay mattress. Pt has limited mobility and limited cognitive functioning due to advanced parkinson disease. Pt will require frequent body position changes which she cannot complete independently and are not feasable with a regular bed to alleviate pain and prevent further skin breakdown. pt has a new feeding tube placed and hospital bed helps prevent aspiration. Pt bed needs repair. Pt bed lock in one position. Visit type - Emergency Visit Emergency Visit: Yes ED Registration Date: 08/09/19 Care time: The patient presented to the Emergency Department on the above date and was hospitalized for further evaluation of their emergent condition. - New Patient This patient is new to me today: No - Critical Care Critical Care patient: No - Discharge Referral Referred to [facility] Med [facility].C[facility] No ATTENDING PHYSICIAN STATEMENT I saw and evaluated the patient. I reviewed the resident's note and discussed the case with the resident. I agree with the resident's findings and plan as documented. SUBJECTIVE: OBJECTIVE: ASSESSMENT AND PLAN:
--- NOTE | 2019-08-25 20:16 | PN ---
Teaching Attending Note Name of Resident: Dayna Bailey ATTENDING PHYSICIAN STATEMENT I saw and evaluated the patient. I reviewed the resident's note and discussed the case with the resident. I agree with the resident's findings and plan as documented. SUBJECTIVE: Patient is lying in bed , tolerating the tube feed. OBJECTIVE: Vital Signs Temperature 99.5 F 08/25/19 18:00 Pulse Rate 86 08/25/19 18:00 Respiratory Rate 86 H 08/25/19 18:00 Blood Pressure 116/54 L 08/25/19 18:00 O2 Sat by Pulse Oximetry (%) 96 08/25/19 11:00 GENERAL: The patient is awake, alert, and fully oriented, in no acute distress. HEAD: Normal with no signs of trauma. EYES: PERRL, extraocular movements intact, sclera anicteric, conjunctiva clear. ENT: Ears normal, oropharynx clear without exudates, moist mucous membranes. NECK: Trachea midline, full range of motion, supple. LUNGS: Breath sounds equal, clear to auscultation bilaterally, no wheezes, no crackles, no accessory muscle use. HEART: Regular rate and rhythm, S1, S2 without murmur, rub or gallop. ABDOMEN: Soft, NT,ND, normoactive bowel sounds, no guarding, no rebound, no hepatosplenomegaly, no masses. EXTREMITIES: 2+ pulses, warm, well-perfused, no edema. NEUROLOGICAL: Cranial nerves II through XII grossly intact. Normal speech, gait not observed. PSYCH: Normal mood, normal affect. SKIN: Warm, dry, normal turgor, no rashes or lesions noted CBCD WBC 9.2 K/mm3 (4.0-10.0) 08/25/19 06:35 RBC 2.79 M/mm3 (3.60-5.2) L 08/25/19 06:35 Hgb 8.2 GM/dL (10.7-15.3) L 08/25/19 06:35 Hct 24.6 % (32.4-45.2) L 08/25/19 06:35 MCV 88.3 fl (80-96) 08/25/19 06:35 MCHC 33.5 g/dl (32.0-36.0) 08/25/19 06:35 RDW 14.9 % (11.6-15.6) 08/25/19 06:35 Plt Count 436 K/MM3 (134-434) H 08/25/19 06:35 MPV 8.0 fl (7.5-11.1) 08/25/19 06:35 CMP Sodium 141 mmol/L (136-145) 08/25/19 06:35 Potassium 3.2 mmol/L (3.5-5.1) L 08/25/19 06:35 Chloride 108 mmol/L (98-107) H 08/25/19 06:35 Carbon Dioxide 26 mmol/L (21-32) 08/25/19 06:35 Anion Gap 8 MMOL/L (8-16) 08/25/19 06:35 BUN 24.5 mg/dL (7-18) H 08/25/19 06:35 Creatinine 0.9 mg/dL (0.55-1.3) 08/25/19 06:35 Random Glucose 136 mg/dL (74-106) H 08/25/19 06:35 Calcium 9.6 mg/dL (8.5-10.1) 08/25/19 06:35 Total Bilirubin 0.3 mg/dL (0.2-1) 08/25/19 06:35 AST 19 U/L (15-37) 08/25/19 06:35 ALT < 6 U/L (13-61) L 08/25/19 06:35 Alkaline Phosphatase 95 U/L (45-117) 08/25/19 06:35 Total Protein 5.6 g/dl (6.4-8.2) L 08/25/19 06:35 Albumin 1.8 g/dl (3.4-5.0) L 08/25/19 06:35 CARDIAC ENZYMES Troponin I 0.02 ng/ml (0.00-0.05) 08/09/19 18:06 Current Medications Generic Name Dose Route Start Last Admin Trade Name Freq PRN Reason Stop Dose Admin Carbidopa/Levodopa 1 each 08/24/19 22:00 08/25/19 17:04 Sinemet 25/100 - GT 1 each QID DASH Administration Enoxaparin Sodium 40 mg 08/23/19 15:15 08/25/19 11:00 Lovenox - SQ 40 mg DAILY ADSH Administration Nystatin 1 applic 08/21/19 22:00 08/25/19 11:01 Mycostatin Cream - TP 1 applic BID DASH Administration Prednisone 2.5 mg 08/24/19 22:00 08/25/19 11:00 Deltasone - PEG 2.5 mg BID DASH Administration Silver Sulfadiazine 1 applic 08/11/19 22:00 08/25/19 11:01 Silvadene - TP 1 applic BID DASH Administration Thiamine HCl 200 mg 08/10/19 11:30 08/25/19 11:00 Vitamin B1 Injection - IM 200 mg DAILY DASH Administration Home Medications Medication Instructions Recorded Nebivolol HCl [Bystolic] 2.5 mg PO DAILY 02/19/15 predniSONE [Deltasone -] 2.5 mg PO BID 02/19/15 Carbidopa-Levo ER 50-200 Tab 200 mg PO QID 08/09/19 Furosemide [Lasix -] 20 mg PO BID 08/09/19 Omeprazole 20 mg PO BID 08/10/19 Miscellaneous Medical Supply 1 each ASDIR #1 misc 08/25/19 [Outpatient Order] Microbiology 08/14/19 18:12 Urine - Urine - Catheterized Urine Culture - Final NO GROWTH OBTAINED 08/14/19 18:12 Urine For Antigen Detection Legionella Antigen - Final 08/14/19 18:12 Urine For Antigen Detection Streptococcus pneumoniae Antigen (M - Final 08/09/19 18:06 Blood - Peripheral Venous Blood Culture - Final NO GROWTH AFTER 5 DAYS INCUBATION 08/09/19 18:06 Blood - Peripheral Venous Blood Culture - Final NO GROWTH AFTER 5 DAYS INCUBATION 08/09/19 18:15 Urine - Urine Clean Catch Urine Culture - Final Contaminated: Please Repeat ASSESSMENT AND PLAN: Patient is 88yo female with Pmhx of dementia and parkinsons, ILD and OA who is being treated for PNA and UTI. #s/p sepsis, due to LL PNA and UTI resolved , s/p IV Abx , s/p PEG tube tolerating diet . TF Recs per dietitian # Worsening RUE: US is negative # Parkinson's: continue home meds carbi -Levo. will give through PEG can be used # H/o ILD: was on low dose prednisone at home. will resume when PEG in place. DVT px: Lovenox. discharge planning possible in am
--- NOTE | 2019-08-25 20:29 | PN ---
Progress Note, Physician History of Present Illness: Pt easily arousable, without distress. No sob/cough noted.Temp 99.5F , wbc normal. - Current Medication List Current Medications: Active Medications Carbidopa/Levodopa (Sinemet 25/100 -) 1 each GT QID [facility] Last Admin: 08/25/19 17:04 Dose: 1 each Enoxaparin Sodium (Lovenox -) 40 mg SQ DAILY [facility] Last Admin: 08/25/19 11:00 Dose: 40 mg Nystatin (Mycostatin Cream -) 1 applic TP BID [facility] Last Admin: 08/25/19 11:01 Dose: 1 applic Prednisone (Deltasone -) 2.5 mg PEG BID [facility] Last Admin: 08/25/19 11:00 Dose: 2.5 mg Silver Sulfadiazine (Silvadene -) 1 applic TP BID [facility] Last Admin: 08/25/19 11:01 Dose: 1 applic Thiamine HCl (Vitamin B1 Injection -) 200 mg IM DAILY [facility] Last Admin: 08/25/19 11:00 Dose: 200 mg - Objective Vital Signs: Vital Signs Temperature 99.5 F 08/25/19 18:00 Pulse Rate 86 08/25/19 18:00 Respiratory Rate 86 H 08/25/19 18:00 Blood Pressure 116/54 L 08/25/19 18:00 O2 Sat by Pulse Oximetry (%) 96 08/25/19 11:00 Constitutional: Yes: No Distress, Calm Cardiovascular: Yes: Regular Rate and Rhythm Respiratory: Yes: Other (crackles bases) Gastrointestinal: Yes: Normal Bowel Sounds, Soft Genitourinary: Yes: WNL Extremities: Yes: WNL Integumentary: Yes: WNL Neurological: Yes: Alert Labs: CBC, BMP 08/25/19 06:35 08/25/19 06:35 INR, PTT INR 1.28 (0.83-1.09) H 08/22/19 12:56 Problem List - Problems (1) Pneumonia Code(s): J18.9 - PNEUMONIA, UNSPECIFIED ORGANISM Qualifiers: Pneumonia type: due to unspecified organism Laterality: unspecified laterality Lung location: unspecified part of lung Qualified Code(s): J18.9 - Pneumonia, unspecified organism (2) Sepsis Code(s): A41.9 - SEPSIS, UNSPECIFIED ORGANISM Qualifiers: Sepsis type: sepsis due to unspecified organism Sepsis acute organ dysfunction status: without acute organ dysfunction Qualified Code(s): A41.9 - Sepsis, unspecified organism (3) UTI (urinary tract infection) Code(s): N39.0 - URINARY TRACT INFECTION, SITE NOT SPECIFIED Qualifiers: Urinary tract infection type: site unspecified Hematuria presence: with hematuria Qualified Code(s): N39.0 - Urinary tract infection, site not specified; R31.9 - Hematuria, unspecified (4) Anemia Code(s): D64.9 - ANEMIA, UNSPECIFIED (5) Hypertension Code(s): I10 - ESSENTIAL (PRIMARY) HYPERTENSION (6) Parkinson's disease dementia Code(s): G20 - PARKINSON'S DISEASE; F02.80 - DEMENTIA IN OTH DISEASES CLASSD ELSWHR W/O BEHAVRL DISTURB (7) UTI (urinary tract infection) Code(s): N39.0 - URINARY TRACT INFECTION, SITE NOT SPECIFIED Qualifiers: Urinary tract infection type: acute cystitis Hematuria presence: with hematuria Qualified Code(s): N30.01 - Acute cystitis with hematuria Assessment/Plan PNA Fever Leukocytosis Pleural Effusion UTI RISA Lactic Acidosis Parkinson's disease Dementia CAD -- s/p course of antibiotics -- temp mildly elevated, wbc normal -- continue monitor closely
[2019-08-26 08:25] LABS: BASO % 0.7 % (0-2.0); EOS % 1.3 % (0-4.5); HEMATOCRIT 24.4 % (32.4-45.2); HEMOGLOBIN 8.1 GM/dL (10.7-15.3); LYMPH % 16.5 % (8-40); MCH 29.3 pg (25.7-33.7); MCHC 33.1 g/dl (32.0-36.0); MEAN CELL VOLUME 88.4 fl (80-96); MONO % 10.8 % (3.8-10.2); NEUT % 70.7 % (42.8-82.8); PLATELET COUNT 423 K/MM3 (134-434); RBC 2.76 M/mm3 (3.60-5.2); RDW 15.2 % (11.6-15.6); WHITE BLOOD COUNT 8.9 K/mm3 (4.0-10.0)
[2019-08-26 08:44] LABS: BLOOD UREA NITROGEN 25.6 mg/dL (7-18); CALCIUM 9.4 mg/dL (8.5-10.1); CREATININE 0.9 mg/dL (0.55-1.3); POTASSIUM 3.9 mmol/L (3.5-5.1)
[2019-08-26] MEDS: predniSONE 5 MG TABLET (UD) PEG SCH ×2 (09:14→23:05)
[2019-08-26] MEDS: ENOXAPARIN NA (PORCINE) 40 MG/0.4 ML DISP.SYRIN SQ SCH (09:14)
[2019-08-26] MEDS: CARBIDOPA/LEVODOPA 25/100 TABLET (FP) GT SCH ×4 (09:14→23:05)
[2019-08-26] MEDS: NYSTATIN 100,000 UNIT/GM TOPICAL CREAM 15 GM TUBE TP SCH ×2 (09:15→23:06)
[2019-08-26] MEDS: THIAMINE HCL 200 MG/2 ML VIAL IM SCH (09:15)
[2019-08-26] MEDS: SILVER SULFADIAZINE 1% TOP CREAM 50 GM JAR TP SCH ×2 (09:17→23:06)
--- NOTE | 2019-08-26 10:54 | PN ---
Progress Note, Physician History of Present Illness: no new issues - Current Medication List Current Medications: Active Medications Carbidopa/Levodopa (Sinemet 25/100 -) 1 each GT QID [facility] Last Admin: 08/26/19 09:14 Dose: 1 each Enoxaparin Sodium (Lovenox -) 40 mg SQ DAILY [facility] Last Admin: 08/26/19 09:14 Dose: 40 mg Nystatin (Mycostatin Cream -) 1 applic TP BID [facility] Last Admin: 08/26/19 09:15 Dose: 1 applic Prednisone (Deltasone -) 2.5 mg PEG BID [facility] Last Admin: 08/26/19 09:14 Dose: 2.5 mg Silver Sulfadiazine (Silvadene -) 1 applic TP BID [facility] Last Admin: 08/26/19 09:17 Dose: 1 applic Thiamine HCl (Vitamin B1 Injection -) 200 mg IM DAILY [facility] Last Admin: 08/26/19 09:15 Dose: 200 mg - Objective Vital Signs: Vital Signs Temperature 98.8 F 08/26/19 05:55 Pulse Rate 71 08/26/19 05:55 Respiratory Rate 20 08/26/19 05:55 Blood Pressure 127/64 08/26/19 05:55 O2 Sat by Pulse Oximetry (%) 96 08/25/19 21:00 Constitutional: Yes: No Distress, Calm Cardiovascular: Yes: S1, S2 Respiratory: Yes: Regular, CTA Bilaterally Gastrointestinal: Yes: Normal Bowel Sounds, Soft, Other (peg in place) Musculoskeletal: Yes: WNL Extremities: Yes: Other Neurological: Yes: Alert Psychiatric: Yes: Other Labs: CBC, BMP 08/26/19 07:38 08/26/19 07:38 INR, PTT INR 1.28 (0.83-1.09) H 08/22/19 12:56 Assessment/Plan Problem List - Problems (1) Pneumonia Code(s): J18.9 - PNEUMONIA, UNSPECIFIED ORGANISM Qualifiers: Pneumonia type: due to unspecified organism Laterality: unspecified laterality Lung location: unspecified part of lung Qualified Code(s): J18.9 - Pneumonia, unspecified organism (2) Sepsis Code(s): A41.9 - SEPSIS, UNSPECIFIED ORGANISM Qualifiers: Sepsis type: sepsis due to unspecified organism Sepsis acute organ dysfunction status: without acute organ dysfunction Qualified Code(s): A41.9 - Sepsis, unspecified organism (3) UTI (urinary tract infection) Code(s): N39.0 - URINARY TRACT INFECTION, SITE NOT SPECIFIED Qualifiers: Urinary tract infection type: site unspecified Hematuria presence: with hematuria Qualified Code(s): N39.0 - Urinary tract infection, site not specified; R31.9 - Hematuria, unspecified (4) Anemia Code(s): D64.9 - ANEMIA, UNSPECIFIED (5) Hypertension Code(s): I10 - ESSENTIAL (PRIMARY) HYPERTENSION (6) Parkinson's disease dementia Code(s): G20 - PARKINSON'S DISEASE; F02.80 - DEMENTIA IN OTH DISEASES CLASSD ELSWHR W/O BEHAVRL DISTURB (7) UTI (urinary tract infection) Code(s): N39.0 - URINARY TRACT INFECTION, SITE NOT SPECIFIED Qualifiers: Urinary tract infection type: acute cystitis Hematuria presence: with hematuria Qualified Code(s): N30.01 - Acute cystitis with hematuria Assessment/Plan PNA Fever Leukocytosis Pleural Effusion UTI RISA Lactic Acidosis Parkinson's disease Dementia CAD plan nutrition continue current mgmrest as per the team
--- NOTE | 2019-08-26 14:35 | PN ---
Physical Exam: SUBJECTIVE: Patient seen and examined. Pt is awake and looking around however flat affect. OBJECTIVE: Vital Signs Period Temp Pulse Resp BP Sys/Torres Pulse Ox Last 24 Hr 98.8 F-99.5 F 71-86 18-86 112-137/50-82 96 GENERAL: The patient is non verbal, awake in no apparent distress. HEAD: Normal with no signs of trauma. LUNGS: Breath sounds vesicular, with diffuse crackles dry, no wheezes, no accessory muscle use. HEART: Regular rate and rhythm, S1, S2 without murmur, rub or gallop. ABDOMEN: PEG TUBE IN PLACE, Soft, nontender, nondistended, normoactive bowel sounds, no guarding, no rebound, no hepatosplenomegaly, no masses. EXTREMITIES: 2+ pulses, warm, well-perfused, 2+ edema in upper extremities Skin: R toe intact blister drying out. Laboratory Results - last 24 hr 08/26/19 08/26/19 07:38 07:38 WBC 8.9 RBC 2.76 L Hgb 8.1 L Hct 24.4 L MCV 88.4 MCH 29.3 MCHC 33.1 RDW 15.2 Plt Count 423 MPV 8.0 Absolute Neuts (auto) 6.3 Neutrophils % 70.7 Lymphocytes % 16.5 Monocytes % 10.8 H Eosinophils % 1.3 Basophils % 0.7 Nucleated RBC % 0 Sodium 144 Potassium 3.9 Chloride 110 H Carbon Dioxide 30 Anion Gap 4 L BUN 25.6 H Creatinine 0.9 Est GFR (CKD-EPI)AfAm 65.70 Est GFR (CKD-EPI)NonAf 56.69 Random Glucose 150 H Calcium 9.4 Active Medications Generic Name Dose Route Start Last Admin Trade Name Freq PRN Reason Stop Dose Admin Carbidopa/Levodopa 1 each 08/24/19 22:00 08/26/19 09:14 Sinemet 25/100 - GT 1 each QID DASH Administration Enoxaparin Sodium 40 mg 08/23/19 15:15 08/26/19 09:14 Lovenox - SQ 40 mg DAILY DASH Administration Nystatin 1 applic 08/21/19 22:00 08/26/19 09:15 Mycostatin Cream - TP 1 applic BID DASH Administration Prednisone 2.5 mg 08/24/19 22:00 08/26/19 09:14 Deltasone - PEG 2.5 mg BID DASH Administration Silver Sulfadiazine 1 applic 08/11/19 22:00 08/26/19 09:17 Silvadene - TP 1 applic BID DASH Administration Thiamine HCl 200 mg 08/10/19 11:30 08/26/19 09:15 Vitamin B1 Injection - IM 200 mg DAILY DASH Administration ASSESSMENT/PLAN: 88 year old female with PMHx significant for Parkison's disease, arthritis. Patient presented with cough x 3 days and subjective fever and was found to have Pneumonia and UTI. Sepsis 2/2 PNA and UTI off Zosyn . wbc TODAY 8.9 NO SIGNS OF INFECTION POSSIBLY STRESS RELATED s/p PEG placement day 3. Abdominal binder to prevent PEG removal by pt Tube feed : Jevity 1.5 @40mls/hr RISA creatinine stable at 0.9 monitor h/o pernicious anemia B12 IM 200 daily RUE edema improved cont to monitor Parkinson home meds ILD steroids restarted R toe blister drying out silvadene dressing FEN Potassium repleted today was at 3.2 prior to repletion DVT PPX resumed Lovenox 40 SQ daily Pt currently has a hospital bed and has continued need for it. Pt will continue to need a semi electrical hospital bed with a gel overlay mattress. Pt has limited mobility and limited cognitive functioning due to advanced parkinson disease. Pt will require frequent body position changes which she cannot complete independently and are not feasable with a regular bed to alleviate pain and prevent further skin breakdown. pt has a new feeding tube placed and hospital bed helps prevent aspiration. Pt bed needs repair. Pt bed lock in one position. Visit type - Emergency Visit Emergency Visit: Yes ED Registration Date: 08/09/19 Care time: The patient presented to the Emergency Department on the above date and was hospitalized for further evaluation of their emergent condition. - New Patient This patient is new to me today: No - Critical Care Critical Care patient: No - Discharge Referral Referred to [facility] Med P.C.: No ATTENDING PHYSICIAN STATEMENT I saw and evaluated the patient. I reviewed the resident's note and discussed the case with the resident. I agree with the resident's findings and plan as documented. SUBJECTIVE: OBJECTIVE: ASSESSMENT AND PLAN:
--- NOTE | 2019-08-26 17:05 | PN ---
Teaching Attending Note Name of Resident: Dayna Bailey ATTENDING PHYSICIAN STATEMENT I saw and evaluated the patient. I reviewed the resident's note and discussed the case with the resident. I agree with the resident's findings and plan as documented. SUBJECTIVE: Patient is comfortable, awake , eyes fully open. OBJECTIVE: Vital Signs Temperature 98.6 F 08/26/19 14:15 Pulse Rate 76 08/26/19 14:15 Respiratory Rate 19 08/26/19 14:15 Blood Pressure 120/56 L 08/26/19 14:15 O2 Sat by Pulse Oximetry (%) 96 08/25/19 21:00 GENERAL: The patient is awake, eyes open but non verbal in no acute distress. HEAD: Normal with no signs of trauma. EYES: PERRL, extraocular movements intact, sclera anicteric, conjunctiva clear. ENT: Ears normal, oropharynx clear without exudates, moist mucous membranes. NECK: Trachea midline, full range of motion, supple. LUNGS: Breath sounds equal, clear to auscultation bilaterally, no wheezes, no crackles, no accessory muscle use. HEART: Regular rate and rhythm, S1, S2 without murmur, rub or gallop. ABDOMEN: Soft, NT,ND, +BS, positive for Gtube , no guarding, no rebound, no hepatosplenomegaly, no masses. EXTREMITIES: 2+ pulses, warm, well-perfused, no edema. NEUROLOGICAL: Cranial nerves II through XII grossly intact. Normal speech, gait not observed. PSYCH: Normal mood, normal affect. SKIN: Warm, dry, normal turgor, no rashes or lesions noted CBCD WBC 8.9 K/mm3 (4.0-10.0) 08/26/19 07:38 RBC 2.76 M/mm3 (3.60-5.2) L 08/26/19 07:38 Hgb 8.1 GM/dL (10.7-15.3) L 08/26/19 07:38 Hct 24.4 % (32.4-45.2) L 08/26/19 07:38 MCV 88.4 fl (80-96) 08/26/19 07:38 MCHC 33.1 g/dl (32.0-36.0) 08/26/19 07:38 RDW 15.2 % (11.6-15.6) 08/26/19 07:38 Plt Count 423 K/MM3 (134-434) 08/26/19 07:38 MPV 8.0 fl (7.5-11.1) 08/26/19 07:38 CMP Sodium 144 mmol/L (136-145) 08/26/19 07:38 Potassium 3.9 mmol/L (3.5-5.1) 08/26/19 07:38 Chloride 110 mmol/L (98-107) H 08/26/19 07:38 Carbon Dioxide 30 mmol/L (21-32) 08/26/19 07:38 Anion Gap 4 MMOL/L (8-16) L 08/26/19 07:38 BUN 25.6 mg/dL (7-18) H 08/26/19 07:38 Creatinine 0.9 mg/dL (0.55-1.3) 08/26/19 07:38 Random Glucose 150 mg/dL (74-106) H 08/26/19 07:38 Calcium 9.4 mg/dL (8.5-10.1) 08/26/19 07:38 Total Bilirubin 0.3 mg/dL (0.2-1) 08/25/19 06:35 AST 19 U/L (15-37) 08/25/19 06:35 ALT < 6 U/L (13-61) L 08/25/19 06:35 Alkaline Phosphatase 95 U/L (45-117) 08/25/19 06:35 Total Protein 5.6 g/dl (6.4-8.2) L 08/25/19 06:35 Albumin 1.8 g/dl (3.4-5.0) L 08/25/19 06:35 CARDIAC ENZYMES Troponin I 0.02 ng/ml (0.00-0.05) 08/09/19 18:06 Home Medications Medication Instructions Recorded Nebivolol HCl [Bystolic] 2.5 mg PO DAILY 02/19/15 predniSONE [Deltasone -] 2.5 mg PO BID 02/19/15 Carbidopa-Levo ER 50-200 Tab 200 mg PO QID 08/09/19 Furosemide [Lasix -] 20 mg PO BID 08/09/19 Omeprazole 20 mg PO BID 08/10/19 Miscellaneous Medical Supply 1 each ASDIR #1 mis 08/25/19 [Outpatient Order] ASSESSMENT AND PLAN: Patient is 88yo female with Pmhx of dementia and parkinsons, ILD and OA who is being treated for PNA and UTI. #s/p sepsis, due to LL PNA and UTI resolved , s/p IV Abx , s/p Gtube tolerating diet . TF Recs per dietitian # Worsening RUE swelling : US is negative # Parkinson's: continue home meds carbi -Levo. will give through gtube # H/o ILD: was on low dose prednisone at home. will resume when PEG in place. DVT px: Lovenox. discharge planning as per SW: As per pt's daughter Mally (C:[phone]) regarding dc plan. Mally requested [facility] [place] [facility] hospice; T:[phone] F:[phone]. If hospice is approved then pt will probably need hospital bed swapped out and new home o2. Rx to [facility] T:[phone] F:[phone] for the hospital bed to be repaired. Rx for enteral feedings with [place]; must be notified with dc date in order to delivery supplies. Plan is home with hosp[facility] of [place], enteral feedings with [place], and 22/06 [employer] via [employer] [facility] [employer]. Pt needs ambulance home. Will continue to f/u.
[2019-08-27] MEDS: NYSTATIN 100,000 UNIT/GM TOPICAL CREAM 15 GM TUBE TP SCH ×2 (09:47→21:07)
[2019-08-27] MEDS: SILVER SULFADIAZINE 1% TOP CREAM 50 GM JAR TP SCH ×2 (09:48→21:07)
[2019-08-27] MEDS: ENOXAPARIN NA (PORCINE) 40 MG/0.4 ML DISP.SYRIN SQ SCH (09:53)
[2019-08-27] MEDS: THIAMINE HCL 200 MG/2 ML VIAL IM SCH (09:54)
[2019-08-27] MEDS: predniSONE 5 MG TABLET (UD) PEG SCH ×2 (09:54→21:05)
[2019-08-27] MEDS: CARBIDOPA/LEVODOPA 25/100 TABLET (FP) GT SCH ×4 (09:54→21:05)
--- NOTE | 2019-08-27 14:43 | PN ---
Progress Note (short form) - Note Progress Note: Patient is comfortable with no acute distress, lying in bed.no new complains. Vital Signs Temperature 97.8 F 08/27/19 13:24 Pulse Rate 78 08/27/19 13:24 Respiratory Rate 18 08/27/19 13:24 Blood Pressure 141/76 08/27/19 13:24 O2 Sat by Pulse Oximetry (%) 95 08/27/19 09:00 GENERAL: The patient is awake, eyes open but non verbal in no acute distress. HEAD: Normal with no signs of trauma. EYES: PERRL, extraocular movements intact, sclera anicteric, conjunctiva clear. ENT: Ears normal, oropharynx clear without exudates, moist mucous membranes. NECK: Trachea midline, full range of motion, supple. LUNGS: Breath sounds equal, clear to auscultation bilaterally, no wheezes, no crackles, no accessory muscle use. HEART: Regular rate and rhythm, S1, S2 without murmur, rub or gallop. ABDOMEN: Soft, NT,ND, +BS, positive for Gtube , no guarding, no rebound, no hepatosplenomegaly, no masses. EXTREMITIES: 2+ pulses, warm, well-perfused, no edema. NEUROLOGICAL: Cranial nerves II through XII grossly intact. Normal speech, gait not observed. PSYCH: Normal mood, normal affect. SKIN: Warm, dry, normal turgor, no rashes or lesions noted CBCD WBC 8.9 K/mm3 (4.0-10.0) 08/26/19 07:38 RBC 2.76 M/mm3 (3.60-5.2) L 08/26/19 07:38 Hgb 8.1 GM/dL (10.7-15.3) L 08/26/19 07:38 Hct 24.4 % (32.4-45.2) L 08/26/19 07:38 MCV 88.4 fl (80-96) 08/26/19 07:38 MCHC 33.1 g/dl (32.0-36.0) 08/26/19 07:38 RDW 15.2 % (11.6-15.6) 08/26/19 07:38 Plt Count 423 K/MM3 (134-434) 08/26/19 07:38 MPV 8.0 fl (7.5-11.1) 08/26/19 07:38 CMP Sodium 144 mmol/L (136-145) 08/26/19 07:38 Potassium 3.9 mmol/L (3.5-5.1) 08/26/19 07:38 Chloride 110 mmol/L (98-107) H 08/26/19 07:38 Carbon Dioxide 30 mmol/L (21-32) 08/26/19 07:38 Anion Gap 4 MMOL/L (8-16) L 08/26/19 07:38 BUN 25.6 mg/dL (7-18) H 08/26/19 07:38 Creatinine 0.9 mg/dL (0.55-1.3) 08/26/19 07:38 Random Glucose 150 mg/dL (74-106) H 08/26/19 07:38 Calcium 9.4 mg/dL (8.5-10.1) 08/26/19 07:38 Total Bilirubin 0.3 mg/dL (0.2-1) 08/25/19 06:35 AST 19 U/L (15-37) 08/25/19 06:35 ALT < 6 U/L (13-61) L 08/25/19 06:35 Alkaline Phosphatase 95 U/L (45-117) 08/25/19 06:35 Total Protein 5.6 g/dl (6.4-8.2) L 08/25/19 06:35 Albumin 1.8 g/dl (3.4-5.0) L 08/25/19 06:35 CARDIAC ENZYMES Troponin I 0.02 ng/ml (0.00-0.05) 08/09/19 18:06 Current Medications Generic Name Dose Route Start Last Admin Trade Name Freq PRN Reason Stop Dose Admin Carbidopa/Levodopa 1 each 08/24/19 22:00 08/27/19 13:18 Sinemet 25/100 - GT 1 each QID DASH Administration Enoxaparin Sodium 40 mg 08/23/19 15:15 08/27/19 09:53 Lovenox - SQ 40 mg DAILY DASH Administration Nystatin 1 applic 08/21/19 22:00 08/27/19 09:47 Mycostatin Cream - TP 1 applic BID DASH Administration Prednisone 2.5 mg 08/24/19 22:00 08/27/19 09:54 Deltasone - PEG 2.5 mg BID DASH Administration Silver Sulfadiazine 1 applic 08/11/19 22:00 08/27/19 09:48 Silvadene - TP 1 applic BID DASH Administration Thiamine HCl 200 mg 08/10/19 11:30 08/27/19 09:54 Vitamin B1 Injection - IM 200 mg DAILY DASH Administration Home Medications Medication Instructions Recorded Nebivolol HCl [Bystolic] 2.5 mg PO DAILY 02/19/15 predniSONE [Deltasone -] 2.5 mg PO BID 02/19/15 Carbidopa-Levo ER 50-200 Tab 200 mg PO QID 08/09/19 Furosemide [Lasix -] 20 mg PO BID 08/09/19 Omeprazole 20 mg PO BID 08/10/19 Miscellaneous Medical Supply 1 each ASDIR #1 mis 08/25/19 [Outpatient Order] ASSESSMENT AND PLAN: Patient is 88yo female with Pmhx of dementia and parkinsons, ILD and OA who is being treated for PNA and UTI. #s/p sepsis, due to LL PNA and UTI resolved , s/p IV Abx , s/p Gtube tolerating diet . TF Recs per dietitian # Worsening RUE swelling : US is negative # Parkinson's: continue home meds carbi -Levo. will give through gtube # H/o ILD: was on low dose prednisone at home. will resume when PEG in place. DVT px: Lovenox. waiting for hospice care evaluation discharge planning as per SW: As per pt's daughter Mally (C:[phone]) regarding dc plan. Mally requested [facility] hospice; T:[phone] F:[phone]. If hospice is approved then pt will probably need hospital bed swapped out and new home o2. Rx to [facility] T:[phone] F:[phone] for the hospital bed to be repaired. Rx for enteral feedings with [place]; must be notified with dc date in order to delivery supplies. Plan is home with hosp[facility] of [place], enteral feedings with [place], and 24/7 [employer] via [employer] [facility] [employer]. Pt needs ambulance home. Will continue to f/u. Visit type - Emergency Visit Emergency Visit: Yes ED Registration Date: 08/09/19 Care time: The patient presented to the Emergency Department on the above date and was hospitalized for further evaluation of their emergent condition. - New Patient This patient is new to me today: No - Critical Care Critical Care patient: No - Discharge Referral Referred to [facility] Med P.C.: No
--- NOTE | 2019-08-27 17:52 | PN ---
Progress Note, Physician History of Present Illness: Pt alert, without distress. Temp of 99.6 last evening, afebrile today. - Current Medication List Current Medications: Active Medications Carbidopa/Levodopa (Sinemet 25/100 -) 1 each GT QID [facility] Last Admin: 08/27/19 17:44 Dose: 1 each Enoxaparin Sodium (Lovenox -) 40 mg SQ DAILY [facility] Last Admin: 08/27/19 09:53 Dose: 40 mg Nystatin (Mycostatin Cream -) 1 applic TP BID [facility] Last Admin: 08/27/19 09:47 Dose: 1 applic Prednisone (Deltasone -) 2.5 mg PEG BID [facility] Last Admin: 08/27/19 09:54 Dose: 2.5 mg Silver Sulfadiazine (Silvadene -) 1 applic TP BID [facility] Last Admin: 08/27/19 09:48 Dose: 1 applic Thiamine HCl (Vitamin B1 Injection -) 200 mg IM DAILY [facility] Last Admin: 08/27/19 09:54 Dose: 200 mg - Objective Vital Signs: Vital Signs Temperature 97.8 F 08/27/19 13:24 Pulse Rate 78 08/27/19 13:24 Respiratory Rate 18 08/27/19 13:24 Blood Pressure 141/76 08/27/19 13:24 O2 Sat by Pulse Oximetry (%) 95 08/27/19 09:00 Constitutional: Yes: No Distress, Calm Cardiovascular: Yes: Regular Rate and Rhythm Respiratory: Yes: Regular Gastrointestinal: Yes: Normal Bowel Sounds, Soft Extremities: Yes: WNL Integumentary: Yes: WNL Neurological: Yes: Alert Labs: CBC, BMP 08/26/19 07:38 08/26/19 07:38 INR, PTT INR 1.28 (0.83-1.09) H 08/22/19 12:56 Microbiology 08/14/19 18:12 Urine - Urine - Catheterized Urine Culture - Final NO GROWTH OBTAINED 08/14/19 18:12 Urine For Antigen Detection Legionella Antigen - Final 08/14/19 18:12 Urine For Antigen Detection Streptococcus pneumoniae Antigen (M - Final 08/09/19 18:06 Blood - Peripheral Venous Blood Culture - Final NO GROWTH AFTER 5 DAYS INCUBATION 08/09/19 18:06 Blood - Peripheral Venous Blood Culture - Final NO GROWTH AFTER 5 DAYS INCUBATION 08/09/19 18:15 Urine - Urine Clean Catch Urine Culture - Final Contaminated: Please Repeat Problem List - Problems (1) Pneumonia Code(s): J18.9 - PNEUMONIA, UNSPECIFIED ORGANISM Qualifiers: Pneumonia type: due to unspecified organism Laterality: unspecified laterality Lung location: unspecified part of lung Qualified Code(s): J18.9 - Pneumonia, unspecified organism (2) Sepsis Code(s): A41.9 - SEPSIS, UNSPECIFIED ORGANISM Qualifiers: Sepsis type: sepsis due to unspecified organism Sepsis acute organ dysfunction status: without acute organ dysfunction Qualified Code(s): A41.9 - Sepsis, unspecified organism (3) UTI (urinary tract infection) Code(s): N39.0 - URINARY TRACT INFECTION, SITE NOT SPECIFIED Qualifiers: Urinary tract infection type: site unspecified Hematuria presence: with hematuria Qualified Code(s): N39.0 - Urinary tract infection, site not specified; R31.9 - Hematuria, unspecified (4) Anemia Code(s): D64.9 - ANEMIA, UNSPECIFIED (5) Hypertension Code(s): I10 - ESSENTIAL (PRIMARY) HYPERTENSION (6) Parkinson's disease dementia Code(s): G20 - PARKINSON'S DISEASE; F02.80 - DEMENTIA IN OTH DISEASES CLASSD ELSWHR W/O BEHAVRL DISTURB (7) UTI (urinary tract infection) Code(s): N39.0 - URINARY TRACT INFECTION, SITE NOT SPECIFIED Qualifiers: Urinary tract infection type: acute cystitis Hematuria presence: with hematuria Qualified Code(s): N30.01 - Acute cystitis with hematuria Assessment/Plan PNA UTI Fever Leukocytosis Pleural Effusion RISA Lactic Acidosis Parkinson's disease Dementia CAD -- s/p course of antibiotics -- intermittent temp elevations, afebrile today without distress -- continue monitor at this time
[2019-08-28] MEDS: predniSONE 5 MG TABLET (UD) PEG SCH ×2 (09:12→21:58)
[2019-08-28] MEDS: CARBIDOPA/LEVODOPA 25/100 TABLET (FP) GT SCH ×4 (09:12→21:58)
[2019-08-28] MEDS: THIAMINE HCL 200 MG/2 ML VIAL IM SCH (09:12)
[2019-08-28] MEDS: ENOXAPARIN NA (PORCINE) 40 MG/0.4 ML DISP.SYRIN SQ SCH (09:12)
[2019-08-28] MEDS: SILVER SULFADIAZINE 1% TOP CREAM 50 GM JAR TP SCH ×2 (09:13→22:39)
[2019-08-28] MEDS: NYSTATIN 100,000 UNIT/GM TOPICAL CREAM 15 GM TUBE TP SCH ×2 (09:14→22:39)
[2019-08-28 09:28] LABS: BASO % 0.7 % (0-2.0); EOS % 1.9 % (0-4.5); HEMATOCRIT 25.2 % (32.4-45.2); HEMOGLOBIN 8.2 GM/dL (10.7-15.3); LYMPH % 15.6 % (8-40); MCH 29.6 pg (25.7-33.7); MCHC 32.6 g/dl (32.0-36.0); MEAN CELL VOLUME 90.6 fl (80-96); MEAN PLT VOLUME 8.3 fl (7.5-11.1); MONO % 12.6 % (3.8-10.2); NEUT % 69.2 % (42.8-82.8); PLATELET COUNT 397 K/MM3 (134-434); RBC 2.78 M/mm3 (3.60-5.2); RDW 15.6 % (11.6-15.6); WHITE BLOOD COUNT 10.3 K/mm3 (4.0-10.0)
[2019-08-28 10:07] LABS: BLOOD UREA NITROGEN 18.6 mg/dL (7-18); CALCIUM 9.2 mg/dL (8.5-10.1); CREATININE 0.7 mg/dL (0.55-1.3); POTASSIUM 4.1 mmol/L (3.5-5.1)
[2019-08-28 10:14] LABS: ANISOCYTOSIS 1+; MACROCYTOSIS 0; PLATELET ESTIMATE NORMAL
--- NOTE | 2019-08-28 13:39 | PN ---
Physical Exam: SUBJECTIVE: Patient seen and examined.Pt was awake in no apparent distress. OBJECTIVE: Vital Signs Period Temp Pulse Resp BP Sys/Torres Pulse Ox Last 24 Hr 98.4 F-99.1 F 70-82 18-18 135-156/52-60 96-97 GENERAL: The patient is non verbal, awake in no apparent distress. HEAD: Normal with no signs of trauma. LUNGS: Breath sounds vesicular, with diffuse crackles dry, no wheezes, no accessory muscle use. HEART: Regular rate and rhythm, S1, S2 without murmur, rub or gallop. ABDOMEN: PEG TUBE IN PLACE, Soft, nontender, nondistended, normoactive bowel sounds, no guarding, no rebound, no hepatosplenomegaly, no masses. EXTREMITIES: 2+ pulses, warm, well-perfused, 1+ edema in upper extremities Skin: R toe intact blister drying out. Laboratory Results - last 24 hr 08/28/19 08/28/19 08:55 08:55 WBC 10.3 H RBC 2.78 L Hgb 8.2 L Hct 25.2 L MCV 90.6 MCH 29.6 MCHC 32.6 RDW 15.6 Plt Count 397 MPV 8.3 Absolute Neuts (auto) 7.1 Neutrophils % 69.2 Neutrophils % (Manual) 64.1 Band Neutrophils % 0.0 Lymphocytes % 15.6 Lymphocytes % (Manual) 15.5 D Monocytes % 12.6 H Monocytes % (Manual) 13 H D Eosinophils % 1.9 Eosinophils % (Manual) 2.9 Basophils % 0.7 Basophils % (Manual) 1.0 D Myelocytes % (Man) 2 D Promyelocytes % (Man) 0 Blast Cells % (Manual) 0 Nucleated RBC % 1 H Metamyelocytes 2 D Hypochromia 0 Platelet Estimate Normal Polychromasia 1+ Poikilocytosis 1+ Anisocytosis 1+ Microcytosis 1+ Macrocytosis 0 Schistocytes 1+ Sodium 145 Potassium 4.1 Chloride 109 H Carbon Dioxide 32 Anion Gap 4 L BUN 18.6 H Creatinine 0.7 Est GFR (CKD-EPI)AfAm 89.03 Est GFR (CKD-EPI)NonAf 76.82 Random Glucose 139 H Calcium 9.2 Active Medications Generic Name Dose Route Start Last Admin Trade Name Freq PRN Reason Stop Dose Admin Acetaminophen 500 mg 08/28/19 12:16 Tylenol Oral Solution - PO Q4H PRN PAIN Carbidopa/Levodopa 1 each 08/24/19 22:00 08/28/19 09:12 Sinemet 25/100 - GT 1 each QID DASH Administration Enoxaparin Sodium 40 mg 08/23/19 15:15 08/28/19 09:12 Lovenox - SQ 40 mg DAILY DASH Administration Nystatin 1 applic 08/21/19 22:00 08/28/19 09:14 Mycostatin Cream - TP 1 applic BID DASH Administration Prednisone 2.5 mg 08/24/19 22:00 08/28/19 09:12 Deltasone - PEG 2.5 mg BID DASH Administration Silver Sulfadiazine 1 applic 08/11/19 22:00 08/28/19 09:13 Silvadene - TP 1 applic BID DASH Administration Thiamine HCl 200 mg 08/29/19 10:00 Vitamin B1 - PO DAILY [facility] ASSESSMENT/PLAN: 88 year old female with PMHx significant for Parkison's disease, arthritis. Patient presented with cough x 3 days and subjective fever and was found to have Pneumonia and UTI. Sepsis 2/2 PNA and UTI off Zosyn . wbc TODAY 10.3 NO SIGNS OF INFECTION POSSIBLY STEROID RELATED s/p PEG placement day . Abdominal binder to prevent PEG removal by pt Tube feed : Jevity 1.5 @40mls/hr RISA creatinine stable at 0.7 monitor h/o pernicious anemia B12 PO 200 daily RUE edema improved cont to monitor Parkinson home meds ILD steroids 2.5 BID restarted R toe blister drying out silvadene dressing FEN Potassium 4.1 monitor DVT PPX resumed Lovenox 40 SQ daily Pt currently has a hospital bed and has continued need for it. Pt will continue to need a semi electrical hospital bed with a gel overlay mattress. Pt has limited mobility and limited cognitive functioning due to advanced parkinson disease. Pt will require frequent body position changes which she cannot complete independently and are not feasable with a regular bed to alleviate pain and prevent further skin breakdown. pt has a new feeding tube placed and hospital bed helps prevent aspiration. Pt bed needs repair. Pt bed lock in one position. Visit type - Emergency Visit Emergency Visit: Yes ED Registration Date: 08/09/19 Care time: The patient presented to the Emergency Department on the above date and was hospitalized for further evaluation of their emergent condition. - New Patient This patient is new to me today: No - Critical Care Critical Care patient: No - Discharge Referral Referred to [facility] Med P.C.: No ATTENDING PHYSICIAN STATEMENT I saw and evaluated the patient. I reviewed the resident's note and discussed the case with the resident. I agree with the resident's findings and plan as documented. SUBJECTIVE: OBJECTIVE: ASSESSMENT AND PLAN:
--- NOTE | 2019-08-28 15:57 | PN ---
Teaching Attending Note Name of Resident: Dayna Bailey ATTENDING PHYSICIAN STATEMENT I saw and evaluated the patient. I reviewed the resident's note and discussed the case with the resident. I agree with the resident's findings and plan as documented. SUBJECTIVE: Patient is awake, comfortable with no acute distress. OBJECTIVE: Vital Signs Temperature 99.1 F 08/28/19 09:10 Pulse Rate 82 08/28/19 09:10 Respiratory Rate 18 08/28/19 09:10 Blood Pressure 156/57 L 08/28/19 09:10 O2 Sat by Pulse Oximetry (%) 97 08/28/19 09:00 GENERAL: The patient is awake, eyes open but non verbal in no acute distress. HEAD: Normal with no signs of trauma. EYES: PERRL, extraocular movements intact, sclera anicteric, conjunctiva clear. ENT: Ears normal, oropharynx clear without exudates, moist mucous membranes. NECK: Trachea midline, full range of motion, supple. LUNGS: Breath sounds equal, clear to auscultation bilaterally, no wheezes, no crackles, no accessory muscle use. HEART: Regular rate and rhythm, S1, S2 without murmur, rub or gallop. ABDOMEN: Soft, NT,ND, +BS, positive for Gtube , no guarding, no rebound, no hepatosplenomegaly, no masses. EXTREMITIES: 2+ pulses, warm, well-perfused, no edema. NEUROLOGICAL: Cranial nerves II through XII grossly intact. Normal speech, gait not observed. PSYCH: Normal mood, normal affect. SKIN: Warm, dry, normal turgor, no rashes or lesions noted CBCD WBC 10.3 K/mm3 (4.0-10.0) H 08/28/19 08:55 RBC 2.78 M/mm3 (3.60-5.2) L 08/28/19 08:55 Hgb 8.2 GM/dL (10.7-15.3) L 08/28/19 08:55 Hct 25.2 % (32.4-45.2) L 08/28/19 08:55 MCV 90.6 fl (80-96) 08/28/19 08:55 MCHC 32.6 g/dl (32.0-36.0) 08/28/19 08:55 RDW 15.6 % (11.6-15.6) 08/28/19 08:55 Plt Count 397 K/MM3 (134-434) 08/28/19 08:55 MPV 8.3 fl (7.5-11.1) 08/28/19 08:55 CMP Sodium 145 mmol/L (136-145) 08/28/19 08:55 Potassium 4.1 mmol/L (3.5-5.1) 08/28/19 08:55 Chloride 109 mmol/L (98-107) H 08/28/19 08:55 Carbon Dioxide 32 mmol/L (21-32) 08/28/19 08:55 Anion Gap 4 MMOL/L (8-16) L 08/28/19 08:55 BUN 18.6 mg/dL (7-18) H 08/28/19 08:55 Creatinine 0.7 mg/dL (0.55-1.3) 08/28/19 08:55 Random Glucose 139 mg/dL (74-106) H 08/28/19 08:55 Calcium 9.2 mg/dL (8.5-10.1) 08/28/19 08:55 Total Bilirubin 0.3 mg/dL (0.2-1) 08/25/19 06:35 AST 19 U/L (15-37) 08/25/19 06:35 ALT < 6 U/L (13-61) L 08/25/19 06:35 Alkaline Phosphatase 95 U/L (45-117) 08/25/19 06:35 Total Protein 5.6 g/dl (6.4-8.2) L 08/25/19 06:35 Albumin 1.8 g/dl (3.4-5.0) L 08/25/19 06:35 CARDIAC ENZYMES Troponin I 0.02 ng/ml (0.00-0.05) 08/09/19 18:06 Current Medications Generic Name Dose Route Start Last Admin Trade Name Freq PRN Reason Stop Dose Admin Acetaminophen 500 mg 08/28/19 12:16 Tylenol Oral Solution - PO Q4H PRN PAIN Carbidopa/Levodopa 1 each 08/24/19 22:00 08/28/19 14:53 Sinemet 25/100 - GT 1 each QID DASH Administration Enoxaparin Sodium 40 mg 08/23/19 15:15 08/28/19 09:12 Lovenox - SQ 40 mg DAILY DASH Administration Nystatin 1 applic 08/21/19 22:00 08/28/19 09:14 Mycostatin Cream - TP 1 applic BID DASH Administration Prednisone 2.5 mg 08/24/19 22:00 08/28/19 09:12 Deltasone - PEG 2.5 mg BID DASH Administration Silver Sulfadiazine 1 applic 08/11/19 22:00 08/28/19 09:13 Silvadene - TP 1 applic BID DASH Administration Thiamine HCl 200 mg 08/29/19 10:00 Vitamin B1 - PO DAILY [facility] Home Medications Medication Instructions Recorded RX: Nebivolol HCl [Bystolic] 2.5 mg PO DAILY 02/19/15 RX: predniSONE [Deltasone -] 2.5 mg PO BID 02/19/15 Carbidopa-Levo ER 50-200 Tab 200 mg PO QID 08/09/19 RX: Furosemide [Lasix -] 20 mg PO BID 08/09/19 RX: Omeprazole 20 mg PO BID 08/10/19 RX: Miscellaneous Medical Supply 1 [place] [facility] [place] [[place] Order] ASSESSMENT AND PLAN: Patient is 88yo female with Pmhx of dementia and parkinsons, ILD and OA who is being treated for PNA and UTI. No new changes. patient is waiting for hospice care. #s/p sepsis, due to LL PNA and UTI resolved , s/p IV Abx , s/p Gtube tolerating diet . TF Recs per dietitian # Worsening RUE swelling : US is negative # Parkinson's: continue home meds carbi -Levo. will give through gtube # H/o ILD: was on low dose prednisone at home. will resume when PEG in place. DVT px: Lovenox. waiting for hospice care evaluation discharge planning as per SW: As per pt's daughter Mally (C:[phone]) regarding dc plan. Mally requested [facility] hospice; T:[phone] F:[phone]. If hospice is approved then pt will probably need hospital bed swapped out and new home o2. Rx to [facility] T:[phone] F:[phone] for the hospital bed to be repaired. Rx for enteral feedings with [facility]; must be notified with dc date in order to delivery supplies. 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 Pt needs ambulance home. Will continue to f/u.
--- NOTE | 2019-08-28 16:33 | PN ---
Progress Note, Physician History of Present Illness: Pt is easily arousable, weak. Daughter at bedside. No acute distress noted. Tmax 99.1F - Current Medication List Current Medications: Active Medications Acetaminophen (Tylenol Oral Solution -) 500 mg PO Q4H PRN PRN Reason: PAIN Carbidopa/Levodopa (Sinemet 25/100 -) 1 each GT QID [facility] Last Admin: 08/28/19 14:53 Dose: 1 each Enoxaparin Sodium (Lovenox -) 40 mg SQ DAILY [facility] Last Admin: 08/28/19 09:12 Dose: 40 mg Nystatin (Mycostatin Cream -) 1 applic TP BID [facility] Last Admin: 08/28/19 09:14 Dose: 1 applic Prednisone (Deltasone -) 2.5 mg PEG BID [facility] Last Admin: 08/28/19 09:12 Dose: 2.5 mg Silver Sulfadiazine (Silvadene -) 1 applic TP BID [facility] Last Admin: 08/28/19 09:13 Dose: 1 applic Thiamine HCl (Vitamin B1 -) 200 mg PO DAILY [facility] - Objective Vital Signs: Vital Signs Temperature 99.1 F 08/28/19 09:10 Pulse Rate 82 08/28/19 09:10 Respiratory Rate 18 08/28/19 09:10 Blood Pressure 156/57 L 08/28/19 09:10 O2 Sat by Pulse Oximetry (%) 97 08/28/19 09:00 Constitutional: Yes: No Distress, Calm Cardiovascular: Yes: Regular Rate and Rhythm Respiratory: Yes: Other (basilar crackles) Gastrointestinal: Yes: Normal Bowel Sounds, Soft, Other (peg) Neurological: Yes: Alert, Weakness Labs: CBC, BMP 08/28/19 08:55 08/28/19 08:55 INR, PTT INR 1.28 (0.83-1.09) H 08/22/19 12:56 Microbiology 08/14/19 18:12 Urine - Urine - Catheterized Urine Culture - Final NO GROWTH OBTAINED 08/14/19 18:12 Urine For Antigen Detection Legionella Antigen - Final 08/14/19 18:12 Urine For Antigen Detection Streptococcus pneumoniae Antigen (M - Final 08/09/19 18:06 Blood - Peripheral Venous Blood Culture - Final NO GROWTH AFTER 5 DAYS INCUBATION 08/09/19 18:06 Blood - Peripheral Venous Blood Culture - Final NO GROWTH AFTER 5 DAYS INCUBATION 08/09/19 18:15 Urine - Urine Clean Catch Urine Culture - Final Contaminated: Please Repeat Problem List - Problems (1) Pneumonia Code(s): J18.9 - PNEUMONIA, UNSPECIFIED ORGANISM Qualifiers: Pneumonia type: due to unspecified organism Laterality: unspecified laterality Lung location: unspecified part of lung Qualified Code(s): J18.9 - Pneumonia, unspecified organism (2) Sepsis Code(s): A41.9 - SEPSIS, UNSPECIFIED ORGANISM Qualifiers: Sepsis type: sepsis due to unspecified organism Sepsis acute organ dysfunction status: without acute organ dysfunction Qualified Code(s): A41.9 - Sepsis, unspecified organism (3) UTI (urinary tract infection) Code(s): N39.0 - URINARY TRACT INFECTION, SITE NOT SPECIFIED Qualifiers: Urinary tract infection type: site unspecified Hematuria presence: with hematuria Qualified Code(s): N39.0 - Urinary tract infection, site not specified; R31.9 - Hematuria, unspecified (4) Anemia Code(s): D64.9 - ANEMIA, UNSPECIFIED (5) Hypertension Code(s): I10 - ESSENTIAL (PRIMARY) HYPERTENSION (6) Parkinson's disease dementia Code(s): G20 - PARKINSON'S DISEASE; F02.80 - DEMENTIA IN OTH DISEASES CLASSD ELSWHR W/O BEHAVRL DISTURB (7) UTI (urinary tract infection) Code(s): N39.0 - URINARY TRACT INFECTION, SITE NOT SPECIFIED Qualifiers: Urinary tract infection type: acute cystitis Hematuria presence: with hematuria Qualified Code(s): N30.01 - Acute cystitis with hematuria Assessment/Plan PNA UTI Fever Leukocytosis Pleural Effusion RISA Lactic Acidosis Parkinson's disease Dementia CAD -- occasional temp elevations, afebrile today, without distress -- completed course of antibiotics -- wbc slightly elevated today, if in the setting of persistent fever would r/o new infectious etiology -- continue monitor off antibiotics at this time
[2019-08-28] MEDS: ACETAMINOPHEN 650 MG/20.3 ML ORAL SOLUTION (CUPS) PO PRN ×2 (17:32→22:04)
[2019-08-29 08:42] LABS: BASO % 0.8 % (0-2.0); EOS % 4.3 % (0-4.5); HEMATOCRIT 26.6 % (32.4-45.2); HEMOGLOBIN 8.6 GM/dL (10.7-15.3); LYMPH % 17.2 % (8-40); MCHC 32.5 g/dl (32.0-36.0); MEAN CELL VOLUME 89.3 fl (80-96); MONO % 12.6 % (3.8-10.2); NEUT % 65.1 % (42.8-82.8); PLATELET COUNT 416 K/MM3 (134-434); RBC 2.98 M/mm3 (3.60-5.2); RDW 15.8 % (11.6-15.6); WHITE BLOOD COUNT 11.8 K/mm3 (4.0-10.0)
[2019-08-29] MEDS: CARBIDOPA/LEVODOPA 25/100 TABLET (FP) GT SCH ×4 (09:38→22:00)
[2019-08-29] MEDS: predniSONE 5 MG TABLET (UD) PEG SCH ×2 (09:38→22:01)
[2019-08-29] MEDS: THIAMINE HCL 100 MG TABLET (FP) PO SCH (09:38)
[2019-08-29] MEDS: ENOXAPARIN NA (PORCINE) 40 MG/0.4 ML DISP.SYRIN SQ SCH (09:38)
[2019-08-29] MEDS: SILVER SULFADIAZINE 1% TOP CREAM 50 GM JAR TP SCH ×2 (09:39→22:01)
[2019-08-29] MEDS: NYSTATIN 100,000 UNIT/GM TOPICAL CREAM 15 GM TUBE TP SCH ×2 (09:39→22:01)
--- NOTE | 2019-08-29 11:15 | PN ---
Progress Note, Physician History of Present Illness: weak no new issues - Current Medication List Current Medications: Active Medications Acetaminophen (Tylenol Oral Solution -) 500 mg PO Q4H PRN PRN Reason: PAIN Last Admin: 08/28/19 22:04 Dose: 500 mg Carbidopa/Levodopa (Sinemet 25/100 -) 1 each GT QID [facility] Last Admin: 08/29/19 09:38 Dose: 1 each Enoxaparin Sodium (Lovenox -) 40 mg SQ DAILY [facility] Last Admin: 08/29/19 09:38 Dose: 40 mg Nystatin (Mycostatin Cream -) 1 applic TP BID [facility] Last Admin: 08/29/19 09:39 Dose: 1 applic Prednisone (Deltasone -) 2.5 mg PEG BID [facility] Last Admin: 08/29/19 09:38 Dose: 2.5 mg Silver Sulfadiazine (Silvadene -) 1 applic TP BID [facility] Last Admin: 08/29/19 09:39 Dose: 1 applic Thiamine HCl (Vitamin B1 -) 200 mg PO DAILY [facility] Last Admin: 08/29/19 09:38 Dose: 200 mg - Objective Vital Signs: Vital Signs Temperature 98.8 F 08/29/19 05:37 Pulse Rate 82 08/29/19 05:37 Respiratory Rate 18 08/29/19 05:37 Blood Pressure 152/68 08/29/19 05:37 O2 Sat by Pulse Oximetry (%) 97 08/28/19 21:00 Constitutional: Yes: No Distress, Calm Cardiovascular: Yes: S1, S2 Respiratory: Yes: Regular, CTA Bilaterally Extremities: Yes: Other Neurological: Yes: Alert, Other Psychiatric: Yes: Other Labs: CBC, BMP 08/29/19 08:20 08/28/19 08:55 INR, PTT INR 1.28 (0.83-1.09) H 08/22/19 12:56 Assessment/Plan Problem List - Problems (1) Pneumonia Code(s): J18.9 - PNEUMONIA, UNSPECIFIED ORGANISM Qualifiers: Pneumonia type: due to unspecified organism Laterality: unspecified laterality Lung location: unspecified part of lung Qualified Code(s): J18.9 - Pneumonia, unspecified organism (2) Sepsis Code(s): A41.9 - SEPSIS, UNSPECIFIED ORGANISM Qualifiers: Sepsis type: sepsis due to unspecified organism Sepsis acute organ dysfunction status: without acute organ dysfunction Qualified Code(s): A41.9 - Sepsis, unspecified organism (3) UTI (urinary tract infection) Code(s): N39.0 - URINARY TRACT INFECTION, SITE NOT SPECIFIED Qualifiers: Urinary tract infection type: site unspecified Hematuria presence: with hematuria Qualified Code(s): N39.0 - Urinary tract infection, site not specified; R31.9 - Hematuria, unspecified (4) Anemia Code(s): D64.9 - ANEMIA, UNSPECIFIED (5) Hypertension Code(s): I10 - ESSENTIAL (PRIMARY) HYPERTENSION (6) Parkinson's disease dementia Code(s): G20 - PARKINSON'S DISEASE; F02.80 - DEMENTIA IN OTH DISEASES CLASSD ELSWHR W/O BEHAVRL DISTURB (7) UTI (urinary tract infection) Code(s): N39.0 - URINARY TRACT INFECTION, SITE NOT SPECIFIED Qualifiers: Urinary tract infection type: acute cystitis Hematuria presence: with hematuria Qualified Code(s): N30.01 - Acute cystitis with hematuria Assessment/Plan PNA Fever Leukocytosis Pleural Effusion UTI RISA Lactic Acidosis Parkinson's disease Dementia CAD plan nutrition continue current mgmrest as per the team
[2019-08-29 11:17] LABS: ANISOCYTOSIS 1+; MACROCYTOSIS 0; PLATELET ESTIMATE NORMAL
--- NOTE | 2019-08-29 15:44 | PN ---
Physical Exam: SUBJECTIVE: Patient seen and examined. asleep in no apparent distress. OBJECTIVE: Vital Signs Period Temp Pulse Resp BP Sys/Torres Pulse Ox Last 24 Hr 97.9 F-100.1 F 82-95 18-20 134-157/58-75 96-97 GENERAL: The patient is non verbal, asleep in no apparent distress. HEAD: Normal with no signs of trauma. LUNGS: Breath sounds vesicular, with diffuse crackles dry, no wheezes, no accessory muscle use. HEART: Regular rate and rhythm, S1, S2 without murmur, rub or gallop. ABDOMEN: PEG TUBE IN PLACE, Soft, nontender, nondistended, normoactive bowel sounds, no guarding, no rebound, no hepatosplenomegaly, no masses. EXTREMITIES: 2+ pulses, warm, well-perfused, 1+ edema in upper extremities Skin: R toe intact blister drying out. Laboratory Results - last 24 hr 08/29/19 08:20 WBC 11.8 H RBC 2.98 L Hgb 8.6 L Hct 26.6 L MCV 89.3 MCH 29.0 MCHC 32.5 RDW 15.8 H Plt Count 416 MPV 8.0 Absolute Neuts (auto) 7.7 Neutrophils % 65.1 Neutrophils % (Manual) 64.7 Band Neutrophils % 0.0 Lymphocytes % 17.2 Lymphocytes % (Manual) 19.2 D Monocytes % 12.6 H Monocytes % (Manual) 8 Eosinophils % 4.3 D Eosinophils % (Manual) 3.0 Basophils % 0.8 Basophils % (Manual) 3.0 H Myelocytes % (Man) 1 D Promyelocytes % (Man) 0 Blast Cells % (Manual) 0 Nucleated RBC % 0 Metamyelocytes 0 D Hypochromia 0 Platelet Estimate Normal Polychromasia 1+ Poikilocytosis 0 Anisocytosis 1+ Microcytosis 1+ Macrocytosis 0 Active Medications Generic Name Dose Route Start Last Admin Trade Name Freq PRN Reason Stop Dose Admin Acetaminophen 500 mg 08/28/19 12:16 08/28/19 22:04 Tylenol Oral Solution - PO 500 mg Q4H PRN Administration PAIN Carbidopa/Levodopa 1 each 08/24/19 22:00 08/29/19 13:36 Sinemet 25/100 - GT 1 each QID DASH Administration Enoxaparin Sodium 40 mg 08/23/19 15:15 08/29/19 09:38 Lovenox - SQ 40 mg DAILY DASH Administration Nystatin 1 applic 08/21/19 22:00 08/29/19 09:39 Mycostatin Cream - TP 1 applic BID DASH Administration Prednisone 2.5 mg 08/24/19 22:00 08/29/19 09:38 Deltasone - PEG 2.5 mg BID DASH Administration Silver Sulfadiazine 1 applic 08/11/19 22:00 08/29/19 09:39 Silvadene - TP 1 applic BID DASH Administration Thiamine HCl 200 mg 08/29/19 10:00 08/29/19 09:38 Vitamin B1 - PO 200 mg DAILY DASH Administration ASSESSMENT/PLAN: 88 year old female with PMHx significant for Parkison's disease, arthritis. Patient presented with cough x 3 days and subjective fever and was found to have Pneumonia and UTI. Sepsis 2/2 PNA and UTI off Zosyn . wbc TODAY 11.8 NO SIGNS OF INFECTION POSSIBLY STEROID RELATED s/p PEG placement Abdominal binder to prevent PEG removal by pt Tube feed : Jevity 1.5 @40mls/hr . water increased to 20 due to Na of 145 RISA creatinine stable at 0.7 monitor h/o pernicious anemia B12 PO 200 daily RUE edema improved cont to monitor Parkinson home meds ILD steroids 2.5 BID R toe blister drying out silvadene dressing FEN jevity 1.5 DVT PPX resumed Lovenox 40 SQ daily pending home hospice approval Pt currently has a hospital bed and has continued need for it. Pt will continue to need a semi electrical hospital bed with a gel overlay mattress. Pt has limited mobility and limited cognitive functioning due to advanced parkinson disease. Pt will require frequent body position changes which she cannot complete independently and are not feasable with a regular bed to alleviate pain and prevent further skin breakdown. pt has a new feeding tube placed and hospital bed helps prevent aspiration. Pt bed needs repair. Pt bed lock in one position. Visit type - Emergency Visit Emergency Visit: Yes ED Registration Date: 08/09/19 Care time: The patient presented to the Emergency Department on the above date and was hospitalized for further evaluation of their emergent condition. - New Patient This patient is new to me today: No - Critical Care Critical Care patient: No - Discharge Referral Referred to [facility] Med P.C.: No ATTENDING PHYSICIAN STATEMENT I saw and evaluated the patient. I reviewed the resident's note and discussed the case with the resident. I agree with the resident's findings and plan as documented. SUBJECTIVE: OBJECTIVE: ASSESSMENT AND PLAN:
[2019-08-29] MEDS: ACETAMINOPHEN 650 MG/20.3 ML ORAL SOLUTION (CUPS) PO PRN ×2 (16:30→22:24)
--- NOTE | 2019-08-29 16:37 | PN ---
Teaching Attending Note Name of Resident: Dayna Bailey ATTENDING PHYSICIAN STATEMENT I saw and evaluated the patient. I reviewed the resident's note and discussed the case with the resident. I agree with the resident's findings and plan as documented. SUBJECTIVE: Patient is comfortable with no acute distress, awake. OBJECTIVE: Vital Signs Temperature 97.9 F 08/29/19 13:47 Pulse Rate 89 08/29/19 13:47 Respiratory Rate 18 08/29/19 13:47 Blood Pressure 149/75 08/29/19 13:47 O2 Sat by Pulse Oximetry (%) 96 08/29/19 09:00 GENERAL: The patient is awake, eyes open but non verbal in no acute distress. HEAD: Normal with no signs of trauma. EYES: PERRL, extraocular movements intact, sclera anicteric, conjunctiva clear. ENT: Ears normal, oropharynx clear without exudates, moist mucous membranes. NECK: Trachea midline, full range of motion, supple. LUNGS: Breath sounds equal, clear to auscultation bilaterally, no wheezes, no crackles, no accessory muscle use. HEART: Regular rate and rhythm, S1, S2 without murmur, rub or gallop. ABDOMEN: Soft, NT,ND, +BS, positive for Gtube , no guarding, no rebound, no hepatosplenomegaly, no masses. EXTREMITIES: 2+ pulses, warm, well-perfused, no edema. NEUROLOGICAL: Cranial nerves II through XII grossly intact. Normal speech, gait not observed. PSYCH: Normal mood, normal affect. SKIN: Warm, dry, normal turgor, no rashes or lesions noted CBCD WBC 11.8 K/mm3 (4.0-10.0) H 08/29/19 08:20 RBC 2.98 M/mm3 (3.60-5.2) L 08/29/19 08:20 Hgb 8.6 GM/dL (10.7-15.3) L 08/29/19 08:20 Hct 26.6 % (32.4-45.2) L 08/29/19 08:20 MCV 89.3 fl (80-96) 08/29/19 08:20 MCHC 32.5 g/dl (32.0-36.0) 08/29/19 08:20 RDW 15.8 % (11.6-15.6) H 08/29/19 08:20 Plt Count 416 K/MM3 (134-434) 08/29/19 08:20 MPV 8.0 fl (7.5-11.1) 08/29/19 08:20 CMP Sodium 145 mmol/L (136-145) 08/28/19 08:55 Potassium 4.1 mmol/L (3.5-5.1) 08/28/19 08:55 Chloride 109 mmol/L (98-107) H 08/28/19 08:55 Carbon Dioxide 32 mmol/L (21-32) 08/28/19 08:55 Anion Gap 4 MMOL/L (8-16) L 08/28/19 08:55 BUN 18.6 mg/dL (7-18) H 08/28/19 08:55 Creatinine 0.7 mg/dL (0.55-1.3) 08/28/19 08:55 Random Glucose 139 mg/dL (74-106) H 08/28/19 08:55 Calcium 9.2 mg/dL (8.5-10.1) 08/28/19 08:55 Total Bilirubin 0.3 mg/dL (0.2-1) 08/25/19 06:35 AST 19 U/L (15-37) 08/25/19 06:35 ALT < 6 U/L (13-61) L 08/25/19 06:35 Alkaline Phosphatase 95 U/L (45-117) 08/25/19 06:35 Total Protein 5.6 g/dl (6.4-8.2) L 08/25/19 06:35 Albumin 1.8 g/dl (3.4-5.0) L 08/25/19 06:35 CARDIAC ENZYMES Troponin I 0.02 ng/ml (0.00-0.05) 08/09/19 18:06 Current Medications Generic Name Dose Route Start Last Admin Trade Name Freq PRN Reason Stop Dose Admin Acetaminophen 500 mg 08/28/19 12:16 08/29/19 16:30 Tylenol Oral Solution - PO 500 mg Q4H PRN Administration PAIN Carbidopa/Levodopa 1 each 08/24/19 22:00 08/29/19 13:36 Sinemet 25/100 - GT 1 each QID DASH Administration Enoxaparin Sodium 40 mg 08/23/19 15:15 08/29/19 09:38 Lovenox - SQ 40 mg DAILY DASH Administration Nystatin 1 applic 08/21/19 22:00 08/29/19 09:39 Mycostatin Cream - TP 1 applic BID DASH Administration Prednisone 2.5 mg 08/24/19 22:00 08/29/19 09:38 Deltasone - PEG 2.5 mg BID DASH Administration Silver Sulfadiazine 1 applic 08/11/19 22:00 08/29/19 09:39 Silvadene - TP 1 applic BID DASH Administration Thiamine HCl 200 mg 08/29/19 10:00 08/29/19 09:38 Vitamin B1 - PO 200 mg DAILY DASH Administration Home Medications Medication Instructions Recorded Nebivolol HCl [Bystolic] 2.5 mg PO DAILY 02/19/15 predniSONE [Deltasone -] 2.5 mg PO BID 02/19/15 Carbidopa-Levo ER 50-200 Tab 200 mg PO QID 08/09/19 Furosemide [Lasix -] 20 mg PO BID 08/09/19 Omeprazole 20 mg PO BID 08/10/19 Miscellaneous Medical Supply 1 each ASDIR #1 misc 08/25/19 [Outpatient Order] ASSESSMENT AND PLAN: Patient is 88yo female with Pmhx of dementia and parkinsons, ILD and OA who is being treated for PNA and UTI. No new changes. patient is waiting for hospice care. #s/p sepsis, due to LL PNA and UTI resolved , s/p IV Abx , s/p Gtube tolerating diet . TF Recs per dietitian # Worsening RUE swelling : US is negative # Parkinson's: continue home meds carbi -Levo. will give through gtube # H/o ILD: was on low dose prednisone at home. will resume when PEG in place. DVT px: Lovenox. waiting for hospice care evaluation /sw is on the case. discharge planning as per SW: As per pt's daughter Mally (C:[phone]) regarding dc plan. Mally requested [facility] hospice; T:[phone] F:[phone]. If hospice is approved then pt will probably need hospital bed swapped out and new home o2. Rx to [facility] T:[phone] F:[phone] for the hospital bed to be repaired. Rx for enteral feedings with [facility]; must be notified with dc date in order to delivery supplies. Plan is home with [facility], enteral feedings with [facility], and 22/06 [employer] via [facility]. Pt needs ambulance home. Will continue to f/u. waiting for hospice evaluation
--- NOTE | 2019-08-30 07:45 | PN ---
Progress Note, Physician - Current Medication List Current Medications: Active Medications Acetaminophen (Tylenol Oral Solution -) 500 mg PO Q4H PRN PRN Reason: PAIN Last Admin: 08/29/19 22:24 Dose: 500 mg Carbidopa/Levodopa (Sinemet 25/100 -) 1 each GT QID [facility] Last Admin: 08/29/19 22:00 Dose: 1 each Enoxaparin Sodium (Lovenox -) 40 mg SQ DAILY [facility] Last Admin: 08/29/19 09:38 Dose: 40 mg Nystatin (Mycostatin Cream -) 1 applic TP BID [facility] Last Admin: 08/29/19 22:01 Dose: 1 applic Prednisone (Deltasone -) 2.5 mg PEG BID [facility] Last Admin: 08/29/19 22:01 Dose: 2.5 mg Silver Sulfadiazine (Silvadene -) 1 applic TP BID [facility] Last Admin: 08/29/19 22:01 Dose: 1 applic Thiamine HCl (Vitamin B1 -) 200 mg PO DAILY [facility] Last Admin: 08/29/19 09:38 Dose: 200 mg - Objective Vital Signs: Vital Signs Temperature 98.6 F 08/30/19 02:00 Pulse Rate 81 08/30/19 02:00 Respiratory Rate 20 08/30/19 02:00 Blood Pressure 144/72 08/30/19 02:00 O2 Sat by Pulse Oximetry (%) 98 08/29/19 21:00 Labs: CBC, BMP 08/29/19 08:20 08/28/19 08:55 INR, PTT INR 1.28 (0.83-1.09) H 08/22/19 12:56
[2019-08-30 08:19] LABS: BASO % 0.8 % (0-2.0); EOS % 1.9 % (0-4.5); HEMATOCRIT 24.8 % (32.4-45.2); HEMOGLOBIN 8.2 GM/dL (10.7-15.3); LYMPH % 14.9 % (8-40); MCH 29.7 pg (25.7-33.7); MEAN CELL VOLUME 89.9 fl (80-96); MEAN PLT VOLUME 8.4 fl (7.5-11.1); MONO % 12.3 % (3.8-10.2); NEUT % 70.1 % (42.8-82.8); PLATELET COUNT 398 K/MM3 (134-434); RBC 2.76 M/mm3 (3.60-5.2); RDW 15.8 % (11.6-15.6); WHITE BLOOD COUNT 10.9 K/mm3 (4.0-10.0)
[2019-08-30 08:45] LABS: ALBUMIN 1.9 g/dl (3.4-5.0); BILIRUBIN,TOTAL 0.2 mg/dL (0.2-1); BLOOD UREA NITROGEN 18.7 mg/dL (7-18); CREATININE 0.7 mg/dL (0.55-1.3); PHOSPHOROUS 2.8 mg/dL (2.5-4.9); POTASSIUM 4.6 mmol/L (3.5-5.1); TOT PROT 5.9 g/dl (6.4-8.2)
[2019-08-30] MEDS: predniSONE 5 MG TABLET (UD) PEG SCH ×2 (09:28→21:41)
[2019-08-30] MEDS: THIAMINE HCL 100 MG TABLET (FP) PO SCH (09:29)
[2019-08-30] MEDS: CARBIDOPA/LEVODOPA 25/100 TABLET (FP) GT SCH ×4 (09:30→23:26)
[2019-08-30] MEDS: ENOXAPARIN NA (PORCINE) 40 MG/0.4 ML DISP.SYRIN SQ SCH (09:30)
[2019-08-30] MEDS: NYSTATIN 100,000 UNIT/GM TOPICAL CREAM 15 GM TUBE TP SCH ×2 (09:32→23:27)
[2019-08-30] MEDS: SILVER SULFADIAZINE 1% TOP CREAM 50 GM JAR TP SCH ×2 (09:32→23:27)
[2019-08-30 10:45] LABS: ANISOCYTOSIS 1+; MACROCYTOSIS 0; PLATELET ESTIMATE NORMAL
--- NOTE | 2019-08-30 13:21 | PN ---
Physical Exam: SUBJECTIVE: Patient seen and examined. asleep in no apparent distress OBJECTIVE: Vital Signs Period Temp Pulse Resp BP Sys/Torres Pulse Ox Last 24 Hr 97.9 F-99.7 F 76-97 18-20 127-149/54-75 98 GENERAL: The patient is non verbal, asleep in no apparent distress. HEAD: Normal with no signs of trauma. LUNGS: Breath sounds vesicular, with diffuse crackles dry, no wheezes, no accessory muscle use. HEART: Regular rate and rhythm, S1, S2 without murmur, rub or gallop. ABDOMEN: PEG TUBE IN PLACE, Soft, nontender, nondistended, normoactive bowel sounds, no guarding, no rebound, no hepatosplenomegaly, no masses. EXTREMITIES: 2+ pulses, warm, well-perfused, 1+ edema in upper extremities Skin: R toe intact blister drying out. Laboratory Results - last 24 hr 08/30/19 08/30/19 07:18 07:18 WBC 10.9 H RBC 2.76 L Hgb 8.2 L Hct 24.8 L MCV 89.9 MCH 29.7 MCHC 33.0 RDW 15.8 H Plt Count 398 MPV 8.4 Absolute Neuts (auto) 7.7 Neutrophils % 70.1 Neutrophils % (Manual) 77.0 Band Neutrophils % 0.0 Lymphocytes % 14.9 Lymphocytes % (Manual) 11.0 D Monocytes % 12.3 H Monocytes % (Manual) 11 H Eosinophils % 1.9 Eosinophils % (Manual) 1.0 Basophils % 0.8 Basophils % (Manual) 0.0 Myelocytes % (Man) 0 D Promyelocytes % (Man) 0 Blast Cells % (Manual) 0 Nucleated RBC % 0 Metamyelocytes 0 Hypochromia 0 Platelet Estimate Normal Polychromasia 1+ Poikilocytosis 0 Anisocytosis 1+ Microcytosis 1+ Macrocytosis 0 Sodium 147 H Potassium 4.6 Chloride 108 H Carbon Dioxide 36 H Anion Gap 3 L BUN 18.7 H Creatinine 0.7 Est GFR (CKD-EPI)AfAm 89.03 Est GFR (CKD-EPI)NonAf 76.82 Random Glucose 127 H Calcium 9.0 Phosphorus 2.8 Magnesium 2.0 Total Bilirubin 0.2 AST 19 ALT 8 L Alkaline Phosphatase 115 Total Protein 5.9 L Albumin 1.9 L Active Medications Generic Name Dose Route Start Last Admin Trade Name Freq PRN Reason Stop Dose Admin Acetaminophen 500 mg 08/28/19 12:16 08/29/19 22:24 Tylenol Oral Solution - PO 500 mg Q4H PRN Administration PAIN Carbidopa/Levodopa 1 each 08/24/19 22:00 08/30/19 09:30 Sinemet 25/100 - GT 1 each QID DASH Administration Enoxaparin Sodium 40 mg 08/23/19 15:15 08/30/19 09:30 Lovenox - SQ 40 mg DAILY DASH Administration Nystatin 1 applic 08/21/19 22:00 08/30/19 09:32 Mycostatin Cream - TP 1 applic BID DASH Administration Prednisone 2.5 mg 08/24/19 22:00 08/30/19 09:28 Deltasone - PEG 2.5 mg BID DASH Administration Silver Sulfadiazine 1 applic 08/11/19 22:00 08/30/19 09:32 Silvadene - TP 1 applic BID DASH Administration Thiamine HCl 200 mg 08/29/19 10:00 08/30/19 09:29 Vitamin B1 - PO 200 mg DAILY DASH Administration ASSESSMENT/PLAN: 88 year old female with PMHx significant for Parkison's disease, arthritis. Patient presented with cough x 3 days and subjective fever and was found to have Pneumonia and UTI. Sepsis 2/2 PNA and UTI off Zosyn . wbc TODAY 10.9 NO SIGNS OF INFECTION POSSIBLY STEROID RELATED s/p PEG placement Abdominal binder to prevent PEG removal by pt Tube feed : Jevity 1.5 @40mls/hr . water increased to 25 due to hypernatremia RISA creatinine stable at 0.7 monitor h/o pernicious anemia B12 PO 200 daily RUE edema improved cont to monitor Parkinson home meds ILD steroids 2.5 BID R toe blister drying out silvadene dressing FEN jevity 1.5 DVT PPX resumed Lovenox 40 SQ daily pending home hospice approval Pt currently has a hospital bed and has continued need for it. Pt will continue to need a semi electrical hospital bed with a gel overlay mattress. Pt has limited mobility and limited cognitive functioning due to advanced parkinson disease. Pt will require frequent body position changes which she cannot complete independently and are not feasable with a regular bed to alleviate pain and prevent further skin breakdown. pt has a new feeding tube placed and hospital bed helps prevent aspiration. Pt bed needs repair. Pt bed lock in one position. Visit type - Emergency Visit Emergency Visit: Yes ED Registration Date: 08/09/19 Care time: The patient presented to the Emergency Department on the above date and was hospitalized for further evaluation of their emergent condition. - New Patient This patient is new to me today: No - Critical Care Critical Care patient: No - Discharge Referral Referred to [facility] Med P.C.: No ATTENDING PHYSICIAN STATEMENT I saw and evaluated the patient. I reviewed the resident's note and discussed the case with the resident. I agree with the resident's findings and plan as documented. SUBJECTIVE: OBJECTIVE: ASSESSMENT AND PLAN:
--- NOTE | 2019-08-30 17:16 | PN ---
Teaching Attending Note Name of Resident: Dayna Bailey ATTENDING PHYSICIAN STATEMENT I saw and evaluated the patient. I reviewed the resident's note and discussed the case with the resident. I agree with the resident's findings and plan as documented. SUBJECTIVE: No events over night . unable to obtain hx from patient due to dementia OBJECTIVE: NAD, contracted upper and lower extremities. Cv: RRR Abd: soft, NT, ND , has a PEG tube with a clear dressing and intact skin around it . Ext: no edema on LE. upper extremities with improved edema compared to last week ASSESSMENT AND PLAN: 88 y/o lady with h/o dementia and parkinsons, ILD and OA who is being treated for PNA and UTI. 1- s/p Sepsis, due to LL PNA and possible UTI.resolved 2- malnutrition . has PEG 3- PArkinson's DZ 4- hypernatremia, dehydration 5-H/o ILD plan : - cont TF - [id number] free water to 25 cc/hr - cont CArbi-levo - cont home prednisone - cont lovenox dispo: home hospice set for tomorrow with all the supplies needed
[2019-08-30] MEDS ORDERED: PT OWN MED DRAWER 7, Y5N ONE (21:39)
[2019-08-31 06:20] VITALS: PULSE 83
[2019-08-31] MEDS ORDERED: PT OWN MED DRAWER 7, Y5N ONE (08:58)
[2019-08-31] MEDS: ENOXAPARIN NA (PORCINE) 40 MG/0.4 ML DISP.SYRIN SQ SCH (09:07)
[2019-08-31] MEDS: THIAMINE HCL 100 MG TABLET (FP) PO SCH (09:07)
[2019-08-31] MEDS: predniSONE 5 MG TABLET (UD) PEG SCH (09:07)
[2019-08-31] MEDS: NYSTATIN 100,000 UNIT/GM TOPICAL CREAM 15 GM TUBE TP SCH (09:08)
[2019-08-31] MEDS: CARBIDOPA/LEVODOPA 25/100 TABLET (FP) GT SCH (09:08)
[2019-08-31] MEDS: SILVER SULFADIAZINE 1% TOP CREAM 50 GM JAR TP SCH (09:08)
[2019-08-31 10:00] VITALS: BP 149/71; TEMP 98
--- NOTE | 2019-08-31 10:47 | PN ---
Progress Note, Physician History of Present Illness: no new issues - Current Medication List Current Medications: Active Medications Acetaminophen (Tylenol Oral Solution -) 500 mg PO Q4H PRN PRN Reason: PAIN Last Admin: 08/29/19 22:24 Dose: 500 mg Carbidopa/Levodopa (Sinemet 25/100 -) 1 each GT QID [facility] Last Admin: 08/31/19 09:08 Dose: 1 each Enoxaparin Sodium (Lovenox -) 40 mg SQ DAILY [facility] Last Admin: 08/31/19 09:07 Dose: 40 mg Nystatin (Mycostatin Cream -) 1 applic TP BID [facility] Last Admin: 08/31/19 09:08 Dose: 1 applic Prednisone (Deltasone -) 2.5 mg PEG BID [facility] Last Admin: 08/31/19 09:07 Dose: 2.5 mg Silver Sulfadiazine (Silvadene -) 1 applic TP BID [facility] Last Admin: 08/31/19 09:08 Dose: 1 applic Thiamine HCl (Vitamin B1 -) 200 mg PO DAILY [facility] Last Admin: 08/31/19 09:07 Dose: 200 mg - Objective Vital Signs: Vital Signs Temperature 98 F 08/31/19 09:59 Pulse Rate 83 08/31/19 09:59 Respiratory Rate 19 08/31/19 09:59 Blood Pressure 149/71 08/31/19 09:59 O2 Sat by Pulse Oximetry (%) 96 08/31/19 09:00 Constitutional: Yes: No Distress, Calm Cardiovascular: Yes: S1, S2 Respiratory: Yes: Regular, CTA Bilaterally Gastrointestinal: Yes: Normal Bowel Sounds, Soft Musculoskeletal: Yes: WNL Extremities: Yes: Other Neurological: Yes: Alert Psychiatric: Yes: Other Labs: CBC, BMP 08/30/19 07:18 08/30/19 07:18 INR, PTT INR 1.28 (0.83-1.09) H 08/22/19 12:56 Assessment/Plan Problem List - Problems (1) Pneumonia Code(s): J18.9 - PNEUMONIA, UNSPECIFIED ORGANISM Qualifiers: Pneumonia type: due to unspecified organism Laterality: unspecified laterality Lung location: unspecified part of lung Qualified Code(s): J18.9 - Pneumonia, unspecified organism (2) Sepsis Code(s): A41.9 - SEPSIS, UNSPECIFIED ORGANISM Qualifiers: Sepsis type: sepsis due to unspecified organism Sepsis acute organ dysfunction status: without acute organ dysfunction Qualified Code(s): A41.9 - Sepsis, unspecified organism (3) UTI (urinary tract infection) Code(s): N39.0 - URINARY TRACT INFECTION, SITE NOT SPECIFIED Qualifiers: Urinary tract infection type: site unspecified Hematuria presence: with hematuria Qualified Code(s): N39.0 - Urinary tract infection, site not specified; R31.9 - Hematuria, unspecified (4) Anemia Code(s): D64.9 - ANEMIA, UNSPECIFIED (5) Hypertension Code(s): I10 - ESSENTIAL (PRIMARY) HYPERTENSION (6) Parkinson's disease dementia Code(s): G20 - PARKINSON'S DISEASE; F02.80 - DEMENTIA IN OTH DISEASES CLASSD ELSWHR W/O BEHAVRL DISTURB (7) UTI (urinary tract infection) Code(s): N39.0 - URINARY TRACT INFECTION, SITE NOT SPECIFIED Qualifiers: Urinary tract infection type: acute cystitis Hematuria presence: with hematuria Qualified Code(s): N30.01 - Acute cystitis with hematuria Assessment/Plan PNA Fever Leukocytosis Pleural Effusion UTI RISA Lactic Acidosis Parkinson's disease Dementia CAD plan nutrition continue current mgmrest as per the team
--- NOTE | 2019-08-31 16:49 | DS ---
Physical Exam: SUBJECTIVE: Patient seen and examined. Pt asleep in no apparent distress. OBJECTIVE: Vital Signs Period Temp Pulse Resp BP Sys/Torres Pulse Ox Last 24 Hr 89.1 F-100.1 F 83-89 19-20 138-149/57-71 96-96 PHYSICAL EXAM GENERAL: The patient is non verbal, asleep in no apparent distress. HEAD: Normal with no signs of trauma. LUNGS: Breath sounds vesicular, with diffuse crackles dry, no wheezes, no accessory muscle use. HEART: Regular rate and rhythm, S1, S2 without murmur, rub or gallop. ABDOMEN: PEG TUBE IN PLACE, Soft, nontender, nondistended, normoactive bowel sounds, no guarding, no rebound, no hepatosplenomegaly, no masses. EXTREMITIES: 2+ pulses, warm, well-perfused, 1+ edema in upper extremities Skin: R toe intact blister drying out. LABS CBC, BMP 08/30/19 07:18 08/30/19 07:18 CXR 08/09/19 signs of early infiltrate HOSPITAL COURSE: Date of Admission:08/09/19 88 year old female with PMHx significant for Parkison's disease, arthritis, ILD presented with cough x 3 days and subjective fever and was found to have Pneumonia 2/2 aspiration . CXR confirmed PNA. Pt started on IV zosyn and kept for 10 days until resolution. Pt had a few fever spikes but Xrays showed no acute changes noted. There were signs of RISA so renal US was ordered as pt had no history of CKD; U/S "somewhat" atrophic kidneys.Due to high possibility of aspiration for source of PNA, speech and swallow was consulted and determined pt to be high risk for aspiration due to oral retention and severed difficulty swallowing. As pt was DNR/DNI, we discussed with family about PEG placement or hospice. Per family recommendation peg was placed and JEvity 1.5 was initiated. pt tolerated transition well. Pt had recurrent migratory swelling of both upper extremities, RUE U/S was ordered and found no DVT (possibly due to IV infiltration). Pt had prolonged stayed because of home hospice needs with hospital bed, tube feedings, and visiting nurse services. Date of Discharge: 08/31/19 Minutes to complete discharge: 35 Discharge Summary Problems reviewed: Yes Reason For Visit: URINARY TRACT INFECTION, PNEUMONIA Condition: Improved - Instructions Diet, Activity, Other Instructions: She came into the ED because of symptoms of infection in your lungs. We took pictures of her lungs and it showed pneumonia. We took a sample of her urine and we also found an infection there. We gave her antibiotics for both infections and her symptoms improved. We got a speech and swallow evaluation and it showed difficulty swallowing and food retention. As a result, we place a tube directly in her stomach to assist with eating and to reduce the risk of reinfection of your lungs. She had multiple swelling of her arms during her stay ; we did a scan and it was negative for clots. She was seen by Infectious disease while she was here. Her symptoms improved and she is now stable enough to be discharged home. Medications: Please resume all of your home medications.We made changes to her medications; Please take lasix 20 by PEG every other day. Follow up: Please follow up with your Primary care Physician, Dr Sneed within one week. Feeding instructions: continue Jevity 1.5 Tube feed mode: Hourly rate rate of 40 ml /hour additional water:25ml/hr If she begin to experience worsening cough, fevers, shortness of breath,chest pain, abdominal pain, and bleeding please return to the Emergency room immediately. Referrals: Umair Sneed MD [Primary Care Provider] - 1 Week Disposition: VNS/HOME HEALTH CARE - Home Medications Comprehensive Discharge Medication List: Ambulatory Orders Nebivolol HCl [Bystolic] 2.5 mg PO DAILY 02/19/15 predniSONE [Deltasone -] 2.5 mg PO BID 02/19/15 Carbidopa-Levo ER 50-200 Tab 200 mg PO QID 08/09/19 Omeprazole 20 mg PO BID 08/10/19 Miscellaneous Medical Supply [Outpatient Order] 1 each ASDIR #1 misc Furosemide [Lasix -] 20 mg PO Q2D #30 tablet 08/31/19 Problem List - Problems (1) RISA (acute kidney injury) Code(s): N17.9 - ACUTE KIDNEY FAILURE, UNSPECIFIED (2) Sepsis Code(s): A41.9 - SEPSIS, UNSPECIFIED ORGANISM Qualifiers: Sepsis type: sepsis due to unspecified organism Sepsis acute organ dysfunction status: without acute organ dysfunction Qualified Code(s): A41.9 - Sepsis, unspecified organism (3) Swallowing difficulty Code(s): R13.10 - DYSPHAGIA, UNSPECIFIED (4) UTI (urinary tract infection) Code(s): N39.0 - URINARY TRACT INFECTION, SITE NOT SPECIFIED Qualifiers: Urinary tract infection type: site unspecified Hematuria presence: with hematuria Qualified Code(s): N39.0 - Urinary tract infection, site not specified; R31.9 - Hematuria, unspecified (5) Hypertension Code(s): I10 - ESSENTIAL (PRIMARY) HYPERTENSION (6) Parkinson's disease dementia Code(s): G20 - PARKINSON'S DISEASE; F02.80 - DEMENTIA IN OTH DISEASES CLASSD ELSWHR W/O BEHAVRL DISTURB (7) Leukocytosis Code(s): D72.829 - ELEVATED WHITE BLOOD CELL COUNT, UNSPECIFIED (8) Pneumonia Code(s): J18.9 - PNEUMONIA, UNSPECIFIED ORGANISM Qualifiers: Pneumonia type: due to unspecified organism Laterality: unspecified laterality Lung location: unspecified part of lung Qualified Code(s): J18.9 - Pneumonia, unspecified organism (9) Weakness Code(s): R53.1 - WEAKNESS (10) Congestive heart failure Code(s): I50.9 - HEART FAILURE, UNSPECIFIED (11) UTI (urinary tract infection) Code(s): N39.0 - URINARY TRACT INFECTION, SITE NOT SPECIFIED Qualifiers: Urinary tract infection type: acute cystitis Hematuria presence: with hematuria Qualified Code(s): N30.01 - Acute cystitis with hematuria (12) Anemia Code(s): D64.9 - ANEMIA, UNSPECIFIED (13) COPD (chronic obstructive pulmonary disease) Code(s): J44.9 - CHRONIC OBSTRUCTIVE PULMONARY DISEASE, UNSPECIFIED This patient is new to me today: Yes Date on this admission: 08/31/19 Emergency Visit: Yes ED Registration Date: 08/09/19 Care time: The patient presented to the Emergency Department on the above date and was hospitalized for further evaluation of their emergent condition. Critical Care patient: No - Discharge Referral Referred to [facility] Med P.C.: No ATTENDING PHYSICIAN STATEMENT I saw and evaluated the patient. I reviewed the resident's note and discussed the case with the resident. I agree with the resident's findings and plan as documented. SUBJECTIVE: OBJECTIVE: ASSESSMENT AND PLAN:
--- NOTE | 2019-08-31 18:39 | PN ---
Teaching Attending Note Name of Resident: Kwasi Anaya ATTENDING PHYSICIAN STATEMENT I saw and evaluated the patient. I reviewed the resident's note and discussed the case with the resident. I agree with the resident's findings and plan as documented. SUBJECTIVE: No events over night OBJECTIVE: NAD, contracted upper and lower extremities. Cv: RRR Abd: soft, NT, ND, has a PEG tube with a clear dressing and intact skin around. Ext: no edema on LE. upper extremities with improved edema compared to last week ASSESSMENT AND PLAN: 88 y/o lady with h/o dementia and parkinsons, ILD and OA who is being treated for PNA and UTI. 1- s/p Sepsis, due to LL PNA and possible UTI.resolved 2- malnutrition . has PEG 3- PArkinson's DZ 4- hypernatremia, dehydration 5-H/o ILD plan : - cont TF - cont CArbi-levo - cont home prednisone - cont lovenox dispo: dc home with home hospice today
== END 2019-08-31 11:22 | disposition home health service (06) | DRG 871 ==
LOC: JER 16:03 → JERBED 19:24 → J6S 08-10 04:39
PROVIDERS: ADMIT Internal Medicine; ATTEND Internal Medicine
PROC: 0DH63UZ Insertion of Feeding Device into Stomach, Percutaneous Approach (ICD-10-PCS; principal; 2019-08-23)
PROC: BD12YZZ Fluoroscopy of Stomach using Other Contrast (ICD-10-PCS; 2019-08-23)
DX: A41.89 Other specified sepsis (principal); J18.9 Pneumonia, unspecified organism; N39.0 Urinary tract infection, site not specified; N17.9 Acute kidney failure, unspecified; E87.2 Acidosis; E87.0 Hyperosmolality and hypernatremia; E46 Unspecified protein-calorie malnutrition; E11.65 Type 2 diabetes mellitus with hyperglycemia; D72.829 Elevated white blood cell count, unspecified; I25.10 Atherosclerotic heart disease of native coronary artery without angina pectoris; R13.10 Dysphagia, unspecified; G20 Parkinson's disease; R53.1 Weakness; F03.90 Unspecified dementia, unspecified severity, without behavioral disturbance, psychotic disturbance, mood disturbance, and anxiety; E86.0 Dehydration; Z68.22 Body mass index [BMI] 22.0-22.9, adult; E87.6 Hypokalemia
CPT/HCPCS: 36415; 49440; 71045-TC-FY; 74018-TC-FY; 76775-TC; 77002-TC-FY; 80048; 80053; 81003; 82962; 83036; 83605; 83735; 84100; 84443; 84484; 85025; 85610; 85730; 86850; 86900; 86901; 87040; 87086; 87804; 87899; 93005; 93010; 93971; 97116-GP; 97161-GP; 99285-25; G0480; J0131; J1644; J7030